=== PATIENT | female | born 1935 | race Caucasian/White ===

== ENCOUNTER 2018-05-07 21:21 | Emergency (ER) | payer MEDICARE, OTHER ==
[~2018-05-07] VITALS: Ht 157.5 cm; Wt 63.5 kg
--- NOTE | 2018-05-07 21:45 | ED Back Pain ---
General Chief Complaint: Back Problems Stated Complaint: BEATA OSWALD LT BACK PAIN History of Present Illness Date Seen by Provider: May 07, 2018 Time Seen by Provider: 21:28 Location: Other (left buttock) Timing/Duration: Other (present for at least months, worse over the last month) Severity: Moderate Radiation: Other (at times radiates into the leg but currently localized to the left low back/buttock) Method of Injury: Other (no recent injury) Modifying Factors: Improves With Movement, Improves With Other (has tried no medications) Associated Symptoms: No fever, No tingling in legs/feet, No sensory/motor loss , No loss of bladder control, No loss of bowel control Allergies and Home Medications Allergies Coded Allergies: No Known Drug Allergies (Unverified , 05/07/18) Home Medications Tramadol HCl 50 Mg Tablet, 50 MG PO Q6H PRN for PAIN Prescribed by: KANNAN BARBER on 05/07/18 3800 Patient Home Medication List Home Medication List Reviewed: Yes Review of Systems Constitutional: no symptoms reported EENTM: no symptoms reported Respiratory: no symptoms reported Cardiovascular: no symptoms reported Gastrointestinal: no symptoms reported Genitourinary: no symptoms reported Musculoskeletal: see HPI Psychiatric/Neurological: See HPI Past Azdiksl-Nwmlgk-Vnyyzw Hx Patient Social History Recent Foreign Travel: No Contact w/Someone Who Travel: No Physical Exam Vital Signs Vital Signs - First Documented 05/07/18 21:30 Temp 98.9 Pulse 89 Resp 18 B/P (MAP) 181/66 (104) Pulse Ox 98 O2 Delivery Room Air Capillary Refill : Height, Weight, BMI Height: '" Weight: lbs. oz. kg; BMI Method: General Appearance: Other (appears in discomfort with movement, comfortable at rest) HEENT: Normal ENT Inspection Neck: Supple Cardiovascular: Regular Rate, Rhythm, No Edema, Normal Peripheral Pulses Respiratory: Lungs Clear Gastrointestinal: No Pulsatile Mass, Non Tender, Soft Back: Normal Inspection, No Vertebral Tenderness, Other (there is tenderness in the left low back and buttock, no other palpatory abnormalities) Extremity: Other (normal range of motion in the ipsilateral hip) Neurologic/Psychiatric: Alert, No Motor/Sensory Deficits Skin: Warm/Dry Progress/Results/Core Measures Results/Orders My Orders Orders - KANNAN BARBER DO Tramadol Tablet (Ultram Tablet) (05/07/18 21:35) Lumbar Spine 2 Or 3 View (2/28/19 21:35) Pelvis (Ap) (05/07/18 21:35) Acetaminophen Tablet (Tylenol Tablet) (05/07/18 22:40) Vital Signs/I&O 05/07/18 21:30 Temp 98.9 Pulse 89 Resp 18 B/P (MAP) 181/66 (104) Pulse Ox 98 O2 Delivery Room Air Progress Progress Note #1: Progress Note Patient has chronic pain worse over the last month, worse with movement and not associated with any neurologic deficits. She has not tried any specific interventions for her pain. History is potentially suggestive of sciatica syndrome. She had fractured her hip 3 years ago but does not have tenderness in the legs and does have a normal range of motion. There is no abdominal pain, no pulse deficit, and does have reproducible pain in the musculature of the left low back and buttock as described above. For these reasons it seems unlikely that patient's pain is secondary to AAA or urinary tract infection or ureterolithiasis. We will obtain an x-ray of the low back and pelvis given age. 50 mg of tramadol may be a reasonable analgesic choice. We will give a dose in the emergency department and will reassess. Progress Note #2: Progress Note Patient and family instructed to follow up for formal radiology interpretations of x-rays. There were no gross acute abnormalities on my interpretation on imaging, patient feels better like to go home. Prescription for tramadol provided. [facility] website checked, no record was found. Risks, benefits, alternatives of opioid prescribing were reviewed with the patient. Diagnostic Imaging Diagonstic Imaging: Xray Comments EP interpretation L-spine x-ray: Vertebral body height appear to be grossly maintained, alignment is maintained, note made of vascular calcification EP interpretation a pelvic x-ray: Orthopedic hardware appears to be grossly aligned in the left femoral head and neck, Shenton's line appears to be normal and symmetrical, no obvious fractures Reviewed: Reviewed by Me Departure Impression Primary Impression: Back pain Disposition: 01 HOME, SELF-CARE Condition: Stable Departure-Patient Inst. Referrals: NO,LOCAL PHYSICIAN (PCP) Primary Care Physician Patient Instructions: Low Back Pain (DC) Scripts Tramadol HCl (Tramadol HCl) 50 Mg Tablet 50 MG PO Q6H PRN for PAIN, #20 TAB 0 Refills Prov: KANNAN BARBER DO 05/07/18 KANNAN BARBER DO May 07, 2018 21:45
[2018-05-07] MEDS ORDERED: TRAM50TA2 PO (22:31)
[2018-05-07] MEDS ORDERED: ACETAMINOPHEN 500 MG TAB (TYLENOL) PO STA (22:40)
[2018-05-07 22:54] VITALS: BP 155/66
--- NOTE | 2018-05-08 07:38 | Diagnostic Imaging Report ---
INDICATION: Back pain radiating into left leg. FINDINGS: 3 views. Lumbosacral spine shows good alignment. Body height is well maintained throughout without fractures. Disc spaces are well-preserved. Facets show good alignment without pars defect. There is moderate sclerosis at L4-L5 and L5-S1. The aorta is densely calcified without evidence of aneurysm. SI joints are symmetrical with minimal sclerosis. IMPRESSION: 1. No acute abnormalities. 2. Mild degenerative changes of the facets and the SI joints. 3. Dense calcification of the aorta without evidence of aneurysm. Dictated by: Dictated on workstation # [id number]
--- NOTE | 2018-05-08 07:42 | Diagnostic Imaging Report ---
INDICATION: Pelvic pain. Previous left hip surgery. FINDINGS: AP pelvis. SI joints are symmetrical. Pubic symphysis in good alignment. Femoral heads are in normal articulation bilaterally. There are no bony fractures. Gamma nail is present in the left hip in good position. IMPRESSION: No acute abnormalities noted in the pelvis. Dictated by: Dictated on workstation # [id number]
== END 2018-05-07 22:50 | disposition home or self-care (01) ==
LOC: ER FS 21:24
DX: M54.5 Low back pain (principal)
CPT/HCPCS: 72100; 72170

== ENCOUNTER → 2018-06-30 | Outpatient (CLI) | payer MEDICARE ==
[~2018-06-30] MED LIST: TRAM50TA2 PO
--- NOTE | 2018-06-30 12:35 | Diagnostic Imaging Report ---
INDICATION: Previous fracture and surgery 2016. No new discrete injury however a left hip pain. Postsurgical changes left hip are intact. No acute or unhealed fracture. Femoral head morphology and sphericity normal. Superior and inferior debbie and symphysis as well as left SI joint nonacute. IMPRESSION: Chronic postsurgical changes to left femur. No acute fracture or adverse change from priors. Dictated by: Dictated on workstation # [id number]
--- NOTE | 2018-06-30 12:36 | Diagnostic Imaging Report ---
INDICATION: Pain sometimes radiating down the left leg. No known injury. FINDINGS: Lumbar statures are normal. The alignment is anatomic. Disc spaces appeared well-maintained. Lower lumbar sclerotic facet arthrosis. There is aortoiliac atherosclerotic vascular calcifications without radiographically apparent aneurysm. IMPRESSION: Mid to lower lumbar facet arthrosis with no substantial spondylosis, fracture or malalignment. Dictated by: Dictated on workstation # [id number]
== END ==
LOC: RAD FS 11:59
PROVIDERS: ATTEND Family Medicine
DX: M47.26 Other spondylosis with radiculopathy, lumbar region (principal); M25.552 Pain in left hip; Z87.81 Personal history of (healed) traumatic fracture; Z98.890 Other specified postprocedural states
CPT/HCPCS: 72100; 73502

== ENCOUNTER → 2019-10-07 | Outpatient (CLI) | payer MEDICARE, MEDICAID ==
[~2019-10-07] MED LIST changes: -TRAM50TA2 PO; +TRM50T PO
== END ==
LOC: CARD 13:00
PROVIDERS: ATTEND Family Medicine
DX: R01.1 Cardiac murmur, unspecified (principal); I35.0 Nonrheumatic aortic (valve) stenosis
CPT/HCPCS: 93306

== ENCOUNTER → 2020-05-02 | Outpatient (CLI) | payer MEDICARE, MEDICAID ==
--- NOTE | 2020-05-02 15:42 | Diagnostic Imaging Report ---
EXAMINATION: Abdomen at 2:49 p.m. INDICATION: Lower abdominal pain. Two supine views were obtained. There are no prior studies available for comparison. There is gas in both the large and small bowel in a nonspecific fashion. There is no evidence for bowel obstruction. There is no mass or organomegaly appreciated. The osseous structures are intact. The postsurgical and post traumatic changes involving the left femur seen on the prior exam of 06/30/2018 are again evident and do not appear to have changed significantly. IMPRESSION: The bowel gas pattern is nonspecific. There is no acute abnormality identified. Dictated by: Dictated on workstation # [id number]
== END ==
LOC: RAD FS 14:46
PROVIDERS: ATTEND Family Medicine
DX: R11.0 Nausea (principal); R10.84 Generalized abdominal pain
CPT/HCPCS: 74018

== ENCOUNTER → 2020-05-15 | Outpatient (CLI) | payer MEDICARE, MEDICAID ==
[~2020-05-15] MED LIST changes: +CATHETER FLUSH 10 ML SYR IV PRN; +HOLD METFORMIN - RECEIVED CONTRAST 20 ML VIAL IV SCH; +IOHEXOL 350 MG/ML 100 ML (OMNIPAQUE 350) VIAL IV ONE; +NS 100 ML (IVPB) BAG IV ONE
[2020-05-15 13:05] LABS: POTASSIUM 4.2 MMOL/L (3.6-5.0)
[2020-05-15 13:06] LABS: ALBUMIN 4.2 GM/DL (3.2-4.5); BILIRUBIN,TOTAL 0.4 MG/DL (0.1-1.0); CALCIUM 9.5 MG/DL (8.5-10.1); CREATININE SERUM 1.28 MG/DL (0.60-1.30); TOTAL PROTEIN 7.3 GM/DL (6.4-8.2)
--- NOTE | 2020-05-15 14:40 | Diagnostic Imaging Report ---
PROCEDURE: CT abdomen and pelvis with contrast. TECHNIQUE: Multiple contiguous axial images were obtained through the abdomen and pelvis after administration of intravenous contrast. Auto Exposure Controls were utilized during the CT exam to meet ALARA standards for radiation dose reduction. All CT scans use one or more of the following dose optimizing techniques: automated exposure control, MA and/or KvP adjustment based on patient size and exam type or iterative reconstruction. INDICATION: Generalized abdominal pain with nausea and vomiting. No prior studies are available for comparison. Imaging through the lung bases demonstrates a 3 mm pulmonary micronodule in the right lower lobe. Otherwise lung bases are clear. The right lobe of the liver contains an 8 mm low density, too small to characterize though perhaps a small cyst. Otherwise unremarkable. There is no biliary duct dilatation. There is some generalized low density throughout the liver suggestive of hepatic steatosis. Pancreas and spleen are unremarkable. No adrenal mass is detected. Right kidney contains a 2.7 cm low-density lesion in the upper poles consistent with a cyst. Left kidney is unremarkable. There is no hydronephrosis. Aorta is heavily calcified but nonaneurysmal. The small and large bowel loops are normal caliber. There is no obstruction. There is diverticulosis of the sigmoid but no evidence of acute diverticulitis. Bladder is decompressed. Uterus appears to be surgically absent. There is a cyst in the right adnexa measuring 2.5 cm and consistent with an ovarian cyst. No free fluid or fluid collection is identified. Bony structures demonstrate postoperative changes to the left hip. IMPRESSION: 1. Hepatic steatosis. 2. Hepatic and renal cysts. 3. Right adnexal cyst, likely ovarian. 4. Uncomplicated diverticulosis. 5. No acute feature in the abdomen or pelvis is identified. Dictated by: Dictated on workstation # [id number]
== END ==
LOC: RAD FS 12:28
PROVIDERS: ATTEND Family Medicine
DX: K76.0 Fatty (change of) liver, not elsewhere classified (principal); N28.1 Cyst of kidney, acquired; N83.291 Other ovarian cyst, right side; K57.30 Diverticulosis of large intestine without perforation or abscess without bleeding; E11.69 Type 2 diabetes mellitus with other specified complication; I10 Essential (primary) hypertension; R93.89 Abnormal findings on diagnostic imaging of other specified body structures
CPT/HCPCS: 36415; 74177; 80053

== ENCOUNTER → 2020-06-23 | Outpatient (CLI) | payer MEDICARE, MEDICAID ==
[~2020-06-23] MED LIST changes: -HOLD METFORMIN - RECEIVED CONTRAST 20 ML VIAL IV SCH; -IOHEXOL 350 MG/ML 100 ML (OMNIPAQUE 350) VIAL IV ONE; -NS 100 ML (IVPB) BAG IV ONE
--- NOTE | 2020-06-23 12:18 | Diagnostic Imaging Report ---
INDICATION: Abdominal pain. Patient was administered 5.2 mCi technetium 99 MM Choletec intravenously and imaging over the abdomen was performed. After 60 minutes patient ingested one can of Ensure and a gallbladder ejection fraction was calculated. There is homogeneous uptake of activity by the liver with prompt excretion of activity into the gallbladder and common duct. There is normal passage of activity into the small bowel. There is a large amount of gastric uptake consistent with bile gastric reflux. Gallbladder ejection fraction is 89%. IMPRESSION: 1. Patent cystic duct and common bile duct. 2. Gastric bile reflux. 3. Gallbladder ejection fraction 89%. Dictated by: Dictated on workstation # [id number]
== END ==
LOC: CARD 09:39
PROVIDERS: ATTEND Internal Medicine Gastroenterology
DX: K21.9 Gastro-esophageal reflux disease without esophagitis (principal)
CPT/HCPCS: 78227; A9537

== ENCOUNTER 2021-02-08 13:06 | Inpatient (IN) | payer MEDICARE, MEDICAID ==
[~2021-02-08] VITALS: Ht 152.4 cm; Wt 55.2 kg
[~2021-02-08 13:06] MED LIST changes: -CATHETER FLUSH 10 ML SYR IV PRN
[2021-02-08] MEDS ORDERED: MECLIZINE 25 MG (ANTIVERT) TAB PO ONE (13:30)
[2021-02-08 13:36] VITALS: BP_SYST 139; BP_SYST 158; BP_SYST 176; BP_DIAS 50; BP_DIAS 58; BP_DIAS 63
--- NOTE | 2021-02-08 13:44 | ED General ---
General Chief Complaint: Cardiac/General Problems Stated Complaint: ABN EKG History of Present Illness Date Seen by Provider: Feb 08, 2021 Time Seen by Provider: 13:39 Initial Comments Patient presenting to the emergency department for evaluation of a vertigo sensation that she says started earlier this morning while she was laying flat she felt intense spinning sensation. She says that it feels better when she sits up and comes back when she lays flat. The symptoms have been intermittent and she says she is having no vertigo at this time despite laying flat in the bed. Patient went to go see her primary care doctor and they did an EKG that they said was concerning and sent her here for further evaluation. Patient denies chest pain shortness of breath diaphoresis nausea vomiting vision changes unilateral weakness numbness or tingling. She is in no acute distress with normal vital signs. Allergies and Home Medications Allergies Coded Allergies: No Known Drug Allergies (Unverified , 05/07/18) Patient Home Medication List Home Medication List Reviewed: Yes Tramadol HCl (Tramadol HCl) 50 Mg Tablet, 50 MG PO Q6H PRN for PAIN Prescribed by: KANNAN BARBER on 05/07/182230 Review of Systems Review of Systems Constitutional: dizziness EENTM: no symptoms reported Respiratory: no symptoms reported Cardiovascular: no symptoms reported Gastrointestinal: no symptoms reported Genitourinary: no symptoms reported Musculoskeletal: no symptoms reported Skin: no symptoms reported Psychiatric/Neurological: No Symptoms Reported All Other Systems Reviewed Negative Unless Noted: Yes Past Mqeurxw-Hbyewp-Loqucw Hx Immunizations Up To Date Tetanus Booster (TDap): Unknown Seasonal Allergies Seasonal Allergies: No Past Medical History Cardiac: Yes Hypertension Neurological: No Integumentary: No Physical Exam Vital Signs Vital Signs - First Documented 02/08/21 13:15 Temp 35.8 Pulse 63 Resp 16 B/P (MAP) 175/64 (101) Pulse Ox 97 O2 Delivery Room Air Capillary Refill : Height, Weight, BMI Height: 5'2.00" Weight: 140lbs. oz. 63.285729pn; BMI Method:Stated General Appearance: No Apparent Distress, WD/WN HEENT: PERRL/EOMI Neck: Supple Respiratory: Lungs Clear, No Respiratory Distress Cardiovascular: Regular Rate, Rhythm, Normal Peripheral Pulses Gastrointestinal: Non Tender, Soft Back: Normal Inspection Extremity: Normal Capillary Refill, No Pedal Edema Neurologic/Psychiatric: Alert, Oriented x3, No Motor/Sensory Deficits, Other (Normal dbwyve-sg-fkoj and gtqe-ot-jpfc) Skin: Warm/Dry Progress/Results/Core Measures Suspected Sepsis SIRS Temperature: Pulse: 72 Respiratory Rate: Laboratory Tests 02/08/21 13:31: White Blood Count 6.5 Blood Pressure 139 /50 Mean: 79 Laboratory Tests 02/08/21 13:31: Creatinine 1.48H, Platelet Count 175, Total Bilirubin 0.3 02/08/21 14:22: Results/Orders Lab Results Laboratory Tests Test 02/08/21 13:31 02/08/21 14:22 Range/Units White Blood Count 6.5 4.3-11.0 10^3/uL Red Blood Count 4.46 3.80-5.11 10^6/uL Hemoglobin 12.9 11.5-16.0 g/dL Hematocrit 40 35-52 % Mean Corpuscular Volume 90 80-99 fL Mean Corpuscular Hemoglobin 29 25-34 pg Mean Corpuscular Hemoglobin Concent 32 32-36 g/dL Red Cell Distribution Width 14.3 10.0-14.5 % Platelet Count 175 130-400 10^3/uL Mean Platelet Volume 10.7 9.0-12.2 fL Immature Granulocyte % (Auto) 0 % Neutrophils (%) (Auto) 51 42-75 % Lymphocytes (%) (Auto) 39 12-44 % Monocytes (%) (Auto) 7 0-12 % Eosinophils (%) (Auto) 3 0-10 % Basophils (%) (Auto) 1 0-10 % Neutrophils # (Auto) 3.4 1.8-7.8 X 10^3 Lymphocytes # (Auto) 2.5 1.0-4.0 X 10^3 Monocytes # (Auto) 0.4 0.0-1.0 X 10^3 Eosinophils # (Auto) 0.2 0.0-0.3 10^3/uL Basophils # (Auto) 0.0 0.0-0.1 10^3/uL Immature Granulocyte # (Auto) 0.0 0.0-0.1 10^3/uL Sodium Level 138 135-145 MMOL/L Potassium Level 4.4 3.6-5.0 MMOL/L Chloride Level 100 98-107 MMOL/L Carbon Dioxide Level 26 21-32 MMOL/L Anion Gap 12 5-14 MMOL/L Blood Urea Nitrogen 36 H 7-18 MG/DL Creatinine 1.48 H 0.60-1.30 MG/DL Estimat Glomerular Filtration Rate 34 BUN/Creatinine Ratio 24 Glucose Level 130 H 70-105 MG/DL Calcium Level 10.1 8.5-10.1 MG/DL Corrected Calcium 9.9 8.5-10.1 MG/DL Total Bilirubin 0.3 0.1-1.0 MG/DL Aspartate Amino Transf (AST/SGOT) 16 5-34 U/L Alanine Aminotransferase (ALT/SGPT) 14 0-55 U/L Alkaline Phosphatase 45 40-136 U/L Troponin I < 0.30 <0.30 NG/ML Pro-B-Type Natriuretic Peptide 163.2 H <75.0 PG/ML Total Protein 7.6 6.4-8.2 GM/DL Albumin 4.2 3.2-4.5 GM/DL My Orders Orders - SYD DAVIS DO Cbc With Automated Diff (02/08/21 13:22) Comprehensive Metabolic Panel (02/08/21 13:22) Probnp Fs (02/08/21 13:22) Troponin I Fs (02/08/21 13:22) Meclizine Tablet (Antivert Tablet) (02/08/21 13:30) Ct Head Wo (02/08/21 13:31) Partial Thromboplastin Time (02/08/21 14:09) Protime With Inr (02/08/21 14:09) Iv/Invasive Line Insertion .IV start (02/08/21 14:09) Aspirin Chewable Tablet (Baby Aspirin Ch (02/08/21 14:30) Ed Admission (Communication) (02/08/21 14:32) Medications Given in ED Current Medications Medications Dose Ordered Sig/Caren Route Start Time Stop Time Status Last Admin Dose Admin Meclizine HCl 12.5 mg ONCE ONCE PO 02/08/21 13:30 02/08/21 13:31 DC 02/08/21 13:44 12.5 MG Vital Signs/I&O 02/08/21 02/08/21 13:15 13:36 Temp 35.8 Pulse 63 63 63 72 Resp 16 B/P (MAP) 175/64 (101) 158/63 (94) 176/58 (97) 139/50 (79) Pulse Ox 97 O2 Delivery Room Air Capillary Refill : Blood Pressure Mean: 79 Progress Note : Progress Note I reviewed the EKGs from the primary care doctor's office as well as obtain a new EKG in the emergency department and it appears that she likely has a right bundle branch block. Unfortunately I do not see any old EKGs in the system just an echocardiogram from last year that appears to be normal except for grade 1 diastolic dysfunction. Patient has symptoms most consistent with a peripheral vertigo most likely unrelated to the EKG findings but we will check labs head CT and observe. Patient has findings of subacute versus acute CVA on her CT scan. Patient in itially said that she does not take any blood thinners however later on she told me she takes a baby aspirin but she missed all her medications this morning. Patient did have difficulty ambulating to the room and required assistance which she says is new for her but she however denied having any difficulty walking. Given her altered gait with CT findings of possible CVA I spoke to Dr. Sterling and she agreed to admit patient for further observation and treatment. Departure Impression Primary Impression: Vertigo Additional Impressions: Dizziness Altered gait CVA (cerebral vascular accident) Disposition: ADMITTED INPATIENT Condition: Stable Transfer Transfer Reason: Exceeds level of care Transfer Facility: [facility] Method of Transfer: EMS Departure-Patient Inst. Referrals: SELF,ROSA EISENBERG (PCP/Family) Primary Care Physician SYD DAVIS DO Feb 08, 2021 13:44
[2021-02-08 13:55] LABS: HEMOGLOBIN 12.9 g/dL (11.5-16.0); MEAN CORPUSCULAR HEMOGLOBIN 29 pg (25-34); WHITE BLOOD COUNT 6.5 10^3/uL (4.3-11.0)
[2021-02-08 13:56] LABS: BASOPHILS % (AUTO) 1 % (0-10); EOSINOPHILS % (AUTO) 3 % (0-10); HEMATOCRIT 40 % (35-52); LYMPHOCYTES # (AUTO) 2.5 X 10^3 (1.0-4.0); LYMPHOCYTES % (AUTO) 39 % (12-44); MEAN CORPUSCULAR HGB CONC 32 g/dL (32-36); MEAN CORPUSCULAR VOLUME 90 fL (80-99); MEAN PLATELET VOLUME 10.7 fL (9.0-12.2); MONOCYTES % (AUTO) 7 % (0-12); NEUTROPHILS # (AUTO) 3.4 X 10^3 (1.8-7.8); NEUTROPHILS % (AUTO) 51 % (42-75); PLATELET COUNT 175 10^3/uL (130-400)
[2021-02-08 13:57] LABS: EOSINOPHILS # (AUTO) 0.2 10^3/uL (0.0-0.3); MONOCYTES # (AUTO) 0.4 X 10^3 (0.0-1.0)
--- NOTE | 2021-02-08 14:10 | Diagnostic Imaging Report ---
EXAMINATION: CT head without contrast. TECHNIQUE: Multiple contiguous axial images were obtained through the brain without the use of intravenous contrast. All CT scans use one or more of the following dose optimizing techniques: Automated exposure control, MA and/or KvP adjustment based on patient size and exam type or iterative reconstruction. HISTORY: Dizziness. COMPARISON: None available. FINDINGS: The ventricles and sulci are normal. There is a focus of hypoattenuation within the right parietal lobe subcortical white matter. No acute intracranial hemorrhage or abnormal extra-axial fluid collections are present. Calcification of the intracranial ICAs. No hyperdense vessel. The calvarium is intact. The mastoid air cells are clear. The visualized paranasal sinuses are clear. The orbits are normal. IMPRESSION: 1. Focus of hypoattenuation within the right parietal lobe which could be seen with acute or subacute lacunar infarct in the appropriate clinical setting. Differential consideration could include asymmetric chronic microangiopathy. MRI would be more sensitive for evaluation of acute infarct. 2. No other acute intracranial abnormality. Findings communicated to Dr. Rodriguez by Dr. Jorge Luis Duffy at 2:05 p.m. on 02/08/2021. Dictated by: Dictated on workstation # [id number]
[2021-02-08] MEDS ORDERED: ASPIRIN 81 MG CHEW (CHILDREN'S ASA) PO ONE (14:30)
[2021-02-08 14:39] LABS: ALANINE AMINOTRANSFERASE 14 U/L (0-55); ALKALINE PHOSPHATASE 45 U/L (40-136); BILIRUBIN,TOTAL 0.3 MG/DL (0.1-1.0); BUN/CREATININE RATIO 24; CALCIUM 10.1 MG/DL (8.5-10.1); CARBON DIOXIDE 26 MMOL/L (21-32); CHLORIDE 100 MMOL/L (98-107); CREATININE SERUM 1.48 MG/DL (0.60-1.30); GFR ESTIMATED 34; GLUCOSE 130 MG/DL (70-105); POTASSIUM 4.4 MMOL/L (3.6-5.0); SODIUM 138 MMOL/L (135-145)
[2021-02-08 14:40] LABS: ALBUMIN 4.2 GM/DL (3.2-4.5); TOTAL PROTEIN 7.6 GM/DL (6.4-8.2)
[2021-02-08 14:49] LABS: INR 0.9 (0.8-1.4); PROTHROMBIN TIME PATIENT 12.5 SEC (12.2-14.7)
[2021-02-08 16:45] VITALS: BP 155/52
[2021-02-08] MEDS ORDERED: RT-ALBUTEROL SULF 2.5 MG/3 ML PRE-MIX VIAL INH PRN (17:00)
--- NOTE | 2021-02-08 18:36 | History & Physical-Hospitalist ---
History of Present Illness HPI/Chief Complaint Chief complaint: CVA History of present illness: This is an 85-year-old white female who presented to [facility] with severe vertigo and generalized weakness. She has had falls. Work-up revealed a subacute stroke on CT scan so she will be in need of stroke risk factor stratification with MRI and cardiology follow-up. Currently she is less dizzy than she was. Source: patient Exam Limitations: no limitations Date Seen 02/08/21 Time Seen by a Provider: 19:00 Attending Physician Sierra Sterling DO PCP Self,Praveen EISENBERG Referring Physician Date of Admission Feb 08, 2021 at 16:05 Home Medications & Allergies Home Medications Reviewed patient Home Medication Reconciliation performed by pharmacy medication reconciliations home appliance technician and/or nursing. Patients Allergies have been reviewed. Allergies Allergies Coded Allergies No Known Drug Allergies (Unverified05/07/18) Past Aevzanf-Hyjxpv-Zyprik Hx Patient Social History Marrital Status: single Employed/Student: retired Tobacco Use?: No Smoking Status: Former Smoker Smokeless Tobacco Frequency: Never a User Use of E-Cig and/or Vaping dev: No Substance use?: No Alcohol Use?: No Pt feels they are or have been: No Immunizations Up To Date First/Initial COVID19 Vaccinat: Not Currently Vaccinated Tetanus Booster (TDap): More Than 5 Years Hepatitis A: No Hepatitis B: No Seasonal Allergies Seasonal Allergies: No Current Status status: No Advance Directives: No Communicates: Verbally Primary Language: Andorran Preferred Spoken Language: Andorran Is interpretation needed?: No Sensory deficits: Vision impairment Implanted or Applied Medical D: Orthopedic hardware Past Medical History Hypertension Review of Systems Constitutional: see HPI, dizziness, malaise, weakness EENTM: no symptoms reported Respiratory: no symptoms reported Cardiovascular: no symptoms reported Gastrointestinal: no symptoms reported Musculoskeletal: no symptoms reported Psychiatric/Neurological: Weakness All Other Systems Reviewed Negative Unless Noted: Yes Physical Exam Physical Exam Vital Signs Vital Signs - First Documented 02/08/21 02/08/21 13:15 16:45 Temp 35.8 Pulse 63 Resp 16 B/P (MAP) 175/64 (101) Pulse Ox 97 O2 Delivery Room Air FiO2 21 Capillary Refill : Less Than 3 Seconds Height, Weight, BMI Height: 5'2.00" Weight: 140lbs. oz. 63.568683ji; 23.76 BMI Method:Stated General Appearance: No Apparent Distress, Chronically ill Eyes: Right Eye Normal Inspection, Right Eye PERRL HEENT: PERRL/EOMI, Normal ENT Inspection, Pharynx Normal, Moist Mucous Membranes Neck: Full Range of Motion, Normal Inspection, Non Tender Respiratory: Chest Non Tender, Lungs Clear, Normal Breath Sounds, No Accessory Muscle Use, No Respiratory Distress Cardiovascular: Regular Rate, Rhythm, No Edema, No Gallop, No JVD, No Murmur, Normal Peripheral Pulses Gastrointestinal: Normal Bowel Sounds, No Organomegaly, No Pulsatile Mass, Non Tender, Soft Back: Normal Inspection, No CVA Tenderness, No Vertebral Tenderness Extremity: Normal Capillary Refill, Normal Inspection, Normal Range of Motion, Non Tender, No Calf Tenderness, No Pedal Edema Neurologic/Psychiatric: Alert, Oriented x3, Normal Mood/Affect, Abnormal Gait, Motor Weakness (Generalized) Skin: Normal Color, Warm/Dry Lymphatic: No Adenopathy Results Results/Procedures Labs Laboratory Tests 02/08/21 13:31 Patient resulted labs reviewed. Assessment/Plan Admission Diagnosis Assessment: CVA Hypertension Vertigo Plan: Echo Cardiology consult Telemetry Carotid ultrasound MRI Admission Status: Inpatient Order (span 2 midnights) Reason for Inpatient Admission: CVA Diagnosis/Problems Diagnosis/Problems (1) CVA (cerebral vascular accident) (2) Vertigo Status: Acute (3) Dizziness Status: Acute (4) Altered gait Status: Acute SIERRA STERLING DO Feb 08, 2021 18:36
[2021-02-08] MEDS ORDERED: ALPRAZolam 0.25 MG (XANAX) TAB PO PRN (18:45)
[2021-02-08] MEDS ORDERED: DOCUSATE SODIUM 100 MG (COLACE) CAP PO PRN (18:45)
[2021-02-08] MEDS ORDERED: LOPERAMIDE 2 MG (IMODIUM) TABLET PO PRN (18:45)
[2021-02-08] MEDS ORDERED: ONDANSETRON 4 MG (ZOFRAN) ORAL DISSOLVE TAB PO PRN (18:45)
[2021-02-08] MEDS ORDERED: ONDANSETRON 4 MG/2 ML (SDV) Z0FRAN IVP PRN (18:45)
[2021-02-08] MEDS ORDERED: HYDROcodone/APAP 5 MG/325 MG (LORTAB) TAB PO PRN (18:45)
[2021-02-08] MEDS ORDERED: diphenhydrAMINE 25 MG TAB (BENADRYL) PO PRN (18:45)
[2021-02-08] MEDS ORDERED: ACETAMINOPHEN 325 MG TABLET PO PRN (18:45)
[2021-02-08] MEDS ORDERED: MELATONIN 3 MG TABLET PO PRN (18:45)
[2021-02-08] MEDS ORDERED: CALCIUM CARBONATE 500 MG (TUMS) TAB.CHEW PO PRN (18:45)
[2021-02-08 19:46] VITALS: BP 153/69
[2021-02-08] MEDS: SENNA W/DOCUSATE (SENOKOT S) TABLET PO SCH (20:43)
[2021-02-08] MEDS: polyethylene glycoL POWDER 17 GM (MIRALAX) PACK PO SCH (20:43)
[2021-02-08] MEDS: ENOXAPARIN 30 MG/0.3 ML (LOVENOX) SYR SC SCH (20:43)
[2021-02-09 00:30] VITALS: BP 102/60
[2021-02-09 04:00] VITALS: BP 108/56
[2021-02-09 06:23] LABS: BASOPHILS % (AUTO) 1 % (0-10); EOSINOPHILS # (AUTO) 0.2 10^3/uL (0.0-0.3); EOSINOPHILS % (AUTO) 3 % (0-10); HEMATOCRIT 38 % (35-52); HEMOGLOBIN 11.9 g/dL (11.5-16.0); LYMPHOCYTES # (AUTO) 2.8 10^3/uL (1.0-4.0); LYMPHOCYTES % (AUTO) 47 % (12-44); MEAN CORPUSCULAR HEMOGLOBIN 29 pg (25-34); MEAN CORPUSCULAR HGB CONC 32 g/dL (32-36); MEAN CORPUSCULAR VOLUME 92 fL (80-99); MEAN PLATELET VOLUME 10.8 fL (9.0-12.2); MONOCYTES # (AUTO) 0.5 10^3/uL (0.0-1.0); MONOCYTES % (AUTO) 8 % (0-12); NEUTROPHILS # (AUTO) 2.5 10^3/uL (1.8-7.8); NEUTROPHILS % (AUTO) 41 % (42-75); PLATELET COUNT 168 10^3/uL (130-400)
[2021-02-09 06:37] LABS: ALBUMIN 3.5 GM/DL (3.2-4.5)
[2021-02-09 06:38] LABS: CALCIUM 9.2 MG/DL (8.5-10.1)
[2021-02-09 06:40] LABS: TOTAL PROTEIN 6.3 GM/DL (6.4-8.2)
[2021-02-09 06:42] LABS: BILIRUBIN,TOTAL 0.2 MG/DL (0.1-1.0)
[2021-02-09 06:43] LABS: CREATININE SERUM 1.43 MG/DL (0.60-1.30)
[2021-02-09 08:00] VITALS: BP 110/58
[2021-02-09] MEDS: ASPIRIN E.C. 81 MG (ECOTRIN) TAB PO SCH (08:38)
[2021-02-09] MEDS: polyethylene glycoL POWDER 17 GM (MIRALAX) PACK PO SCH ×2 (08:38→20:09)
[2021-02-09] MEDS: SENNA W/DOCUSATE (SENOKOT S) TABLET PO SCH ×2 (08:38→20:09)
--- NOTE | 2021-02-09 08:43 | Diagnostic Imaging Report ---
PROCEDURE: MR imaging of the brain without contrast. TECHNIQUE: Multiplanar, multisequence MR imaging of the brain was performed without contrast. INDICATION: Dizziness. Concern for acute ischemia. COMPARISON: CT head on 02/08/2021. FINDINGS: No acute ischemia, mass, or hemorrhage. Chronic microvascular disease is seen in the periventricular and subcortical white matter. Old lacunar infarct is seen in the right centrum semiovale and central blanco. Old infarcts are also seen in the bilateral cerebellar hemispheres. The ventricles, cortical sulci, and basilar cisterns are symmetric and unremarkable. There is flattening of the pituitary. The major intracranial flow voids are intact. Small amount of retained secretions are seen in the right maxillary sinus. The mastoid air cells demonstrate normal signal characteristics. Bilateral lens implants are noted. The scalp and calvarium have a normal appearance. IMPRESSION: 1. No acute ischemia, mass, or hemorrhage. 2. 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 3. Chronic microvascular disease in the periventricular and subcortical white matter. Dictated by: Dictated on workstation # [id number]
[2021-02-09] MEDS ORDERED: ASPI-1238 PO (09:55)
[2021-02-09] MEDS ORDERED: ACET325T38 PO (09:55)
[2021-02-09] MEDS ORDERED: DAPA10TA PO (09:55)
[2021-02-09] MEDS ORDERED: LISI1TAB46 PO (09:55)
[2021-02-09] MEDS ORDERED: ACET-2267 PO (09:55)
[2021-02-09] MEDS ORDERED: ROSU20TA32 PO (09:55)
[2021-02-09] MEDS ORDERED: LEVO5TAB12 PO (09:55)
[2021-02-09] MEDS ORDERED: GLIM4TAB5 PO (09:55)
--- NOTE | 2021-02-09 10:28 | Physical Therapy Evaluation ---
PT Evaluation-General Medical Diagnosis Admission Date Feb 08, 2021 at 16:05 Medical Diagnosis: CVA Onset Date: Feb 08, 2021 Therapy Diagnosis Therapy Diagnosis: debility Height/Weight Height (Feet): 5 Height (Inches): 2.00 Weight (Pounds): 140 Precautions Precautions/Isolations: Standard Precautions Weight Bear Status Right Lower Extremity: Right Weight Bearing/Tolerated Left Lower Extremity: Left Weight Bearing/Tolerated Referral Physician: Hallie Reason for Referral: Evaluation/Treatment Medical History Pertinent Medical History: HTN Current History ER secondary to dizziness in supine Reviewed History: Yes Social History Home: Apartment Current Living Status: Alone Entry Into Home: Level Entry Prior Prior Level of Function SCALE: Activities may be completed with or without assistive devices. 4-Gkvsokpmqs-gavbpdv completes the activity by him/herself with no assistance from a helper. 5-Set-up or Clean-up Assistance-helper sets up or cleans up; patient completes activity. [place] assists only prior to or following the activity. 4-Supervision or Touching Assistance-helper provides verbal cues and/or touching/steadying and/or contact guard assistance as patient completes activity. Assistance may be provided throughout the activity or intermittently. 3-Partial/Moderate Assistance-helper does LESS THAN HALF the effort. [place] lifts, holds or supports trunk or limbs, but provides less than half the effort. 2-Substantial/Maximal Assistance-helper does MORE THAN HALF the effort. [place] lifts or holds trunk or limbs and provides more than half the effort. 6-Yogktoprh-vtqpym does ALL the effort. Patient does none of the effort to complete the activity. Or, the assistance of 2 or more helpers is required for the patient to complete the activity. If activity was not attempted, code reason: 7-Patient Refused. 9-Not Applicable-not attempted and the patient did not perform the activity before the current illness, exacerbation or injury. 10-Not Attempted due to Environmental Limitations-(lack of equipment, weather restraints, etc.). 88-Not Attempted due to Medical Conditions or Safety Concerns. Bed Mobility: 6 Transfers (B,C,W/C): 6 Gait: 6 Stairs: 6 Indoor Mobility (Ambulation): Independent Stairs: Independent Prior Devices Use: None PT Evaluation-Current Subjective Patient agrees to PT. Denies dizziness Objective Patient Orientation: Normal For Age ROM/Strength ROM Lower Extremities bilateral LE WFL Strength Lower Extremities 4/5 grossly bilateral LE Integumentary/Posture Bowel Incontinence: No Bladder Incontinence: No Posture WFL Neuromuscular (Tone, Coordination, Reflexes) grossly intact Sensory Vision: Functional Hearing: Functional Transfers Roll Left to Right (QC): 6 Sit to Lying (QC): 6 Lying to Sitting/Side of Bed(Q: 6 Sit to Stand (QC): 6 Gait Does the Patient Walk?: Yes Mode of Locomotion: Walk Anticipated Mode of Locomotion: Walk Walk 10 feet (QC): 6 Walk 50 ft with 2 Turns(QC): 6 Walk 150 ft (QC): 6 Walking 10ft/uneven surface-QC: 6 Distance: 650' Gait Assistive Device: None Comments/Gait Description safe and functional with no deviation Stairs #of Steps: 12 1 Step (curb) (QC): 6 4 Steps (QC): 6 12 Steps (QC): 6 Balance Sitting Static: Normal Sitting Dynamic: Normal Standing Static: Normal Standing Dynamic: Normal Picking up an Object (QC): 6 Assessment/Needs 85 y.o. female, is currently at [facility] with all gross motor skills safely and does not require skilled PT intervention. Rehab Potential: Fair PT Plan Treatment/Plan Treatment Plan: Discontinue PT, goals met Treatment Duration: Feb 09, 2021 Frequency: 1 time per week Estimated Hrs Per Day: .25 hour per day Patient and/or Family Agrees t: Yes Time/GCodes Time In: 922 Time Out: 932 Total Billed Treatment Time: 10 Total Billed Treatment 1 visit EVMod 10 min DORIS LAYTON PT Feb 09, 2021 10:28
[2021-02-09 11:55] VITALS: BP 178/62
--- NOTE | 2021-02-09 12:04 | Speech Therapy Progress Note ---
Therapy Progress Note 1139: Speech pathology received "Speech Therapy" consult orders and reviewed the patient's chart on this date. Per MRI (02/09/21): IMPRESSION: 1. No acute ischemia, mass, or hemorrhage. 2. 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 3. Chronic microvascular disease in the periventricular and subcortical white matter. Prior to contact with the patient, the clinician visited with the physical therapist regarding the patient's skills and abilities. Per PT, the patient participates in conversation appropriately and is able to follow directions and sequence accurately. The speech pathologist completed a conversation with the patient and her two daughters (following permission from the patient). The patient (and daughters) denied difficulty with speech, language, voice or cognition. The patient stated she does occasionally ("once in a while") feel a globus sensation with dry consistencies, specifically meat. The patient localized the globus sensation to the mid-esophageal region. The patient is able to clear the sensation with a subsequent thin liquid bolus. The patient denied s/s of suspected aspiration or difficulty consuming medication. The clinician provided swallowing strategies to aid in esophageal clearance including small bites and sips, alternating bites and sips on a 1:1 ratio, including additional sauces and gravies, and remaining upright following PO for approximately twenty minutes. The patient and present family members verbalized comprehension of the discussion and denied additional questions. If the globus sensation worsens or s/s of suspected aspiration are experienced, the patient was encouraged to contact her RN for a formal speech pathology bedside swallowing evaluation. At this time, the patient will be discharged from skilled speech pathology services. A formal speech pathology evaluation will not be completed. SANDHYA DE SANTIAGO Feb 09, 2021 12:04
--- NOTE | 2021-02-09 12:19 | Occupational Therapy Eval ---
OT Evaluation-General/PLF Medical Diagnosis Admission Date Feb 08, 2021 at 16:05 Medical Diagnosis: CVA Onset Date: Feb 08, 2021 Therapy Diagnosis Therapy Diagnosis: n/a Height/Weight Height (Feet): 5 Height (Inches): 2.00 Weight (Pounds): 140 Precautions Precautions/Isolations: Standard Precautions Referral Physician: Hallie Graves Reason: Evaluation/Treatment Medical History Pertinent Medical History: HTN Current History presents with severe vertigo and generalized weakness. Reports several falls. Brain MRI reveals No acute ischemia, mass, or hemorrhage. Pt lives alone in ground floor apartment. She reports indep with all adls and iadls except grocery shopping and driving secondary to macular degeneration. Daughter provides all transportation. No AD used OIL RIGGER. Social History Home: Apartment Current Living Status: Alone Entry Into Home: Level Entry ADL-Prior Level of Function SCALE: Activities may be completed with or without assistive devices. 5-Okxwfuzyja-snvmqre completes the activity by him/herself with no assistance from a helper. 5-Set-up or Clean-up Assistance-helper sets up or cleans up; patient completes activity. [place] assists only prior to or following the activity. 4-Supervision or Touching Assistance-helper provides verbal cues and/or touching/steadying and/or contact guard assistance as patient completes activity. Assistance may be provided throughout the activity or intermittently. 3-Partial/Moderate Assistance-helper does LESS THAN HALF the effort. [place] lifts, holds or supports trunk or limbs, but provides less than half the effort. 2-Substantial/Maximal Assistance-helper does MORE THAN HALF the effort. [place] lifts or holds trunk or limbs and provides more than half the effort. 2-Oiqksyfvi-ucxtvi does ALL the effort. Patient does none of the effort to complete the activity. Or, the assistance of 2 or more helpers is required for the patient to complete the activity. If activity was not attempted, code reason: 7-Patient Refused. 9-Not Applicable-not attempted and the patient did not perform the activity before the current illness, exacerbation or injury. 10-Not Attempted due to Environmental Limitations-(lack of equipment, weather restraints, etc.). 88-Not Attempted due to Medical Conditions or Safety Concerns. Self Care: Independent Functional Cognition: Independent DME/Equipment: Bath Chair, Grab Bars, Shower Drive Self: No OT Current Status Subjective Pt denies dizziness or pain. Agreeable to eval Appearance Returned to supine in bed, family present. Mental Status/Objective Patient Orientation: Person, Place, Situation Attachments: IV Current Glasses/Contacts: No Hearing Aids: No Dentures/Partials: No Hand Dominance: Right Upper Extremity ROM WNL Upper Extremity Strength 4/5 grossly ADL-Treatment Lower Body Dressing (QC): 6 On/Off Footwear (QC): 6 Toileting Hygiene (QC): 6 Pt supine at OT arrival. All functional transfers performed without assist. No safety concerns observed. Able to complete LB dressing without assist. Pt appears to be at PLOF regarding adls, No further OT services warranted at this time. Education OT Patient Education: Energy conservation, Purpose of tx/functional activities, Rehab process Teaching Recipient: Patient, Family Teaching Methods: Discussion Response to Teaching: Verbalize Understanding OT Special Collections Librarian Goals Residential Goals 1=Demonstrate adherence to instructed precautions during ADL tasks. 2=Patient will verbalize/demonstrate understanding of assistive devices/modifications for ADL. 3=Patient will improve strength/tolerance for activity to enable patient to perform ADL's. OT Education/Plan Problem List/Assessment Assessment: No Skilled OT Needs ID'd Discharge Recommendations Plan/Recommendations: Discontinue OT Therapy Discharge Recommendati: Home & Family Treatment Plan/Plan of Care Treatment,Training & Education: Yes Patient would benefit from OT for education, treatment and training to promote independence in ADL's, mobility, safety and/or upper extremity function for ADL's. Plan of Care: ADL Retraining Treatment Duration: Feb 09, 2021 Frequency: 1 time per week Estimated Hrs Per Day: .25 hour per day Agreement: Yes Time/GCodes Start Time: 11:46 Stop Time: 11:54 Total Time Billed (hr/min): 8 Billed Treatment Time 1 visit Trish Aquino OT Feb 09, 2021 12:19
--- NOTE | 2021-02-09 14:50 | Consultation-Cardiology ---
HPI-Cardiology Cardiology Consultation: Date of Consultation 02/09/21 Time Seen by a Provider: 10:00 Date of Admission Attending Physician Sierra Sterling DO Admitting Physician Praveen May MD Consulting Physician ABA MCKAY MD, MA, FACP, FACC, FSCAI, CCDS Physician requesting consult: Dr Sterling HPI: Chief Complaint: Dizziness and vertigo 85 yo woman who experienced marked dizziness and vertigo yesterday. Went to the ER and was admitted to Dr Sterling for eval for CVA. Denies cp or palp or syncope or shortness of breath. Does note chronic, intermittent dizziness and vertigo, albeit of much lower intensity than yesterday's events. No focal weakness. No dizziness at time of my exam. Denies leg swelling Review of Systems-Cardiology Review of Systems Constitutional: malaise; No weight loss, No weight gain Eyes: No vision change Ears/Nose/Throat: No ear discharge, No nasal drainage, No recent hearing loss Respiratory: As described under HPI Cardiovascular: As described under HPI Gastrointestinal: No diarrhea, No nausea, No vomiting Genitourinary: No dysuria, No hematuria, No urine frequency changes Musculoskeletal: back pain (chronic) Skin: No rash, No ulcerations Psychiatric/Neurological: As described under HPI; No focal weakness, No syncope Hematologic: No bleeding abnormalities All Other Systems Reviewed Negative Unless Noted: Yes XUG-[id number]-Avaczc Hx Patient Social History Marrital Status: single Employed/Student: retired Smoking Status: Former Smoker 2nd Hand Smoke Exposure: No Have you traveled recently?: No Alcohol Use?: No Pt feels they are or have been: No Immunizations Up To Date Tetanus Booster (TDap): Unknown Past Medical History PMH As described under Assessment. Family Medical History Family Medical History: She does not report fam h/o early CAD or SCD Allergies and Home Medications Allergies Coded Allergies: No Known Drug Allergies (Unverified , 05/07/18) Patient Home Medication List Home Medication List Reviewed: Yes Acetaminophen (Tylenol) 325 Mg Tablet, 325-650 MG PO Q8H PRN for PAIN-MILD (1- 4), (Reported) Entered as Reported by: TITO MOROCHO on 02/09/21 0955 Last Action: Reviewed Aspirin (Aspirin EC) 81 Mg Tablet., 81 MG PO DAILY, (Reported) Entered as Reported by: TITO MOROCHO on 02/09/21954 Last Action: Reviewed Dapagliflozin Propanediol (Farxiga) 10 Mg Tablet, 10 MG PO DAILY, (Reported) Entered as Reported by: TITO MOROCHO on 02/09/21954 Last Action: Reviewed Glimepiride (Glimepiride) 4 Mg Tablet, 4 MG PO DAILY, (Reported) Entered as Reported by: TITO MOROCHO on 02/09/21954 Last Action: Reviewed Levocetirizine Dihydrochloride (Levocetirizine Dihydrochloride) 5 Mg Tablet, 5 MG PO 1800, (Reported) Entered as Reported by: TITO MOROCHO on 02/09/21954 Last Action: Reviewed Lisinopril/Hydrochlorothiazide (Lisinopril-Hctz 20-12.5 mg Tab) 1 Each Tablet, 1 EA PO DAILY, (Reported) Entered as Reported by: TITO MOROCHO on 02/09/21954 Last Action: Reviewed Rosuvastatin Calcium (Rosuvastatin Calcium) 20 Mg Tablet, 20 MG PO HS, (Reported) Entered as Reported by: TITO MOROCHO on 02/09/21954 Last Action: Reviewed Discontinued Medications Acetaminophen (Tylenol Extra Strength) 500 Mg Tablet, MG PO, (Reported) Discontinued Reason: No Longer Taking Entered as Reported by: TITO MOROCHO on 02/09/21954 Last Action: Discontinued Tramadol HCl (Tramadol HCl) 50 Mg Tablet, 50 MG PO Q6H PRN for PAIN Discontinued Reason: No Longer Taking Prescribed by: KANNAN BARBER on 05/07/182230 Last Action: Discontinued Physical Exam-Cardiology Physical Exam Vital Signs/I&O 02/09/21 02/09/21 02/09/21 02/09/21 04:00 07:00 08:00 08:00 Temp 36.6 36.8 Pulse 66 64 68 Resp 14 16 B/P (MAP) 108/56 (73) 110/58 (75) Pulse Ox 93 96 O2 Delivery Room Air Room Air Room Air 02/09/21 02/09/21 11:55 13:00 Temp 36.8 Pulse 159 77 Resp 19 B/P (MAP) 178/62 (100) Pulse Ox 94 O2 Delivery Room Air 02/09/21 00:00 Intake Total 150 ml Balance 150 ml Capillary Refill : Less Than 3 Seconds Constitutional: AAO x 3, well-developed, well-nourished HEENT: EOMI, hearing is well preserved; No xanthelasmas are seen Neck: carotid pulses are 2 + bilaterally, with good upstrokes Respiratory: No accessory muscle use; other (good, bilat air entry) Cardiovascular: regular rate-rhythm, S1 and S2, systolic murmur (soft PARMJIT at card base) Gastrointestinal: No tender; soft; No guarding, No rebound; audible bowel sounds Extremities: No clubbing, No cyanosis, No significant edema Neurologic/Psychiatric: oriented x 3, other (moves all limbs equally) Skin: No rash on exposed areas, No ulcerations on exposed areas Data Review Labs Laboratory Tests 02/09/21 05:55: White Blood Count 6.0, Red Blood Count 4.09, Hemoglobin 11.9, Hematocrit 38, Mean Corpuscular Volume 92, Mean Corpuscular Hemoglobin 29, Mean Corpuscular Hemoglobin Concent 32, Red Cell Distribution Width 14.4, Platelet Count 168, Mean Platelet Volume 10.8, Immature Granulocyte % (Auto) 0, Neutrophils (%) (Auto) 41L, Lymphocytes (%) (Auto) 47H, Monocytes (%) (Auto) 8, Eosinophils (%) (Auto) 3, Basophils (%) (Auto) 1, Neutrophils # (Auto) 2.5, Lymphocytes # (Auto) 2.8, Monocytes # (Auto) 0.5, Eosinophils # (Auto) 0.2, Basophils # (Auto) 0.0, Immature Granulocyte # (Auto) 0.0, Sodium Level 141, Potassium Level 4.0, Chloride Level 107, Carbon Dioxide Level 24, Anion Gap 10, Blood Urea Nitrogen 32H, Creatinine 1.43H, Estimat Glomerular Filtration Rate 35, BUN/Creatinine Ratio 22, Glucose Level 85, Calcium Level 9.2, Corrected Calcium 9.6, Total Bilirubin 0.2, Aspartate Amino Transf (AST/SGOT) 16, Alanine Aminotransferase (ALT/SGPT) 13, Alkaline Phosphatase 33L, Total Protein 6.3L, Albumin 3.5, Triglycerides Level 429H, Cholesterol Level 218H, LDL Cholesterol Direct 131H, VLDL Cholesterol 86H, HDL Cholesterol 33L A/P-Cardiology Assessment/Admission Diagnosis Episode of vertigo on 02/26/21 w/o any distinct evidence of acute CVA Old CVA - MRI ON 02/09/21: No acute ischemia, mass, or hemorrhage. 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 Chronic microvascular disease in the periventricular and subcortical white matter. ? arrhythmia - her nurse reported a heart rate of 159 bpm at 11:55 am on 02/09/21, but no ECG was obtained Echo on 20/05/20: LVEF 55-60%, grade 1 diastolic dysfunction, mild LA enlargement, mild to mod MAC, mild MR, AoV sclerosis without significant stenosis, PASP 20-25 mmHg Discussion and Recomendations * ECG and tele have not shown any arrhythmia. We recommend continuation of tele because her nurse reported a heart rate of 159 bpm at 11:55 am on 02/09/21, but no ECG was obtained * We recommend carotid u/s * Management of CVA / vertigo is by Dr Sterling * Monitor labs ABA MCKAY MD [facility] CCDS Feb 09, 2021 14:50
[2021-02-09 15:26] VITALS: BP 138/65
--- NOTE | 2021-02-09 17:10 | Diagnostic Imaging Report ---
PROCEDURE: US carotid duplex, bilateral. TECHNIQUE: Multiple real-time grayscale images were obtained over the carotid arteries in various projections, bilaterally. Additional spectral analysis and color Doppler duplex images were also obtained. INDICATION: CVA COMPARISON: None FINDINGS: Right carotid: The carotid upstrokes are brisk. There is mild atherosclerosis in the common carotid artery and bulb. No significant stenosis is seen. The ICA and ECA are patent. The vertebral artery appears antegrade. Left carotid: Carotid upstrokes are brisk. There is mild atherosclerosis in the common carotid artery and bulb. The ECA and ICA are patent. The vertebral artery is antegrade. Parameters based on the consensus panel Martin-Scale and Doppler ultrasound criteria published January 2003, Radiology, Volume 229. DOPPLER (peak systolic velocity M/S Right Left CCA .73 .64 ICA Proximal .58 .65 ICA Mid .81 .81 ICA Distal .82 .79 RATIO 1.13 1.23 ECA .78 .65 VERT .50 .49 IMPRESSION: 1. Mild atherosclerosis in the bilateral carotid arteries without hemodynamically significant stenosis. Dictated by: Dictated on workstation # [id number]
[2021-02-09] MEDS: ENOXAPARIN 30 MG/0.3 ML (LOVENOX) SYR SC SCH (18:36)
[2021-02-09 19:20] VITALS: BP 116/61
[2021-02-10] VITALS: BP 119/66
[2021-02-10 04:00] VITALS: BP 107/65
[2021-02-10 06:34] LABS: BASOPHILS % (AUTO) 1 % (0-10); EOSINOPHILS # (AUTO) 0.3 10^3/uL (0.0-0.3); EOSINOPHILS % (AUTO) 4 % (0-10); HEMATOCRIT 36 % (35-52); HEMOGLOBIN 11.6 g/dL (11.5-16.0); LYMPHOCYTES # (AUTO) 3.3 10^3/uL (1.0-4.0); LYMPHOCYTES % (AUTO) 47 % (12-44); MEAN CORPUSCULAR HEMOGLOBIN 29 pg (25-34); MEAN CORPUSCULAR HGB CONC 32 g/dL (32-36); MEAN CORPUSCULAR VOLUME 92 fL (80-99); MEAN PLATELET VOLUME 11.4 fL (9.0-12.2); MONOCYTES # (AUTO) 0.6 10^3/uL (0.0-1.0); MONOCYTES % (AUTO) 9 % (0-12); NEUTROPHILS # (AUTO) 2.8 10^3/uL (1.8-7.8); NEUTROPHILS % (AUTO) 40 % (42-75); PLATELET COUNT 162 10^3/uL (130-400)
[2021-02-10 06:43] LABS: ALBUMIN 3.4 GM/DL (3.2-4.5)
[2021-02-10 06:44] LABS: POTASSIUM 4.3 MMOL/L (3.6-5.0)
[2021-02-10 06:45] LABS: CALCIUM 9.1 MG/DL (8.5-10.1)
[2021-02-10 06:46] LABS: TOTAL PROTEIN 6.1 GM/DL (6.4-8.2)
[2021-02-10 06:48] LABS: BILIRUBIN,TOTAL 0.3 MG/DL (0.1-1.0)
[2021-02-10 06:49] LABS: CREATININE SERUM 1.43 MG/DL (0.60-1.30)
[2021-02-10 07:52] VITALS: BP 114/69
[2021-02-10] MEDS: SENNA W/DOCUSATE (SENOKOT S) TABLET PO SCH (07:54)
[2021-02-10] MEDS: polyethylene glycoL POWDER 17 GM (MIRALAX) PACK PO SCH (07:54)
[2021-02-10] MEDS: ASPIRIN E.C. 81 MG (ECOTRIN) TAB PO SCH (07:54)
[2021-02-10 11:31] VITALS: BP 148/67
[2021-02-10] MEDS ORDERED: ATOR80TA76 PO (12:17)
--- NOTE | 2021-02-10 12:17 | Discharge Summary ---
Discharge Summary Hospital Course Was the Problem List Reviewed?: Yes Problems/Dx: (1) CVA (cerebral vascular accident) (2) Vertigo Status: Acute (3) Dizziness Status: Acute (4) Altered gait Status: Acute Hospital Course Date of Admission: Feb 08, 2021 at 16:05 Admission Diagnosis : Family Physician/Provider: Praveen May MD Date of Discharge: 02/10/21 Discharge Diagnosis: vertigo, old CVA, HLP Hospital Course: Hospital course: Patient had an uneventful hospital course she was admitted due to vertigo and suspicion for stroke given abnormality on CT scan that was confirmed on MRI that showed an old stroke. PT and OT and speech therapy were consulted. Patient was able to ambulate and vertigo resolved. Cardiology consulted. Carotid ultrasound showed mild disease. Echocardiogram obtained. Increase statin dose with Lipitor 80 mg indicated due to hyperlipidemia on lipid panel. Overall she felt good and was able to discharge in improved condition. Labs and Pending Lab Test: Laboratory Tests 02/10/21 05:41: White Blood Count 7.0, Red Blood Count 3.96, Hemoglobin 11.6, Hematocrit 36, Mean Corpuscular Volume 92, Mean Corpuscular Hemoglobin 29, Mean Corpuscular Hemoglobin Concent 32, Red Cell Distribution Width 14.3, Platelet Count 162, Mean Platelet Volume 11.4, Immature Granulocyte % (Auto) 0, Neutrophils (%) (Auto) 40L, Lymphocytes (%) (Auto) 47H, Monocytes (%) (Auto) 9, Eosinophils (%) (Auto) 4, Basophils (%) (Auto) 1, Neutrophils # (Auto) 2.8, Lymphocytes # (Auto) 3.3, Monocytes # (Auto) 0.6, Eosinophils # (Auto) 0.3, Basophils # (Auto) 0.0, Immature Granulocyte # (Auto) 0.0, Sodium Level 139, Potassium Level 4.3, Chloride Level 105, Carbon Dioxide Level 23, Anion Gap 11, Blood Urea Nitrogen 32H, Creatinine 1.43H, Estimat Glomerular Filtration Rate 35, BUN/Creatinine Ratio 22, Glucose Level 127H, Calcium Level 9.1, Corrected Calcium 9.6, Total Bilirubin 0.3, Aspartate Amino Transf (AST/SGOT) 17, Alanine Aminotransferase (ALT/SGPT) 13, Alkaline Phosphatase 33L, Total Protein 6.1L, Albumin 3.4 Home Meds Active Reported Tylenol (Acetaminophen) 325 Mg Tablet 325-650 Mg PO Q8H PRN Aspirin EC (Aspirin) 81 Mg Tablet.dr 81 Mg PO DAILY Rosuvastatin Calcium 20 Mg Tablet 20 Mg PO HS Levocetirizine Dihydrochloride 5 Mg Tablet 5 Mg PO 1800 Glimepiride 4 Mg Tablet 4 Mg PO DAILY Lisinopril-Hctz 20-12.5 mg Tab (Lisinopril/Hydrochlorothiazide) 1 Each Tablet 1 Ea PO DAILY Farxiga (Dapagliflozin Propanediol) 10 Mg Tablet 10 Mg PO DAILY Assessment/Pt Instructions PCP 1 week Discharge Planning: <30 minutes discharge planning Discharge Physical Examination Vital Signs Vital Signs Date Time Temp Pulse Resp B/P (MAP) Pulse Ox O2 Delivery O2 Flow Rate FiO2 02/10/21 11:31 35.8 73 18 148/67 (94) 95 Room Air 02/10/21 09:33 0.00 02/08/21 16:45 21 General Appearance: No Apparent Distress, WD/WN, Chronically ill Allergies: Coded Allergies: No Known Drug Allergies (Unverified , 05/07/18) Discharge Summary Date of Admission Feb 08, 2021 at 16:05 Date of Discharge Discharge Date: Feb 10, 2021 Admission Diagnosis Assessment: CVA Hypertension Vertigo Plan: Echo Cardiology consult Telemetry Carotid ultrasound MRI Discharge Diagnosis (1) CVA (cerebral vascular accident) (2) Vertigo Status: Acute (3) Dizziness Status: Acute (4) Altered gait Status: Acute BARB LARSON DO Feb 10, 2021 12:17
--- NOTE | 2021-02-10 14:00 | Progress Note - Cardiology ---
Cardiology SOAP Progress Note Subjective: No cp or palp or syncope or shortness of breath No focal weakness Chronic, intermittent dizziness, none currently No n/v/d Wishes to go home Objective: I&O/Vital Signs 02/10/21 02/10/21 02/10/21 02/10/21 04:00 07:00 07:52 08:00 Temp 36.7 35.6 Pulse 65 62 66 Resp 17 20 B/P (MAP) 107/65 (79) 114/69 (84) Pulse Ox 95 97 O2 Delivery Room Air Room Air Room Air 02/10/21 02/10/21 02/10/21 09:33 11:31 13:00 Temp 35.8 Pulse 73 72 Resp 18 B/P (MAP) 148/67 (94) Pulse Ox 95 O2 Delivery Room Air Room Air O2 Flow Rate 0.00 02/09/21 23:59 Intake Total 1080 ml Balance 1080 ml Weight (Pounds): 140 Weight (Calculated Kilograms): 63.496251 Constitutional: AAO x 3, well-developed, well-nourished Respiratory: No accessory muscle use; other (good, bilat air entry) Cardiovascular: regular rate-rhythm, S1 and S2, systolic murmur (soft PARMJIT at card base) Gastrointestional: No tender; soft; No guarding, No rebound; audible bowel sounds Extremities: No clubbing, No cyanosis, No significant edema Neurologic/Psychiatric: oriented x 3, other (moves all limbs equally) Skin: No rash on exposed areas, No ulcerations on exposed areas Results/Procedures: Labs Laboratory Tests 02/10/21 05:41: White Blood Count 7.0, Red Blood Count 3.96, Hemoglobin 11.6, Hematocrit 36, Mean Corpuscular Volume 92, Mean Corpuscular Hemoglobin 29, Mean Corpuscular Hemoglobin Concent 32, Red Cell Distribution Width 14.3, Platelet Count 162, Mean Platelet Volume 11.4, Immature Granulocyte % (Auto) 0, Neutrophils (%) (Auto) 40L, Lymphocytes (%) (Auto) 47H, Monocytes (%) (Auto) 9, Eosinophils (%) (Auto) 4, Basophils (%) (Auto) 1, Neutrophils # (Auto) 2.8, Lymphocytes # (Auto) 3.3, Monocytes # (Auto) 0.6, Eosinophils # (Auto) 0.3, Basophils # (Auto) 0.0, Immature Granulocyte # (Auto) 0.0, Sodium Level 139, Potassium Level 4.3, Chloride Level 105, Carbon Dioxide Level 23, Anion Gap 11, Blood Urea Nitrogen 32H, Creatinine 1.43H, Estimat Glomerular Filtration Rate 35, BUN/Creatinine Ratio 22, Glucose Level 127H, Calcium Level 9.1, Corrected Calcium 9.6, Total Bilirubin 0.3, Aspartate Amino Transf (AST/SGOT) 17, Alanine Aminotransferase (ALT/SGPT) 13, Alkaline Phosphatase 33L, Total Protein 6.1L, Albumin 3.4 Laboratory Tests 02/09/21 05:55 02/10/21 05:41 A/P: Assessment: Episode of vertigo on 02/26/21 w/o any distinct evidence of acute CVA Old CVA - MRI ON 02/09/21: No acute ischemia, mass, or hemorrhage. 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 Chronic microvascular disease in the periventricular and subcortical white matter - Carotid u/s on 02/09/21: mild carotid arterial diseasee ? arrhythmia - her nurse reported a heart rate of 159 bpm at 11:55 am on 02/09/21, but no ECG was obtained. Review of telemetry recordings of that day (and other days) does not show any arrhythmia. 159 heart rate appears to have been a typographical error Echo on 20/05/20: LVEF 55-60%, grade 1 diastolic dysfunction, mild LA enlargement, mild to mod MAC, mild MR, AoV sclerosis without significant stenosis, PASP 20-25 mmHg Plan: * Ok to d/c from cardiac standpoint * Outpt f/u advised ABA MCKAY MD [facility] CCDS Feb 10, 2021 14:00
[2021-02-10 15:08] VITALS: BP 148/67
== END 2021-02-10 15:11 | disposition home or self-care (01) | DRG 149 ==
LOC: EDUNIT# 13:06 → ER FS 13:08 → 4TH 16:05
PROVIDERS: ADMIT Internal Medicine; ATTEND Internal Medicine
DX: R42 Dizziness and giddiness (principal); R26.9 Unspecified abnormalities of gait and mobility; E78.5 Hyperlipidemia, unspecified; I10 Essential (primary) hypertension; I49.9 Cardiac arrhythmia, unspecified; Z86.73 Personal history of transient ischemic attack (TIA), and cerebral infarction without residual deficits; Z87.891 Personal history of nicotine dependence; Z79.899 Other long term (current) drug therapy; Z79.82 Long term (current) use of aspirin
CPT/HCPCS: 36415; 70450; 70551; 80053; 80061; 83880; 84484; 85025; 85610; 85730; 93005; 93306; 93880

== ENCOUNTER → 2021-12-20 | Outpatient (CLI) | payer MEDICARE, MEDICAID ==
[~2021-12-20] MED LIST changes: +ACET-2267 PO; +ACET325T38 PO; +ASPI-1238 PO; +ATOR80TA76 PO; +DAPA10TA PO; +GLIM4TAB5 PO; +LEVO5TAB12 PO; +LISI1TAB46 PO; +ROSU20TA32 PO
--- NOTE | 2021-12-20 18:50 | Diagnostic Imaging Report ---
INDICATION: Bloody nipple discharge and right breast nodules. EXAMINATION: Right breast ultrasound, limited. COMPARISON: Correlation is made with outside mammogram from 07/04/2021. In addition, comparison is made with outside ultrasound performed 09/22/2020. FINDINGS: There are two circumscribed solid appearing ovoid nodules in the right breast. A nodule at the 12:00 retroareolar region measures 1.2 x 0.7 x 2.1 cm. A nodule at the 9:00 retroareolar location measures 0.6 x 1.1 x 0.9 cm. These are fairly well-defined. There is no internal vascularity. No other abnormalities are identified. Both of these nodules are stable to perhaps slightly smaller when compared with outside exam. IMPRESSION: Circumscribed solid nodules in the 9:00 and 12:00 retroareolar right breast, likely corresponding to the circumscribed densities noted on the outside mammogram. These have fairly benign features and appear stable when compared with outside ultrasound from 09/22/2020. On the 2020 study, reportedly, these lesions were stable compared with prior exam from 2019. This would show two years of stability. No further follow-up is indicated. Patient can return to routine annual screening mammography. ACR BI-RADS Category 2: Benign findings. Result letter will be mailed to the patient. Note: At least 10% of breast cancer is not imaged by mammography. Dictated by: Dictated on workstation # [id number]
== END ==
LOC: RAD 10:08
PROVIDERS: ATTEND Surgery
DX: N63.0 Unspecified lump in unspecified breast (principal); N64.52 Nipple discharge

== ENCOUNTER 2022-03-02 18:11 | Emergency (ER) | payer MEDICARE, MEDICAID ==
[~2022-03-02] VITALS: Ht 160 cm; Wt 54.5 kg
[2022-03-02 19:02] LABS: BASOPHILS % (AUTO) 0 % (0-10); EOSINOPHILS % (AUTO) 0 % (0-10); HEMATOCRIT 38 % (35-52); HEMOGLOBIN 12.4 g/dL (11.5-16.0); LYMPHOCYTES # (AUTO) 0.5 10^3/uL (1.0-4.0); LYMPHOCYTES % (AUTO) 10 % (12-44); MEAN CORPUSCULAR HEMOGLOBIN 29 pg (25-34); MEAN CORPUSCULAR HGB CONC 32 g/dL (32-36); MEAN CORPUSCULAR VOLUME 90 fL (80-99); MONOCYTES # (AUTO) 0.6 10^3/uL (0.0-1.0); MONOCYTES % (AUTO) 13 % (0-12); NEUTROPHILS # (AUTO) 3.9 10^3/uL (1.8-7.8); NEUTROPHILS % (AUTO) 77 % (42-75); PLATELET COUNT 110 10^3/uL (130-400)
--- NOTE | 2022-03-02 19:15 | ED General ---
General Chief Complaint: Glucose Problems Stated Complaint: FALL, LOW BS Nursing Triage Note: Patient has been brought to ER with cc of low blood sugar. EMS reports blood sugar of 23 upon EMS arrival. Patient treated by EMS and family wanted patient brought to ER for evaluation. Patient denies complaint at this time. 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 Patient's blood sugar was 23 on EMS arrival. Patient was given 250 cc of D10 with improved blood sugar of 120s. Patient is compliant with medication and has not taken additional doses, but fr equently skips meals and has not ate since lunchtime. Additional history obtained from the patient's daughter. No recent change in medications or illnesses. No other symptoms or complaints. Timing/Duration: 1-3 Hours Severity: Moderate Modifying Factors: improves with Other Associated Systoms: Other Allergies and Home Medications Allergies Coded Allergies: No Known Drug Allergies (Unverified , 05/07/18) Patient Home Medication List Home Medication List Reviewed: Yes Acetaminophen (Tylenol) 325 Mg Tablet, 325-650 MG PO Q8H PRN for PAIN-MILD (1- 4), (Reported) Entered as Reported by: TITO MOROCHO on 02/09/21954 Aspirin (Aspirin EC) 81 Mg Tablet.dr, 81 MG PO DAILY, (Reported) Entered as Reported by: TITO MOROCHO on 02/09/21954 Atorvastatin Calcium (Atorvastatin Calcium) 80 Mg Tablet, 80 MG PO HS Prescribed by: BARB LARSON on 02/10/21 1217 Dapagliflozin Propanediol (Farxiga) 10 Mg Tablet, 10 MG PO DAILY, (Reported) Entered as Reported by: TITO MOROCHO on 02/09/21954 Glimepiride (Glimepiride) 4 Mg Tablet, 4 MG PO DAILY, (Reported) Entered as Reported by: TITO MOROCHO on 02/09/21954 Levocetirizine Dihydrochloride (Levocetirizine Dihydrochloride) 5 Mg Tablet, 5 MG PO 1800, (Reported) Entered as Reported by: TITO MOROCHO on 02/09/21954 Lisinopril/Hydrochlorothiazide (Lisinopril-Hctz 20-12.5 mg Tab) 1 Each Tablet, 1 EA PO DAILY, (Reported) Entered as Reported by: TITO MOROCHO on 02/09/21954 Review of Systems Review of Systems Constitutional: see HPI EENTM: see HPI Respiratory: see HPI Cardiovascular: see HPI Gastrointestinal: see HPI Genitourinary: see HPI Musculoskeletal: see HPI Skin: see HPI Psychiatric/Neurological: See HPI Hematologic/Lymphatic: See HPI Immunological/Allergic: see HPI All Other Systems Reviewed Negative Unless Noted: No Past Srszwpo-Hotooh-Khovut Hx Patient Social History Tobacco Use?: No Use of E-Cig and/or Vaping dev: No Substance use?: No Alcohol Use?: No Pt feels they are or have been: No Immunizations Up To Date Tetanus Booster (TDap): Unknown First/Initial COVID19 Vaccinat: Not Currently Vaccinated Second COVID19 Vaccination Arsenio: Not Currently Vaccinated Third COVID19 Vaccination Date: Not Currently Vaccinated Seasonal Allergies Seasonal Allergies: No Past Medical History Surgery/Hospitalization HX: LEFT HIP HYSTERECTOMY BLADDER SURGERY Cardiac: Yes Hypertension Neurological: No Integumentary: No Physical Exam Vital Signs Vital Signs - First Documented 03/02/22 18:20 Temp 36.4 Pulse 76 Resp 18 B/P (MAP) 153/47 (82) Pulse Ox 98 O2 Delivery Room Air Capillary Refill : Height, Weight, BMI Height: 5'2.00" Weight: 140lbs. oz. 63.210503pm; 21.00 BMI Method:Stated General Appearance: No Apparent Distress, WD/WN Eyes: Bilateral Eye Normal Inspection, Bilateral Eye PERRL, Bilateral Eye EOMI HEENT: PERRL/EOMI, Normal ENT Inspection, Pharynx Normal Neck: Full Range of Motion, Normal Inspection Respiratory: Lungs Clear Cardiovascular: Regular Rate, Rhythm Gastrointestinal: Non Tender, Soft Neurologic/Psychiatric: Alert, Oriented x3, No Motor/Sensory Deficits Focused Exam Sepsis Stage: Ruled Out Progress/Results/Core Measures Suspected Sepsis SIRS Temperature: Pulse: 76 Respiratory Rate: 18 Laboratory Tests 03/02/22 18:31: White Blood Count 5.0 Blood Pressure 153 /47 Mean: 82 Laboratory Tests 03/02/22 18:31: Creatinine 1.23, Platelet Count 110L, Total Bilirubin 0.3 Results/Orders Lab Results Laboratory Tests Test 03/02/22 18:17 03/02/22 18:31 Range/Units Glucometer 123 H 70-110 MG/DL White Blood Count 5.0 4.3-11.0 10^3/uL Red Blood Count 4.24 3.80-5.11 10^6/uL Hemoglobin 12.4 11.5-16.0 g/dL Hematocrit 38 35-52 % Mean Corpuscular Volume 90 80-99 fL Mean Corpuscular Hemoglobin 29 25-34 pg Mean Corpuscular Hemoglobin Concent 32 32-36 g/dL Red Cell Distribution Width 15.5 H 10.0-14.5 % Platelet Count 110 L 130-400 10^3/uL Mean Platelet Volume 10.0 9.0-12.2 fL Immature Granulocyte % (Auto) 0 % Neutrophils (%) (Auto) 77 H 42-75 % Lymphocytes (%) (Auto) 10 L 12-44 % Monocytes (%) (Auto) 13 H 0-12 % Eosinophils (%) (Auto) 0 0-10 % Basophils (%) (Auto) 0 0-10 % Neutrophils # (Auto) 3.9 1.8-7.8 10^3/uL Lymphocytes # (Auto) 0.5 L 1.0-4.0 10^3/uL Monocytes # (Auto) 0.6 0.0-1.0 10^3/uL Eosinophils # (Auto) 0.0 0.0-0.3 10^3/uL Basophils # (Auto) 0.0 0.0-0.1 10^3/uL Immature Granulocyte # (Auto) 0.0 0.0-0.1 10^3/uL Percent Immature Platelet Fraction 4.6 0.0-7.6 % Sodium Level 135 135-145 MMOL/L Potassium Level 4.3 3.6-5.0 MMOL/L Chloride Level 99 98-107 MMOL/L Carbon Dioxide Level 27 21-32 MMOL/L Anion Gap 9 5-14 MMOL/L Blood Urea Nitrogen 20 H 7-18 MG/DL Creatinine 1.23 0.60-1.30 MG/DL Estimat Glomerular Filtration Rate 43 BUN/Creatinine Ratio 16 Glucose Level 88 70-105 MG/DL Calcium Level 8.8 8.5-10.1 MG/DL Corrected Calcium 9.1 8.5-10.1 MG/DL Total Bilirubin 0.3 0.1-1.0 MG/DL Aspartate Amino Transf (AST/SGOT) 33 5-34 U/L Alanine Aminotransferase (ALT/SGPT) 24 0-55 U/L Alkaline Phosphatase 91 40-136 U/L Total Protein 7.0 6.4-8.2 GM/DL Albumin 3.6 3.2-4.5 GM/DL My Orders Orders - DEE DEE RAND DO Cbc With Automated Diff (03/02/22 18:27) Comprehensive Metabolic Panel (03/02/22 18:27) Vital Signs/I&O 03/02/22 18:20 Temp 36.4 Pulse 76 Resp 18 B/P (MAP) 153/47 (82) Pulse Ox 98 O2 Delivery Room Air Capillary Refill : Blood Pressure Mean: 82 Point of Care Testing Finger Stick Blood Glucose: 123 Blood Glucose Action Taken: NONE Departure Communication (Admissions) Patient observed in the ER with return to baseline mental status. Blood sugar remained stable. Basic labs obtained and reassuring. Patient ate prior to departure. Patient's daughter plans to stay with her throughout the evening with frequent Accu-Cheks/snacks as needed. Will hold hypoglycemics tomorrow and defer further management to the patient's PCP. Impression Primary Impression: Altered mental status Additional Impression: Hypoglycemia Disposition: 01 HOME, SELF-CARE Condition: Stable Departure-Patient Inst. Decision time for Depature: 19:31 Referrals: ROSA SAMPSON MD (PCP/Family) Primary Care Physician Patient Instructions: Low Blood Sugar, Adult ED Add. Discharge Instructions: You were evaluated in the emergency for confusion related to low blood sugar. Please hold your diabetic medications for the next 24 hours and eat regularly scheduled meals with frequent snacks. Check your blood sugar every 2 hours overnight and take additional carbs for blood sugar lower than 70. Follow-up with your PCP early next week for reevaluation and additional management. Return to the ED if new or concerning symptoms. All discharge instructions reviewed with patient and/or family. Voiced understanding. DEE DEE RAND DO Mar 02, 2022 19:15
[2022-03-02 19:22] LABS: ALBUMIN 3.6 GM/DL (3.2-4.5); BILIRUBIN,TOTAL 0.3 MG/DL (0.1-1.0); CALCIUM 8.8 MG/DL (8.5-10.1); CREATININE SERUM 1.23 MG/DL (0.60-1.30); POTASSIUM 4.3 MMOL/L (3.6-5.0)
[2022-03-02 19:51] VITALS: BP 134/48
== END 2022-03-02 20:04 | disposition home or self-care (01) ==
LOC: EDUNIT# 18:11 → ER FS 18:12
DX: E11.649 Type 2 diabetes mellitus with hypoglycemia without coma (principal); R41.82 Altered mental status, unspecified
CPT/HCPCS: 36415; 80053; 82947; 85025

== ENCOUNTER 2022-03-03 02:15 | Emergency (ER) | payer MEDICARE, MEDICAID ==
[2022-03-03] MEDS ORDERED: D5W 1000 ML IV SOLUTION 1,000 ML IV SCH (02:30)
--- NOTE | 2022-03-03 02:35 | ED General ---
General Chief Complaint: Glucose Problems Stated Complaint: LOW BLOOD SUGAR Source of Information: Patient, EMS, Family Exam Limitations: No Limitations History of Present Illness Date Seen by Provider: Mar 03, 2022 Time Seen by Provider: 02:22 Initial Comments Patient is an 86-year-old type II diabetic he was evaluated in this emergency department 2 hours ago for treatment of hypoglycemia presents with mental status with low blood sugar after discharge. Patient did not eat upon returning home as instructed. Patient's blood sugar on EMS arrival was in the 20s. D10 was given and the patient's blood sugar and mental status improved. Patient is back to baseline mental condition and denies symptoms at this time patient takes 4 mg of glimepiride and 10 mg of Farxiga daily and has not ate substantially since yesterday early afternoon. The patient was given noodle soup in the emergency department prior to being sent home and was instructed to the ED and check blood sugars routinely. Timing/Duration: 1/2 Hour Severity: Moderate Modifying Factors: improves with Other Associated Systoms: Other Allergies and Home Medications Allergies Coded Allergies: No Known Drug Allergies (Unverified , 05/07/18) Patient Home Medication List Home Medication List Reviewed: Yes Acetaminophen (Tylenol) 325 Mg Tablet, 325-650 MG PO Q8H PRN for PAIN-MILD (1- 4), (Reported) Entered as Reported by: TITO MOROCHO on 02/09/21954 Aspirin (Aspirin EC) 81 Mg Tablet.dr, 81 MG PO DAILY, (Reported) Entered as Reported by: TITO MOROCHO on 02/09/21954 Atorvastatin Calcium (Atorvastatin Calcium) 80 Mg Tablet, 80 MG PO HS Prescribed by: BARB LARSON on 02/10/21 1217 Dapagliflozin Propanediol (Farxiga) 10 Mg Tablet, 10 MG PO DAILY, (Reported) Entered as Reported by: TITO MOROCHO on 02/09/21954 Glimepiride (Glimepiride) 4 Mg Tablet, 4 MG PO DAILY, (Reported) Entered as Reported by: TITO MOROCHO on 02/09/21954 Levocetirizine Dihydrochloride (Levocetirizine Dihydrochloride) 5 Mg Tablet, 5 MG PO 1800, (Reported) Entered as Reported by: TITO MOROCHO on 02/09/21954 Lisinopril/Hydrochlorothiazide (Lisinopril-Hctz 20-12.5 mg Tab) 1 Each Tablet, 1 EA PO DAILY, (Reported) Entered as Reported by: TITO MOROCHO on 02/09/21 0955 Review of Systems Review of Systems Constitutional: see HPI EENTM: see HPI Respiratory: see HPI Cardiovascular: see HPI Gastrointestinal: see HPI Genitourinary: see HPI Musculoskeletal: see HPI Skin: see HPI Psychiatric/Neurological: See HPI Hematologic/Lymphatic: See HPI Immunological/Allergic: see HPI All Other Systems Reviewed Negative Unless Noted: No Past Zkwoosy-Gmdgfd-Yjdczg Hx Patient Social History Tobacco Use?: No Immunizations Up To Date Tetanus Booster (TDap): Unknown First/Initial COVID19 Vaccinat: Not Currently Vaccinated Second COVID19 Vaccination Arsenio: Not Currently Vaccinated Third COVID19 Vaccination Date: Not Currently Vaccinated Seasonal Allergies Seasonal Allergies: No Past Medical History Surgery/Hospitalization HX: LEFT HIP HYSTERECTOMY BLADDER SURGERY Cardiac: Yes Hypertension Neurological: No Integumentary: No Physical Exam Vital Signs Vital Signs - First Documented 03/03/22 02:19 Pulse 76 Resp 16 B/P (MAP) 154/50 (84) Pulse Ox 95 O2 Delivery Room Air Capillary Refill : Height, Weight, BMI Height: 5'2.00" Weight: 140lbs. oz. 63.542763or; 21.00 BMI Method:Stated General Appearance: WD/WN Eyes: Bilateral Eye Normal Inspection, Bilateral Eye PERRL, Bilateral Eye EOMI Neck: Non Tender, Supple Respiratory: Chest Non Tender, Lungs Clear Cardiovascular: Regular Rate, Rhythm, No Edema Gastrointestinal: Non Tender, Soft Neurologic/Psychiatric: Alert, Oriented x3, Normal Mood/Affect Focused Exam Sepsis Stage: Ruled Out Progress/Results/Core Measures Suspected Sepsis SIRS Temperature: Pulse: Respiratory Rate: Blood Pressure / Mean: Results/Orders Lab Results Laboratory Tests Test 03/03/22 02:21 Range/Units Glucometer 102 70-110 MG/DL My Orders Orders - DEE DEE RAND DO D5w 1000 Ml Iv Solution (Dextrose 5% Jenna (03/03/22 02:30) Accucheck Q1hr Q1HR (03/03/22 02:37) Vital Signs/I&O 03/03/22 02:19 Pulse 76 Resp 16 B/P (MAP) 154/50 (84) Pulse Ox 95 O2 Delivery Room Air Capillary Refill : Departure Communication (Admissions) Patient given D5 and fat in the emergency department with routine monitoring of blood sugar. We will maintain dextrose IV fluids and monitor blood sugar with anticipated discharge instructions of home glucose monitoring and holding all diabetic medications given the patient's lack of appetite. Impression Primary Impression: Altered mental status Additional Impression: Hypoglycemia Disposition: HOME, SELF-CARE Condition: Stable Departure-Patient Inst. Referrals: SELF,ROSA EISENBERG (PCP/Family) Primary Care Physician Patient Instructions: Low Blood Sugar, Adult ED Add. Discharge Instructions: Discontinue all diabetic medications until you follow-up with your primary care provider for further management. Eat regular meals with snacks in between. All discharge instructions reviewed with patient and/or family. Voiced understanding. DEE DEE RAND DO Mar 03, 2022 02:35
[2022-03-03 06:31] VITALS: BP 150/49
== END 2022-03-03 06:33 | disposition home or self-care (01) ==
LOC: EDUNIT# 02:15 → ER FS 02:17
DX: E11.649 Type 2 diabetes mellitus with hypoglycemia without coma (principal); Z28.310 Unvaccinated for COVID-19
CPT/HCPCS: 82947

== ENCOUNTER 2022-03-29 10:55 | Inpatient (IN) | payer MEDICARE, MEDICAID ==
[~2022-03-29] VITALS: Ht 157.5 cm; Wt 62.5 kg
[2022-03-29] MEDS ORDERED: fentaNYL INJ 100 MCG/2 ML AMP IVP PRN ×3 (11:00→13:15)
--- NOTE | 2022-03-29 11:09 | ED Hip Pain/Injury ---
General Chief Complaint: Hip/Pelvic Problems Stated Complaint: FALL | HIP PAIN Source: patient, EMS Exam Limitations: no limitations History of Present Illness Date Seen by Provider: Mar 29, 2022 Time Seen by Provider: 11:05 Initial Comments Pleasant 86-year-old female to ER by [facility] from her home with reports of right hip pain. She got up from the couch and became entangled in a blanket causing her to fall landing on the right hip. She did hit her head but denies any loss of consciousness headache or neck pain. She does have severe right hip pain. EMS noted the right leg to be shortened and externally rotated. Patient denies any other pain. She recalls all of the events and provides her own history. EMS provides additional history stating that they gave 2 doses of fentanyl 25 mcg in route. Patient's primary care provider is [facility], HTN, HLD, CVA. Timing/Duration: constant Severity: moderate Location: hip (R) Method of Injury: fell Modifying Factors: Worse With Movement Allergies and Home Medications Allergies Coded Allergies: No Known Drug Allergies (Unverified , 05/07/18) Patient Home Medication List Home Medication List Reviewed: Yes Acetaminophen (Tylenol) 325 Mg Tablet, 325-650 MG PO Q8H PRN for PAIN-MILD (1-4 ), (Reported) Entered as Reported by: TITO MOROCHO on 02/09/21954 Aspirin (Aspirin EC) 81 Mg Tablet.dr, 81 MG PO DAILY, (Reported) Entered as Reported by: TITO MOROCHO on 02/09/21954 Atorvastatin Calcium (Atorvastatin Calcium) 80 Mg Tablet, 80 MG PO HS Prescribed by: BARB LARSON on 02/10/21 121 Dapagliflozin Propanediol (Farxiga) 10 Mg Tablet, 10 MG PO DAILY, (Reported) Entered as Reported by: TITO MOROCHO on 02/09/21954 Glimepiride (Glimepiride) 4 Mg Tablet, 4 MG PO DAILY, (Reported) Entered as Reported by: TITO MOROCHO on 02/09/21954 Levocetirizine Dihydrochloride (Levocetirizine Dihydrochloride) 5 Mg Tablet, 5 MG PO 1800, (Reported) Entered as Reported by: TITO MOROCHO on 02/09/21954 Lisinopril/Hydrochlorothiazide (Lisinopril-Hctz 20-12.5 mg Tab) 1 Each Tablet, 1 EA PO DAILY, (Reported) Entered as Reported by: TITO MOROCHO on 02/09/21954 Review of Systems Constitutional: see HPI Past Sdlhdzm-Vxcbpi-Ltqapd Hx Immunizations Up To Date Tetanus Booster (TDap): Unknown First/Initial COVID19 Vaccinat: Not Currently Vaccinated Second COVID19 Vaccination Arsenio: Not Currently Vaccinated Third COVID19 Vaccination Date: Not Currently Vaccinated Seasonal Allergies Seasonal Allergies: No Past Medical History Surgery/Hospitalization HX: LEFT HIP HYSTERECTOMY BLADDER SURGERY Cardiac: Yes Hypertension Neurological: No Integumentary: No Physical Exam Vital Signs Vital Signs - First Documented 03/29/22 10:55 Temp 36.1 Pulse 72 Resp 16 B/P (MAP) 176/67 (103) O2 Delivery Room Air Capillary Refill : Height, Weight, BMI Height: 5'2.00" Weight: 140lbs. oz. 63.510765tp; 21.00 BMI Method:Stated General Appearance: No Apparent Distress, WD/WN HEENT: PERRL/EOMI, Normal ENT Inspection, Other (No scalp or facial ecchymosis abrasions or erythema or evidence of injury.) Neck: Full Range of Motion, Normal Inspection, Other (Full range of motion of neck without tenderness to palpation) Cardiovascular: Regular Rate, Rhythm, Normal Peripheral Pulses Respiratory: No Accessory Muscle Use, No Respiratory Distress Gastrointestinal: Normal Bowel Sounds, Non Tender, Soft Extremity: Normal Capillary Refill, Other (Right leg is in fact externally rotated and shortened. Palpable posterior tibial pulse remains. Tender to palpation over the anterolateral right hip.) Neurologic/Psychiatric: Alert, Oriented x3 Skin: Normal Color, Warm/Dry Progress/Results/Core Measures Results/Orders Lab Results Laboratory Tests Test 03/29/22 11:08 03/29/22 11:47 Range/Units White Blood Count 11.5 H 4.3-11.0 10^3/uL Red Blood Count 3.80 3.80-5.11 10^6/uL Hemoglobin 11.2 L 11.5-16.0 g/dL Hematocrit 35 35-52 % Mean Corpuscular Volume 91 80-99 fL Mean Corpuscular Hemoglobin 30 25-34 pg Mean Corpuscular Hemoglobin Concent 32 32-36 g/dL Red Cell Distribution Width 14.4 10.0-14.5 % Platelet Count 136 130-400 10^3/uL Mean Platelet Volume 11.3 9.0-12.2 fL Immature Granulocyte % (Auto) 0 % Neutrophils (%) (Auto) 80 H 42-75 % Lymphocytes (%) (Auto) 13 12-44 % Monocytes (%) (Auto) 6 0-12 % Eosinophils (%) (Auto) 0 0-10 % Basophils (%) (Auto) 0 0-10 % Neutrophils # (Auto) 9.2 H 1.8-7.8 10^3/uL Lymphocytes # (Auto) 1.4 1.0-4.0 10^3/uL Monocytes # (Auto) 0.7 0.0-1.0 10^3/uL Eosinophils # (Auto) 0.0 0.0-0.3 10^3/uL Basophils # (Auto) 0.0 0.0-0.1 10^3/uL Immature Granulocyte # (Auto) 0.1 0.0-0.1 10^3/uL Percent Immature Platelet Fraction 5.1 0.0-7.6 % Prothrombin Time 14.4 12.2-14.7 SEC INR Comment 1.1 0.8-1.4 Activated Partial Thromboplast Time 32 24-35 SEC Sodium Level 134 L 135-145 MMOL/L Potassium Level 4.0 3.6-5.0 MMOL/L Chloride Level 101 98-107 MMOL/L Carbon Dioxide Level 23 21-32 MMOL/L Anion Gap 10 5-14 MMOL/L Blood Urea Nitrogen 21 H 7-18 MG/DL Creatinine 0.99 0.60-1.30 MG/DL Estimat Glomerular Filtration Rate 56 BUN/Creatinine Ratio 21 Glucose Level 230 H 70-105 MG/DL Calcium Level 8.9 8.5-10.1 MG/DL Corrected Calcium 9.5 8.5-10.1 MG/DL Total Bilirubin 0.7 0.1-1.0 MG/DL Aspartate Amino Transf (AST/SGOT) 20 5-34 U/L Alanine Aminotransferase (ALT/SGPT) 21 0-55 U/L Alkaline Phosphatase 117 40-136 U/L Total Protein 6.5 6.4-8.2 GM/DL Albumin 3.3 3.2-4.5 GM/DL My Orders Orders - DINO ACEVEDO APRN Cbc With Automated Diff (03/29/22 10:59) Comprehensive Metabolic Panel (03/29/22 10:59) Ed Iv/Invasive Line Start (03/29/22 10:59) Ua Culture If Indicated (03/29/22 10:59) Navarro Cath (03/29/22 10:59) Protime With Inr (03/29/22 10:59) Partial Thromboplastin Time (03/29/22 10:59) Ekg Tracing (03/29/22 10:59) Chest 1 View, Ap/Pa Only (03/29/22 10:59) Pelvis With Right Hip 2-3views (03/29/22 10:59) Fentanyl Inj (Sublimaze Injection) (03/29/22 11:00) Ct Head/Cervical Spine Wo (03/29/22 11:04) Fentanyl Inj (Sublimaze Injection) (03/29/22 11:15) Echo W Doppler/Color Flow (03/29/22 12:08) Medications Given in ED Current Medications Medications Dose Ordered Sig/Caren Route Start Time Stop Time Status Last Admin Dose Admin Fentanyl Citrate 25 mcg ONCE PRN IVP 03/29/22 11:00 03/29/22 11:09 25 MCG Vital Signs/I&O 03/29/22 10:55 Temp 36.1 Pulse 72 Resp 16 B/P (MAP) 176/67 (103) O2 Delivery Room Air Departure Communication (Admissions) 1211-Discussed case with Dr. Larson who will admit and notified Dr. Lowe who will consult. We will keep her n.p.o. She has not had anything to eat since last night. History of hypertension and diabetes. We will get Dr. Strauss to evaluate from cardiology standpoint prior to surgery. Will admit to the medical floor. Echocardiogram requested by Dr. Strauss. Patient and family notified of diagnosis and plan. Impression Primary Impression: Closed right hip fracture Disposition: ADMITTED INPATIENT Condition: Stable Admissions Decision to Admit Reason: Admit from ER (Trauma) Departure-Patient Inst. Referrals: SELF,ROSA EISENBERG (PCP/Family) Primary Care Physician DINO ACEVEDO APRN Mar 29, 2022 11:09
[2022-03-29 11:24] LABS: EOSINOPHILS % (AUTO) 0 % (0-10); MEAN PLATELET VOLUME 11.3 fL (9.0-12.2); NEUTROPHILS % (AUTO) 80 % (42-75)
[2022-03-29 11:26] LABS: BASOPHILS % (AUTO) 0 % (0-10); HEMATOCRIT 35 % (35-52); HEMOGLOBIN 11.2 g/dL (11.5-16.0); LYMPHOCYTES # (AUTO) 1.4 10^3/uL (1.0-4.0); LYMPHOCYTES % (AUTO) 13 % (12-44); MEAN CORPUSCULAR HEMOGLOBIN 30 pg (25-34); MEAN CORPUSCULAR HGB CONC 32 g/dL (32-36); MEAN CORPUSCULAR VOLUME 91 fL (80-99); MONOCYTES # (AUTO) 0.7 10^3/uL (0.0-1.0); MONOCYTES % (AUTO) 6 % (0-12); NEUTROPHILS # (AUTO) 9.2 10^3/uL (1.8-7.8); PLATELET COUNT 136 10^3/uL (130-400); WHITE BLOOD COUNT 11.5 10^3/uL (4.3-11.0)
[2022-03-29 11:30] LABS: ALBUMIN 3.3 GM/DL (3.2-4.5)
[2022-03-29 11:31] LABS: CALCIUM 8.9 MG/DL (8.5-10.1)
[2022-03-29 11:33] LABS: TOTAL PROTEIN 6.5 GM/DL (6.4-8.2)
[2022-03-29 11:34] LABS: BILIRUBIN,TOTAL 0.7 MG/DL (0.1-1.0); INR 1.1 (0.8-1.4); PROTHROMBIN TIME PATIENT 14.4 SEC (12.2-14.7)
[2022-03-29 11:36] LABS: CREATININE SERUM 0.99 MG/DL (0.60-1.30)
[2022-03-29 11:53] LABS: BILIRUBIN,URINE NEGATIVE (NEGATIVE); CLARITY,URINE CLEAR; COLOR,URINE YELLOW; GLUCOSE, URINE (UA) NEGATIVE (NEGATIVE); KETONES,URINE NEGATIVE (NEGATIVE); LEUKOCYTE ESTERASE ,URINE NEGATIVE (NEGATIVE); NITRITE,URINE NEGATIVE (NEGATIVE); PROTEIN,URINE NEGATIVE (NEGATIVE)
--- NOTE | 2022-03-29 12:10 | History & Physical ---
History of Present Illness HPI/Chief Complaint Chief complaint: Right hip fracture HPI: This is an 86-year-old female who suffered a fall at home and was found to have a right intertrochanteric fracture of the femur. No other injuries present. Updated daughter and patient of upcoming repair by Dr. Lowe. I did review her home medication list. She had no evidence of any syncope. Echocardiogram ordered and Dr. Strauss is consulted. Source: patient, family, RN/MD Exam Limitations: no limitations Date Seen 03/29/22 Time Seen by a Provider: 12:00 Attending Physician Self,Praveen EISENBERG PCP Admitting Physician: Attending Physician: Referring Physician Date of Admission Home Medications & Allergies Home Medications Reviewed patient Home Medication Reconciliation performed by pharmacy medication reconciliations signal technician and/or nursing. Patients Allergies have been reviewed. Allergies Allergies Coded Allergies No Known Drug Allergies (Unverified05/07/18) Past Xwxlvcu-Jtrvhg-Czfdig Hx Past Med/Social Hx: Reviewed Nursing Past Med/Soc Hx, Reviewed and Corrections made Patient Social History Marrital Status: single Employed/Student: retired Alcohol Use: Denies Use Smoking Status: Never a Smoker 2nd Hand Smoke Exposure: No Recent Hopitalizations: No Recent Infectious Disease Expo: No Immunizations Up To Date Tetanus Booster (TDap): Unknown Seasonal Allergies Seasonal Allergies: No Past Medical History Surgeries: Orthopedic Cardiac: Hypertension Review of Systems Constitutional: see HPI Musculoskeletal: joint pain Physical Exam Physical Exam Vital Signs Vital Signs - First Documented 03/29/22 03/29/22 10:55 13:48 Temp 36.1 Pulse 72 Resp 16 B/P (MAP) 176/67 (103) Pulse Ox 93 O2 Delivery Room Air Capillary Refill : Less Than 3 Seconds Height, Weight, BMI Height: 5'2.00" Weight: 140lbs. oz. 63.191474rm; 21.00 BMI Method:Stated General Appearance: No Apparent Distress, WD/WN, Chronically ill, Thin, Other (Frail) HEENT: PERRL/EOMI, Normal ENT Inspection, Other (No scalp or facial ecchymosis abrasions or erythema or evidence of injury.) Neck: Full Range of Motion, Normal Inspection, Other (Full range of motion of neck without tenderness to palpation) Respiratory: Lungs Clear, Normal Breath Sounds, No Accessory Muscle Use, No Respiratory Distress Cardiovascular: Regular Rate, Rhythm, No Edema, Normal Peripheral Pulses Gastrointestinal: Normal Bowel Sounds, Non Tender, Soft Extremity: Normal Capillary Refill, Other (Right leg is in fact externally rotated and shortened. Palpable posterior tibial pulse remains. Tender to palpation over the anterolateral right hip.) Neurologic/Psychiatric: Alert, Oriented x3 Skin: Normal Color, Warm/Dry Results Results/Procedures Labs Laboratory Tests 03/29/22 11:08 Patient resulted labs reviewed. Assessment/Plan Admission Diagnosis Assessment: Right hip fracture Hypertension Advanced age Plan: Dr. Lowe consult Dr. Strauss consult Echo Pain control Admission Status: Inpatient Order (span 2 midnights) Reason for Inpatient Admission: hip fx Diagnosis/Problems Diagnosis/Problems (1) Closed right hip fracture Status: Acute BARB LARSON DO Mar 29, 2022 12:10
--- NOTE | 2022-03-29 12:11 | Consultation-Cardiology ---
HPI-Cardiology Cardiology Consultation: Date of Consultation 03/29/22 Time Seen by a Provider: 14:00 Date of Admission 03-29-22 Attending Physician Praveen May MD Admitting Physician Admitting Physician: Attending Physician: Consulting Physician HADLEY BE HPI: Chief Complaint: Cardiac eval prior to surgery Ms. Salgado is an 86 yr old female admitted to [facility] from the ED d/t a non-syncopal fall at home resulting in a right hip fracture. She states she got up from the couch and her feet got tangled in a blanket causing her to fall. She denies any c/o CP, SOB, palpitations, syncope, near syncope or LE swellng. She has multiple family at the bedside. Review of Systems-Cardiology Review of Systems Constitutional: No chills, No fever Eyes: No vision change Ears/Nose/Throat: No epistaxis, No recent hearing loss Respiratory: As described under HPI Cardiovascular: As described under HPI Gastrointestinal: No constipation, No diarrhea, No nausea, No vomiting Genitourinary: No dysuria Musculoskeletal: As describe under HPI Skin: No rash on exposed areas, No ulcerations on exposed areas Psychiatric/Neurological: No anxiety, No depression, No seizure, No focal weakness, No syncope Hematologic: No bleeding abnormalities GVY-Ntaatq-Ybjwsb Hx Patient Social History Smoking Status: Never a Smoker 2nd Hand Smoke Exposure: No Have you traveled recently?: No Alcohol Use?: No Pt feels they are or have been: No Immunizations Up To Date Tetanus Booster (TDap): Unknown Past Medical History PMH As described under Assessment. Family Medical History Family Medical History: She does not report fam h/o early CAD or SCD Allergies and Home Medications Allergies Coded Allergies: No Known Drug Allergies (Unverified , 05/07/18) Patient Home Medication List Aspirin (Aspirin EC) 81 Mg Tablet.dr, 81 MG PO DAILY, (Reported) Entered as Reported by: TITO MOROCHO on 02/09/21 0900 Last Action: Held Atorvastatin Calcium (Atorvastatin Calcium) 80 Mg Tablet, 80 MG PO HS, (Reported) Entered as Reported by: TITO MOROCHO on 03/29/221525 Last Action: Held Gabapentin (Gabapentin) 100 Mg Capsule, 100 MG PO BID PRN for PAIN-BREAKTHROUGH, (Reported) Entered as Reported by: TITO MOROCHO on 03/29/221525 Last Action: Held Lisinopril (Lisinopril) 20 Mg Tablet, 20 MG PO DAILY, (Reported) Entered as Reported by: TITO MOROCHO on 03/29/221525 Last Action: Held Tramadol HCl (Tramadol HCl) 50 Mg Tablet, 50 MG PO BID PRN for PAIN-MODERATE (5- 7), (Reported) Entered as Reported by: TITO MOROCHO on 03/29/221525 Last Action: Held Discontinued Medications Acetaminophen (Tylenol) 325 Mg Tablet, 325-650 MG PO Q8H PRN for PAIN-MILD (1- 4), (Reported) Discontinued Reason: No Longer Taking Entered as Reported by: TITO MOROCHO on 02/09/21954 Last Action: Discontinued Atorvastatin Calcium (Atorvastatin Calcium) 80 Mg Tablet, 80 MG PO HS Discontinued Reason: No Longer Taking Prescribed by: BARB LARSON on 02/10/21 121 Last Action: Discontinued Dapagliflozin Propanediol (Farxiga) 10 Mg Tablet, 10 MG PO DAILY, (Reported) Discontinued Reason: No Longer Taking Entered as Reported by: TITO MOROCHO on 02/09/21954 Last Action: Discontinued Glimepiride (Glimepiride) 4 Mg Tablet, 4 MG PO DAILY, (Reported) Discontinued Reason: No Longer Taking Entered as Reported by: TITO MOROCHO on 02/09/21954 Last Action: Discontinued Levocetirizine Dihydrochloride (Levocetirizine Dihydrochloride) 5 Mg Tablet, 5 MG PO 1800, (Reported) Discontinued Reason: No Longer Taking Entered as Reported by: TITO MOROCHO on 02/09/21954 Last Action: Discontinued Lisinopril/Hydrochlorothiazide (Lisinopril-Hctz 20-12.5 mg Tab) 1 Each Tablet, 1 EA PO DAILY, (Reported) Discontinued Reason: No Longer Taking Entered as Reported by: TITO MOROCHO on 02/09/21954 Last Action: Discontinued Physical Exam-Cardiology Physical Exam Vital Signs/I&O 03/31/22 04/01/22 04/01/22 04/01/22 23:46 01:00 04:16 06:51 Temp 37.4 37.1 Pulse 90 88 89 78 Resp 16 16 B/P (MAP) 127/54 (78) 115/52 (73) Pulse Ox 94 97 O2 Delivery Room Air Room Air 04/01/22 07:10 Temp 37.6 Pulse 85 Resp 17 B/P (MAP) 92/59 (70) Pulse Ox 9 O2 Delivery Room Air 04/01/22 00:00 Intake Total 1510 ml Output Total 600 ml Balance 910 ml Capillary Refill : Less Than 3 Seconds Constitutional: AAO x 3, well-developed, other (frail) HEENT: PERRL, hearing is well preserved Neck: No carotid bruit; carotid pulses are 2 + bilaterally Respiratory: No accessory muscle use, No respiratory distress; chest expansion is symmetric, chest is bilaterally symmetric, lungs clear to auscultation Cardiovascular: regular rate-rhythm, systolic murmur Gastrointestinal: No tender; soft, round, audible bowel sounds Extremities: no lower extremity edema bilateral Neurologic/Psychiatric: other (moves all extremities; right leg not manipulated d/t fracture) Skin: No rash on exposed areas, No ulcerations on exposed areas Data Review Labs Laboratory Tests 03/31/22 10:55: Glucometer 281H 03/31/22 15:58: Glucometer 247H 03/31/22 20:04: Glucometer 208H 04/01/22 05:27: Glucometer 155H 04/01/22 05:55: White Blood Count 9.8, Red Blood Count 2.60L, Hemoglobin 7.8L, Hematocrit 24L, Mean Corpuscular Volume 90, Mean Corpuscular Hemoglobin 30, Mean Corpuscular Hemoglobin Concent 33, Red Cell Distribution Width 14.5, Platelet Count 109L, Mean Platelet Volume 11.1, Immature Granulocyte % (Auto) 1, Neutrophils (%) (Auto) 67, Lymphocytes (%) (Auto) 19, Monocytes (%) (Auto) 13H, Eosinophils (%) (Auto) 0, Basophils (%) (Auto) 0, Neutrophils # (Auto) 6.6, Lymphocytes # (Auto) 1.9, Monocytes # (Auto) 1.2H, Eosinophils # (Auto) 0.0, Basophils # (Auto) 0.0, Immature Granulocyte # (Auto) 0.1, Percent Immature Platelet Fraction 4.1, Sodium Level 135, Potassium Level 4.0, Chloride Level 105, Carbon Dioxide Level 23, Anion Gap 7, Blood Urea Nitrogen 22H, Creatinine 0.83, Estimat Glomerular Filtration Rate 69, BUN/Creatinine Ratio 27, Glucose Level 158H, Calcium Level 8.2L, Corrected Calcium 9.5, Total Bilirubin 1.0, Aspartate Amino Transf (AST/SGOT) 18, Alanine Aminotransferase (ALT/SGPT) 17, Alkaline Phosphatase 72, Total Protein 5.2L, Albumin 2.4L Microbiology 03/29/22 MRSA Screen - Final, Complete MRSA not isolated Radiology NAME: WINSTON SALGADO MED REC#: [id number] PT STATUS: ADM IN : 1935 PHYSICIAN: DINO ACEVEDO APRN ADMIT DATE: 03/29/22/[facility] Signed Date of Exam:03/29/22 CHEST 1 VIEW, AP/PA ONLY CHEST 1 VIEW, AP/PA ONLY Indication: Preoperative clearance for right hip surgery Comparison: None available. Findings: No focal airspace disease in the visualized lungs. No pleural effusion or pneumothorax. Normal cardiomediastinal silhouette. Impression: 1. No acute cardiopulmonary process by portable radiography. Dictated by: Dictated on workstation # [id number] Dict: 03/29/22 1243 Trans: 03/29/22 1243 [facility] [id number] Interpreted by: SELENA RAMOS MD Electronically signed by: SELENA RAOMS MD 03/29/22 1243 NAME: WINSTON SALGADO MED REC#: [id number] PT STATUS: REG ER : 1935 PHYSICIAN: DINO ACEVEDO APRN ADMIT DATE: 03/29/22/ER Draft Date of Exam:03/29/22 PELVIS WITH RIGHT HIP 2-3VIEWS PELVIS WITH RIGHT HIP 2-3VIEWS INDICATION: Right hip pain. COMPARISON: None available. TECHNIQUE: AP pelvis with AP and lateral views of the hip. FINDINGS: Acute intertrochanteric fracture has a conventional oblique orientation from lateral to medial. There is proximal migration of the femoral shaft resulting in mild coxa vara alignment. No other acute fracture is seen within the pelvis. Proximal femoral nail with antirotation blade is utilized for fixation of old left intertrochanteric fracture that appears healed. IMPRESSION: Acute intertrochanteric fracture of the right proximal femur. Dictated on workstation # [id number] Dict: 03/29/22 1207 Trans: 03/29/22 1211 [id number] Interpreted by: SELENA RAMOS MD Electronically signed by: NAME: WINSTON SALGADO [facility] REC#: [id number] PT STATUS: ADM IN : 1935 PHYSICIAN: DINO ACEVEDO APRN ADMIT DATE: 03/29/22 Draft Date of Exam:03/29/22 CT HEAD/CERVICAL SPINE WO CLINICAL INDICATION: Patient status post fall. No pain complaints. EXAM: Head CT without IV contrast with sagittal and coronal reformations. Axial CT scan of the cervical spine with sagittal and coronal reformations. Auto Exposure Controls were utilized during the CT exam to meet ALARA standards for radiation dose reduction. COMPARISON: Head CT without contrast dated 02/08/2021. MRI of the brain performed without contrast dated 02/09/2021. FINDINGS: Head CT: There is no evidence of intracranial hemorrhage, brain herniation, or midline shift. Stable small areas of suspected chronic infarcts involving the right parietal lobe, left parietal lobe, and bilateral cerebellar hemispheres. 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 The brain parenchymal volume appears appropriate for patient's age. Basal cisterns are unremarkable. The extracranial soft tissues, skull, and orbits are unremarkable. There is no skull fracture. There is minimal mucosal thickening involving both maxillary sinuses, ethmoid sinus, and sphenoid sinus. Mastoid air cells are clear. Cervical spine: There is no acute cervical spine fracture or dislocation. There is straightening of the cervical spine posture. There are hypertrophic spurs involving the cervical spine and facet arthropathy. There is no significant bony central canal or neural foramen narrowing. There are calcifications involving the isthmus of the thyroid gland and right thyroid lobe region. There is a roughly 1.5 cm nodule involving the right thyroid lobe. The neck soft tissue structures show no other significant abnormality. IMPRESSION: 1: There is no evidence of acute intracranial process. There is no intracranial hemorrhage. There is no skull fracture. 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 Dictated on workstation # [id number] Dict: 03/29/22 1204 Trans: 03/29/22 1224 [id number] Interpreted by: MARCIO PAINTER MD Electronically signed by: ECG Impression ECG Initial ECG Rhythm: Normal Sinus A/P-Cardiology Assessment/Admission Diagnosis S/P non-syncopal fall resulting in right hip fracture Old CVA - MRI on 02/09/21: No acute ischemia, mass, or hemorrhage. 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 Chronic microvascular disease in the periventricular and subcortical white matter - Carotid u/s on 02/09/21: mild carotid arterial disease Echo on 02/09/21: LVEF 55-60%, grade 1 diastolic dysfunction, mild LA enlargement, mild to mod MAC, mild MR, AoV sclerosis without significant stenosis, PASP 20-25 mmHg Discussion and Recomendations S/P non-syncopal fall resulting in a right hip fracture Cardiac eval prior to right hip replacement Echocardiogram has been ordered Continue home medication regimen DVT prophylaxis Monitor lab Replace electrolytes as indicated Further recs will be based on her hospital course We would like to thank medical services for this consult HADLEY SORTO Mar 29, 2022 12:11
[2022-03-29 12:13] LABS: BACTERIA,URINE NEGATIVE /HPF
--- NOTE | 2022-03-29 12:25 | Diagnostic Imaging Report ---
CLINICAL INDICATION: Patient status post fall. No pain complaints. EXAM: Head CT without IV contrast with sagittal and coronal reformations. Axial CT scan of the cervical spine with sagittal and coronal reformations. Auto Exposure Controls were utilized during the CT exam to meet ALARA standards for radiation dose reduction. COMPARISON: Head CT without contrast dated 02/08/2021. MRI of the brain performed without contrast dated 02/09/2021. FINDINGS: Head CT: There is no evidence of intracranial hemorrhage, brain herniation, or midline shift. Stable small areas of suspected chronic infarcts involving the right parietal lobe, left parietal lobe, and bilateral cerebellar hemispheres. 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 The brain parenchymal volume appears appropriate for patient's age. Basal cisterns are unremarkable. The extracranial soft tissues, skull, and orbits are unremarkable. There is no skull fracture. There is minimal mucosal thickening involving both maxillary sinuses, ethmoid sinus, and sphenoid sinus. Mastoid air cells are clear. Cervical spine: There is no acute cervical spine fracture or dislocation. There is straightening of the cervical spine posture. There are hypertrophic spurs involving the cervical spine and facet arthropathy. There is no significant bony central canal or neural foramen narrowing. There are calcifications involving the isthmus of the thyroid gland and right thyroid lobe region. There is a roughly 1.5 cm nodule involving the right thyroid lobe. The neck soft tissue structures show no other significant abnormality. IMPRESSION: 1: There is no evidence of acute intracranial process. There is no intracranial hemorrhage. There is no skull fracture. 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 Dictated by: Dictated on workstation # [id number]
[2022-03-29] MEDS ORDERED: ceFAZolin INJECTION 1,000 MG VIAL IV NR (12:30)
--- NOTE | 2022-03-29 12:34 | Consultation - Ortho ---
Consult - Ortho Subjective Date of Exam 03/29/22 Chief Complaint Right Hip Injury HPI/Events since last exam fall from standing height at home, seen in ER and found to have right intertrochanteric femur fracture, I was asked to manage the fracture Medical, Surgical History see admit Social History see admit Family History see admit Review of Systems - Allergies: Coded Allergies: No Known Drug Allergies (Unverified , 05/07/18) Home Meds Reported Medications Tramadol HCl (Tramadol HCl) 50 Mg Tablet, 50 MG PO BID PRN for PAIN-MODERATE (5- 7), TAB 03/29/22 Lisinopril (Lisinopril) 20 Mg Tablet, 20 MG PO DAILY, TAB 03/29/22 Atorvastatin Calcium (Atorvastatin Calcium) 80 Mg Tablet, 80 MG PO HS, TAB 03/29/22 Gabapentin (Gabapentin) 100 Mg Capsule, 100 MG PO BID PRN for PAIN-BREAKTHROUGH, CAP 03/29/22 Aspirin (Aspirin EC) 81 Mg Tablet.dr, 81 MG PO DAILY, TAB 02/09/21 Discontinued Reported Medications Acetaminophen (Tylenol) 325 Mg Tablet, 325-650 MG PO Q8H PRN for PAIN-MILD (1- 4), TAB 02/09/21 Levocetirizine Dihydrochloride (Levocetirizine Dihydrochloride) 5 Mg Tablet, 5 MG PO 1800, TAB 02/09/21 Glimepiride (Glimepiride) 4 Mg Tablet, 4 MG PO DAILY, TAB 02/09/21 Lisinopril/Hydrochlorothiazide (Lisinopril-Hctz 20-12.5 mg Tab) 1 Each Tablet, 1 EA PO DAILY, TAB 02/09/21 Dapagliflozin Propanediol (Farxiga) 10 Mg Tablet, 10 MG PO DAILY, TAB 02/09/21 Discontinued Scripts Atorvastatin Calcium (Atorvastatin Calcium) 80 Mg Tablet, 80 MG PO HS, #90 TAB Prov:BARB LARSON DO 02/10/21 Objective Exam Right Leg: shortened, +DF of ankle, pulses palpable, sensation grossly intact to light touch Vital Signs Vital Signs Date Time Temp Pulse Resp B/P (MAP) Pulse Ox O2 Delivery O2 Flow Rate FiO2 03/30/22 08:06 37.0 92 18 154/70 (98) 94 Room Air 03/30/22 08:05 Room Air 03/30/22 07:00 94 03/30/22 04:23 36.8 83 16 131/68 (89) 94 Room Air 03/30/22 01:00 83 03/30/22 00:03 36.6 81 16 150/63 (92) 95 Room Air 03/29/22 23:00 93 Room Air 03/29/22 20:11 36.9 82 18 162/70 (100) 95 Room Air 03/29/22 20:00 Room Air 03/29/22 19:00 81 03/29/22 16:08 37.0 84 18 175/74 (107) 95 Room Air 03/29/22 15:34 93 Room Air 03/29/22 15:10 Room Air 03/29/22 14:12 36.4 70 93 03/29/22 13:48 36.4 70 18 179/72 (107) 93 Room Air 03/29/22 10:55 36.1 72 16 176/67 (103) Room Air I & O 03/30/22 07:00 Intake Total 1200 ml Output Total 550 ml Balance 650 ml Lab Results Laboratory Tests 03/29/22 11:08: White Blood Count 11.5H, Red Blood Count 3.80, Hemoglobin 11.2L, Hematocrit 35, Mean Corpuscular Volume 91, Mean Corpuscular Hemoglobin 30, Mean Corpuscular Hemoglobin Concent 32, Red Cell Distribution Width 14.4, Platelet Count 136, Mean Platelet Volume 11.3, Immature Granulocyte % (Auto) 0, Neutrophils (%) (Auto) 80H, Lymphocytes (%) (Auto) 13, Monocytes (%) (Auto) 6, Eosinophils (%) (Auto) 0, Basophils (%) (Auto) 0, Neutrophils # (Auto) 9.2H, Lymphocytes # (Auto) 1.4, Monocytes # (Auto) 0.7, Eosinophils # (Auto) 0.0, Basophils # (Auto) 0.0, Immature Granulocyte # (Auto) 0.1, Percent Immature Platelet Fraction 5.1, Prothrombin Time 14.4, INR Comment 1.1, Activated Partial Thromboplast Time 32, Sodium Level 134L, Potassium Level 4.0, Chloride Level 101, Carbon Dioxide Level 23, Anion Gap 10, Blood Urea Nitrogen 21H, Creatinine 0.99, Estimat Glomerular Filtration Rate 56, BUN/Creatinine Ratio 21, Glucose Level 230H, Calcium Level 8.9, Corrected Calcium 9.5, Total Bilirubin 0.7, Aspartate Amino Transf (AST/SGOT) 20, Alanine Aminotransferase (ALT/SGPT) 21, Alkaline Phosphatase 117, Total Protein 6.5, Albumin 3.3 03/29/22 11:47: Urine Color YELLOW, Urine Clarity CLEAR, Urine pH 7.0, Urine Specific [place] 1.020, Urine Protein NEGATIVE, Urine Glucose (UA) NEGATIVE, Urine Ketones NEGATIVE, Urine Nitrite NEGATIVE, Urine Bilirubin NEGATIVE, Urine Urobilinogen 1.0, Urine Leukocyte Esterase NEGATIVE, Urine RBC (Auto) NEGATIVE, Urine RBC NONE, Urine WBC NONE, Urine Squamous Epithelial Cells NONE, Urine Crystals NONE, Urine Bacteria NEGATIVE, Urine Casts NONE, Urine Mucus NEGATIVE, Urine Culture Indicated NO 03/29/22 16:14: Glucometer 208H 03/29/22 20:35: Glucometer 253H 03/30/22 05:12: Glucometer 243H 03/30/22 05:45: White Blood Count 8.9, Red Blood Count 3.60L, Hemoglobin 10.4L, Hematocrit 33L, Mean Corpuscular Volume 91, Mean Corpuscular Hemoglobin 29, Mean Corpuscular Hemoglobin Concent 32, Red Cell Distribution Width 14.8H, Platelet Count 126L, Mean Platelet Volume 11.8, Immature Granulocyte % (Auto) 0, Neutrophils (%) (Auto) 67, Lymphocytes (%) (Auto) 21, Monocytes (%) (Auto) 12, Eosinophils (%) (Auto) 1, Basophils (%) (Auto) 0, Neutrophils # (Auto) 5.9, Lymphocytes # (Auto) 1.8, Monocytes # (Auto) 1.0, Eosinophils # (Auto) 0.0, Basophils # (Auto) 0.0, Immature Granulocyte # (Auto) 0.0, Percent Immature Platelet Fraction 4.7, Sodium Level 134L, Potassium Level 4.5, Chloride Level 103, Carbon Dioxide Level 23, Anion Gap 8, Blood Urea Nitrogen 22H, Creatinine 0.95, Estimat Glomerular Filtration Rate 59, BUN/Creatinine Ratio 23, Glucose Level 263H, Calcium Level 8.3L, Corrected Calcium 9.1, Total Bilirubin 0.5, Aspartate Amino Transf (AST/SGOT) 18, Alanine Aminotransferase (ALT/SGPT) 19, Alkaline Phosphatase 104, Total Protein 6.1L, Albumin 3.0L Imaging 2 view of the right hip dated 03/29/22 were reviewed from PACS and demonstrated a displaced, comminuted intertrochanteric fracture of the right hip Assessment and Plan Assessment Comminuted, displaced right intertrochanteric femur fracture Problem List Comminuted, displaced right intertrochanteric femur fracture Plan I have recommend reduction and fixation of the right hip fracture. Nature of the procedure and the postoperative course were discussed. Risks and benefits were discussed. Will plan to proceed this PM or tomorrow AM if medical optimization is required. Consent to be obtained. Final Diagonsis Comminuted, displaced right intertrochanteric femur fracture Level of the visit: Level 3 (preop) JULIANNE CHANDLER MD Mar 29, 2022 12:34
[2022-03-29] MEDS ORDERED: ONDANSETRON 4 MG/2 ML (SDV) Z0FRAN ONE (12:40)
[2022-03-29] MEDS ORDERED: SEVOFLURANE (ULTANE) 15 ML INHAL SOLN ONE (12:40)
[2022-03-29] MEDS ORDERED: LIDOCAINE PF 2% 5 ML (XYLOCAINE) VIAL ONE (12:40)
[2022-03-29] MEDS ORDERED: proPOfol 200 MG/20 ML (DIPRIVAN) VIAL IV ONE (12:40)
[2022-03-29] MEDS ORDERED: fentaNYL INJ 100 MCG/2 ML AMP ONE (12:41)
[2022-03-29] MEDS ORDERED: MIDAZOLAM 2 MG/2 ML (VERSED) VIAL ONE (12:41)
--- NOTE | 2022-03-29 12:45 | Diagnostic Imaging Report ---
CHEST 1 VIEW, AP/PA ONLY Indication: Preoperative clearance for right hip surgery Comparison: None available. Findings: No focal airspace disease in the visualized lungs. No pleural effusion or pneumothorax. Normal cardiomediastinal silhouette. Impression: 1. No acute cardiopulmonary process by portable radiography. Dictated by: Dictated on workstation # [id number]
[2022-03-29] MEDS ORDERED: ROCURONIUM 50 MG/5 ML (ZEMURON) VIAL IV ONE (13:06)
[2022-03-29] MEDS ORDERED: polyethylene glycoL POWDER 17 GM (MIRALAX) PACK PO PRN (13:15)
[2022-03-29] MEDS ORDERED: LACTULOSE SYRUP 10GM/15ML (ENULOSE) 30ML UDC PO PRN (13:15)
[2022-03-29] MEDS ORDERED: cloNIDine 0.1 MG (CATAPRES) TAB PO PRN (13:15)
[2022-03-29] MEDS ORDERED: LIDOCAINE UROJET 2% GEL 10 ML PKG TOP ONE (13:15)
[2022-03-29] MEDS ORDERED: diphenhydrAMINE 50 MG/ML INJ (BENADRYL) IVP PRN (13:15)
[2022-03-29] MEDS ORDERED: ACETAMINOPHEN 325 MG TABLET PO PRN (13:15)
[2022-03-29] MEDS ORDERED: LORazepam INJ 2 MG/ML (ATIVAN) VIAL IVP PRN (13:15)
[2022-03-29] MEDS ORDERED: diphenhydrAMINE 25 MG TAB (BENADRYL) PO PRN (13:15)
[2022-03-29] MEDS ORDERED: ONDANSETRON 4 MG/2 ML (SDV) Z0FRAN IV PRN (13:15)
[2022-03-29] MEDS ORDERED: CALCIUM CARBONATE 500 MG (TUMS) TAB.CHEW PO PRN (13:15)
[2022-03-29] MEDS ORDERED: ANTACID SUSP 30 ML UDC (MYLANTA) PO PRN (13:15)
[2022-03-29] MEDS ORDERED: LORazepam 0.5 MG (ATIVAN) TABLET PO PRN (13:15)
[2022-03-29] MEDS ORDERED: MELATONIN 3 MG TABLET PO PRN (13:15)
[2022-03-29] MEDS ORDERED: ONDANSETRON 4 MG (ZOFRAN) ORAL DISSOLVE TAB PO PRN (13:15)
[2022-03-29] MEDS ORDERED: BISACODYL 10 MG SUPP (DULCOLAX) PR PRN (13:15)
[2022-03-29] MEDS ORDERED: MILK OF MAGNESIA 400 MG/5 ML 30 ML UDC PO PRN (13:15)
[2022-03-29] MEDS: inSUlin ASPART (NovoLOG) 1 UNIT/0.01 ML (CHARGE PER UNIT) SC SCH ×2 (13:44→20:57)
[2022-03-29 13:48] VITALS: BP 179/72
[2022-03-29] MEDS: NS IV 1000 ML 1,000 ML IV SCH (14:08)
[2022-03-29 14:12] VITALS: BP 179/72
[2022-03-29] MEDS: HYDROmorphone 2 MG/ML VIAL (DILAUDID) IV PRN ×2 (14:56→21:23)
[2022-03-29] MEDS ORDERED: ATOR80TA76 PO (15:26)
[2022-03-29] MEDS ORDERED: GABA-486 PO (15:26)
[2022-03-29] MEDS ORDERED: TRAM50TA3 PO (15:26)
[2022-03-29] MEDS ORDERED: LISI20TA26 PO (15:26)
[2022-03-29 16:08] VITALS: BP 175/74
--- NOTE | 2022-03-29 17:10 | Consultation-Cardiology ---
HPI-Cardiology Cardiology Consultation: Date of Consultation 03/29/22 Time Seen by a Provider: 16:15 Date of Admission Attending Physician Praveen May MD Admitting Physician Admitting Physician: Sierra Larson DO Attending Physician: Sierra Larson DO Consulting Physician ABA MCKAY MD, MA, FACP, FACC, FSCAI, CCDS Physician requesting consult: Dr Larson HPI: Chief Complaint: Reason for Card consult: Cardiac eval prior to surgery Ms. Salgado is an 86 yr old female admitted to [facility] from the ED d/t a non-syncopal fall at home resulting in a right hip fracture. She states she got up from the couch and her feet got tangled in a blanket causing her to fall. She denies any c/o CP, SOB, palpitations, syncope, near syncope or LE swellng. She has multiple family at the bedside. Review of Systems-Cardiology Review of Systems Constitutional: No chills, No fever Eyes: No vision change Ears/Nose/Throat: No epistaxis, No recent hearing loss Respiratory: As described under HPI Cardiovascular: As described under HPI Gastrointestinal: No constipation, No diarrhea, No nausea, No vomiting Genitourinary: No dysuria Musculoskeletal: As describe under HPI Skin: No rash on exposed areas, No ulcerations on exposed areas Psychiatric/Neurological: No anxiety, No depression, No seizure, No focal weakness, No syncope Hematologic: No bleeding abnormalities SHE-[id number]-Rgdynp Hx Patient Social History Smoking Status: Never a Smoker 2nd Hand Smoke Exposure: No Have you traveled recently?: No Alcohol Use?: No Pt feels they are or have been: No Immunizations Up To Date Tetanus Booster (TDap): Unknown Date of Influenza Vaccine: Dec 10, 2021 Past Medical History PMH As described under Assessment. Family Medical History Family Medical History: She does not report fam h/o early CAD or SCD Allergies and Home Medications Allergies Coded Allergies: No Known Drug Allergies (Unverified , 05/07/18) Patient Home Medication List Home Medication List Reviewed: Yes Aspirin (Aspirin EC) 81 Mg Tablet., 81 MG PO DAILY, (Reported) Entered as Reported by: TITO MOROCHO on 02/09/21 0955 Last Action: Reviewed Atorvastatin Calcium (Atorvastatin Calcium) 80 Mg Tablet, 80 MG PO HS, (Reported) Entered as Reported by: TITO MOROCHO on 03/29/221525 Last Action: Reviewed Gabapentin (Gabapentin) 100 Mg Capsule, 100 MG PO BID PRN for PAIN-BREAKTHROUGH, (Reported) Entered as Reported by: TITO MOROCHO on 03/29/221525 Last Action: Reviewed Lisinopril (Lisinopril) 20 Mg Tablet, 20 MG PO DAILY, (Reported) Entered as Reported by: TITO MOROCHO on 03/29/221525 Last Action: Reviewed Tramadol HCl (Tramadol HCl) 50 Mg Tablet, 50 MG PO BID PRN for PAIN-MODERATE (5- 7), (Reported) Entered as Reported by: TITO MOROCHO on 03/29/221525 Last Action: Reviewed Discontinued Medications Acetaminophen (Tylenol) 325 Mg Tablet, 325-650 MG PO Q8H PRN for PAIN-MILD (1- 4), (Reported) Discontinued Reason: No Longer Taking Entered as Reported by: TITO MROOCHO on 02/09/21954 Last Action: Discontinued Atorvastatin Calcium (Atorvastatin Calcium) 80 Mg Tablet, 80 MG PO HS Discontinued Reason: No Longer Taking Prescribed by: SIERRA LARSON on 02/10/21 1217 Last Action: Discontinued Dapagliflozin Propanediol (Farxiga) 10 Mg Tablet, 10 MG PO DAILY, (Reported) Discontinued Reason: No Longer Taking Entered as Reported by: TITO MOROCHO on 02/09/21954 Last Action: Discontinued Glimepiride (Glimepiride) 4 Mg Tablet, 4 MG PO DAILY, (Reported) Discontinued Reason: No Longer Taking Entered as Reported by: TITO MOROCHO on 02/09/21954 Last Action: Discontinued Levocetirizine Dihydrochloride (Levocetirizine Dihydrochloride) 5 Mg Tablet, 5 MG PO 1800, (Reported) Discontinued Reason: No Longer Taking Entered as Reported by: TITO MOROCHO on 02/09/21954 Last Action: Discontinued Lisinopril/Hydrochlorothiazide (Lisinopril-Hctz 20-12.5 mg Tab) 1 Each Tablet, 1 EA PO DAILY, (Reported) Discontinued Reason: No Longer Taking Entered as Reported by: TITO MOROCHO on 02/09/21954 Last Action: Discontinued Physical Exam-Cardiology Physical Exam Vital Signs/I&O 03/29/22 03/29/22 03/29/2220/23 10:55 13:48 14:12 15:10 Temp 36.1 36.4 36.4 Pulse 72 70 70 Resp 16 18 B/P (MAP) 176/67 (103) 179/72 (107) Pulse Ox 93 93 O2 Delivery Room Air Room Air Room Air 03/29/22 03/29/22 15:34 16:08 Temp 37.0 Pulse 84 Resp 18 B/P (MAP) 175/74 (107) Pulse Ox 93 95 O2 Delivery Room Air Room Air Capillary Refill : Less Than 3 Seconds Constitutional: AAO x 3, well-developed, other (frail) HEENT: PERRL, hearing is well preserved Neck: No carotid bruit; carotid pulses are 2 + bilaterally Respiratory: No accessory muscle use, No respiratory distress; chest expansion is symmetric, chest is bilaterally symmetric, lungs clear to auscultation Cardiovascular: regular rate-rhythm, systolic murmur Gastrointestinal: No tender; soft, round, audible bowel sounds Extremities: no lower extremity edema bilateral Neurologic/Psychiatric: other (moves all extremities; right leg not manipulated d/t fracture) Skin: No rash on exposed areas, No ulcerations on exposed areas Data Review Labs Laboratory Tests 03/29/22 11:08: White Blood Count 11.5H, Red Blood Count 3.80, Hemoglobin 11.2L, Hematocrit 35, Mean Corpuscular Volume 91, Mean Corpuscular Hemoglobin 30, Mean Corpuscular Hemoglobin Concent 32, Red Cell Distribution Width 14.4, Platelet Count 136, Mean Platelet Volume 11.3, Immature Granulocyte % (Auto) 0, Neutrophils (%) (Auto) 80H, Lymphocytes (%) (Auto) 13, Monocytes (%) (Auto) 6, Eosinophils (%) (Auto) 0, Basophils (%) (Auto) 0, Neutrophils # (Auto) 9.2H, Lymphocytes # (Auto) 1.4, Monocytes # (Auto) 0.7, Eosinophils # (Auto) 0.0, Basophils # (Auto) 0.0, Immature Granulocyte # (Auto) 0.1, Percent Immature Platelet Fraction 5.1, Prothrombin Time 14.4, INR Comment 1.1, Activated Partial Thromboplast Time 32, Sodium Level 134L, Potassium Level 4.0, Chloride Level 101, Carbon Dioxide Level 23, Anion Gap 10, Blood Urea Nitrogen 21H, Creatinine 0.99, Estimat Glomerular Filtration Rate 56, BUN/Creatinine Ratio 21, Glucose Level 230H, Calcium Level 8.9, Corrected Calcium 9.5, Total Bilirubin 0.7, Aspartate Amino Transf (AST/SGOT) 20, Alanine Aminotransferase (ALT/SGPT) 21, Alkaline Phosphatase 117, Total Protein 6.5, Albumin 3.3 03/29/22 11:47: Urine Color YELLOW, Urine Clarity CLEAR, Urine pH 7.0, Urine Specific [place] 1.020, Urine Protein NEGATIVE, Urine Glucose (UA) NEGATIVE, Urine Ketones NEGATIVE, Urine Nitrite NEGATIVE, Urine Bilirubin NEGATIVE, Urine Urobilinogen 1.0, Urine Leukocyte Esterase NEGATIVE, Urine RBC (Auto) NEGATIVE, Urine RBC NONE, Urine WBC NONE, Urine Squamous Epithelial Cells NONE, Urine Crystals NONE, Urine Bacteria NEGATIVE, Urine Casts NONE, Urine Mucus NEGATIVE, Urine Culture Indicated NO 03/29/22 16:14: Glucometer 208H A/P-Cardiology Assessment/Admission Diagnosis S/P non-syncopal fall resulting in right hip fracture Old CVA - MRI on 02/09/21: No acute ischemia, mass, or hemorrhage. 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 Chronic microvascular disease in the periventricular and subcortical white matter - Carotid u/s on 02/09/21: mild carotid arterial disease - Echo on 02/09/21: LVEF 55-60%, grade 1 diastolic dysfunction, mild LA enlargement, mild to mod MAC, mild MR, AoV sclerosis without significant stenosis, PASP 20-25 mmHg - Echo on 03/2022: LVEF 55-60%, grade 1 diastolic dysfunction, AoV sclerosis w/o stenosis, triv AI, mild MAC, mild MR, PASP 25-30 mmHg DM II Hyperlipidemia Hypertension Discussion and Recomendations * Cardiac risk for noncardiac surgery is estimated to be intermediate. I discussed this in detail with the patient and her family. They understand wish to proceed with surg * We recommend DVT prophylaxis * Monitor labs Clinical Quality Measures DVT/VTE Risk/Contraindication: Contraindications-Pharm: Other *list below* Other: surgery ABA MCKAY MD FACP [facility] Mar 29, 2022 17:10
[2022-03-29 20:11] VITALS: BP 162/70
[2022-03-29] MEDS: SENNOSIDES 8.6 MG (SENOKOT) TAB PO SCH (20:57)
[2022-03-29] MEDS: DOCUSATE SODIUM 100 MG (COLACE) CAP PO SCH (20:57)
[2022-03-30] VITALS (15 sets, daily range): BP systolic 131–196; BP diastolic 55–76
[2022-03-30] MEDS: NS IV 1000 ML 1,000 ML IV SCH ×2 (02:36→15:41)
[2022-03-30] MEDS: HYDROmorphone 2 MG/ML VIAL (DILAUDID) IV PRN ×8 (02:44→22:02)
[2022-03-30] MEDS: inSUlin ASPART (NovoLOG) 1 UNIT/0.01 ML (CHARGE PER UNIT) SC SCH ×4 (05:26→21:56)
[2022-03-30 06:27] LABS: BASOPHILS % (AUTO) 0 % (0-10); HEMOGLOBIN 10.4 g/dL (11.5-16.0); NEUTROPHILS % (AUTO) 67 % (42-75); PLATELET COUNT 126 10^3/uL (130-400)
[2022-03-30 06:29] LABS: EOSINOPHILS % (AUTO) 1 % (0-10); HEMATOCRIT 33 % (35-52); LYMPHOCYTES # (AUTO) 1.8 10^3/uL (1.0-4.0); LYMPHOCYTES % (AUTO) 21 % (12-44); MEAN CORPUSCULAR HEMOGLOBIN 29 pg (25-34); MEAN CORPUSCULAR HGB CONC 32 g/dL (32-36); MEAN CORPUSCULAR VOLUME 91 fL (80-99); MEAN PLATELET VOLUME 11.8 fL (9.0-12.2); MONOCYTES % (AUTO) 12 % (0-12); NEUTROPHILS # (AUTO) 5.9 10^3/uL (1.8-7.8); WHITE BLOOD COUNT 8.9 10^3/uL (4.3-11.0)
--- NOTE | 2022-03-30 06:50 | Progress Note ---
Subjective Date Seen by a Provider: Mar 30, 2022 Time Seen by a Provider: 11:00 Subjective/Events-last exam Undergoing uncomplicated hip fracture repair by Dr Lowe Labs remain stable Pain controlled Review of Systems General: Fatigue, Malaise Musculoskeletal: leg pain Objective Exam Last Set of Vital Signs Vital Signs Date Time Temp Pulse Resp B/P (MAP) Pulse Ox O2 Delivery O2 Flow Rate FiO2 03/30/22 04:23 36.8 83 16 131/68 (89) 94 Room Air Capillary Refill : Less Than 3 Seconds I&O Intake and Output 03/30/22 00:00 Intake Total 200 ml Output Total 300 ml Balance -100 ml Intake Oral 200 ml Output Urine Total 300 ml General: Alert, Oriented X3, Cooperative, No Acute Distress Lungs: Clear to Auscultation, Normal Air Movement Heart: Regular Rate, Normal S1, Normal S2, No Murmurs Psych/Mental Status: Mental Status NL, Mood NL Results Lab Laboratory Tests 03/29/22 11:08: White Blood Count 11.5H, Red Blood Count 3.80, Hemoglobin 11.2L, Hematocrit 35, Mean Corpuscular Volume 91, Mean Corpuscular Hemoglobin 30, Mean Corpuscular Hemoglobin Concent 32, Red Cell Distribution Width 14.4, Platelet Count 136, Mean Platelet Volume 11.3, Immature Granulocyte % (Auto) 0, Neutrophils (%) (Auto) 80H, Lymphocytes (%) (Auto) 13, Monocytes (%) (Auto) 6, Eosinophils (%) (Auto) 0, Basophils (%) (Auto) 0, Neutrophils # (Auto) 9.2H, Lymphocytes # (Auto) 1.4, Monocytes # (Auto) 0.7, Eosinophils # (Auto) 0.0, Basophils # (Auto) 0.0, Immature Granulocyte # (Auto) 0.1, Percent Immature Platelet Fraction 5.1, Prothrombin Time 14.4, INR Comment 1.1, Activated Partial Thromboplast Time 32, Sodium Level 134L, Potassium Level 4.0, Chloride Level 101, Carbon Dioxide Level 23, Anion Gap 10, Blood Urea Nitrogen 21H, Creatinine 0.99, Estimat Glomerular Filtration Rate 56, BUN/Creatinine Ratio 21, Glucose Level 230H, Calcium Level 8.9, Corrected Calcium 9.5, Total Bilirubin 0.7, Aspartate Amino Transf (AST/SGOT) 20, Alanine Aminotransferase (ALT/SGPT) 21, Alkaline Phosphatase 117, Total Protein 6.5, Albumin 3.3 03/29/22 11:47: Urine Color YELLOW, Urine Clarity CLEAR, Urine pH 7.0, Urine Specific [place] 1.020, Urine Protein NEGATIVE, Urine Glucose (UA) NEGATIVE, Urine Ketones NEGATIVE, Urine Nitrite NEGATIVE, Urine Bilirubin NEGATIVE, Urine Urobilinogen 1.0, Urine Leukocyte Esterase NEGATIVE, Urine RBC (Auto) NEGATIVE, Urine RBC NONE, Urine WBC NONE, Urine Squamous Epithelial Cells NONE, Urine Crystals NONE, Urine Bacteria NEGATIVE, Urine Casts NONE, Urine Mucus NEGATIVE, Urine Culture Indicated NO 03/29/22 16:14: Glucometer 208H 03/29/22 20:35: Glucometer 253H 03/30/22 05:12: Glucometer 243H 03/30/22 05:45: White Blood Count 8.9, Red Blood Count 3.60L, Hemoglobin 10.4L, Hematocrit 33L, Mean Corpuscular Volume 91, Mean Corpuscular Hemoglobin 29, Mean Corpuscular Hemoglobin Concent 32, Red Cell Distribution Width 14.8H, Platelet Count 126L, Mean Platelet Volume 11.8, Immature Granulocyte % (Auto) 0, Neutrophils (%) (Auto) 67, Lymphocytes (%) (Auto) 21, Monocytes (%) (Auto) 12, Eosinophils (%) (Auto) 1, Basophils (%) (Auto) 0, Neutrophils # (Auto) 5.9, Lymphocytes # (Auto) 1.8, Monocytes # (Auto) 1.0, Eosinophils # (Auto) 0.0, Basophils # (Auto) 0.0, Immature Granulocyte # (Auto) 0.0, Percent Immature Platelet Fraction 4.7 Assessment/Plan Assessment/Plan Assess & Plan/Chief Complaint Assessment: Right hip fracture Hypertension Advanced age Plan: Dr. Lowe consult Dr. Strauss consult Echo Pain control Diagnosis/Problems Diagnosis/Problems (1) Closed right hip fracture Status: Acute Clinical Quality Measures DVT/VTE Risk/Contraindication: Contraindications-Pharm: Other *list below* Other: surgery BARB LARSON DO Mar 30, 2022 06:50
[2022-03-30 07:50] LABS: POTASSIUM 4.5 MMOL/L (3.6-5.0)
[2022-03-30 07:51] LABS: CALCIUM 8.3 MG/DL (8.5-10.1)
[2022-03-30 07:52] LABS: TOTAL PROTEIN 6.1 GM/DL (6.4-8.2)
[2022-03-30 07:54] LABS: BILIRUBIN,TOTAL 0.5 MG/DL (0.1-1.0)
[2022-03-30 07:56] LABS: CREATININE SERUM 0.95 MG/DL (0.60-1.30)
[2022-03-30] MEDS: DOCUSATE SODIUM 100 MG (COLACE) CAP PO SCH ×2 (10:07→21:57)
[2022-03-30] MEDS: SENNOSIDES 8.6 MG (SENOKOT) TAB PO SCH ×2 (10:07→21:56)
[2022-03-30] MEDS ORDERED: proPOfol 200 MG/20 ML (DIPRIVAN) VIAL IV ONE (11:21)
[2022-03-30] MEDS ORDERED: fentaNYL INJ 100 MCG/2 ML AMP ONE (11:21)
[2022-03-30] MEDS ORDERED: LIDOCAINE PF 2% 5 ML (XYLOCAINE) VIAL ONE (11:21)
[2022-03-30] MEDS ORDERED: ceFAZolin INJECTION 1,000 MG ONE (11:46)
[2022-03-30] MEDS ORDERED: ceFAZolin INJECTION 1,000 MG VIAL IV ONE (12:15)
[2022-03-30] MEDS ORDERED: LACTATED RINGERS 1,000 ML IV PRN (12:15)
[2022-03-30] MEDS ORDERED: SUCCINYLCHOLINE INJ 20 MG/1 ML 10 ML VIAL ONE (12:24)
--- NOTE | 2022-03-30 12:26 | Operative Report - Ortho ---
Operative Report Surgeon (s)/Endocrinology Physician (s) Surgeon JULIANNE CHANDLER MD Endocrinology Physician n/a Pre-Operative Diagnosis Right Intertrochanteric Femur Fracture Post-Operative Diagnosis same Operative Report Date of Procedure: Mar 30, 2022 Name of Procedure Performed: Intramedullary Nailing of Right Intertrochanteric Femur Fracture Description & Findings After obtaining informed consent and marking the patient in the preoperative holding area, the patient was administered IV antibiotics and taken to the operating room. Anesthesia was induced. Patient was transferred to the fracture table. Surgical timeout was taken. The right lower extremity was placed in the traction spar and the left was placed in the well leg pascual. The right lower extremity was prepped and draped in the usual sterile fashion. Incision was made just proximal to the greater trochanter. Blunt dissection was performed down to the tip of the trochanter. A guide wire was placed through a trochanteric entry point. Position of the wire was confirmed using C-arm. An entry reamer was then placed over the guidewire and reamed to the level of the lesser trochanter. A trochanteric gamma nail with a 130 degree neck angle was selected and assembled on the back table. Nail was inserted through the trochanteric entry point and seated by hand. Position of the nail was confirmed using C-arm. A guide wire was placed for the cephalomedullary screw. Version of the wire was obtained on the lateral. Measurement was taken and the reamer was set to 95 mm. Reamer was used over the guidewire and then the cephalomedullary screw was placed. Position of the cephalomedullary screw was confirmed on C-arm. Set screw was then tightened onto the cephalomedullary screw and then backed off 1/4 turn. Attention was then turned to the distal screw and using the provided guides, a 32.5 mm screw was placed through the dynamic portion of the distal slot. Final C arm images were obtained, demonstrated appropriate placement of hardware with adequate reduction, and were transferred to PACS. Incision sites were irrigated with normal saline. Closed subcutaneously with 2- 0 vicryl and skin was closed with wen. Dressed with xeroform, 4x4s, ABD, and tape. Patient tolerated the procedure well and was stable to the recovery room. Anesthesia Type General Estimated Blood Loss 150 ml Specimen(s) collected/removed None JULIANNE CHANDLER MD Mar 30, 2022 12:26
[2022-03-30] MEDS ORDERED: SEVOFLURANE (ULTANE) 15 ML INHAL SOLN ONE (12:30)
[2022-03-30] MEDS ORDERED: ONDANSETRON 4 MG/2 ML (SDV) Z0FRAN ONE (12:30)
--- NOTE | 2022-03-30 12:37 | Anesthesia-General Post-Op ---
General Patient Condition Mental Status/LOC: Same as Preop Cardiovascular: Satisfactory Nausea/Vomiting: Absent Respiratory: Satisfactory Pain: Controlled Complications: Absent Post Op Complications Complications None Follow Up Care/Instructions Patient Instructions None needed. Anesthesia/Patient Condition Patient Condition Patient is doing well, no complaints, stable vital signs, no apparent adverse anesthesia problems. No complications reported per nursing. HERVE DHALIWAL CRNA Mar 30, 2022 12:37
[2022-03-30] MEDS ORDERED: morphine INJ 10 MG/ML 1ML (SYR OR VIAL) IVP ONE (12:45)
[2022-03-30] MEDS ORDERED: ONDANSETRON 4 MG/2 ML (SDV) Z0FRAN IVP PRN (12:45)
[2022-03-30] MEDS ORDERED: fentaNYL INJ 100 MCG/2 ML AMP IVP ONE (12:45)
[2022-03-31 04:00] VITALS: BP 155/68
[2022-03-31] MEDS: inSUlin ASPART (NovoLOG) 1 UNIT/0.01 ML (CHARGE PER UNIT) SC SCH ×4 (06:14→20:19)
[2022-03-31] MEDS: NS IV 1000 ML 1,000 ML IV SCH ×2 (06:15→07:01)
[2022-03-31 07:16] VITALS: BP 142/65
--- NOTE | 2022-03-31 07:58 | Progress Note ---
Subjective Date Seen by a Provider: Mar 31, 2022 Time Seen by a Provider: 11:00 Subjective/Events-last exam Patient doing really well 2 daughters are at the bedside 1 from [place] the other from [place] Patient up in a chair Participating in therapy really well Labs stable Laxatives given no BM yet Navarro catheter still in place Explained inpatient rehab Review of Systems General: Fatigue, Malaise Gastrointestinal: Constipation Musculoskeletal: leg pain Objective Exam Last Set of Vital Signs Vital Signs Date Time Temp Pulse Resp B/P (MAP) Pulse Ox O2 Delivery O2 Flow Rate FiO2 03/31/22 07:16 38.1 94 18 142/65 (90) 91 Room Air 03/30/22 13:10 2.00 Capillary Refill : Less Than 3 SecondsLess Than 3 Seconds I&O Intake and Output 03/31/22 00:00 Intake Total 1100 ml Output Total 650 ml Balance 450 ml Intake Oral 100 ml IV Total 1000 ml Output Urine Total 500 ml Estimated Blood Loss 150 ml Lungs: Clear to Auscultation, Normal Air Movement Heart: Regular Rate, Normal S1, Normal S2, No Murmurs Psych/Mental Status: Mental Status NL, Mood NL Results Lab Laboratory Tests 03/30/22 16:35: Glucometer 218H 03/30/22 20:41: Glucometer 197H 03/31/22 05:25: Glucometer 160H 03/31/22 07:53: Microbiology 03/29/22 MRSA Screen - Final, Complete MRSA not isolated Assessment/Plan Assessment/Plan Assess & Plan/Chief Complaint Assessment: Right hip fracture status post uncomplicated repair postop day #1 Hypertension Advanced age Diabetes Postop acute blood loss anemia Postop constipation Frail status Plan: Dr. Lwoe consult Dr. Strauss consult Echo Pain control Diagnosis/Problems Diagnosis/Problems (1) Closed right hip fracture Status: Acute Clinical Quality Measures DVT/VTE Risk/Contraindication: Contraindications-Pharm: Other *list below* Other: surgery BARB LARSON DO Mar 31, 2022 07:58
[2022-03-31 08:07] LABS: BASOPHILS % (AUTO) 0 % (0-10); HEMATOCRIT 27 % (35-52); HEMOGLOBIN 8.6 g/dL (11.5-16.0); MEAN CORPUSCULAR HGB CONC 33 g/dL (32-36); NEUTROPHILS # (AUTO) 6.6 10^3/uL (1.8-7.8); NEUTROPHILS % (AUTO) 71 % (42-75)
[2022-03-31 08:09] LABS: EOSINOPHILS % (AUTO) 0 % (0-10); LYMPHOCYTES # (AUTO) 1.3 10^3/uL (1.0-4.0); LYMPHOCYTES % (AUTO) 15 % (12-44); MEAN CORPUSCULAR HEMOGLOBIN 30 pg (25-34); MEAN CORPUSCULAR VOLUME 91 fL (80-99); MEAN PLATELET VOLUME 11.3 fL (9.0-12.2); MONOCYTES # (AUTO) 1.2 10^3/uL (0.0-1.0); MONOCYTES % (AUTO) 14 % (0-12); PLATELET COUNT 109 10^3/uL (130-400); WHITE BLOOD COUNT 9.2 10^3/uL (4.3-11.0)
[2022-03-31 08:10] LABS: ALBUMIN 2.5 GM/DL (3.2-4.5)
[2022-03-31 08:11] LABS: POTASSIUM 4.2 MMOL/L (3.6-5.0)
[2022-03-31 08:12] LABS: CALCIUM 7.8 MG/DL (8.5-10.1)
[2022-03-31 08:13] LABS: TOTAL PROTEIN 5.2 GM/DL (6.4-8.2)
[2022-03-31 08:15] LABS: BILIRUBIN,TOTAL 0.9 MG/DL (0.1-1.0)
[2022-03-31 08:16] LABS: CREATININE SERUM 0.9 MG/DL (0.60-1.30)
--- NOTE | 2022-03-31 09:28 | Physical Therapy Evaluation ---
PT Evaluation-General Medical Diagnosis Admission Date Mar 29, 2022 at 12:10 Medical Diagnosis: (R) femur fracture Onset Date: Mar 30, 2022 Therapy Diagnosis Therapy Diagnosis: difficulty with walking Height/Weight Height (Feet): 5 Height (Inches): 2.00 Weight (Pounds): 140 Precautions Precautions/Isolations: Standard Precautions Weight Bear Status Right Lower Extremity: Right Weight Bearing/Tolerated Left Lower Extremity: Left Full Weight Bearing Referral Physician: Mynor Reason for Referral: Evaluation/Treatment Medical History Pertinent Medical History: HTN Social History patient poor historian and difficult to get correct info Prior Prior Level of Function SCALE: Activities may be completed with or without assistive devices. 1-Cxryhywslr-igkyucn completes the activity by him/herself with no assistance from a helper. 5-Set-up or Clean-up Assistance-helper sets up or cleans up; patient completes activity. [place] assists only prior to or following the activity. 4-Supervision or Touching Assistance-helper provides verbal cues and/or touching/steadying and/or contact guard assistance as patient completes activity. Assistance may be provided throughout the activity or intermittently. 3-Partial/Moderate Assistance-helper does LESS THAN HALF the effort. [place] lifts, holds or supports trunk or limbs, but provides less than half the effort. 2-Substantial/Maximal Assistance-helper does MORE THAN HALF the effort. [place] lifts or holds trunk or limbs and provides more than half the effort. 1-Ytnummfjr-sddrlx does ALL the effort. Patient does none of the effort to compl ete the activity. Or, the assistance of 2 or more helpers is required for the patient to complete the activity. If activity was not attempted, code reason: 7-Patient Refused. 9-Not Applicable-not attempted and the patient did not perform the activity before the current illness, exacerbation or injury. 10-Not Attempted due to Environmental Limitations-(lack of equipment, weather restraints, etc.). 88-Not Attempted due to Medical Conditions or Safety Concerns. Bed Mobility: 6 Transfers (B,C,W/C): 6 Gait: 6 Stairs: 6 Indoor Mobility (Ambulation): Independent Stairs: Independent PT Evaluation-Current Subjective The patient states that she fell over a blanket at home and broke her leg. Pain Numeric Pain Scale: 0-No Pain ROM/Strength ROM Lower Extremities 15 degrees (R) hip flexion, 10 degrees (R) hip abduction Transfers Roll Left to Right (QC): 3 Lying to Sitting/Side of Bed(Q: 3 Sit to Stand (QC): 4 Chair/Buk-gp-Thvlq Xfer(QC): 3 Gait Does the Patient Walk?: Yes Anticipated Mode of Locomotion: Walk Walk 10 feet (QC): 88 Walk 50 ft with 2 Turns(QC): 88 Walk 150 ft (QC): 88 Walking 10ft/uneven surface-QC: 88 Distance: 1' Gait Assistive Device: Handheld Assist Comments/Gait Description Patient was only able to transfer to a chair with pivot transfer. Unable to take steps with a FWW. Balance Sitting Static: Good Sitting Dynamic: Fair Standing Static: Poor Standing Dynamic: Poor Assessment/Needs 86 y.o. female with a diagnosis of (R) femur fracture. She has some confusion which is complicating her rehab but she should be able to progress well. Rehab Potential: Good PT Short Term Goals Short Term Goals Time Frame: Apr 03, 2022 Roll Left & Right: 5 Sit to lyin Lying to sitting on side of be: 5 Sit to stand: 5 Chair/abi-pm-fxcve transfer: 5 Toilet transfer: 5 Car transfer: 5 Walk 10 feet: 5 Walk 50 feet with two turns: 5 Walk 150 feet: 5 PT Maintenance Foreman Goals Residential Goals PT Maintenance Foreman Goals Time Frame: Apr 07, 2022 Roll Left & Right (QC): 6 Sit to Lying (QC): 6 Lying-Sitting on Side/Bed(QC): 6 Sit to Stand (QC): 6 Chair/Nwu-mo-Fyute Xfer(QC): 6 Toilet Transfer (QC): 6 Car Transfer (QC): 6 Does the Patient Walk: Yes Walk 10 feet (QC): 6 Walk 50ft with 2 Turns (QC): 6 Walk 150 ft (QC): 6 1 Step (curb) (QC): 6 4 Steps (QC): 6 PT Plan Problem List Problem List: Activity Tolerance, Functional Strength, Safety, Balance, Gait, Transfer, Bed Mobility, ROM Treatment/Plan Treatment Plan: Continue Plan of Care Treatment Plan: Bed Mobility, Education, Functional Activity Norah, Functional Strength, Gait, Safety, Therapeutic Exercise, Transfers Treatment Duration: Apr 07, 2022 Frequency: 11 times per week Estimated Hrs Per Day: 1 hour per day Patient and/or Family Agrees t: Yes Time Time In: 0855 Time Out: 919 DATE: Mar 31, 2022 Total Billed Treatment Time: 25 Total Billed Treatment 1, EV low complexity x 15, FA x 10' DEE DEE GOMEZ PT Mar 31, 2022 09:28
[2022-03-31] MEDS: SENNOSIDES 8.6 MG (SENOKOT) TAB PO SCH ×2 (10:20→20:19)
[2022-03-31] MEDS: DOCUSATE SODIUM 100 MG (COLACE) CAP PO SCH ×2 (10:20→20:18)
[2022-03-31 11:15] VITALS: BP 127/61
[2022-03-31] MEDS ORDERED: ENOXAPARIN 40 MG/0.4 ML (LOVENOX) SYR SC SCH ×2 (13:00→15:00)
--- NOTE | 2022-03-31 14:17 | Progress Note - Cardiology ---
Cardiology SOAP Progress Note Subjective: Gen weakness and malaise No n/v/d No focal weakness No shortness of breath at rest No cp or palp or syncope Objective: I&O/Vital Signs 03/31/22 03/31/22 03/31/22 03/31/22 04:00 07:00 07:16 07:57 Temp 36.8 38.1 Pulse 98 94 94 Resp 16 18 B/P (MAP) 155/68 (97) 142/65 (90) Pulse Ox 90 91 O2 Delivery Room Air Room Air Room Air 03/31/22 03/31/22 11:15 13:00 Temp 37.6 Pulse 88 82 Resp 18 B/P (MAP) 127/61 (83) Pulse Ox 90 O2 Delivery Room Air 03/31/22 00:00 Intake Total 100 ml Output Total 400 ml Balance -300 ml Weight (Pounds): 140 Weight (Calculated Kilograms): 63.482709 Constitutional: AAO x 3, well-developed, other (frail) Respiratory: No accessory muscle use, No respiratory distress; chest expansion is symmetric, chest is bilaterally symmetric, lungs clear to auscultation Cardiovascular: regular rate-rhythm, systolic murmur Gastrointestional: No tender; soft, round, audible bowel sounds Extremities: no lower extremity edema bilateral Neurologic/Psychiatric: other (moves all extremities; right leg not manipulated d/t fracture) Skin: No rash on exposed areas, No ulcerations on exposed areas Results/Procedures: Labs Laboratory Tests 03/30/22 16:35: Glucometer 218H 03/30/22 20:41: Glucometer 197H 03/31/22 05:25: Glucometer 160H 03/31/22 07:53: White Blood Count 9.2, Red Blood Count 2.91L, Hemoglobin 8.6L, Hematocrit 27L, Mean Corpuscular Volume 91, Mean Corpuscular Hemoglobin 30, Mean Corpuscular Hemoglobin Concent 33, Red Cell Distribution Width 14.7H, Platelet Count 109L, Mean Platelet Volume 11.3, Immature Granulocyte % (Auto) 0, Neutrophils (%) (Auto) 71, Lymphocytes (%) (Auto) 15, Monocytes (%) (Auto) 14H, Eosinophils (%) (Auto) 0, Basophils (%) (Auto) 0, Neutrophils # (Auto) 6.6, Lymphocytes # (Auto) 1.3, Monocytes # (Auto) 1.2H, Eosinophils # (Auto) 0.0, Basophils # (Auto) 0.0, Immature Granulocyte # (Auto) 0.0, Percent Immature Platelet Fraction 3.2, Sodium Level 135, Potassium Level 4.2, Chloride Level 105, Carbon Dioxide Level 23, Anion Gap 7, Blood Urea Nitrogen 20H, Creatinine 0.90, Estimat Glomerular Filtration Rate 63, BUN/Creatinine Ratio 22, Glucose Level 172H, Calcium Level 7.8L, Corrected Calcium 9.0, Total Bilirubin 0.9, Aspartate Amino Transf (AST/SGOT) 16, Alanine Aminotransferase (ALT/SGPT) 16, Alkaline Phosphatase 78, Total Protein 5.2L, Albumin 2.5L 03/31/22 10:55: Glucometer 281H Microbiology 03/29/22 MRSA Screen - Final, Complete MRSA not isolated Laboratory Tests 03/30/22 05:45 03/31/22 07:53 A/P: Assessment: S/P non-syncopal fall resulting in right hip fracture - s/p gamma nail in R hip on 03/30/22 Old CVA - MRI on 02/09/21: No acute ischemia, mass, or hemorrhage. 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 Chronic microvascular disease in the periventricular and subcortical white matter - Carotid u/s on 02/09/21: mild carotid arterial disease - Echo on 02/09/21: LVEF 55-60%, grade 1 diastolic dysfunction, mild LA enlargement, mild to mod MAC, mild MR, AoV sclerosis without significant stenosis, PASP 20-25 mmHg - Echo on 03/2022: LVEF 55-60%, grade 1 diastolic dysfunction, AoV sclerosis w/o stenosis, triv AI, mild MAC, mild MR, PASP 25-30 mmHg DM II Hyperlipidemia Hypertension Plan: * We reviewed his hosp and surgical course * We recommend DVT prophylaxis (Surg and Med svces managing) * Monitor labs ABA MCKAY MD FACP [facility] Mar 31, 2022 14:17
[2022-03-31 15:53] VITALS: BP 148/55
[2022-03-31 19:46] VITALS: BP 130/53
[2022-03-31 23:46] VITALS: BP 127/54
[2022-04-01] VITALS (7 sets, daily range): BP systolic 92–155; BP diastolic 52–73
[2022-04-01] MEDS: inSUlin ASPART (NovoLOG) 1 UNIT/0.01 ML (CHARGE PER UNIT) SC SCH ×2 (05:33→11:51)
[2022-04-01 06:16] LABS: BASOPHILS % (AUTO) 0 % (0-10); MEAN PLATELET VOLUME 11.1 fL (9.0-12.2)
[2022-04-01 06:18] LABS: EOSINOPHILS % (AUTO) 0 % (0-10); HEMATOCRIT 24 % (35-52); HEMOGLOBIN 7.8 g/dL (11.5-16.0); LYMPHOCYTES # (AUTO) 1.9 10^3/uL (1.0-4.0); LYMPHOCYTES % (AUTO) 19 % (12-44); MEAN CORPUSCULAR HEMOGLOBIN 30 pg (25-34); MEAN CORPUSCULAR HGB CONC 33 g/dL (32-36); MEAN CORPUSCULAR VOLUME 90 fL (80-99); MONOCYTES # (AUTO) 1.2 10^3/uL (0.0-1.0); MONOCYTES % (AUTO) 13 % (0-12); NEUTROPHILS # (AUTO) 6.6 10^3/uL (1.8-7.8); NEUTROPHILS % (AUTO) 67 % (42-75); PLATELET COUNT 109 10^3/uL (130-400); WHITE BLOOD COUNT 9.8 10^3/uL (4.3-11.0)
[2022-04-01 06:29] LABS: ALBUMIN 2.4 GM/DL (3.2-4.5); CALCIUM 8.2 MG/DL (8.5-10.1); CREATININE SERUM 0.83 MG/DL (0.60-1.30); TOTAL PROTEIN 5.2 GM/DL (6.4-8.2)
[2022-04-01] MEDS ORDERED: NS IV 500 ML 500 ML IV SCH ×2 (07:15)
--- NOTE | 2022-04-01 09:10 | Progress Note - Cardiology ---
Cardiology SOAP Progress Note Subjective: Lying in bed, daughter at the bedside C/O fatigue No c/o CP or SOB or palpitations Objective: I&O/Vital Signs Weight (Pounds): 140 Weight (Calculated Kilograms): 63.525772 Constitutional: AAO x 3, well-developed, other (frail) Respiratory: No accessory muscle use, No respiratory distress; chest expansion is symmetric, chest is bilaterally symmetric, lungs clear to auscultation Cardiovascular: regular rate-rhythm, systolic murmur Gastrointestional: No tender; soft, round, audible bowel sounds Extremities: no lower extremity edema bilateral Neurologic/Psychiatric: other (moves all extremities; right leg not manipulated d/t fracture) Skin: No rash on exposed areas, No ulcerations on exposed areas Results/Procedures: Labs Microbiology 03/29/22 MRSA Screen - Final, Complete MRSA not isolated A/P: Assessment: S/P non-syncopal fall resulting in right hip fracture - s/p gamma nail in R hip on 03/30/22 Old CVA - MRI on 02/09/21: No acute ischemia, mass, or hemorrhage. 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 Chronic microvascular disease in the periventricular and subcortical white matter - Carotid u/s on 02/09/21: mild carotid arterial disease - Echo on 02/09/21: LVEF 55-60%, grade 1 diastolic dysfunction, mild LA enlargement, mild to mod MAC, mild MR, AoV sclerosis without significant stenosis, PASP 20-25 mmHg - Echo on 03/2022: LVEF 55-60%, grade 1 diastolic dysfunction, AoV sclerosis w/o stenosis, triv AI, mild MAC, mild MR, PASP 25-30 mmHg DM II Hyperlipidemia Hypertension - currently somewhat low BP this morning - 1 unit PRBC transfusion planned for today Anemia - post surgical - managed by medical/surgical services Plan: * We recommend DVT prophylaxis (Surg and Med svces managing) * Monitor labs * Post op anemia - receiving 1 unit PRBC today - management per medical services * Somewhat low BP this moring HADLEY SORTO Apr 01, 2022 09:10
--- NOTE | 2022-04-01 09:39 | Discharge Summary ---
Diagnosis/Chief Complaint Date of Admission Mar 29, 2022 at 12:10 Date of Discharge Discharge Date: Apr 01, 2022 Discharge Diagnosis Assessment: Right hip fracture status post uncomplicated repair postop day #3 Hypertension Advanced age Diabetes Postop acute blood loss anemia s/p 1 unit of blood Postop constipation Frail status Post op hallucinations per daughter Discharge Summary Discharge Physical Examination Allergies: Coded Allergies: No Known Drug Allergies (Unverified , 05/07/18) Vitals & I&Os Vital Signs Date Time Temp Pulse Resp B/P (MAP) Pulse Ox O2 Delivery O2 Flow Rate FiO2 04/01/22 13:34 37.5 87 24 155/73 97 Room Air 2.00 General Appearance: Alert, Oriented X3, Cooperative Respiratory: Clear to Auscultation Cardiovascular: Regular Rate Psych/Mental Status: Mental Status NL Hospital Course Was the Problem List Reviewed?: Yes Uncomplicated med surg course after undergoing hip fracture repair in an uncomplicated manner by Dr Lowe. Overall she did well but did require 1 unit of blood transfusion. Hallucinations were reported by daughter and she was reassured and will be monitored closely in IRU. Labs (last 24 hrs) Laboratory Tests 03/29/22 11:08: White Blood Count 11.5H, Red Blood Count 3.80, Hemoglobin 11.2L, Hematocrit 35, Mean Corpuscular Volume 91, Mean Corpuscular Hemoglobin 30, Mean Corpuscular Hemoglobin Concent 32, Red Cell Distribution Width 14.4, Platelet Count 136, Mean Platelet Volume 11.3, Immature Granulocyte % (Auto) 0, Neutrophils (%) (Auto) 80H, Lymphocytes (%) (Auto) 13, Monocytes (%) (Auto) 6, Eosinophils (%) (Auto) 0, Basophils (%) (Auto) 0, Neutrophils # (Auto) 9.2H, Lymphocytes # (Auto) 1.4, Monocytes # (Auto) 0.7, Eosinophils # (Auto) 0.0, Basophils # (Auto) 0.0, Immature Granulocyte # (Auto) 0.1, Percent Immature Platelet Fraction 5.1, Prothrombin Time 14.4, INR Comment 1.1, Activated Partial Thromboplast Time 32, Sodium Level 134L, Potassium Level 4.0, Chloride Level 101, Carbon Dioxide Level 23, Anion Gap 10, Blood Urea Nitrogen 21H, Creatinine 0.99, Estimat Glomerular Filtration Rate 56, BUN/Creatinine Ratio 21, Glucose Level 230H, Calcium Level 8.9, Corrected Calcium 9.5, Total Bilirubin 0.7, Aspartate Amino Transf (AST/SGOT) 20, Alanine Aminotransferase (ALT/SGPT) 21, Alkaline Phosphatase 117, Total Protein 6.5, Albumin 3.3 03/29/22 11:47: Urine Color YELLOW, Urine Clarity CLEAR, Urine pH 7.0, Urine Specific [place] 1.020, Urine Protein NEGATIVE, Urine Glucose (UA) NEGATIVE, Urine Ketones NEGATIVE, Urine Nitrite NEGATIVE, Urine Bilirubin NEGATIVE, Urine Urobilinogen 1.0, Urine Leukocyte Esterase NEGATIVE, Urine RBC (Auto) NEGATIVE, Urine RBC NONE, Urine WBC NONE, Urine Squamous Epithelial Cells NONE, Urine Crystals NONE, Urine Bacteria NEGATIVE, Urine Casts NONE, Urine Mucus NEGATIVE, Urine Culture Indicated NO 03/29/22 16:14: Glucometer 208H 03/29/22 20:35: Glucometer 253H 03/30/22 05:12: Glucometer 243H 03/30/22 05:45: White Blood Count 8.9, Red Blood Count 3.60L, Hemoglobin 10.4L, Hematocrit 33L, Mean Corpuscular Volume 91, Mean Corpuscular Hemoglobin 29, Mean Corpuscular Hemoglobin Concent 32, Red Cell Distribution Width 14.8H, Platelet Count 126L, Mean Platelet Volume 11.8, Immature Granulocyte % (Auto) 0, Neutrophils (%) (Auto) 67, Lymphocytes (%) (Auto) 21, Monocytes (%) (Auto) 12, Eosinophils (%) (Auto) 1, Basophils (%) (Auto) 0, Neutrophils # (Auto) 5.9, Lymphocytes # (Auto) 1.8, Monocytes # (Auto) 1.0, Eosinophils # (Auto) 0.0, Basophils # (Auto) 0.0, Immature Granulocyte # (Auto) 0.0, Percent Immature Platelet Fraction 4.7, Sodium Level 134L, Potassium Level 4.5, Chloride Level 103, Carbon Dioxide Level 23, Anion Gap 8, Blood Urea Nitrogen 22H, Creatinine 0.95, Estimat Glomerular Filtration Rate 59, BUN/Creatinine Ratio 23, Glucose Level 263H, Calcium Level 8.3L, Corrected Calcium 9.1, Total Bilirubin 0.5, Aspartate Amino Transf (AST/SGOT) 18, Alanine Aminotransferase (ALT/SGPT) 19, Alkaline Phosphatase 104, Total Protein 6.1L, Albumin 3.0L 03/30/22 16:35: Glucometer 218H 03/30/22 20:41: Glucometer 197H 03/31/22 05:25: Glucometer 160H 03/31/22 07:53: White Blood Count 9.2, Red Blood Count 2.91L, Hemoglobin 8.6L, Hematocrit 27L, Mean Corpuscular Volume 91, Mean Corpuscular Hemoglobin 30, Mean Corpuscular Hemoglobin Concent 33, Red Cell Distribution Width 14.7H, Platelet Count 109L, Mean Platelet Volume 11.3, Immature Granulocyte % (Auto) 0, Neutrophils (%) (Auto) 71, Lymphocytes (%) (Auto) 15, Monocytes (%) (Auto) 14H, Eosinophils (%) (Auto) 0, Basophils (%) (Auto) 0, Neutrophils # (Auto) 6.6, Lymphocytes # (Auto) 1.3, Monocytes # (Auto) 1.2H, Eosinophils # (Auto) 0.0, Basophils # (Auto) 0.0, Immature Granulocyte # (Auto) 0.0, Percent Immature Platelet Fraction 3.2, Sodium Level 135, Potassium Level 4.2, Chloride Level 105, Carbon Dioxide Level 23, Anion Gap 7, Blood Urea Nitrogen 20H, Creatinine 0.90, Estimat Glomerular Filtration Rate 63, BUN/Creatinine Ratio 22, Glucose Level 172H, Mean Blood Glucose 180H, Hemoglobin A1c 7.9H, Calcium Level 7.8L, Corrected Calcium 9.0, Iron Level 17L, Total Bilirubin 0.9, Aspartate Amino Transf (AST/SGOT) 16, Alanine Aminotransferase (ALT/SGPT) 16, Alkaline Phosphatase 78, Total Protein 5.2L, Albumin 2.5L, Vitamin B12 Level 319 03/31/22 10:55: Glucometer 281H 03/31/22 15:58: Glucometer 247H 03/31/22 20:04: Glucometer 208H 04/01/22 05:27: Glucometer 155H 04/01/22 05:55: White Blood Count 9.8, Red Blood Count 2.60L, Hemoglobin 7.8L, Hematocrit 24L, Mean Corpuscular Volume 90, Mean Corpuscular Hemoglobin 30, Mean Corpuscular Hemoglobin Concent 33, Red Cell Distribution Width 14.5, Platelet Count 109L, Mean Platelet Volume 11.1, Immature Granulocyte % (Auto) 1, Neutrophils (%) (Auto) 67, Lymphocytes (%) (Auto) 19, Monocytes (%) (Auto) 13H, Eosinophils (%) (Auto) 0, Basophils (%) (Auto) 0, Neutrophils # (Auto) 6.6, Lymphocytes # (Auto) 1.9, Monocytes # (Auto) 1.2H, Eosinophils # (Auto) 0.0, Basophils # (Auto) 0.0, Immature Granulocyte # (Auto) 0.1, Percent Immature Platelet Fraction 4.1, Sod ium Level 135, Potassium Level 4.0, Chloride Level 105, Carbon Dioxide Level 23, Anion Gap 7, Blood Urea Nitrogen 22H, Creatinine 0.83, Estimat Glomerular Filtration Rate 69, BUN/Creatinine Ratio 27, Glucose Level 158H, Calcium Level 8.2L, Corrected Calcium 9.5, Total Bilirubin 1.0, Aspartate Amino Transf (AST/SGOT) 18, Alanine Aminotransferase (ALT/SGPT) 17, Alkaline Phosphatase 72, Total Protein 5.2L, Albumin 2.4L 04/01/22 10:58: Glucometer 261H Microbiology 03/29/22 MRSA Screen - Final, Complete MRSA not isolated Pending Labs Microbiology Date/Time Source Procedure Growth Status 03/29/22 14:00 Nasal MRSA Screen - Final MRSA not isolated Complete Laboratory Tests 03/29/22 11:08: White Blood Count 11.5, Red Blood Count 3.80, Hemoglobin 11.2, Hematocrit 35, Mean Corpuscular Volume 91, Mean Corpuscular Hemoglobin 30, Mean Corpuscular Hemoglobin Concent 32, Red Cell Distribution Width 14.4, Platelet Count 136, Mean Platelet Volume 11.3, Immature Granulocyte % (Auto) 0, Neutrophils (%) (Auto) 80, Lymphocytes (%) (Auto) 13, Monocytes (%) (Auto) 6, Eosinophils (%) (Auto) 0, Basophils (%) (Auto) 0, Neutrophils # (Auto) 9.2, Lymphocytes # (Auto) 1.4, Monocytes # (Auto) 0.7, Eosinophils # (Auto) 0.0, Basophils # (Auto) 0.0, Immature Granulocyte # (Auto) 0.1, Percent Immature Platelet Fraction 5.1, Prothrombin Time 14.4, INR Comment 1.1, Activated Partial Thromboplast Time 32, Sodium Level 134, Potassium Level 4.0, Chloride Level 101, Carbon Dioxide Level 23, Anion Gap 10, Blood Urea Nitrogen 21, Creatinine 0.99, Estimat Glomerular Filtration Rate 56, BUN/Creatinine Ratio 21, Glucose Level 230, Calcium Level 8.9, Corrected Calcium 9.5, Total Bilirubin 0.7, Aspartate Amino Transf (AST/SGOT) 20, Alanine Aminotransferase (ALT/SGPT) 21, Alkaline Phosphatase 117, Total Protein 6.5, Albumin 3.3 03/29/22 11:47: Urine Color YELLOW, Urine Clarity CLEAR, Urine pH 7.0, Urine Specific [place] 1.020, Urine Protein NEGATIVE, Urine Glucose (UA) NEGATIVE, Urine Ketones NEGATIVE, Urine Nitrite NEGATIVE, Urine Bilirubin NEGATIVE, Urine Urobilinogen 1.0, Urine Leukocyte Esterase NEGATIVE, Urine RBC (Auto) NEGATIVE, Urine RBC NONE, Urine WBC NONE, Urine Squamous Epithelial Cells NONE, Urine Crystals NONE, Urine Bacteria NEGATIVE, Urine Casts NONE, Urine Mucus NEGATIVE, Urine Culture Indicated NO 03/29/22 16:14: Glucometer 208 03/29/22 20:35: Glucometer 253 03/30/22 05:12: Glucometer 243 03/30/22 05:45: White Blood Count 8.9, Red Blood Count 3.60, Hemoglobin 10.4, Hematocrit 33, Mean Corpuscular Volume 91, Mean Corpuscular Hemoglobin 29, Mean Corpuscular Hemoglobin Concent 32, Red Cell Distribution Width 14.8, Platelet Count 126, Mean Platelet Volume 11.8, Immature Granulocyte % (Auto) 0, Neutrophils (%) (Auto) 67, Lymphocytes (%) (Auto) 21, Monocytes (%) (Auto) 12, Eosinophils (%) (Auto) 1, Basophils (%) (Auto) 0, Neutrophils # (Auto) 5.9, Lymphocytes # (Auto) 1.8, Monocytes # (Auto) 1.0, Eosinophils # (Auto) 0.0, Basophils # (Auto) 0.0, Immature Granulocyte # (Auto) 0.0, Percent Immature Platelet Fraction 4.7, Sodium Level 134, Potassium Level 4.5, Chloride Level 103, Carbon Dioxide Level 23, Anion Gap 8, Blood Urea Nitrogen 22, Creatinine 0.95, Estimat Glomerular Filtration Rate 59, BUN/Creatinine Ratio 23, Glucose Level 263, Calcium Level 8. 3, Corrected Calcium 9.1, Total Bilirubin 0.5, Aspartate Amino Transf (AST/SGOT) 18, Alanine Aminotransferase (ALT/SGPT) 19, Alkaline Phosphatase 104, Total Protein 6.1, Albumin 3.0 03/30/22 16:35: Glucometer 218 03/30/22 20:41: Glucometer 197 03/31/22 05:25: Glucometer 160 03/31/22 07:53: White Blood Count 9.2, Red Blood Count 2.91, Hemoglobin 8.6, Hematocrit 27, Mean Corpuscular Volume 91, Mean Corpuscular Hemoglobin 30, Mean Corpuscular Hemoglobin Concent 33, Red Cell Distribution Width 14.7, Platelet Count 109, Mean Platelet Volume 11.3, Immature Granulocyte % (Auto) 0, Neutrophils (%) (Auto) 71, Lymphocytes (%) (Auto) 15, Monocytes (%) (Auto) 14, Eosinophils (%) (Auto) 0, Basophils (%) (Auto) 0, Neutrophils # (Auto) 6.6, Lymphocytes # (Auto) 1.3, Monocytes # (Auto) 1.2, Eosinophils # (Auto) 0.0, Basophils # (Auto) 0.0, Immature Granulocyte # (Auto) 0.0, Percent Immature Platelet Fraction 3.2, Sodium Level 135, Potassium Level 4.2, Chloride Level 105, Carbon Dioxide Level 23, Anion Gap 7, Blood Urea Nitrogen 20, Creatinine 0.90, Estimat Glomerular [place] tration Rate 63, BUN/Creatinine Ratio 22, Glucose Level 172, Mean Blood Glucose 180, Hemoglobin A1c 7.9, Calcium Level 7.8, Corrected Calcium 9.0, Iron Level 17, Total Bilirubin 0.9, Aspartate Amino Transf (AST/SGOT) 16, Alanine Aminotransferase (ALT/SGPT) 16, Alkaline Phosphatase 78, Total Protein 5.2, Albumin 2.5, Vitamin B12 Level 319 03/31/22 10:55: Glucometer 281 03/31/22 15:58: Glucometer 247 03/31/22 20:04: Glucometer 208 04/01/22 05:27: Glucometer 155 04/01/22 05:55: White Blood Count 9.8, Red Blood Count 2.60, Hemoglobin 7.8, Hematocrit 24, Mean Corpuscular Volume 90, Mean Corpuscular Hemoglobin 30, Mean Corpuscular Hemoglobin Concent 33, Red Cell Distribution Width 14.5, Platelet Count 109, Mean Platelet Volume 11.1, Immature Granulocyte % (Auto) 1, Neutrophils (%) (Auto) 67, Lymphocytes (%) (Auto) 19, Monocytes (%) (Auto) 13, Eosinophils (%) (Auto) 0, Basophils (%) (Auto) 0, Neutrophils # (Auto) 6.6, Lymphocytes # (Auto) 1.9, Monocytes # (Auto) 1.2, Eosinophils # (Auto) 0.0, Basophils # (Auto) 0.0, Immature Granulocyte # (Auto) 0.1, Percent Immature Platelet Fraction 4.1, Sodium Level 135, Potassium Level 4.0, Chloride Level 105, Carbon Dioxide Level 23, Anion Gap 7, Blood Urea Nitrogen 22, Creatinine 0.83, Estimat Glomerular Filtration Rate 69, BUN/Creatinine Ratio 27, Glucose Level 158, Calcium Level 8.2, Corrected Calcium 9.5, Total Bilirubin 1.0, Aspartate Amino Transf (AST/SGOT) 18, Alanine Aminotransferase (ALT/SGPT) 17, Alkaline Phosphatase 72, Total Protein 5.2, Albumin 2.4 04/01/22 10:58: Glucometer 261 Discharge Home Medications: Active Scripts Active Reported Tramadol HCl 50 Mg Tablet 50 Mg PO BID PRN Lisinopril 20 Mg Tablet 20 Mg PO DAILY Atorvastatin Calcium 80 Mg Tablet 80 Mg PO HS Gabapentin 100 Mg Capsule 100 Mg PO BID PRN Aspirin EC (Aspirin) 81 Mg Tablet.dr 81 Mg PO DAILY Instructions to patient/family Please see electronic discharge instructions given to patient. Diagnosis/Problems Diagnosis/Problems (1) Closed right hip fracture Status: Acute Clinical Quality Measures DVT/VTE Risk/Contraindication: Contraindications-Pharm: Other *list below* Other: surgery BARB LARSON DO Apr 01, 2022 09:39
--- NOTE | 2022-04-01 10:02 | Physical Therapy Daily Note ---
PT Daily Note-Current Subjective Patient is in bed with family feeding her breakfast. Agrees to PT. Pain Section J - Health Conditions 1. Rarely or not at all 2. Occasionally 3. Frequently 4. Almost constantly 8. Unable to answer Pain Effect on Sleep: 8 Pain Interference with Therapy: 8 Pain Interference w/Day-to-Day: 8 Mental Status Patient Orientation: Person, Time, Situation Transfers SCALE: Activities may be completed with or without assistive devices. 6-Exkmifzevd-rzcxrld completes the activity by him/herself with no assistance from a helper. 5-Set-up or Clean-up Assistance-helper sets up or cleans up; patient completes activity. [place] assists only prior to or following the activity. 4-Supervision or Touching Assistance-helper provides verbal cues and/or touching/steadying and/or contact guard assistance as patient completes activity. Assistance may be provided throughout the activity or intermittently. 3-Partial/Moderate Assistance-helper does LESS THAN HALF the effort. [place] lifts, holds or supports trunk or limbs, but provides less than half the effort. 2-Substantial/Maximal Assistance-helper does MORE THAN HALF the effort. [place] lifts or holds trunk or limbs and provides more than half the effort. 2-Gnqkbkllf-fzgobe does ALL the effort. Patient does none of the effort to complete the activity. Or, the assistance of 2 or more helpers is required for the patient to complete the activity. If activity was not attempted, code reason: 7-Patient Refused. 9-Not Applicable-not attempted and the patient did not perform the activity before the current illness, exacerbation or injury. 10-Not Attempted due to Environmental Limitations-(lack of equipment, weather restraints, etc.). 88-Not Attempted due to Medical Conditions or Safety Concerns. Lying to Sitting/Side of Bed(Q: 2 Sit to Stand (QC): 2 Chair/Nnf-jc-Gveaz Xfer(QC): 2 difficulty with weight bearing right LE due to pain Weight Bearing Right Lower Extremity: Right Weight Bearing/Tolerated Left Lower Extremity: Left Full Weight Bearing Gait Training Distance: 5 steps Gait Assistive Device: FWW max assist with all mobility due to difficulty with weight bearing right LE. Exercises Seated Therapy Exercises: Ankle pumps, Long arc quads Seated Reps: 12 Assessment Education with patient on importance of weight bearing right LE to assist with all mobility. Patient voices understanding. PT Short Term Goals Short Term Goals Time Frame: Apr 03, 2022 Roll Left & Right: 5 Sit to lyin Lying to sitting on side of be: 5 Sit to stand: 5 Chair/oaj-oo-cvxvy transfer: 5 Toilet transfer: 5 Car transfer: 5 Walk 10 feet: 5 Walk 50 feet with two turns: 5 Walk 150 feet: 5 PT Martial Arts Instructor Goals Shelter Goals PT Martial Arts Instructor Goals Time Frame: Apr 07, 2022 Roll Left & Right (QC): 6 Sit to Lying (QC): 6 Lying-Sitting on Side/Bed(QC): 6 Sit to Stand (QC): 6 Chair/Lfl-rc-Doanj Xfer(QC): 6 Toilet Transfer (QC): 6 Car Transfer (QC): 6 Does the Patient Walk: Yes Walk 10 feet (QC): 6 Walk 50ft with 2 Turns (QC): 6 Walk 150 ft (QC): 6 1 Step (curb) (QC): 6 4 Steps (QC): 6 PT Plan Treatment/Plan Treatment Plan: Continue Plan of Care Treatment Plan: Bed Mobility, Education, Functional Activity Norah, Functional Strength, Gait, Safety, Therapeutic Exercise, Transfers Treatment Duration: Apr 07, 2022 Frequency: 11 times per week Estimated Hrs Per Day: 1 hour per day Patient and/or Family Agrees t: Yes Time Time In: 916 Time Out: 927 DATE: Apr 01, 2022 Total Billed Treatment Time: 11 Total Billed Treatment 1 visit FA 11 min DORIS LAYTON PT Apr 01, 2022 10:02
--- NOTE | 2022-04-01 11:06 | Progress Note - Ortho ---
Progress Note Subjective Date of Exam 04/01/22 Chief Complaint POD #2 IM nailing of R IT Femur Fx HPI/Events since last exam having some trouble with pain, worried about therapy, family member reports she has been up and out of bed Review of Systems - Allergies: Coded Allergies: No Known Drug Allergies (Unverified , 05/07/18) Home Meds Reported Medications Tramadol HCl (Tramadol HCl) 50 Mg Tablet, 50 MG PO BID PRN for PAIN-MODERATE (5- 7), TAB 03/29/22 Lisinopril (Lisinopril) 20 Mg Tablet, 20 MG PO DAILY, TAB 03/29/22 Atorvastatin Calcium (Atorvastatin Calcium) 80 Mg Tablet, 80 MG PO HS, TAB 03/29/22 Gabapentin (Gabapentin) 100 Mg Capsule, 100 MG PO BID PRN for PAIN-BREAKTHROUGH, CAP 03/29/22 Aspirin (Aspirin EC) 81 Mg Tablet.dr, 81 MG PO DAILY, TAB 02/09/21 Discontinued Reported Medications Acetaminophen (Tylenol) 325 Mg Tablet, 325-650 MG PO Q8H PRN for PAIN-MILD (1- 4), TAB 02/09/21 Levocetirizine Dihydrochloride (Levocetirizine Dihydrochloride) 5 Mg Tablet, 5 MG PO 1800, TAB 02/09/21 Glimepiride (Glimepiride) 4 Mg Tablet, 4 MG PO DAILY, TAB 02/09/21 Lisinopril/Hydrochlorothiazide (Lisinopril-Hctz 20-12.5 mg Tab) 1 Each Tablet, 1 EA PO DAILY, TAB 02/09/21 Dapagliflozin Propanediol (Farxiga) 10 Mg Tablet, 10 MG PO DAILY, TAB 02/09/21 Discontinued Scripts Atorvastatin Calcium (Atorvastatin Calcium) 80 Mg Tablet, 80 MG PO HS, #90 TAB Prov:BARB LARSON DO 02/10/21 Objective Exam R Hip: Dressing C/D/I, +DF of ankle, no s/s of DVT Vital Signs Vital Signs Date Time Temp Pulse Resp B/P (MAP) Pulse Ox O2 Delivery O2 Flow Rate FiO2 04/01/22 10:11 37.6 88 22 119/58 93 Room Air 04/01/22 09:55 37.8 93 24 121/65 93 Room Air 04/01/22 07:10 37.6 85 17 92/59 (70) 9 Room Air 04/01/22 06:51 78 04/01/22 04:16 37.1 89 16 115/52 (73) 97 Room Air 04/01/22 01:00 88 03/31/22 23:46 37.4 90 16 127/54 (78) 94 Room Air 03/31/22 20:00 Room Air 03/31/22 19:46 37.0 95 18 130/53 (78) 88 Room Air 03/31/22 19:00 82 03/31/22 18:55 96 Room Air 03/31/22 15:53 36.8 84 20 148/55 (86) 96 Room Air 03/31/22 13:00 82 03/31/22 11:15 37.6 88 18 127/61 (83) 90 Room Air I & O 04/01/22 07:00 Intake Total 1710 ml Output Total 900 ml Balance 810 ml Lab Results Laboratory Tests 03/31/22 15:58: Glucometer 247H 03/31/22 20:04: Glucometer 208H 04/01/22 05:27: Glucometer 155H 04/01/22 05:55: White Blood Count 9.8, Red Blood Count 2.60L, Hemoglobin 7.8L, Hematocrit 24L, Mean Corpuscular Volume 90, Mean Corpuscular Hemoglobin 30, Mean Corpuscular Hemoglobin Concent 33, Red Cell Distribution Width 14.5, Platelet Count 109L, Mean Platelet Volume 11.1, Immature Granulocyte % (Auto) 1, Neutrophils (%) (Auto) 67, Lymphocytes (%) (Auto) 19, Monocytes (%) (Auto) 13H, Eosinophils (%) (Auto) 0, Basophils (%) (Auto) 0, Neutrophils # (Auto) 6.6, Lymphocytes # (Auto) 1.9, Monocytes # (Auto) 1.2H, Eosinophils # (Auto) 0.0, Basophils # (Auto) 0.0, Immature Granulocyte # (Auto) 0.1, Percent Immature Platelet Fraction 4.1, Sodium Level 135, Potassium Level 4.0, Chloride Level 105, Carbon Dioxide Level 23, Anion Gap 7, Blood Urea Nitrogen 22H, Creatinine 0.83, Estimat Glomerular Filtration Rate 69, BUN/Creatinine Ratio 27, Glucose Level 158H, Calcium Level 8.2L, Corrected Calcium 9.5, Total Bilirubin 1.0, Aspartate Amino Transf (AST/SGOT) 18, Alanine Aminotransferase (ALT/SGPT) 17, Alkaline Phosphatase 72, Total Protein 5.2L, Albumin 2.4L 04/01/22 10:58: Glucometer 261H Microbiology 03/29/22 MRSA Screen - Final, Complete MRSA not isolated Assessment and Plan Assessment Right Intertrochanteric Femur Fracture s/p Intramedullary Nailing Problem List Right Intertrochanteric Femur Fracture s/p Intramedullary Nailing Plan PT DVT Prophylaxis Discussed that I am out the remainder of this week and will be available by call or text for any questions. Final Diagonsis Right Intertrochanteric Femur Fracture s/p Intramedullary Nailing Level of the visit: Level 3 (global) Clinical Quality Measures DVT/VTE Risk/Contraindication: Contraindications-Pharm: Other *list below* Other: surgery JULIANNE CHANDLER MD Apr 01, 2022 11:06
[2022-04-01] MEDS: DOCUSATE SODIUM 100 MG (COLACE) CAP PO SCH (11:51)
[2022-04-01] MEDS: SENNOSIDES 8.6 MG (SENOKOT) TAB PO SCH (11:51)
== END 2022-04-01 13:37 | DRG 481 ==
LOC: EDUNIT# 10:55 → ER 10:57 → 4TH 12:10
PROVIDERS: ADMIT Internal Medicine; ATTEND Internal Medicine
PROC: 0QH636Z Insertion of Intramedullary Internal Fixation Device into Right Upper Femur, Percutaneous Approach (ICD-10-PCS; principal; 2022-03-30 11:23)
DX: S72.141A Displaced intertrochanteric fracture of right femur, initial encounter for closed fracture (principal); D62 Acute posthemorrhagic anemia; R44.2 Other hallucinations; E11.9 Type 2 diabetes mellitus without complications; I10 Essential (primary) hypertension; E78.5 Hyperlipidemia, unspecified; R53.83 Other fatigue; R53.81 Other malaise; K59.00 Constipation, unspecified; Z79.84 Long term (current) use of oral hypoglycemic drugs; Z86.73 Personal history of transient ischemic attack (TIA), and cerebral infarction without residual deficits; Z79.82 Long term (current) use of aspirin; W01.0XXA Fall on same level from slipping, tripping and stumbling without subsequent striking against object, initial encounter; Y92.009 Unspecified place in unspecified non-institutional (private) residence as the place of occurrence of the external cause
CPT/HCPCS: 36415; 51702; 70450; 71045; 72125; 76000; 80053; 81000; 82607; 82947; 83036; 83540; 85025; 85610; 85730; 86850; 86900; 86901; 86920; 87081; 93005; 93306; 94664; 94760

== ENCOUNTER 2022-04-01 09:50 | Inpatient (IN) | payer MEDICARE, MEDICAID ==
[~2022-04-01] VITALS: Ht 157 cm; Wt 52.8 kg
[~2022-04-01 09:50] MED LIST changes: +GABA-486 PO; +LISI20TA26 PO; +TRAM50TA3 PO
[2022-04-01] MEDS ORDERED: ALPRAZolam 0.25 MG (XANAX) TAB PO PRN (11:00)
[2022-04-01] MEDS ORDERED: diphenhydrAMINE 25 MG TAB (BENADRYL) PO PRN ×2 (11:00→18:00)
[2022-04-01] MEDS ORDERED: MELATONIN 3 MG TABLET PO PRN ×2 (11:00→18:00)
[2022-04-01] MEDS ORDERED: HALOPERIDOL 5 MG/ML (HALDOL) VIAL IM PRN (11:00)
[2022-04-01] MEDS ORDERED: LORazepam 0.5 MG (ATIVAN) TABLET PO PRN ×2 (11:00→18:00)
[2022-04-01] MEDS ORDERED: CALCIUM CARBONATE 500 MG (TUMS) TAB.CHEW PO PRN ×2 (11:00→18:00)
[2022-04-01] MEDS ORDERED: LOPERAMIDE 2 MG (IMODIUM) TABLET PO PRN (11:00)
[2022-04-01] MEDS ORDERED: guaiFENesin/CODEINE (ROBITUSSIN AC) 10ML UDC PO PRN (11:00)
[2022-04-01] MEDS ORDERED: BISACODYL 10 MG SUPP (DULCOLAX) PR PRN ×2 (11:00→18:00)
[2022-04-01] MEDS ORDERED: FLEET ENEMA ADULT 1 EA BTL PR PRN (11:00)
[2022-04-01] MEDS ORDERED: LACTULOSE SYRUP 10GM/15ML (ENULOSE) 30ML UDC PO PRN ×2 (11:00→18:00)
[2022-04-01] MEDS ORDERED: ONDANSETRON 4 MG (ZOFRAN) ORAL DISSOLVE TAB PO PRN ×2 (11:00→18:00)
[2022-04-01] MEDS ORDERED: LORazepam INJ 2 MG/ML (ATIVAN) VIAL IVP PRN ×2 (11:00→18:00)
[2022-04-01] MEDS ORDERED: HALOPERIDOL 0.5 MG (HALDOL) TAB PO PRN (11:00)
[2022-04-01 13:50] VITALS: BP 153/70
--- OUTSIDE RECORDS SUMMARY | 2022-04-01 13:52 | XMS REPORT ---
Author Author [facility] Address Unknown Phone Unavailable Care Team Providers Care Print Line Feeder Name Role Phone ROSA SAMPSON Unavailable PROBLEMS Type Condition ICD9-CM Code [id number] Code Onset Dates Condition S tatus W/U Status Risk SNOMED Code Notes Problem Peripheral neuropathy G62.9 confirmed 096954699 Problem Edema of both lower extremities R60.0 confi rmed 361316685 Problem Hypertension I10 confirmed 1872043 3 Problem Hyperlipidemia E78.5 confirmed 10297 004 Problem Aortic valve stenosis, etiology of cardiac valve disease unspecified I35.0 confirmed 00084289 Problem Vitamin D deficiency E55.9 confirmed 34523842 Problem Stage 3b chronic kidney disease N18.32 confi rmed 527233065 Problem Systolic murmur of aorta I35.8 confirmed 203346226 Problem 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 482948405 Problem Postherpetic neuralgia B02.29 confirmed 5016471 Problem Type 2 diabetes mellitus wit h other specified complication, without long-term current use of insulin E11.69 confirmed 22187798 Problem Seasonal allergic rhinitis, unspecified trigger J30.2 confirmed 691765721 Problem Fibrocystic breast changes, unspecified laterality N60.19 confirmed 54105319 Problem Osteoporosis M81.0 confirmed 4316125 6 Problem Arthritis of hand, 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 Code:[address]-61) rash, chil ls, diarrhea,nausea Drug Allergy Active ENCOUNTERS from 1935 to 2022-04-01 Encounter Location Date Provider [facility] [address] [address] [id number] [place] [id number] Apr, ROSA SELF Nausea without vomit ing R11.0 IMMUNIZATIONS Vaccine Route Administration Date Status 1st Dose HRSA MODERNA, COVID-19, 0.5mL Unknown July 18 Refused PRIVATE FLULAVAL QUAD 0.5ML (6 MO AND UP) [address] Refused PRIVATE FLULAVAL QUAD 0.5ML (6 MO AND UP) 2018 Unknown D ec 2018 Refused PRIVATE SHINGRIX (HERPES ZOSTER-2 DOSE) Unknown July 18, 2020 Refused PRIVATE TDAP (BOOSTRIX) Unknown July 18, 2020 Refused PRIVATE PCV 13 (PREVNAR) Unknown Feb 16, 2019 Refused PRIVATE PPSV23 (PNEUMOVAX) Unknown July 18, 2020 Refus ed SOCIAL HISTORY Sex Assigned At : Social History Observation Description Sex Assigned At Unknown PHQ2 Question Answer Notes In the last 2 weeks, how often have you had little interest or pleasure in doing things? Nearly every day In the last 2 weeks, how often have you been feeling down, depressed, or hopeless? Not at all Total PHQ2 Score 3 REASON FOR REFERRAL No Information VITAL SIGNS No information MEDICATIONS Medication SIG (Take, Route, Frequency, Duration) Notes Start Da te End Date Status Fiber 625 MG 2 tablets Orally 2 times a day for 30 days prn Nov, Active Atorvastatin Calcium 80 MG 1 tablet Orally Once a day for 90 days started by [facility] 02/10/2021 Feb, Active traMADol HCl 50 MG 1 tablet as needed Orally twice a day for 5 d ays Mar, Active Lisinopril 20 mg 1 tablet Orally Once a day for 90 days July, Active Levocetirizine Dihydrochloride 5 MG 1 tablet in the ev ening Orally Once a day for 30 days Jan, Active Gabapentin 100 MG 1 capsule Orally as directed for 30 days 1 capsule at HS x3 days, then BID Mar, Active Aspirin 81 MG 1 tablet Orally Once a day for 30 day(s) Active PROCEDURES No Information RESULTS No Results REASON FOR VISIT ULTRASOUND ABD, DAVID MAY, RDMS, RVT MEDICAL (GENERAL) HISTORY Type Description Date Medical History Hyperlipidemia Medical History Peripheral neuropathy Medical History Type 2 diabetes mellitus Medical History Hypertension Medical History Edema of both lower extremities Surgical History hysterectomy Surgical History bladder surgery Surgical History Colonoscopy 10/19/20 Hospitalization History hysterectomy Hospitalization History Bladder surgery Hospitalization History [facility], vertigo, and altered gait 1 04/11-02/10/2021 Goals Section No Information Health Concerns No Information MEDICAL EQUIPMENT No Information MENTAL STATUS No Information FUNCTIONAL STATUS No Information ASSESSMENTS Encounter Date Diagnosis Assessment Notes Treatment Notes Treatm ent Clinical Notes Apr, Nausea without vomiting (ICD-10 - R11.0) PLAN OF TREATMENT Medication Medication Name Sig Start Date Stop Date traMADol HCl 50 MG 1 tablet as needed Orally twice a day fo r 5 days Mar, Gabapentin 100 MG 1 capsule Orally as directed for 30 days 2022 Next Appt Details Provider Name:ROSA SAMPSON, 2022-04-29 02:00:00 PM, [address] [place] [address], [id number], [place], [address], Insurance Providers Payer Name Payer Address Payer Phone Insured Name Patient Relati onship to Insured Coverage Start Date Coverage End Date Subscriber Number Group Nu mber MEDICAID OF [place] [address] [facility] [id number] Cora Salgado Self - patient is the insured [id number] [facility] PART A [address] [facility] [address] Olivia Salgado Self - patient is the insured 2000 [id number]
--- OUTSIDE RECORDS SUMMARY | 2022-04-01 13:52 | XMS REPORT ---
Author Author [facility] Address Unknown Phone Unavailable Care Team Providers Care Regional Sales Coordinator Name Role Phone ROSA SAMPSON Unavailable PROBLEMS Type Condition ICD9-CM Code RZA60-AP Code Onset Dates Condition S tatus W/U Status Risk SNOMED Code Notes Problem Peripheral neuropathy G62.9 confirmed 685836445 Problem Edema of both lower extremities R60.0 confi rmed 756663839 Problem Hypertension I10 confirmed 8011717 3 Problem Hyperlipidemia E78.5 confirmed 13041 004 Problem Aortic valve stenosis, etiology of cardiac valve disease unspecified I35.0 confirmed 92823647 Problem Vitamin D deficiency E55.9 confirmed 90681550 Problem Stage 3b chronic kidney disease N18.32 confi rmed 726917003 Problem Systolic murmur of aorta I35.8 confirmed 680143696 Problem 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 185147623 Problem Postherpetic neuralgia B02.29 confirmed 6794255 Problem Type 2 diabetes mellitus wit h other specified complication, without long-term current use of insulin E11.69 confirmed 69638348 Problem Seasonal allergic rhinitis, unspecified trigger J30.2 confirmed 461091061 Problem Fibrocystic breast changes, unspecified laterality N60.19 confirmed 94318995 Problem Osteoporosis M81.0 confirmed 9810265 6 Problem Arthritis of hand, 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 confirmed 408953160 ALLERGIES Allergen (clinical drug ingredient) Drug/Non Drug Allergy do cumented on EMR Reaction Allergy Type Onset Date Status Metformin HCl([facility] Code:[address]-67) rash, chil ls, diarrhea,nausea Drug Allergy Active ENCOUNTERS from 1935 to 2022-03-29 Encounter Location Date Provider [facility] ESC[facility] [address] [id number] Y[place] WH[place] [phone] Apr, ROSA SELF Nausea without vomit ing [...] a day for 90 days started by [facility] 02/10/2021 Feb, Active traMADol HCl 50 MG [...] Information RESULTS No Results REASON FOR VISIT Stomach issue* MEDICAL (GENERAL) HISTORY Type Description Date Medical [...] Details Provider Name:ROSA SAMPSON, 2022-04-29 02:00:00 PM, [address] [place] [address], [id number], [place], [address], Insurance Providers Payer Name Payer Address Payer Phone Insured Name Patient Relati onship to Insured Coverage Start Date Coverage End Date Subscriber Number Group Nu mber [employer] [facility] PART A [address] [facility] [address] Olivia Salgado Self - patient is the insured 2002 [id number] MEDICAID OF [place] [address] [facility] [id number] Cora Salgado Self - patient is the insured [id number]
--- OUTSIDE RECORDS SUMMARY | 2022-04-01 13:53 | XMS REPORT ---
Author Author [facility] Address Unknown Phone Unavailable Care Team Providers Care Academic Department Chair Name Role Phone ROSA SAMPSON Unavailable PROBLEMS Type Condition ICD9-CM Code CUW97-TQ Code Onset Dates Condition S tatus W/U Status Risk SNOMED Code Notes Problem Peripheral neuropathy G62.9 confirmed 513994461 Problem Hypertension I10 confirmed 8429315 3 Problem Hyperlipidemia E78.5 confirmed 52018 004 Problem Type 2 diabetes mellitus wit h other specified complication, without long-term current use of insulin E11.69 confirmed 94874717 Problem Aortic valve stenosis, etiology of cardiac valve disease unspecified I35.0 confirmed 99769140 Problem Vitamin D deficiency E55.9 confirmed 08535417 Problem Arthritis of hand, 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 confirmed 941794372 Problem 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 301182940 Problem Systolic murmur of aorta I35.8 confirmed 133786243 Problem Edema of both lower extremities R60.0 confi rmed 473053242 Problem Stage 3b chronic kidney disease N18.32 confi rmed 256230931 Problem Seasonal allergic rhinitis, unspecified trigger J30.2 confirmed 168055395 Problem Fibrocystic breast changes, unspecified laterality N60.19 confirmed 37054429 Problem Osteoporosis M81.0 confirmed 7306278 6 ALLERGIES Allergen (clinical drug ingredient) Drug/Non Drug Allergy do cumented on EMR Reaction Allergy Type Onset Date Status metformin Metformin HCl([facility] Code:[address]-77) rash, chil ls, diarrhea,nausea Drug Allergy Active ENCOUNTERS from 1935 to 2022-03-05 Encounter Location Date [facility] [address] [address] [id number] [place] WH[place] [phone] Mar, ROSA SELF IMMUNIZATIONS Vaccine Route Administration Date Status PRIVATE FLULAVAL QUAD 0.5ML (6 MO AND UP) [address] Refused PRIVATE PPSV23 (PNEUMOVAX) Unknown July 18, 2020 Refus ed PRIVATE PCV 13 (PREVNAR) Unknown Feb 16, 2019 Refused 1st Dose HRSA MODERNA, COVID-19, 0.5mL Unknown July 18 Refused PRIVATE FLULAVAL QUAD 0.5ML (6 MO AND UP) 2018 Unknown D ec 2018 Refused PRIVATE SHINGRIX (HERPES ZOSTER-2 DOSE) Unknown July 18, 2020 Refused PRIVATE TDAP (BOOSTRIX) Unknown July 18, 2020 Refused SOCIAL HISTORY Sex Assigned At : Social History Observation Description Sex Assigned At Unknown PHQ2 Question Answer Notes In the last 2 weeks, how often have you had little interest or pleasure in doing things? Not at all In the last 2 weeks, how often have you been feeling down, depressed, or hopeless? Not at all Total PHQ2 Score 0 REASON FOR REFERRAL No Information VITAL SIGNS No information MEDICATIONS Medication SIG (Take, Route, Frequency, Duration) Notes Start Da te End Date Status Aspirin 81 MG 1 tablet Orally Once a day for 30 day(s) Active Acyclovir 800 MG 1 tablet Orally Five times a day for 7 days Feb, Active Atorvastatin Calcium 80 MG 1 tablet Orally Once a day for 90 days [address] [facility] 02/10/2021 Feb, Active traMADol HCl 50 MG 1 tablet as needed Orally every 8 hours for 1 0 days Feb, Active Glimepiride 4 MG TAKE ONE (1) TABLET BY MOUTH ONCE DAILY WITH BREAKFAST OR FIRST MAIN MEAL OF THE DAY for 30 Acti ve Levocetirizine Dihydrochloride 5 MG 1 tablet in the ev ening Orally Once a day for 30 days Jan, Active Farxiga 10 MG 1 tablet Orally Once a day for 90 days Active Diclofenac Sodium 1 % as directed Externally bid prn for 7 days Oct, Not-Taking Mupirocin 2 % 1 application to affected ar ea Externally 2 times a day for 14 days Nov, Not-Taking Lisinopril 20 mg 1 tablet Orally Once a day for 90 days July, Active Fiber 625 MG 2 tablets Orally 2 times a day for 30 days prn Nov, Active PROCEDURES No Information RESULTS No Results REASON FOR VISIT return call MEDICAL (GENERAL) HISTORY Type Description Date Medical [...] No Information FUNCTIONAL STATUS No Information ASSESSMENTS No Information PLAN OF TREATMENT Medication Medication Name Sig Start Date Stop Date traMADol HCl 50 MG 1 tablet as needed Orally every 8 hours for 10 days Feb, Acyclovir 800 MG 1 tablet Orally Five times a day for 7 days Feb, Next Appt Details Provider Name:ROSA SAMPSON, 2022-03-07 10:30:00 AM, [address] [place] [address], [id number], [place], [address], Provider Name:ROSA SAMPSON, 2022-04-29 02:00:00 PM, [address] [place] [address], [id number], [place], [address], Insurance Providers Payer Name Payer Address Payer Phone Insured Name Patient Relati onship to Insured Coverage Start Date Coverage End Date Subscriber Number Group Nu mber [facility] PART A [address] [facility] [address] Olivia Salgado Self - patient is the insured 2002 [id number] MEDICAID OF [place] [address] [facility] [address] Cora Salgado Self - patient is the insured [id number]
--- OUTSIDE RECORDS SUMMARY | 2022-04-01 13:53 | XMS REPORT ---
Author Author [facility] Address Unknown Phone Unavailable Care Team Providers Care Lockstitch Binder Name Role Phone PRAVEEN MAY Unavailable PROBLEMS Type Condition ICD9-CM Code [id number] Code Onset Dates Condition S tatus W/U Status Risk SNOMED Code Notes Problem Peripheral neuropathy G62.9 confirmed 107949488 Problem Hypertension I10 confirmed [id number] 3 Problem Hyperlipidemia E78.5 confirmed [id number] [id number] Problem Type 2 diabetes mellitus wit h other specified complication, without long-term current use of insulin E11.69 confirmed [id number] Problem Aortic valve stenosis, etiology of cardiac valve disease unspecified I35.0 confirmed 67071654 Problem Vitamin D deficiency E55.9 confirmed 80674755 Problem Arthritis of hand, 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 confirmed 428608361 Problem 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 385837504 Problem Systolic murmur of aorta I35.8 confirmed [id number] Problem Edema of both lower extremities R60.0 confi rmed [id number] Problem Stage 3b chronic kidney disease N18.32 confi rmed 921003650 Problem Seasonal allergic rhinitis, unspecified trigger J30.2 confirmed 416596225 Problem Fibrocystic breast changes, unspecified laterality N60.19 confirmed 96767196 Problem Osteoporosis M81.0 confirmed 5791076 6 ALLERGIES Allergen (clinical drug ingredient) Drug/Non Drug Allergy do cumented on EMR Reaction Allergy Type Onset Date Status metformin Metformin HCl([facility] Code:[address]-45) rash, chil ls, diarrhea,nausea Drug Allergy Active ENCOUNTERS from 1935 to 2022-03-08 Encounter Location Date Provider Diagnosis [facility] RONALDO ESCAMILLA [id number] [address] Mar, PRAVEEN MAY Type 2 diabetes josiah itus with other specified complication, without long-term current use of insulin E11.69 ; Hypertension I10 ; Hyperlipidemia E78.5 ; Adult BMI 25.0-25.9 kg/sq m Z68.25 ; Stage 3b chronic kidney disease N18.32 and Major depressive disorder, recurrent, mild F33.0 IMMUNIZATIONS Vaccine Route Administration Date Status PRIVATE PPSV23 (PNEUMOVAX) Unknown July 18, 2020 [...] REASON FOR REFERRAL No Information VITAL SIGNS Height 5'0" in Mar, Height-cm 152.4 cm Mar, Weight 128 lbs Mar, Weight-kg 58.06 kg Mar, Heart Rate 76 bpm Mar, Respiratory Rate 20 bpm Mar, Oximetry 96 % Mar, BMI 25 kg/m2 Mar, Blood pressure systolic 138 mmHg Mar, Blood pressure diastolic 52 mmHg Mar, MEDICATIONS Medication SIG (Take, Route, Frequency, Duration) Notes Start Da te End Date Status Farxiga 10 MG 1 tablet Orally Once a day for 90 days Not-Taking Atorvastatin Calcium 80 MG 1 tablet Orally Once a day for 90 days started by [facility] 02/10/2021 Feb, Active Lisinopril 20 mg 1 tablet Orally Once a day for 90 days July, Active Levocetirizine Dihydrochloride 5 MG 1 tablet in the ev ening Orally Once a day for 30 days Jan, Active Aspirin 81 MG 1 tablet Orally Once a day for 30 day(s) Active Glimepiride 4 MG TAKE ONE (1) TABLET BY MOUTH ONCE DAILY WITH BREAKFAST OR FIRST MAIN MEAL OF THE DAY for 30 Not- Taking traMADol HCl 50 MG 1 tablet as needed Orally every 8 hours for 1 0 days Feb, Active Fiber 625 MG 2 tablets Orally 2 times a day for 30 days prn Nov, Active Acyclovir 800 MG 1 tablet Orally Five times a day for 7 days Feb, Active PROCEDURES No Information RESULTS No Results REASON FOR VISIT 3 mo f/u c labs r/s from 03/30 (Noel Nash MA), due for MAWV after 06/08/2020-esha eWaver MEDICAL (GENERAL) HISTORY Type Description Date Medical History Hyperlipidemia Medical History Peripheral neuropathy Medical History Type 2 diabetes mellitus Medical History Hypertension Medical History Edema of both lower extremities Surgical History hysterectomy Surgical History bladder surgery Surgical History Colonoscopy 10/19/20 Hospitalization History hysterectomy Hospitalization History Bladder surgery Hospitalization History [facility], vertigo, and altered gait 1 04/11-02/10/2021 Goals Section No Information Health Concerns No Information MEDICAL EQUIPMENT No Information MENTAL STATUS No Information FUNCTIONAL STATUS No Information ASSESSMENTS Encounter Date Diagnosis Assessment Notes Treatment Notes Treatm ent Clinical Notes Mar, Type 2 diabetes mellitus wit h other specified complication, without long-term current use of insulin (ICD-10 - E11.69) lab s reviewed improved no changes continue same medications Mar, Hypertension (ICD-10 - I10) labs reviewed stable no changes will call with results/rec Mar, Hyperlipidemia (ICD-10 - E78.5) labs reviewed no changes continue same medications Mar, Adult BMI 25.0-25.9 kg/sq m (ICD-10 - Z68.25) discussed diet, weight loss, exercise Mar, Stage 3b chronic kidney disease (ICD-10 - N18.32 ) labs reviewed stable no changes continue same medications Mar, Major depressive disorder, recurrent, mild (ICD- 10 - F33.0) phq score 9 discussed with patient no changes will continue to monitor Mar, Other This progress n ote was scribed by Cristal Wallace MA under the direct supervision of Dr Praveen May who directed the entire visit and performed the physical exam. PLAN OF TREATMENT Treatment Notes Assessment Notes Clinical Notes Type 2 diabetes mellitus with other spec ified complication, without long-term current use of insulin labs reviewed improved no changes continue same medications Hypertension labs reviewed stable no changes will call with results/rec Hyperlipidemia labs reviewed no changes continue same medications Adult BMI 25.0-25.9 kg/sq m discussed diet, weight los s, exercise Stage 3b chronic kidney disease labs reviewed stable no changes continue same medications Major depressive disorder, recurrent, mild phq score 9 discussed with patient no changes will continue to monitor Next Appt Details 3 Months Reason:labs prior Provider Name:PRAVEEN MAY, 2022-04-29 02:00:00 PM, [address] [place] [address], [id number], [place], [phone], Follow Up:3 Monthslabs prior Insurance Providers Payer Name Payer Address Payer Phone Insured Name Patient Relati onship to Insured Coverage Start Date Coverage End Date Subscriber Number Group Nu er MED[place]ID OF [place] [address] [facility] [id number] Cora Salgado Self - patient is the insured [id number] [facility] PART A [address] [facility] [id number] Olivia Salgado Self - patient is the insured 2000 [id number]
--- NOTE | 2022-04-01 13:54 | Physical Therapy Evaluation ---
PT Evaluation-General Medical Diagnosis Admission Date 04/01/2022 Medical Diagnosis: Right femur fracture Onset Date: Mar 29, 2022 Therapy Diagnosis Therapy Diagnosis: Gait deficit, strength deficit Height/Weight Height (Feet): 5 Height (Inches): 2.00 Weight (Pounds): 140 Precautions Precautions/Isolations: Fall Prevention, Standard Precautions Right posterior hip precautions Weight Bear Status Right Lower Extremity: Right Weight Bearing/Tolerated Left Lower Extremity: Left Full Weight Bearing Referral Physician: Dr. Sterling Reason for Referral: Evaluation/Treatment Medical History Pertinent Medical History: HTN Reviewed History: Yes Social History Home: Apartment Current Living Status: Alone Entry Into Home: Level Entry Prior Prior Level of Function SCALE: Activities may be completed with or without assistive devices. 4-Byaydvpbyd-zvslnap completes the activity by him/herself with no assistance from a helper. 5-Set-up or Clean-up Assistance-helper sets up or cleans up; patient completes activity. [place] assists only prior to or following the activity. 4-Supervision or Touching Assistance-helper provides verbal cues and/or touching/steadying and/or contact guard assistance as patient completes activity. Assistance may be provided throughout the activity or intermittently. 3-Partial/Moderate Assistance-helper does LESS THAN HALF the effort. [place] lifts, holds or supports trunk or limbs, but provides less than half the effort. 2-Substantial/Maximal Assistance-helper does MORE THAN HALF the effort. [place] lifts or holds trunk or limbs and provides more than half the effort. 2-Zqawnmxfl-dacuso does ALL the effort. Patient does none of the effort to complete the activity. Or, the assistance of 2 or more helpers is required for the patient to complete the activity. If activity was not attempted, code reason: 7-Patient Refused. 9-Not Applicable-not attempted and the patient did not perform the activity before the current illness, exacerbation or injury. 10-Not Attempted due to Environmental Limitations-(lack of equipment, weather restraints, etc.). 88-Not Attempted due to Medical Conditions or Safety Concerns. Bed Mobility: 6 Transfers (B,C,W/C): 6 Gait: 6 Stairs: 6 Indoor Mobility (Ambulation): Independent Stairs: Independent Prior Devices Use: Walker Has FWW at home but doesn't use much PT Evaluation-Current Subjective Patient sitting in bed with HOB fully elevated finishing lunch, agreeable to treatment. Patient rates pain at 0/10 currently. Pain Section J - Health Conditions 1. Rarely or not at all 2. Occasionally 3. Frequently 4. Almost constantly 8. Unable to answer Pain Effect on Sleep: 1 Pain Interference with Therapy: 2 Pain Interference w/Day-to-Day: 2 Objective Patient Orientation: Person, Place, Time, Situation Attachments: IV ROM/Strength ROM Lower Extremities Right LE limited all planes due to injury and surgery; Left LE guarded against AROM, but WFLs all planes with PROM Strength Lower Extremities Right hip 2+/5 all planes via visual observation, all other right LE planes 3/5; Left LE 3+/5 all planes Sensory Vision: Left blind Hearing: Functional Sensation Right Lower Extremit: Intact Sensation Left Lower Extremity: Intact Transfers Roll Left & Right (QC): 2 Sit to Lying (QC): 2 Lying to Sitting/Side of Bed(Q: 2 Sit to Stand (QC): 2 Chair/Khe-no-Wonsb Xfer(QC): 2 Toilet Transfer (QC): 2 Car Transfer (QC): 2 Gait Does the Patient Walk?: Yes Mode of Locomotion: Both Anticipated Mode of Locomotion: Both Walk 10 feet (QC): 88 Walk 50 ft with 2 Turns(QC): 88 Walk 150 ft (QC): 88 Walking 10ft/uneven surface-QC: 8 Distance: 5 feet Gait Assistive Device: FWW Wheelchair Training Does the Pt Use a Wheelchair?: Yes Distance: 150 feet Wheel 50 ft with 2 turns (QC): 3 Wheel 150 ft (QC): 3 Type of Wheelchair: Manual Stairs #of Steps: 0 1 Step (curb) (QC): 9 4 Steps (QC): 9 12 Steps (QC): 9 Balance Sitting Static: Fair Sitting Dynamic: Poor Standing Static: Poor Standing Dynamic: Poor Picking up an Object (QC): 88 Assessment/Needs Patient tolerated treatment fair. Patient performs all bed mobility and transfers with max A. Patient ambulates 5 feet with FWW, with max A and frequent verbal cues. Patient propels the w/c 150 feet with min a and verbal cues. 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 Patient in w/c post PT evaluation with OT in the room. Rehab Potential: Fair Equipment Needs Unsure at this time but will most likely benefit from a w/c at home. PT Short Term Goals Short Term Goals Time Frame: Apr 13, 2022 Roll Left & Right: 3 Sit to lyin Lying to sitting on side of be: 3 Sit to stand: 3 Chair/vmu-bz-lipjn transfer: 3 Toilet transfer: 3 Walk 10 feet: 3 PT Engineering Group Leader Goals Skilled Nursing Goals PT Engineering Group Leader Goals Time Frame: May 04, 2022 Roll Left to Right (QC): 5 Sit to Lying (QC): 5 Lying-Sitting on Side/Bed(QC): 5 Sit to Stand (QC): 5 Chair/Fxx-el-Oljvn Xfer(QC): 5 Toilet/Commode Transfer (QC): 5 Car Transfer (QC): 5 Does the Patient Walk: Yes Walk 10 feet (QC): 4 Walk 10ft-Uneven Surface(QC): 4 Walk 50ft with 2 Turns (QC): 4 Walk 150 ft (QC): 4 Does the Pt use WC or Scooter?: Yes Wheel 50 feet with 2 turns (QC: 6 Type: Manual Wheel 150 feet: 6 Type: Manual 1 Step (curb) (QC): 3 4 Steps (QC): 9 12 Steps (QC): 9 Picking up an Object (QC): 4 PT Plan Problem List Problem List: Activity Tolerance, Functional Strength, Safety, Balance, Gait, Transfer, Bed Mobility, ROM Treatment/Plan Treatment Plan: Continue Plan of Care Treatment Plan: Bed Mobility, Education, Functional Activity Norah, Functional Strength, Group Therapy, Gait, Safety, Therapeutic Exercise, Transfers Treatment Duration: May 07, 2022 Frequency: At least 5 of 7 days/Wk (IRF) Estimated Hrs Per Day: 1.5 hours per day Patient and/or Family Agrees t: Yes Safety Risks/Education Patient Education: Gait Training, Transfer Techniques, Reviewed Precautions, W/C Management Teaching Recipient: Patient, Family Teaching Methods: Demonstration, Discussion Response to Teaching: Reinforcement Needed Time Time In: 1310 Time Out: 1340 DATE: Apr 01, 2022 Total Billed Treatment Time: 15 Total Billed Treatment Visit, EVM (15 minutes) OT Eval [id number] PT Eval [id number] DAYDAY DICK PT Apr 01, 2022 13:54
--- NOTE | 2022-04-01 14:01 | Occupational Therapy Eval ---
OT Evaluation-General/PLF Medical Diagnosis Admission Date Apr 01, 2022 at 13:10 Medical Diagnosis: right femur FX Onset Date: Mar 29, 2022 Therapy Diagnosis Therapy Diagnosis: Weakness, dibility, need for assistance with personal care Height/Weight Height (Feet): 5 Height (Inches): 2.00 Weight (Pounds): 140 Precautions Precautions/Isolations: Fall Prevention (Posterior hip precautions), Standard Precautions Weight Bear Status Weight Bearing Restriction: Weight Bearing/Tolerated Referral Referral Reason: Activity Tolerance, Self Care, Evaluation/Treatment Medical History Pertinent Medical History: HTN, Macular Degenertion Additional Medical History Reviewed History: Yes Social History Home: Apartment Current Living Status: Alone (family calls several times throughout day and checks in on patient) Entry Into Home: Ramp ADL-Prior Level of Function SCALE: Activities may be completed with or without assistive devices. 9-Coaivkrdwv-gisxiot completes the activity by him/herself with no assistance from a helper. 5-Set-up or Clean-up Assistance-helper sets up or cleans up; patient completes activity. [place] assists only prior to or following the activity. 4-Supervision or Touching Assistance-helper provides verbal cues and/or touching/steadying and/or contact guard assistance as patient completes activity. Assistance may be provided throughout the activity or intermittently. 3-Partial/Moderate Assistance-helper does LESS THAN HALF the effort. [place] lifts, holds or supports trunk or limbs, but provides less than half the effort. 2-Substantial/Maximal Assistance-helper does MORE THAN HALF the effort. [place] lifts or holds trunk or limbs and provides more than half the effort. 3-Hgvelyzrl-vkjxtt does ALL the effort. Patient does none of the effort to complete the activity. Or, the assistance of 2 or more helpers is required for the patient to complete the activity. If activity was not attempted, code reason: 7-Patient Refused. 9-Not Applicable-not attempted and the patient did not perform the activity before the current illness, exacerbation or injury. 10-Not Attempted due to Environmental Limitations-(lack of equipment, weather restraints, etc.). 88-Not Attempted due to Medical Conditions or Safety Concerns. Self Care: Independent Functional Cognition: Needed Some Help Drive Self: No OT Current Status Subjective Reclined in bed encouraged by family to feed self. Mental Status/Objective Patient Orientation: Person, Place, Time, Situation Patient was at home and transferred out of chair, legs wrapped in blanket causing fall to floor. Has life alert but was not in reach, family had called and patient did not answer phone. Family arrived and found patient on floor. Current Glasses/Contacts: Yes Upper Extremity ROM BUE ROM WFLS Upper Extremity Coordination BUE GMC/FMC WFLS Upper Extremity Sensation Mild sensation deficits as unaware of pudding and food on hands/fingers. Upper Extremity Strength +3/5 BUE grossly ADL-Treatment Eating (QC): 5 (required assistance to open packets and cut food, Verbal cues for food location using around clock method) Oral Hygiene (QC): 5 Shower/Bathe Self (QC): 2 (Elevated shower seat) Upper Body Dressing (QC): 3 Lower Body Dressing (QC): 2 On/Off Footwear (QC): 1 Toileting Hygiene (QC): 2 Education OT Patient Education: Correct positioning, Energy conservation, Exercise program, Modified ADL techniques, Progress toward Goal/Update tx plan, Purpose of tx/functional activities, Reviewed precautions, Rehab process, Safety issues, Transfer techniques, Use of adapted equipment, W/C management Teaching Recipient: Patient Teaching Methods: Demonstration, Discussion Response to Teaching: Verbalize Understanding, Return Demonstration, Reinforcement Needed BIMS CAM BIMS Expression of Ideas and Wants: Frequently Understanding Verbal Content: Usually Understands Brief Interview/Mental Status: Yes IRF ANTHONY BIMS: IRF ANTHONY BIMS Response (Comments) Value Repitition of Three Words Three 3 Recalls Socks Yes, After Cueing (Wear) 1 Recalls Blue Yes, After Cueing (Color) 1 Recalls Bed Yes, After Cueing 1 Year Correct 3 Month Accurate Within 5 Days 2 Day Correct 1 Total 12 Patient Normally Able to Recal: Current Session Memory/Recall Ability: Current Season, That He/She in Hospitall OT Short Term Goals Short Term Goals Eatin Oral hygiene: 4 Toileting hygiene: 4 Shower/bathe self: 4 Upper body dressin Lower body dressin Putting on/taking off footwear: 5 OT Marketing Sales Representative Goals Marketing Sales Representative Goals Eating (QC): 6 Oral Hygiene (QC): 6 Toileting Hygiene (QC): 6 Shower/Bathe Self (QC): 6 Upper Body Dressing (QC): 6 Lower Body Dressing (QC): 6 On/Off Footwear (QC): 6 1=Demonstrate adherence to instructed precautions during ADL tasks. 2=Patient will verbalize/demonstrate understanding of assistive devices/modifications for ADL. 3=Patient will improve strength/tolerance for activity to enable patient to perform ADL's. OT Education/Plan Problem List/Assessment Assessment: Decreased Activ Tolerance, Decreased UE Strength, Impaired Bed Mobility, Impaired Coordination, Impaired Funct Balance, Impaired I ADL's, Impaired Self-Care Skills, Visual-Perceptual Deficit Discharge Recommendations Plan/Recommendations: Continue POC Therapy Discharge Recommendati: Post Acute OT Treatment Plan/Plan of Care Treatment,Training & Education: Yes Patient would benefit from OT for education, treatment and training to promote independence in ADL's, mobility, safety and/or upper extremity function for ADL's. Plan of Care: ADL Retraining, Functional Mobility, Group Exercise/Act as Ind, Orthotic Fitting/Training, UE Funct Exercise/Act Treatment Duration: Apr 13, 2022 Frequency: 5 times per week Estimated Hrs Per Day: 1.5 hours per day Agreement: Yes Rehab Potential: Good Time Start Time: 13:10 Stop Time: 13:25 DATE: Apr 01, 2022 Total Time Billed (hr/min): 15 Billed Treatment Time 1 EVM 15min VELIA POWERS OT Apr 01, 2022 14:01
--- NOTE | 2022-04-01 14:21 | Physical Therapy Daily Note ---
PT Daily Note-Current Subjective Pt sitting in [facility] upon arrival. Pt agrees to PARTS FINISHER/CAMPOS co-treat. Pain Numeric Pain Scale: 6 Location: Right Location Body Site: Hip Section J - Health Conditions 1. Rarely or not at all 2. Occasionally 3. Frequently 4. Almost constantly 8. Unable to answer Pain Effect on Sleep: 1 Pain Interference with Therapy: 2 Pain Interference w/Day-to-Day: 2 Mental Status Patient Orientation: Person, Place, Time, Situation Attachments: IV Transfers SCALE: Activities may be completed with or without assistive devices. 9-Mzrzouhziz-pmcyvnd completes the activity by him/herself with no assistance from a helper. 5-Set-up or Clean-up Assistance-helper sets up or cleans up; patient completes activity. [place] assists only prior to or following the activity. 4-Supervision or Touching Assistance-helper provides verbal cues and/or touch ing/steadying and/or contact guard assistance as patient completes activity. Assistance may be provided throughout the activity or intermittently. 3-Partial/Moderate Assistance-helper does LESS THAN HALF the effort. [place] lifts, holds or supports trunk or limbs, but provides less than half the effort. 2-Substantial/Maximal Assistance-helper does MORE THAN HALF the effort. [place] lifts or holds trunk or limbs and provides more than half the effort. 7-Ehjumeooj-xmkfgy does ALL the effort. Patient does none of the effort to complete the activity. Or, the assistance of 2 or more helpers is required for the patient to complete the activity. If activity was not attempted, code reason: 7-Patient Refused. 9-Not Applicable-not attempted and the patient did not perform the activity before the current illness, exacerbation or injury. 10-Not Attempted due to Environmental Limitations-(lack of equipment, weather restraints, etc.). 88-Not Attempted due to Medical Conditions or Safety Concerns. Roll Left & Right (QC): 2 Sit to Lying (QC): 1 Lying to Sitting/Side of Bed(Q: 1 Sit to Stand (QC): 1 Weight Bearing Right Lower Extremity: Right Weight Bearing/Tolerated Left Lower Extremity: Left Full Weight Bearing Treatments OT/PT co-treat due to skill of 2 clinicians required which a occupational rehabilitation aide could not perform in order to coordinate UE/LES omar. during TF, decrease fall risk, and due to pt's limitations in strength, activity tolerance, fatigue with minimal activity, and mobility/transfers due to fx. PT focused on transfers, LE coordination during TF and bed mobility while OT focused on ADLs and UE coord ination during TF. Pt completes multiple Sit to Stand TF as well Sit to Supine & vice versa. Pt completes ADLs including bathing, oral care & dressing before TF back to bed for Nurse to check sacrum for pressure sores and apply dressing. Pt resting at end of tx w/all needs met, call light in hand. Assessment Current Status: Fair Progress Pt is fearfully during TF to start tx but improves as tx progresses. Pt still requires Max A for TF as pt demonstrates lack of strength at this time. PT Short Term Goals Short Term Goals Time Frame: Apr 13, 2022 Roll Left & Right: 3 Sit to lyin Lying to sitting on side of be: 3 Sit to stand: 3 Chair/tpv-it-rbdmy transfer: 3 Toilet transfer: 3 Walk 10 feet: 3 PT Environmental Intern Goals Senior Care Goals PT Environmental Intern Goals Time Frame: May 04, 2022 Roll Left & Right (QC): 5 Sit to Lying (QC): 5 Lying-Sitting on Side/Bed(QC): 5 Sit to Stand (QC): 5 Chair/Uoy-ee-Wwdac Xfer(QC): 5 Toilet Transfer (QC): 5 Car Transfer (QC): 5 Does the Patient Walk: Yes Walk 10 feet (QC): 4 Walk 50ft with 2 Turns (QC): 4 Walk 150 ft (QC): 4 Walking 10ft on Uneven Surface: 4 1 Step (curb) (QC): 3 4 Steps (QC): 9 12 Steps (QC): 9 Picking up an Object (QC): 4 Does the Pt use WC or Scooter?: Yes Wheel 50 feet with 2 turns (QC: 6 Type: Manual Wheel 150 feet: 6 Type: Manual PT Plan Problem List Problem List: Activity Tolerance, Functional Strength, Safety, Gait, Transfer, Bed Mobility Treatment/Plan Treatment Plan: Continue Plan of Care Treatment Plan: Bed Mobility, Education, Functional Activity Norah, Functional Strength, Group Therapy, Gait, Safety, Therapeutic Exercise, Transfers Treatment Duration: May 07, 2022 Frequency: At least 5 of 7 days/Wk (IRF) Estimated Hrs Per Day: 1.5 hours per day Patient and/or Family Agrees t: Yes Safety Risks/Education Patient Education: Transfer Techniques, Correct Positioning, Safety Issues Teaching Recipient: Patient Teaching Methods: Discussion Response to Teaching: Verbalize Understanding Time Time In: 1340 Time Out: 1500 DATE: Apr 01, 2022 Total Billed Treatment Time: 80 Total Billed Treatment 1, FA x5 (80m) Co-treat for 80m SOULEYMANESWATI SEGOVIA PARTS FINISHER Apr 01, 2022 14:20
--- NOTE | 2022-04-01 15:17 | Occupational Ther Daily Note ---
OT Current Status-Daily Note Subjective Pt alert, sitting in w/c. Took over care from OTR/L. Pt agrees to therapy. OT/PT co-treat([id number]), skills of 2 clinicians required to decrease fall risk, increase mobility, decrease pain, increase awareness of environment and situations. PT focusing on transfers and mobility while OT focusing on ADLs and functional mobility. Mental Status/Objective Patient Orientation: Person, Place, Time, Situation Attachments: IV (2) ADL-Treatment Pt agrees to shower. Max A x1 with SPT and assist of 2nd person for safety. 2 person assist to use FWW to SPT from EOB to w/c. 2 person assist to hike clothing over hips then max A to thread over feet. Sitting on shower bench for 95% of the shower then max A to stand and mod A to stand while pt cleanses beryl area and buttocks. Pt's legs began to shake and CAMPOS directed pt to sit on shower bench. Assist to cleanse lower legs and feet. Pt will need AE for lower body bathing and dressing. Dependent for footwear and lower body dressing. Min A for oral care due to decrease fine motor sensation and visual deficits, will need contrasting layout to work towards independence. Dependent for sit <-->supine. Min A x2 for rolling side to side. After session, pt lying in bed with call light/phone in reach. Nrsg in room. Bed alarm activated. All needs met. Therapy Code Descriptions/Definitions Functional [place] Measure: 0=Not Assessed/NA 4=Minimal Assistance 1=Total Assistance 5=Supervision or Setup 2=Maximal Assistance 6=Modified [place] 3=Moderate Assistance 7=Complete IndependenceSCALE: Activities may be completed with or without assistive devices. 1-Dbieryksnt-hcoocpf completes the activity by him/herself with no assistance from a helper. 5-Set-up or Clean-up Assistance-helper sets up or cleans up; patient completes activity. [place] assists only prior to or following the activity. 4-Supervision or Touching Assistance-helper provides verbal cues and/or touching/steadying and/or contact guard assistance as patient completes activity. Assistance may be provided throughout the activity or intermittently. 3-Partial/Moderate Assistance-helper does LESS THAN HALF the effort. [place] lifts, holds or supports trunk or limbs, but provides less than half the effort. 2-Substantial/Maximal Assistance-helper does MORE THAN HALF the effort. [place] lifts or holds trunk or limbs and provides more than half the effort. 8-Pldfxdcqe-zwvqff does ALL the effort. Patient does none of the effort to complete the activity. Or, the assistance of 2 or more helpers is required for the patient to complete the activity. If activity was not attempted, code reason: 7-Patient Refused. 9-Not Applicable-not attempted and the patient did not perform the activity before the current illness, exacerbation or injury. 10-Not Attempted due to Environmental Limitations-(lack of equipment, weather restraints, etc.). 88-Not Attempted due to Medical Conditions or Safety Concerns. OT Short Term Goals Short Term Goals Eatin Oral hygiene: 4 Toileting hygiene: 4 Shower/bathe self: 4 Upper body dressin Lower body dressin Putting on/taking off footwear: 5 OT Act Tutor Goals Act Tutor Goals Eating (QC): 6 Oral Hygiene (QC): 6 Toileting Hygiene (QC): 6 Shower/Bathe Self (QC): 6 Upper Body Dressing (QC): 6 Lower Body Dressing (QC): 6 On/Off Footwear (QC): 6 1=Demonstrate adherence to instructed precautions during ADL tasks. 2=Patient will verbalize/demonstrate understanding of assistive devices/modifi cations for ADL. 3=Patient will improve strength/tolerance for activity to enable patient to perform ADL's. OT Education/Plan Problem List/Assessment Assessment: Decreased Activ Tolerance, Decreased Safety Aware, Decreased UE Strength, Dependent Transfers, Impaired Bed Mobility, Impaired Coordination, Impaired Funct Balance, Impaired I ADL's, Impaired Self-Care Skills, Visual- Perceptual Deficit Discharge Recommendations Plan/Recommendations: Continue POC Treatment Plan/Plan of Care Patient would benefit from OT for education, treatment and training to promote independence in ADL's, mobility, safety and/or upper extremity function for ADL's. Plan of Care: ADL Retraining, Functional Mobility, Group Exercise/Act as Ind, Orthotic Fitting/Training, UE Funct Exercise/Act Treatment Duration: Apr 13, 2022 Frequency: 5 times per week Estimated Hrs Per Day: 1.5 hours per day Agreement: Yes Rehab Potential: Good Time Start Time: 13:40 Stop Time: 15:00 DATE: Apr 01, 2022 Total Time Billed (hr/min): 80 Billed Treatment Time 1 visit-ADL 5 (80 min TOMEKA ENGLISH Apr 01, 2022 15:17
[2022-04-01] MEDS ORDERED: polyethylene glycoL POWDER 17 GM (MIRALAX) PACK PO PRN (18:00)
[2022-04-01] MEDS ORDERED: HYDROmorphone 2 MG/ML VIAL (DILAUDID) IV PRN (18:00)
[2022-04-01] MEDS ORDERED: ONDANSETRON 4 MG/2 ML (SDV) Z0FRAN IV PRN (18:00)
[2022-04-01] MEDS ORDERED: diphenhydrAMINE 50 MG/ML INJ (BENADRYL) IVP PRN (18:00)
[2022-04-01] MEDS ORDERED: ANTACID SUSP 30 ML UDC (MYLANTA) PO PRN (18:00)
[2022-04-01] MEDS ORDERED: cloNIDine 0.1 MG (CATAPRES) TAB PO PRN (18:00)
[2022-04-01] MEDS ORDERED: MILK OF MAGNESIA 400 MG/5 ML 30 ML UDC PO PRN (18:00)
[2022-04-01] MEDS ORDERED: ENOXAPARIN 40 MG/0.4 ML (LOVENOX) SYR SC SCH (18:00)
[2022-04-01] MEDS ORDERED: NS IV 500 ML 500 ML IV SCH (18:00)
[2022-04-01 19:21] VITALS: BP 146/69
--- NOTE | 2022-04-01 20:23 | PM&R Post Admission Assessment ---
PM&R HP Date of Visit: Apr 01, 2022 Time of Visit: 14:00 History of Present Illness CC: Right proximal femur fracture in need of aggressive therapy HPI This is an 86yoWF who presents to the ARU in need of aggressive therapy following an uncomplicated med-surg course following right femur fracture repair uncomplicated by Dr Lowe. Patient is frail and weak and did require 1 unit of blood due to hgb below 8.0. She was experiencing post op hallucinations which was concerning for her daughter but I reassured her with the common occurrence of this condition post operatively. Navarro cath was replaced later in the day due to urinary retention. Post op constipation will be addressed with laxatives. PLOF was without the use of AD and independent and living alone. Past Pxcexrj-Dmenja-Lkwoic Hx Past Med/Social Hx: Reviewed Nursing Past Med/Soc Hx, Reviewed and Corrections made Patient Social History Marrital Status: single Employed/Student: retired Alcohol Use: Denies Use Smoking Status: Former Smoker 2nd Hand Smoke Exposure: No Recent Hopitalizations: No Immunizations Up To Date Tetanus Booster (TDap): Unknown Date of Influenza Vaccine: Dec 10, 2021 Seasonal Allergies Seasonal Allergies: No Past Medical History Surgeries: Orthopedic Currently Using CPAP: No Currently Using BIPAP: No Cardiac: Hypertension Neurological: Neuropathy Endocrine: Diabetes, Non-Insulin dep Prior Level of Function Bed Mobility: 6 Transfers: 6 Gait: 6 Stairs: 6 Indoor Mobility (Ambulation): Independent Stairs: Independent Prior Devices Use: Walker Self Care: Independent Functional Cognition: Needed Some Help Drive Self: No Current Level of Fuctioning Roll Left to Right: 2 Sit to Lyin Lying to Sitting/Side of Bed: 1 Sit to Stand: 1 Chair/Msd-qu-Deikd Xfer: 2 Car Transfer: 2 Does the Patient Walk: Yes Mode of Locomotion: Both Anticipated Mode of Locomotion: Both Walk 10 feet: 88 Walk 50 ft with 2 Turns: 88 Walk 150 ft: 88 Walking 10ft on uneven surface: 8 Gait Assistive Device: FWW Does the Pt Use a Wheelchair: Yes Wheelchair Distance: 150 feet Wheel 50 ft with 2 turns: 3 Wheel 150 ft: 3 Type of Wheelchair: Manual #of Steps: 0 1 Step (curb): 9 4 Steps: 9 12 Steps: 9 Picking up an Object: 88 Eatin (required assistance to open packets and cut food, Verbal cues for food location using around clock method) Oral Hygiene: 5 Shower/Bathe Self: 2 (Elevated shower seat) Upper Body Dressin Lower Body Dressin On/Off Footwear: 1 Toileting Hygiene: 2 PM&R Allergy/Meds/Data Review Allergies Coded Allergies: No Known Drug Allergies (Unverified , 05/07/18) Home Medications Scheduled Aspirin (Aspirin EC), 81 MG PO DAILY, (Reported) Atorvastatin Calcium (Atorvastatin Calcium), 80 MG PO HS, (Reported) Lisinopril (Lisinopril), 20 MG PO DAILY, (Reported) Scheduled PRN Gabapentin (Gabapentin), 100 MG PO BID PRN for PAIN-BREAKTHROUGH, (Reported) Tramadol HCl (Tramadol HCl), 50 MG PO BID PRN for PAIN-MODERATE (5-7), (Reported) Discontinued Medications Acetaminophen (Tylenol), 325-650 MG PO Q8H PRN for PAIN-MILD (1-4), (Reported) Discontinued Reason: No Longer Taking Atorvastatin Calcium (Atorvastatin Calcium), 80 MG PO HS Discontinued Reason: No Longer Taking Dapagliflozin Propanediol (Farxiga), 10 MG PO DAILY, (Reported) Discontinued Reason: No Longer Taking Glimepiride (Glimepiride), 4 MG PO DAILY, (Reported) Discontinued Reason: No Longer Taking Levocetirizine Dihydrochloride (Levocetirizine Dihydrochloride), 5 MG PO 1800, (Reported) Discontinued Reason: No Longer Taking Lisinopril/Hydrochlorothiazide (Lisinopril-Hctz 20-12.5 mg Tab), 1 EA PO DAILY, (Reported) Discontinued Reason: No Longer Taking Current Medications Current Medications Reviewed Laboratory Data Laboratory Tests 04/01/22 16:00: Glucometer 184H 04/01/22 20:09: Glucometer 247H Review of Systems Constitutional: see HPI, malaise, weakness EENTM: no symptoms reported Respiratory: no symptoms reported Cardiovascular: no symptoms reported Gastrointestinal: constipation Genitourinary: other (retention) Musculoskeletal: back pain, joint pain Skin: no symptoms reported Psychiatric/Neurological: Anxiety, Other (hallucinations) All Other Systems Reviewed Negative Unless Noted: Yes Physical Exam Physical Exam Vital Signs Vital Signs - First Documented 04/01/22 13:50 Temp 37.1 Pulse 88 Resp 18 B/P (MAP) 153/70 (97) Pulse Ox 97 O2 Delivery Room Air Capillary Refill : Height, Weight, BMI Height: 5'2.00" Weight: 140lbs. oz. 63.469420kk; 23.28 BMI Method:Stated General Appearance: No Apparent Distress, WD/WN, Chronically ill Eyes: Bilateral Eye Normal Inspection, Bilateral Eye PERRL HEENT: PERRL/EOMI, Normal ENT Inspection, Pharynx Normal Neck: Full Range of Motion, Normal Inspection, Non Tender, Supple, Carotid Bruit Respiratory: Chest Non Tender, Lungs Clear, Normal Breath Sounds, No Accessory Muscle Use, No Respiratory Distress Cardiovascular: Regular Rate, Rhythm, No Edema, No Gallop, No JVD, No Murmur, Normal Peripheral Pulses Gastrointestinal: Normal Bowel Sounds, No Organomegaly, No Pulsatile Mass, Non Tender, Soft Back: Normal Inspection, No CVA Tenderness, No Vertebral Tenderness Extremity: Normal Capillary Refill, Normal Inspection, Normal Range of Motion, Non Tender, No Calf Tenderness, No Pedal Edema Neurologic/Psychiatric: Alert, Oriented x3, Normal Mood/Affect, 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 tutor 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 Norm as Tested, Abnormal Gait, Depressed Affect, Motor Weakness (right leg weakness) Skin: Normal Color, Warm/Dry Lymphatic: No Adenopathy PM&R Medical Assessment & Plan REHAB/MEDICAL ASSESSMENT AND PLAN: REHAB IMPAIRMENT GROUP: Right hip fracture ETIOLOGIC DIAGNOSIS: Right hip fracture The comorbidities that impact the patients function and/or functional outcome by: advanced age, post op anemia, post op hallucinations, frail status REHAB PLAN: The patient is being admitted to our comprehensive inpatient rehabilitation facility and can tolerate the intensity of service consisting of at least: 180 minutes of therapy a day, 5 out of 7 days a week Rehab treatment will consist of: PT OT will focus on regaining function with use of AD in order to improve strength and rising above pain and building stamina in order to regain function in order to return home The patient/family has a good understanding of our discharge process and will benefit from an interdisciplinary inpatient rehabilitation program. The patient has potential to make improvement and is in need of at least two of the following multidisciplinary therapies including but not limited to physical, occupational, speech, and prosthetics and orthotics. Additionally the patient will need services from respiratory, nutritional services, wound care, psychology, etc. (Customize this to each patient). Given the patients complex condition and risk of further medical complications, rehabilitation services cannot be safely or effectively provided at a lower level of care such as a retirement facility. BARRIERS TO DISCHARGE: Advanced age ESTIMATED LOS: 10 days DISPOSITION: Home RELEVANT CHANGES SINCE PREADMISSION SCREENING: I have compared the patients medical and functional status at the time of the preadmission screening and there are: no changes PROGNOSIS: Fair REHABILITATION GOALS: 1. PT OT will focus on regaining function with use of AD in order to improve strength and rising above pain and building stamina in order to regain function in order to return home All the above goals were reviewed with the patient and he/she is in agreement. By signing this document, I acknowledge that I have personally performed a full physical examination on this patient within 24 hours of admission to this inpatient rehabilitation facility and have determined the patient to be able to tolerate the above course of treatment at an intensive level for a reasonable period of time. I will be completing a detailed individualized Plan of Care for this patient by day #4 of the patients stay based upon the Preadmission Screen, the Post-Admission Evaluation, and the therapy evaluations. Admission Dx/Comorbidities: (1) Closed right hip fracture Status: Acute ICD Codes: S72.001A - Fracture of unspecified part of neck of right femur, initial encounter for closed fracture Assessment/Plan Assessment and Plan Assess & Plan/Chief Complaint Assessment: Right hip fracture status post uncomplicated repair 03/30/22 Hypertension Advanced age Diabetes Postop acute blood loss anemia requiring 1 unit of blood on 04/01/22 Postop constipation Frail status Navarro cath replaced due to urinary retention Post op hallucinations Plan: ARU Pain control Monitor hgb DC Ffoley when able Aggressive PT OT BARB LARSON DO Apr 01, 2022 20:23
[2022-04-01] MEDS ORDERED: GABAPENTIN 100 MG (NEURONTIN) CAP PO PRN (20:30)
[2022-04-01] MEDS ORDERED: SENNA W/DOCUSATE (SENOKOT S) TABLET PO SCH (21:00)
[2022-04-01] MEDS: SENNOSIDES 8.6 MG (SENOKOT) TAB PO SCH (21:13)
[2022-04-01] MEDS: polyethylene glycoL POWDER 17 GM (MIRALAX) PACK PO SCH (21:13)
[2022-04-01] MEDS: DOCUSATE SODIUM 100 MG (COLACE) CAP PO SCH ×2 (21:13→21:14)
[2022-04-01] MEDS: ACETAMINOPHEN 325 MG TABLET PO PRN (21:13)
[2022-04-01] MEDS: inSUlin ASPART (NovoLOG) 1 UNIT/0.01 ML (CHARGE PER UNIT) SC SCH (21:14)
[2022-04-01] MEDS ORDERED: RT-ALBUTEROL SULF 2.5 MG/3 ML PRE-MIX VIAL INH PRN (22:15)
[2022-04-02 05:35] LABS: BASOPHILS % (AUTO) 0 % (0-10); MEAN CORPUSCULAR VOLUME 89 fL (80-99)
[2022-04-02 05:37] LABS: EOSINOPHILS # (AUTO) 0.2 10^3/uL (0.0-0.3); EOSINOPHILS % (AUTO) 2 % (0-10); HEMATOCRIT 29 % (35-52); HEMOGLOBIN 9.7 g/dL (11.5-16.0); LYMPHOCYTES # (AUTO) 2.3 10^3/uL (1.0-4.0); LYMPHOCYTES % (AUTO) 25 % (12-44); MEAN CORPUSCULAR HEMOGLOBIN 30 pg (25-34); MEAN CORPUSCULAR HGB CONC 34 g/dL (32-36); MEAN PLATELET VOLUME 10.7 fL (9.0-12.2); MONOCYTES # (AUTO) 1.2 10^3/uL (0.0-1.0); MONOCYTES % (AUTO) 13 % (0-12); NEUTROPHILS # (AUTO) 5.3 10^3/uL (1.8-7.8); NEUTROPHILS % (AUTO) 59 % (42-75); PLATELET COUNT 124 10^3/uL (130-400); WHITE BLOOD COUNT 9.1 10^3/uL (4.3-11.0)
[2022-04-02 06:00] LABS: ALBUMIN 2.3 GM/DL (3.2-4.5); BILIRUBIN,TOTAL 1.6 MG/DL (0.1-1.0); CALCIUM 8.5 MG/DL (8.5-10.1); CREATININE SERUM 0.81 MG/DL (0.60-1.30); TOTAL PROTEIN 5.2 GM/DL (6.4-8.2)
[2022-04-02] MEDS: inSUlin ASPART (NovoLOG) 1 UNIT/0.01 ML (CHARGE PER UNIT) SC SCH ×4 (06:04→20:46)
[2022-04-02] MEDS: BETHANECHOL 25 MG (URECHOLINE) TAB PO SCH ×4 (06:25→20:46)
--- NOTE | 2022-04-02 07:01 | PM&R Progress Note ---
Subjective HPI/CC On Admission Date Seen by Provider: Apr 02, 2022 Time Seen by Provider: 08:30 Subjective/Events-last exam 04/02/2022: Doing well No pain except hip Rested well last night Labs reviewed No other issues No BM yet so aggressive laxatives ordered Review of Systems General: Fatigue, Malaise Objective Exam Vital Signs Vital Signs Date Time Temp Pulse Resp B/P (MAP) Pulse Ox O2 Delivery O2 Flow Rate FiO2 04/02/22 21:00 Room Air 04/02/22 19:48 78 18 147/64 (91) 97 04/02/22 07:56 36.8 Capillary Refill : General Appearance: No Apparent Distress, WD/WN, Chronically ill HEENT: PERRL/EOMI, Normal ENT Inspection, Pharynx Normal Neck: Full Range of Motion, Normal Inspection, Non Tender, Supple, Carotid Bruit Respiratory: Chest Non Tender, Lungs Clear, Normal Breath Sounds, No Accessory Muscle Use, No Respiratory Distress Cardiovascular: Regular Rate, Rhythm, No Edema, No Gallop, No JVD, No Murmur, Normal Peripheral Pulses Gastrointestinal: Normal Bowel Sounds, No Organomegaly, No Pulsatile Mass, Non Tender, Soft Back: Normal Inspection, No CVA Tenderness, No Vertebral Tenderness Extremity: Normal Capillary Refill, Normal Inspection, Normal Range of Motion, Non Tender, No Calf Tenderness, No Pedal Edema Neurologic/Psychiatric: Alert, Oriented x3, Normal Mood/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 FIM Transfers Therapy Code Descriptions/Definitions Functional [place] Measure: 0=Not Assessed/NA 4=Minimal Assistance 1=Total Assistance 5=Supervision or Setup 2=Maximal Assistance 6=Modified [place] 3=Moderate Assistance 7=Complete IndependenceSCALE: Activities may be completed with or without assistive devices. 0-Wiwuindase-potbeji completes the activity by him/herself with no assistance from a helper. 5-Set-up or Clean-up Assistance-helper sets up or cleans up; patient completes activity. [place] assists only prior to or following the activity. 4-Supervision or Touching Assistance-helper provides verbal cues and/or touching/steadying and/or contact guard assistance as patient completes activity. Assistance may be provided throughout the activity or intermittently. 3-Partial/Moderate Assistance-helper does LESS THAN HALF the effort. [place] lifts, holds or supports trunk or limbs, but provides less than half the effort. 2-Substantial/Maximal Assistance-helper does MORE THAN HALF the effort. [place] lifts or holds trunk or limbs and provides more than half the effort. 9-Rncwtxsrt-kjxlos does ALL the effort. Patient does none of the effort to complete the activity. Or, the assistance of 2 or more helpers is required for the patient to complete the activity. If activity was not attempted, code reason: 7-Patient Refused. 9-Not Applicable-not attempted and the patient did not perform the activity before the current illness, exacerbation or injury. 10-Not Attempted due to Environmental Limitations-(lack of equipment, weather restraints, etc.). 88-Not Attempted due to Medical Conditions or Safety Concerns. Roll Left to Right (QC): 2 Sit to Lying (QC): 1 Sit to Stand (QC): 1 Chair/Zau-yd-Umbdh Xfer(QC): 2 Car Transfer (QC): 2 Gait Training Does the Patient Walk?: Yes Walk 10 feet (QC): 88 Walk 50 ft with 2 Turns(QC): 88 Walk 150 ft (QC): 88 Walking 10ft/uneven surface-QC: 8 Gait Assistive Device: FWW Wheelchair Training Does the Pt Use a Wheelchair?: Yes Distance: 150 feet Wheel 50 ft with 2 turns (QC): 3 Wheel 150 ft (QC): 3 Type of Wheelchair: Manual Stair Training #of Steps: 0 1 Step (curb) (QC): 9 4 Steps (QC): 9 12 Steps (QC): 9 Balance Picking up an Object (QC): 88 ADL-Treatment Eating (QC): 5 (required assistance to open packets and cut food, Verbal cues for food location using around clock method) Oral Hygiene (QC): 5 Shower/Bathe Self (QC): 2 (Elevated shower seat) Upper Body Dressing (QC): 3 Lower Body Dressing (QC): 2 On/Off Footwear (QC): 1 Toileting Hygiene (QC): 2 Assessment/Plan Assessment and Plan Assess & Plan/Chief Complaint Assessment: Right hip fracture status post uncomplicated repair 1/21/23 Hypertension Advanced age Diabetes Postop acute blood loss anemia requiring 1 unit of blood on 04/01/22 Postop constipation Frail status Navarro cath replaced due to urinary retention Post op hallucinations Plan: ARU Pain control Monitor hgb DC Ffoley when able Aggressive PT OT 04/02/2022: Laxatives Monitor closely (1) Closed right hip fracture Status: Acute BARB LARSON DO Apr 02, 2022 07:01
--- NOTE | 2022-04-02 07:02 | Individualized Plan of Care ---
Individualized Plan of Care Rehab Nursing IPOC Order Admission Date Apr 01, 2022 at 13:10 Current Orders Orders Admission Order(Inpt,Obs,Sdc) (04/01/22 10:56) Vital Signs: Per Unit Policy ( 08,16,00 (04/01/22 10:56) Wilfrido Andrea 09,21 (04/01/22 10:56) Sequential Compression Device (04/01/22 10:56) Shirrer-Inpt Rehab Con (04/01/22 10:56) Rehab Nursing Orders-Ipoc (04/01/22 10:56) Physical Therapy Rehab Orders (04/01/22 10:56) Occupational Therapy Rehab Ord (04/01/22 10:56) Speech Therapy Rehab Orders (04/01/22 10:56) Cbc With Automated Diff (04/02/22 06:00) Comprehensive Metabolic Panel (04/02/22 06:00) Precautions (Aru) (04/01/22 10:56) Weekly Weight WEEK (04/01/22 10:56) Rehab-Intensity Of Therapy (04/01/22 10:56) Initiate Admission Nursing Pro .admission (04/01/22 10:56) Alprazolam Tablet (Xanax Tablet) (04/01/22 11:00) Calcium Carbonate Chew Tablet (Antacid C (04/01/22 11:00) Diphenhydramine Tablet (Benadryl Tablet) (04/01/22 11:00) Docusate Sodium Capsule (Colace Capsule) (04/01/22 21:00) Bisacodyl Suppository (Dulcolax Supposit (04/01/22 11:00) Lactulose Oral Solution (Enulose Oral So (04/01/22 11:00) Na Phos/Na Biphos Enema (Fleet Enema Frederick (04/01/22 11:00) Guaifenesin/Codeine Syrup (Robitussin Ac (04/01/22 11:00) Loperamide Tablet (Imodium Tablet) (04/01/22 11:00) Melatonin Tablet (Melatonin Tablet) (04/01/22 11:00) Polyethylene Glycol Powder Pkt (Miralax (04/01/22 21:00) Ondansetron Oral Dissolve Tab (Zofran (04/01/22 11:00) Senna S Tablet (Senokot S Tablet) (04/01/22 21:00) Acetaminophen Tablet/Caplet (Tylenol T (04/01/22 11:00) Initiate Admission Nursing Pro .admission (04/01/22 10:56) Haloperidol Injection (Haldol Injectio (04/01/22 11:00) Haloperidol Tablet (Haldol Tablet) (04/01/22 11:00) Lorazepam Injection (Ativan Injection) (04/01/22 11:00) Lorazepam Tablet (Ativan Tablet) (04/01/22 11:00) Admission Arrival Bed Request (04/01/22 13:42) Patient Visit (04/01/22 ) Pt Eval Moderate Complexity (04/01/22 ) Cho 60g/M 1snack (16-2000 Russ) (04/01/22 Dinner) Code/Resuscitation (04/01/22 17:55) Accucheck Achs ACHS (04/01/22 17:55) Dressing Order (Intervention) DAILY (04/01/22 17:55) Follow-Up Appointment (04/01/22 17:55) Ice: Apply To Affected Area (04/01/22 17:55) Sequential Compression Device (04/01/22 17:55) Wilfrido Andrea (04/01/22 17:55) Diphenhydramine Injection (Benadryl Inje (04/01/22 18:00) Diphenhydramine Tablet (Benadryl Tablet) (04/01/22 18:00) Docusate Sodium Capsule (Colace Capsule) (04/01/22 21:00) Bisacodyl Suppository (Dulcolax Supposit (04/01/22 18:00) Enoxaparin Injection (Lovenox Injection) (04/01/22 18:00) Lactulose Oral Solution (Enulose Oral So (04/01/22 18:00) Hydromorphone Injection (Dilaudid Inject (04/01/22 18:00) Lorazepam Injection (Ativan Injection) (04/01/22 18:00) Lorazepam Tablet (Ativan Tablet) (04/01/22 18:00) Melatonin Tablet (Melatonin Tablet) (04/01/22 18:00) Magnesium Hydroxide Oral Susp (Mom Oral (04/01/22 18:00) Polyethylene Glycol Powder Pkt (Miralax (04/01/22 18:00) Antacid Suspension (Mylanta Suspension (04/01/22 18:00) Insulin Aspart (Novolog) (Novolog (Charg (04/01/22 21:00) Ns Iv 500 Ml (Sodium Chloride 0.9%) (04/01/22 18:00) Sennosides Tablet (Senokot Tablet) (04/01/22 21:00) Calcium Carbonate Chew Tablet (Antacid C (04/01/22 18:00) Acetaminophen Tablet/Caplet (Tylenol T (04/01/22 18:00) Ondansetron Injection (Zofran Injectio (04/01/22 18:00) Ondansetron Oral Dissolve Tab (Zofran (04/01/22 18:00) Clonidine Tablet (Catapres Tablet) (04/01/22 18:00) Oxycodone Immediate Rel Tablet (Oxyir Ta (04/01/22 18:00) Consult Orthopedic Surgery (04/01/22 17:55) Mat Initiate Protocol (04/01/22 17:55) Intake & Output 06,14,22 (04/01/22 17:55) Vte Contraindication (04/01/22 17:55) Atorvastatin Tablet (Lipitor Tablet) (04/01/22 21:00) Gabapentin Capsule/Tablet (Neurontin Cap (04/01/22 20:30) Lisinopril Tablet (Zestril Tablet) (04/02/22 09:00) Atorvastatin Tablet (Lipitor Tablet) (04/01/22 21:09) Tramadol Tablet (Ultram Tablet) (04/01/22 21:30) Catheter(Urinary) Insert & Ass 03,15 (04/01/22 19:30) Albuterol Pre-Mix Nebs (Rt) (Proventil (04/01/22 22:15) Svn Small Volume Nebulizer (04/01/22 22:11) Bethanechol Tablet (Urecholine Tablet) (04/02/22 06:00) Patient Visit (04/02/22 ) Speech Sound Lang Comp (04/02/22 ) Treat. Speech/Lang/Voice (04/02/22 ) Patient Visit (04/02/22 ) Functional Activities, Ea 15 (04/02/22 ) Exercise Therap, Ea 15 Min (04/02/22 ) Gait Training, Ea 15 Min (04/02/22 ) Rehab Nursing Orders: Ongoing Assess. of Cognitive Status, Ongoing Assess. of Function Status, Bladder Management, Bladder Scan, Bladder Training, Bowel Management, Bowel Training, Disease Management & Educaiton, DVT Prophylaxis, Fall Prevention, Fluid/Electrolyte/Nutrition Mgmt, Infection Prevention, Medication Management & Education, Management of Risks & Complications, Management of Skin Intergrity, Nutrition Management, Pain Management, Patient/Family Support, Safety Management Intensity of Therapy to be met Patient to be seen: Min.3h per day/5 of 7d PT IPOC Problem List: Activity Tolerance, Functional Strength, Safety, Gait, Transfer, Bed Mobility Treatment Plan: Continue Plan of Care Bed Mobility, Education, Functional Activity Norah, Functional Strength, Group Therapy, Gait, Safety, Therapeutic Exercise, Transfers Treatment Duration: May 07, 2022 Frequency: At least 5 of 7 days/Wk (IRF) Estimated Hrs Per Day: 1.5 hours per day OT IPOC Problems: Decreased Activ Tolerance, Decreased Safety Aware, Decreased UE Strength, Dependent Transfers, Impaired Bed Mobility, Impaired Coordination, Impaired Funct Balance, Impaired I ADL's, Impaired Self-Care Skills, Visual- Perceptual Deficit OT Treatment, Training and Edu: Yes Plan of Care: ADL Retraining, Functional Mobility, Group Exercise/Act as Ind, Orthotic Fitting/Training, UE Funct Exercise/Act Treatment Duration: Apr 13, 2022 Frequency: 5 times per week Estimated Hrs Per Day: 1.[address] IPOC Speech Therapy Treatment Plan: Continue Plan of Care Treatment Duration: Apr 02, 2022 Frequency: Modified Program (IRF) Estimated Hrs Per Day: Other Shirrer/Case Mgmt Shirrer/Case Managemen: Discharge Planning Dietitian/Pony Rougher Dietitian/Pony Rougher to monitor nutritional status and make changes and/or recommendations as needed and work with speech pathology on dietary upgrades as the occur. Physician IPOC Medical Issues being managed closely and that require the 24 hour availability of a physician: Recent hip fracture with residual acute blood loss anemia requiring blood transfusion and post op hallucinations will require close monitoring for decompensation Medical Issues: Bowel/Bladder Function, DVT Prophylaxis, Falls Precautions, Fl uid/Electrolyte/Nutrition Balance, Infection Protection, Pain Management, Weight Bearing Precautions, Wound Care Brief Synthesis of Preadmission Screen, Post-Admission Evaluation, and Therapy Evaluations: PT OT will focus on regaining function with use of AD in order to regain independence in ADL's and build stamina in order to increase chances of returning home Medical Prognosis: Good Anticipated Length of Stay: BARB Mccain DO Apr 02, 2022 07:02
--- NOTE | 2022-04-02 07:34 | Occupational Ther Daily Note ---
OT Current Status-Daily Note Subjective Pt alert, lying in bed. Pt agrees to therapy. No c/o pain at this time. Mental Status/Objective Patient Orientation: Person, Place Attachments: IV (2) ADL-Treatment Set up for eating due to vision difficulty. Min to mod A for supine to EOB. Mod A for SPT using FWW from EOB to w/c. Min A from w/c to recliner using FWW. Set up and physical cues to manipulate clothing into correct position then pt completed donning by self. Max A to don pants, assist to thread B LE's and min A to stabilize while pt hiked pants over hips. Dependent with footwear. Sitting at sink, pt able to complete oral care by self. After session, pt sitting in recliner with call light/phone in reach. All needs met in room. Therapy Code Descriptions/Definitions Functional [place] Measure: 0=Not Assessed/NA 4=Minimal Assistance 1=Total Assistance 5=Supervision or Setup 2=Maximal Assistance 6=Modified [place] 3=Moderate Assistance 7=Complete IndependenceSCALE: Activities may be completed with or without assistive devices. 0-Eqczajqowi-zoaeick completes the activity by him/herself with no assistance from a helper. 5-Set-up or Clean-up Assistance-helper sets up or cleans up; patient completes activity. [place] assists only prior to or following the activity. 4-Supervision or Touching Assistance-helper provides verbal cues and/or touching/steadying and/or contact guard assistance as patient completes activi ty. Assistance may be provided throughout the activity or intermittently. 3-Partial/Moderate Assistance-helper does LESS THAN HALF the effort. [place] lifts, holds or supports trunk or limbs, but provides less than half the effort. 2-Substantial/Maximal Assistance-helper does MORE THAN HALF the effort. [place] lifts or holds trunk or limbs and provides more than half the effort. 2-Jsoxdtggj-svbwgi does ALL the effort. Patient does none of the effort to complete the activity. Or, the assistance of 2 or more helpers is required for the patient to complete the activity. If activity was not attempted, code reason: 7-Patient Refused. 9-Not Applicable-not attempted and the patient did not perform the activity before the current illness, exacerbation or injury. 10-Not Attempted due to Environmental Limitations-(lack of equipment, weather restraints, etc.). 88-Not Attempted due to Medical Conditions or Safety Concerns. Eating (QC): 4 Oral Hygiene (QC): 5 Upper Body Dressing (QC): 4 Lower Body Dressing (QC): 2 On/Off Footwear: 1 OT Short Term Goals Short Term Goals Eatin Oral hygiene: 4 Toileting hygiene: 4 Shower/bathe self: 4 Upper body dressin Lower body dressin Putting on/taking off footwear: 5 OT Correction Goals Correction Goals Eating (QC): 6 Oral Hygiene (QC): 6 Toileting Hygiene (QC): 6 Shower/Bathe Self (QC): 6 Upper Body Dressing (QC): 6 Lower Body Dressing (QC): 6 On/Off Footwear (QC): 6 1=Demonstrate adherence to instructed precautions during ADL tasks. 2=Patient will verbalize/demonstrate understanding of assistive devices/modific ations for ADL. 3=Patient will improve strength/tolerance for activity to enable patient to perform ADL's. OT Education/Plan Problem List/Assessment Assessment: Decreased Activ Tolerance, Decreased Safety Aware, Impaired Funct Balance, Impaired Self-Care Skills Discharge Recommendations Plan/Recommendations: Continue POC Treatment Plan/Plan of Care Patient would benefit from OT for education, treatment and training to promote independence in ADL's, mobility, safety and/or upper extremity function for ADL's. Plan of Care: ADL Retraining, Functional Mobility, Group Exercise/Act as Ind, Orthotic Fitting/Training, UE Funct Exercise/Act Treatment Duration: Apr 13, 2022 Frequency: 5 times per week Estimated Hrs Per Day: 1.5 hours per day Agreement: Yes Rehab Potential: Good Time Start Time: 07:00 Stop Time: 08:15 DATE: Apr 02, 2022 Total Time Billed (hr/min): 75 Billed Treatment Time 1 visit-ADL 5 (75 min) TOMEKA ENGLISH Apr 02, 2022 07:34
[2022-04-02 07:56] VITALS: BP 154/68
[2022-04-02] MEDS: polyethylene glycoL POWDER 17 GM (MIRALAX) PACK PO SCH ×2 (08:21→20:46)
[2022-04-02] MEDS: SENNOSIDES 8.6 MG (SENOKOT) TAB PO SCH ×2 (08:22→20:46)
[2022-04-02] MEDS: DOCUSATE SODIUM 100 MG (COLACE) CAP PO SCH ×4 (08:22→20:46)
[2022-04-02] MEDS: lisINopril 20 MG (PRINIVIL) TABLET PO SCH (08:22)
--- NOTE | 2022-04-02 10:59 | Occupational Ther Daily Note ---
OT Current Status-Daily Note Subjective Pt alert, sitting in recliner. Pt agrees to therapy. No c/o pain. Mental Status/Objective Patient Orientation: Person, Place, Time, Situation Attachments: IV (2) ADL-Treatment Therapy Code Descriptions/Definitions Functional [place] Measure: 0=Not Assessed/NA 4=Minimal Assistance 1=Total Assistance 5=Supervision or Setup 2=Maximal Assistance 6=Modified [place] 3=Moderate Assistance 7=Complete IndependenceSCALE: Activities may be completed with or without assistive devices. 8-Aquuaxvkmg-cmvjtbu completes the activity by him/herself with no assistance from a helper. 5-Set-up or Clean-up Assistance-helper sets up or cleans up; patient completes activity. [place] assists only prior to or following the activity. 4-Supervision or Touching Assistance-helper provides verbal cues and/or touching/steadying and/or contact guard assistance as patient completes activity. Assistance may be provided throughout the activity or intermittently. 3-Partial/Moderate Assistance-helper does LESS THAN HALF the effort. [place] lifts, holds or supports trunk or limbs, but provides less than half the effort. 2-Substantial/Maximal Assistance-helper does MORE THAN HALF the effort. [place] lifts or holds trunk or limbs and provides more than half the effort. 5-Prehgpxur-zvuanb does ALL the effort. Patient does none of the effort to complete the activity. Or, the assistance of 2 or more helpers is required for the patient to complete the activity. If activity was not attempted, code reason: 7-Patient Refused. 9-Not Applicable-not attempted and the patient did not perform the activity before the current illness, exacerbation or injury. 10-Not Attempted due to Environmental Limitations-(lack of equipment, weather restraints, etc.). 88-Not Attempted due to Medical Conditions or Safety Concerns. Other Treatment Discussed pt's vision and if there is any modifications needed. Pt states that she has been able to see items better today and is more capable of completing daily tasks easier because of this. Discussed tub transfer bench for home use due to pt only having tub seat in tub shower. Pt is open to idea and is willing to work on this later this week. Pt given medium resistance therapy foam to increase pinch/numerical control machine operator strength for daily functional tasks. Pt demonstrated understanding of use, instructed to use it throughout the day. After session, pt sitting in recliner with call light/phone in reach. All needs met in room. OT Short Term Goals Short Term Goals Eatin Oral hygiene: 4 Toileting hygiene: 4 Shower/bathe self: 4 Upper body dressin Lower body dressin Putting on/taking off footwear: 5 OT Federal Aid Coordinator Goals Federal Aid Coordinator Goals Eating (QC): 6 Oral Hygiene (QC): 6 Toileting Hygiene (QC): 6 Shower/Bathe Self (QC): 6 Upper Body Dressing (QC): 6 Lower Body Dressing (QC): 6 On/Off Footwear (QC): 6 1=Demonstrate adherence to instructed precautions during ADL tasks. 2=Patient will verbalize/demonstrate understanding of assistive devices/modifications for ADL. 3=Patient will improve strength/tolerance for activity to enable patient to per form ADL's. OT Education/Plan Problem List/Assessment Assessment: Decreased Activ Tolerance, Decreased UE Strength Discharge Recommendations Plan/Recommendations: Continue POC Treatment Plan/Plan of Care Patient would benefit from OT for education, treatment and training to promote independence in ADL's, mobility, safety and/or upper extremity function for ADL's. Plan of Care: ADL Retraining, Functional Mobility, Group Exercise/Act as Ind, Orthotic Fitting/Training, UE Funct Exercise/Act Treatment Duration: Apr 13, 2022 Frequency: 5 times per week Estimated Hrs Per Day: 1.5 hours per day Agreement: Yes Rehab Potential: Good Time Start Time: 10:30 Stop Time: 10:45 DATE: Apr 02, 2022 Total Time Billed (hr/min): 15 Billed Treatment Time 1 visit-FA 1 (15 min) TOMEKA ENGLISH Apr 02, 2022 10:59
--- NOTE | 2022-04-02 11:30 | ST Cognitive Linguistic Eval ---
Speech Evaluation-General Medical Diagnosis Right Femur Fx Onset Date: Mar 29, 2022 Therapy Diagnosis Therapy Diagnosis: Intact (Baseline) Cognition Precautions Precautions: Fall Precautions/Isolations: Fall Prevention, Standard Precautions Referral Referring Physician: Dr. Sterling Reason for Referral: Evaluation/Treatment Medical History Pertinent Medical History: HTN, Macular Degenertion Reviewed History: Yes Social History Current Living Status: Alone (family calls several times throughout day and checks in on patient) Speech PLF-Current Status Prior Level of Function The patient denied challenges, changes or concerns to her speech, language, or cognition. Subjective The patient was seated upright in her recliner, awake and alert, upon entrance to her room by the clinician. The patient greeted the clinician appropriately and was agreeable to participation in the cognitive linguistic assessment. Language Eval: Auditory Comprehends Simple Yes/No Ques: Functional Indent/Objects Multiple [place]ribe: Functional Follows 1-Step Commands: Functional Follows General Conversations: Functional Language Eval: Verbal Language Completes Spontaneous Greeting: Functional Produces Auto, Serial Info: Functional Imitates Simple Words/Phrases: Functional Word Finding: Mild Requests Basic Needs: Functional States Basic Personal Info: Functional Cognitive Patient Orientation The patient was independently oriented to self, location, month, day of the week, and year. Objective Cognitive Domain Attention: WNL Memory: WNL (Minimal (Baseline)) Problem Solving: Functional Composite Severity Rating: WNL (Baseline ) Objective Formal/Standardized Tests [facility] Mental Status Exam (UMS) Results The patient experiences macular degeneration and her vision is greatly impaired. Due to this, vision tasks were not attempted throughout the evaluation and removed from the SLUMS scores. The patient displayed a result of +22/26 on the SLUMS correlating to cognitive results within normal limits. Oral Motor/Speech Production The patient does not display dysarthria or apraxia of speech. The patient is 100% intelligible in known and unknown contexts. Impression The patient demonstrated cognitive linguistic scores grossly within normal limits and at self-reported baseline. Due to the patient's vision impairment, presenting instructions verbally and with repetition will be advantageous for the patient. Speech-Plan Treatment Plan Speech Therapy Treatment Plan: Discontinue ST Treatment Duration: Apr 02, 2022 Frequency: 1 time per week Estimated Hrs Per Day: .5 hour per day Rehab Potential: Good Safety Risks/Education Teaching Recipient: Patient Teaching Methods: Discussion Response to Teaching: Verbalize Understanding Education Topics Provided: Results, Recommendations, Plan of Care Time Speech Therapy Time In: 09:30 Speech Therapy Time Out: 09:50 DATE: Apr 02, 2022 Total Billed Time: 20 Billed Treatment Time 1, MALACHI VERGARA [facility]IZ[facility] ST Apr 02, 2022 11:30
--- NOTE | 2022-04-02 12:23 | Physical Therapy Daily Note ---
PT Daily Note-Current Subjective Pt sitting in recliner upon arrival. Pt agrees to PT. Pain Section J - Health Conditions 1. Rarely or not at all 2. Occasionally 3. Frequently 4. Almost constantly 8. Unable to answer Pain Effect on Sleep: 1 Pain Interference with Therapy: 2 Pain Interference w/Day-to-Day: 2 Mental Status Patient Orientation: Person, Place, Situation Attachments: [place] Catheter, IV Transfers SCALE: Activities may be completed with or without assistive devices. 9-Kdfmzunnjg-jpazhbu completes the activity by him/herself with no assistance from a helper. 5-Set-up or Clean-up Assistance-helper sets up or cleans up; patient completes activity. [place] assists only prior to or following the activity. 4-Supervision or Touching Assistance-helper provides verbal cues and/or touching/steadying and/or contact guard assistance as patient completes activity. Assistance may be provided throughout the activity or intermittently. 3-Partial/Moderate Assistance-helper does LESS THAN HALF the effort. [place] lifts, holds or supports trunk or limbs, but provides less than half the effort. 2-Substantial/Maximal Assistance-helper does MORE THAN HALF the effort. [place] lifts or holds trunk or limbs and provides more than half the effort. 8-Ujbsmhyuz-hprizu does ALL the effort. Patient does none of the effort to complete the activity. Or, the assistance of 2 or more helpers is required for the patient to complete the activity. If activity was not attempted, code reason: 7-Patient Refused. 9-Not Applicable-not attempted and the patient did not perform the activity before the current illness, exacerbation or injury. 10-Not Attempted due to Environmental Limitations-(lack of equipment, weather restraints, etc.). 88-Not Attempted due to Medical Conditions or Safety Concerns. Weight Bearing Right Lower Extremity: Right Weight Bearing/Tolerated Left Lower Extremity: Left Full Weight Bearing Exercises Supine Ex: Ankle pumps, Quad Set, Glut sets, Heel Slides, Short Arc Quads, Scooting, Hip abd/add Supine Reps: 15 Seated Therapy Exercises: Ankle pumps, Long arc quads, Hip flexion, Hip abd/add Seated Reps: 15 Treatments Pt is moving w/increased cognition but continues to demonstrates diminished vision making it difficult to order meals. BIOSOLIDS MANAGEMENT TECHNICIAN assists pt w/ordering lunch to begin tx. Pt the completes Seated and Supine EX w/VC from BIOSOLIDS MANAGEMENT TECHNICIAN. TC are sometimes needed if pt demonstrates confusion w/instruction. Pt takes multiple RB as needed. Pt is repositioned to comfort for taking med from Nurse and lunch arriving soon. All needs met, call light in hand. Assessment Current Status: Good Progress Pt fatigues easily and needs frequent RB. Pt also moves w/slow maverick. PT Short Term Goals Short Term Goals Time Frame: Apr 13, 2022 Roll Left & Right: 3 Sit to lyin Lying to sitting on side of be: 3 Sit to stand: 3 Chair/hdl-yl-qeouk transfer: 3 Toilet transfer: 3 Walk 10 feet: 3 PT Waiter/Waitress Third Class Goals Waiter/Waitress Third Class Goals PT Mcc Goals Time Frame: May 04, 2022 Roll Left & Right (QC): 5 Sit to Lying (QC): 5 Lying-Sitting on Side/Bed(QC): 5 Sit to Stand (QC): 5 Chair/Mrp-xd-Znfcm Xfer(QC): 5 Toilet Transfer (QC): 5 Car Transfer (QC): 5 Does the Patient Walk: Yes Walk 10 feet (QC): 4 Walk 50ft with 2 Turns (QC): 4 Walk 150 ft (QC): 4 Walking 10ft on Uneven Surface: 4 1 Step (curb) (QC): 3 4 Steps (QC): 9 12 Steps (QC): 9 Picking up an Object (QC): 4 Does the Pt use WC or Scooter?: Yes Wheel 50 feet with 2 turns (QC: 6 Type: Manual Wheel 150 feet: 6 Type: Manual PT Plan Problem List Problem List: Activity Tolerance Treatment/Plan Treatment Plan: Continue Plan of Care Treatment Plan: Bed Mobility, Education, Functional Activity Norah, Functional Strength, Group Therapy, Gait, Safety, Therapeutic Exercise, Transfers Treatment Duration: May 07, 2022 Frequency: At least 5 of 7 days/Wk (IRF) Estimated Hrs Per Day: 1.5 hours per day Patient and/or Family Agrees t: Yes Safety Risks/Education Patient Education: Correct Positioning Time Time In: 1100 Time Out: 1200 DATE: Apr 02, 2022 Total Billed Treatment Time: 60 Total Billed Treatment 1,FA (15m) & EX x3 (45m) SOULEYMANESWATI SEGOVIA BIOSOLIDS MANAGEMENT TECHNICIAN Apr 02, 2022 12:23
--- NOTE | 2022-04-02 16:01 | Physical Therapy Daily Note ---
PT Daily Note-Current Subjective Pt sitting in recliner upon arrival. Pt agrees to PT. Pain Location: No Pain Reported Section J - Health Conditions 1. Rarely or not at all 2. Occasionally 3. Frequently 4. Almost constantly 8. Unable to answer Pain Effect on Sleep: 1 Pain Interference with Therapy: 2 Pain Interference w/Day-to-Day: 2 Mental Status Patient Orientation: Person, Place, Situation Transfers SCALE: Activities may be completed with or without assistive devices. 5-Dwtsrzlyhl-ojowknr completes the activity by him/herself with no assistance from a helper. 5-Set-up or Clean-up Assistance-helper sets up or cleans up; patient completes activity. [place] assists only prior to or following the activity. 4-Supervision or Touching Assistance-helper provides verbal cues and/or touching/steadying and/or contact guard assistance as patient completes activity. Assistance may be provided throughout the activity or intermittently. 3-Partial/Moderate Assistance-helper does LESS THAN HALF the effort. [place] lifts, holds or supports trunk or limbs, but provides less than half the effort. 2-Substantial/Maximal Assistance-helper does MORE THAN HALF the effort. [place] lifts or holds trunk or limbs and provides more than half the effort. 4-Njdnauewp-qewdgk does ALL the effort. Patient does none of the effort to complete the activity. Or, the assistance of 2 or more helpers is required for the patient to complete the activity. If activity was not attempted, code reason: 7-Patient Refused. 9-Not Applicable-not attempted and the patient did not perform the activity before the current illness, exacerbation or injury. 10-Not Attempted due to Environmental Limitations-(lack of equipment, weather restraints, etc.). 88-Not Attempted due to Medical Conditions or Safety Concerns. Sit to Stand (QC): 3 Weight Bearing Right Lower Extremity: Right Weight Bearing/Tolerated Left Lower Extremity: Left Full Weight Bearing Gait Training Does the Patient Walk?: Yes Distance: 15' Walk 10 feet (QC): 4 Gait Assistive Device: FWW Pt walks w/antalgic gait pattern, R knee flexed. Pt has a very slow maverick. Treatments COURT ORDERLY gives VC & TC for TF and amb., starting w/just standing then stepping in place and finally walking. Pt returns to recliner at end of walk to rest. All needs met, call light in hand. Assessment Current Status: Good Progress Pt is moving better today then when this COURT ORDERLY worked w/pt yesterday for tx. PT Short Term Goals Short Term Goals Time Frame: Apr 13, 2022 Roll Left & Right: 3 Sit to lyin Lying to sitting on side of be: 3 Sit to stand: 3 Chair/snw-qa-vnpdg transfer: 3 Toilet transfer: 3 Walk 10 feet: 3 PT Senior Care Goals Mechanical Research Engineer Goals PT Mechanical Research Engineer Goals Time Frame: May 04, 2022 Roll Left & Right (QC): 5 Sit to Lying (QC): 5 Lying-Sitting on Side/Bed(QC): 5 Sit to Stand (QC): 5 Chair/Ozo-cc-Sjnxw Xfer(QC): 5 Toilet Transfer (QC): 5 Car Transfer (QC): 5 Does the Patient Walk: Yes Walk 10 feet (QC): 4 Walk 50ft with 2 Turns (QC): 4 Walk 150 ft (QC): 4 Walking 10ft on Uneven Surface: 4 1 Step (curb) (QC): 3 4 Steps (QC): 9 12 Steps (QC): 9 Picking up an Object (QC): 4 Does the Pt use WC or Scooter?: Yes Wheel 50 feet with 2 turns (QC: 6 Type: Manual Wheel 150 feet: 6 Type: Manual PT Plan Problem List Problem List: Activity Tolerance, Functional Strength, Gait Treatment/Plan Treatment Plan: Continue Plan of Care Treatment Plan: Bed Mobility, Education, Functional Activity Norah, Functional Strength, Group Therapy, Gait, Safety, Therapeutic Exercise, Transfers Treatment Duration: May 07, 2022 Frequency: At least 5 of 7 days/Wk (IRF) Estimated Hrs Per Day: 1.5 hours per day Patient and/or Family Agrees t: Yes Safety Risks/Education Patient Education: Gait Training, Transfer Techniques, Correct Positioning Teaching Recipient: Patient Teaching Methods: Discussion Response to Teaching: Verbalize Understanding Time Time In: 1300 Time Out: 1330 DATE: Apr 02, 2022 Total Billed Treatment Time: 30 Total Billed Treatment 1, FA (15m) & GT (15m) MENASWATI COURT ORDERLY Apr 02, 2022 16:01
[2022-04-02 19:48] VITALS: BP 147/64
[2022-04-03] MEDS: BETHANECHOL 25 MG (URECHOLINE) TAB PO SCH ×4 (06:02→21:25)
[2022-04-03] MEDS: inSUlin ASPART (NovoLOG) 1 UNIT/0.01 ML (CHARGE PER UNIT) SC SCH ×4 (06:19→21:27)
--- NOTE | 2022-04-03 06:29 | PM&R Progress Note ---
Subjective HPI/CC On Admission Date Seen by Provider: Apr 03, 2022 Time Seen by Provider: 08:30 Subjective/Events-last exam 04/03/2022: No major issues reported Less confusion Memory is poor overall Pain controlled No BM yet so ordered supp and SSE 04/02/2022: Doing well No pain except hip Rested well last night Labs reviewed No other issues No BM yet so aggressive laxatives ordered Review of Systems General: Fatigue, Malaise Musculoskeletal: leg pain Objective Exam Vital Signs Vital Signs Date Time Temp Pulse Resp B/P (MAP) Pulse Ox O2 Delivery O2 Flow Rate FiO2 04/03/22 09:16 Room Air 04/03/22 07:40 36.4 84 18 138/76 (96) 94 Capillary Refill : General Appearance: No Apparent Distress, WD/WN, Chronically ill HEENT: PERRL/EOMI, Normal ENT Inspection, Pharynx Normal Neck: Full Range of Motion, Normal Inspection, Non Tender, Supple, Carotid Bruit Respiratory: Chest Non Tender, Lungs Clear, Normal Breath Sounds, No Accessory Muscle Use, No Respiratory Distress Cardiovascular: Regular Rate, Rhythm, No Edema, No Gallop, No JVD, No Murmur, Normal Peripheral Pulses Gastrointestinal: Normal Bowel Sounds, No Organomegaly, No Pulsatile Mass, Non Tender, Soft Back: Normal Inspection, No CVA Tenderness, No Vertebral Tenderness Extremity: Normal Capillary Refill, Normal Inspection, Normal Range of Motion, Non Tender, No Calf Tenderness, No Pedal Edema Neurologic/Psychiatric: Alert, Oriented x3, Normal Mood/Affect, academic records specialist II-XII Norm as Tested, Abnormal Gait, Depressed Affect, Motor Weakness (right leg weakness) Skin: Normal Color, Warm/Dry Lymphatic: No Adenopathy Results/Procedures Lab Patient resulted labs reviewed. FIM Transfers Therapy Code Descriptions/Definitions Functional [place] Measure: 0=Not Assessed/NA 4=Minimal Assistance 1=Total Assistance 5=Supervision or Setup 2=Maximal Assistance 6=Modified [place] 3=Moderate Assistance 7=Complete IndependenceSCALE: Activities may be completed with or without assistive devices. 1-Plizdwtaao-cwffxro completes the activity by him/herself with no assistance from a helper. 5-Set-up or Clean-up Assistance-helper sets up or cleans up; patient completes activity. [place] assists only prior to or following the activity. 4-Supervision or Touching Assistance-helper provides verbal cues and/or touching/steadying and/or contact guard assistance as patient completes activity. Assistance may be provided throughout the activity or intermittently. 3-Partial/Moderate Assistance-helper does LESS THAN HALF the effort. [place] lifts, holds or supports trunk or limbs, but provides less than half the effort. 2-Substantial/Maximal Assistance-helper does MORE THAN HALF the effort. [place] lifts or holds trunk or limbs and provides more than half the effort. 5-Rujhddanp-eaokoc does ALL the effort. Patient does none of the effort to complete the activity. Or, the assistance of 2 or more helpers is required for the patient to complete the activity. If activity was not attempted, code reason: 7-Patient Refused. 9-Not Applicable-not attempted and the patient did not perform the activity before the current illness, exacerbation or injury. 10-Not Attempted due to Environmental Limitations-(lack of equipment, weather restraints, etc.). 88-Not Attempted due to Medical Conditions or Safety Concerns. Roll Left to Right (QC): 2 Sit to Lying (QC): 1 Sit to Stand (QC): 3 Chair/Dxb-ed-Rmttc Xfer(QC): 2 Car Transfer (QC): 2 Gait Training Does the Patient Walk?: Yes Distance: 15' Walk 10 feet (QC): 4 Walk 50 ft with 2 Turns(QC): 88 Walk 150 ft (QC): 88 Walking 10ft/uneven surface-QC: 8 Gait Assistive Device: FWW Wheelchair Training Does the Pt Use a Wheelchair?: Yes Distance: 150 feet Wheel 50 ft with 2 turns (QC): 3 Wheel 150 ft (QC): 3 Type of Wheelchair: Manual Stair Training #of Steps: 0 1 Step (curb) (QC): 9 4 Steps (QC): 9 12 Steps (QC): 9 Balance Picking up an Object (QC): 88 ADL-Treatment Eating (QC): 4 Oral Hygiene (QC): 5 Shower/Bathe Self (QC): 2 (Elevated shower seat) Upper Body Dressing (QC): 4 Lower Body Dressing (QC): 2 On/Off Footwear (QC): 1 Toileting Hygiene (QC): 2 Assessment/Plan Assessment and Plan Assess & Plan/Chief Complaint Assessment: Right hip fracture status post uncomplicated repair 03/30/22 Hypertension Advanced age Diabetes Postop acute blood loss anemia requiring 1 unit of blood on 04/01/22 Postop constipation Frail status Navarro cath replaced due to urinary retention Post op hallucinations Plan: ARU Pain control Monitor hgb DC Ffoley when able Aggressive PT OT 04/02/2022: Laxatives Monitor closely 04/03/2022: Laxatives and supp and SSE (1) Closed right hip fracture Status: Acute BARB LARSON DO Apr 03, 2022 06:29
[2022-04-03] MEDS ORDERED: CYANOCOBALAMIN INJ 1000 MCG/ML IM ONE (06:30)
--- NOTE | 2022-04-03 07:29 | Occupational Ther Daily Note ---
OT Current Status-Daily Note Subjective Pt alert, lying in bed. Pt stated that she was not very hungry, CAMPOS encouraged pt to eat some of breakfast. Pt agrees to therapy. Mental Status/Objective Patient Orientation: Person, Place, Time, Situation ADL-Treatment Due to vision, pt requires assistance to direct where small packages, utensils are. Pt able to complete eating by self after verbal direction of items on tray. Pt completed scooting up in bed with verbal/physical cues to use bed rails. Assist with R LE to have pt scoot leg over toward L side of bed to position self. After therapy, pt sitting up in bed with call light/phone in reach. All needs met in room. Therapy Code Descriptions/Definitions Functional [place] Measure: 0=Not Assessed/NA 4=Minimal Assistance 1=Total Assistance 5=Supervision or Setup 2=Maximal Assistance 6=Modified [place] 3=Moderate Assistance 7=Complete IndependenceSCALE: Activities may be completed with or without assistive devices. 3-Yeutibjami-tjrhfze completes the activity by him/herself with no assistance from a helper. 5-Set-up or Clean-up Assistance-helper sets up or cleans up; patient completes activity. [place] assists only prior to or following the activity. 4-Supervision or Touching Assistance-helper provides verbal cues and/or touching/steadying and/or contact guard assistance as patient completes activity. Assistance may be provided throughout the activity or intermittently. 3-Partial/Moderate Assistance-helper does LESS THAN HALF the effort. [place] lifts, holds or supports trunk or limbs, but provides less than half the effort. 2-Substantial/Maximal Assistance-helper does MORE THAN HALF the effort. [place] lifts or holds trunk or limbs and provides more than half the effort. 8-Jlavluzit-dtllgi does ALL the effort. Patient does none of the effort to complete the activity. Or, the assistance of 2 or more helpers is required for the patient to complete the activity. If activity was not attempted, code reason: 7-Patient Refused. 9-Not Applicable-not attempted and the patient did not perform the activity before the current illness, exacerbation or injury. 10-Not Attempted due to Environmental Limitations-(lack of equipment, weather restraints, etc.). 88-Not Attempted due to Medical Conditions or Safety Concerns. Eating (QC): 5 OT Short Term Goals Short Term Goals Eatin Oral hygiene: 4 Toileting hygiene: 4 Shower/bathe self: 4 Upper body dressin Lower body dressin Putting on/taking off footwear: 5 OT Inspector Material Disposition Goals Alf Goals Eating (QC): 6 Oral Hygiene (QC): 6 Toileting Hygiene (QC): 6 Shower/Bathe Self (QC): 6 Upper Body Dressing (QC): 6 Lower Body Dressing (QC): 6 On/Off Footwear (QC): 6 1=Demonstrate adherence to instructed precautions during ADL tasks. 2=Patient will verbalize/demonstrate understanding of assistive devices/modifications for ADL. 3=Patient will improve strength/tolerance for activity to enable patient to perform ADL's. OT Education/Plan Problem List/Assessment Assessment: Decreased Activ Tolerance, Visual-Perceptual Deficit Discharge Recommendations Plan/Recommendations: Continue POC Treatment Plan/Plan of Care Patient would benefit from OT for education, treatment and training to promote independence in ADL's, mobility, safety and/or upper extremity function for ADL's. Plan of Care: ADL Retraining, Functional Mobility, Group Exercise/Act as Ind, Orthotic Fitting/Training, UE Funct Exercise/Act Treatment Duration: Apr 13, 2022 Frequency: 5 times per week Estimated Hrs Per Day: 1.5 hours per day Agreement: Yes Rehab Potential: Good Time Start Time: 07:00 Stop Time: 07:30 DATE: Apr 03, 2022 Total Time Billed (hr/min): 30 Billed Treatment Time 1 visit-ADL 1 (20 min) FA 1 (10 min) TOMEKA ENGLISH Apr 03, 2022 07:29
[2022-04-03 07:40] VITALS: BP 138/76
[2022-04-03] MEDS: polyethylene glycoL POWDER 17 GM (MIRALAX) PACK PO SCH ×2 (08:32→21:25)
[2022-04-03] MEDS: DOCUSATE SODIUM 100 MG (COLACE) CAP PO SCH ×4 (08:33→21:26)
[2022-04-03] MEDS: IRON SUCROSE 200 MG/10 ML (VENOFER) VIAL IV SCH (08:33)
[2022-04-03] MEDS: SENNOSIDES 8.6 MG (SENOKOT) TAB PO SCH ×2 (08:33→21:26)
[2022-04-03] MEDS: lisINopril 20 MG (PRINIVIL) TABLET PO SCH (08:41)
[2022-04-03] MEDS: ACETAMINOPHEN 325 MG TABLET PO PRN (08:55)
[2022-04-03] MEDS ORDERED: BISACODYL 10 MG SUPP (DULCOLAX) PR NR (09:00)
--- NOTE | 2022-04-03 12:52 | Occupational Ther Daily Note ---
OT Current Status-Daily Note Subjective Pt alert, lying in bed. Pt agrees to therapy. Pt appears slightly confused though with questioning is oriented x3 No c/o pain at this time. Mental Status/Objective Patient Orientation: Person, Place, Time, Situation Attachments: IV ADL-Treatment Pt agrees to shower. Mod A for sit <--> stand. Pt ambulates ~10' using FWW and shuffling gait. Mod A for shower transfer. Pt completed shower sitting on shower bench 85% of the time. Pt requires assistance to stand and stabilize while pt cleanses beryl area, assistance to rinse. Pt able to cleanse rest of body sitting on shower bench. Set up for upper body dressing. Max A for lower body dressing and footwear. Independent with oral care sitting at sink. After therapy, pt sitting in w/c with call light/phone in reach. All needs met in room. Therapy Code Descriptions/Definitions Functional [place] Measure: 0=Not Assessed/NA 4=Minimal Assistance 1=Total Assistance 5=Supervision or Setup 2=Maximal Assistance 6=Modified [place] 3=Moderate Assistance 7=Complete IndependenceSCALE: Activities may be completed with or without assistive devices. 0-Tgdhpufbsv-ukzchof completes the activity by him/herself with no assistance from a helper. 5-Set-up or Clean-up Assistance-helper sets up or cleans up; patient completes activity. [place] assists only prior to or following the activity. 4-Supervision or Touching Assistance-helper provides verbal cues and/or touching/steadying and/or contact guard assistance as patient completes activity. Assistance may be provided throughout the activity or intermittently. 3-Partial/Moderate Assistance-helper does LESS THAN HALF the effort. [place] li fts, holds or supports trunk or limbs, but provides less than half the effort. 2-Substantial/Maximal Assistance-helper does MORE THAN HALF the effort. [place] lifts or holds trunk or limbs and provides more than half the effort. 3-Cavhbsgql-qctyup does ALL the effort. Patient does none of the effort to complete the activity. Or, the assistance of 2 or more helpers is required for the patient to complete the activity. If activity was not attempted, code reason: 7-Patient Refused. 9-Not Applicable-not attempted and the patient did not perform the activity before the current illness, exacerbation or injury. 10-Not Attempted due to Environmental Limitations-(lack of equipment, weather restraints, etc.). 88-Not Attempted due to Medical Conditions or Safety Concerns. Oral Hygiene (QC): 6 Bathing Location: L Arm, R Arm, L Upper Leg, R Upper Leg, L Lower Leg (including foot), R Lower Leg (including foot), Chest, Abdomen, Perineal Area Shower/Bathe Self (QC): 3 Upper Body Dressing (QC): 5 Lower Body Dressing (QC): 2 On/Off Footwear: 2 OT Short Term Goals Short Term Goals Eatin Oral hygiene: 4 Toileting hygiene: 4 Shower/bathe self: 4 Upper body dressin Lower body dressin Putting on/taking off footwear: 5 OT Auto Washer Goals Auto Washer Goals Eating (QC): 6 Oral Hygiene (QC): 6 Toileting Hygiene (QC): 6 Shower/Bathe Self (QC): 6 Upper Body Dressing (QC): 6 Lower Body Dressing (QC): 6 On/Off Footwear (QC): 6 1=Demonstrate adherence to instructed precautions during ADL tasks. 2=Patient will verbalize/demonstrate understanding of assistive devices/modifications for ADL. 3=Patient will improve strength/tolerance for activity to enable patient to perform ADL's. OT Education/Plan Problem List/Assessment Assessment: Decreased Activ Tolerance, Impaired Funct Balance, Impaired Self- Care Skills Discharge Recommendations Plan/Recommendations: Continue POC Treatment Plan/Plan of Care Patient would benefit from OT for education, treatment and training to promote independence in ADL's, mobility, safety and/or upper extremity function for ADL's. Plan of Care: ADL Retraining, Functional Mobility, Group Exercise/Act as Ind, Orthotic Fitting/Training, UE Funct Exercise/Act Treatment Duration: Apr 13, 2022 Frequency: 5 times per week Estimated Hrs Per Day: 1.5 hours per day Agreement: Yes Rehab Potential: Good Time Start Time: 10:00 Stop Time: 11:00 DATE: Apr 03, 2022 Total Time Billed (hr/min): 60 Billed Treatment Time 1 visit-ADL 4 (60 min) TOMEKA ENGLISH Apr 03, 2022 12:52
--- NOTE | 2022-04-03 13:03 | Physical Therapy Daily Note ---
PT Daily Note-Current Subjective Pt sitting in [facility] in room upon arrival. Pt agrees to PT. Pain Numeric Pain Scale: 7 Location: Right Location Body Site: Hip Pain Description: Pressure, Tightness Section J - Health Conditions 1. Rarely or not at all 2. Occasionally 3. Frequently 4. Almost constantly 8. Unable to answer Pain Effect on Sleep: 1 Pain Interference with Therapy: 2 Pain Interference w/Day-to-Day: 2 Mental Status Patient Orientation: Person, Place, Situation Attachments: Navarro Catheter Transfers SCALE: Activities may be completed with or without assistive devices. 0-Kegreqrhwf-damagmb completes the activity by him/herself with no assistance from a helper. 5-Set-up or Clean-up Assistance-helper sets up or cleans up; patient completes activity. [place] assists only prior to or following the activity. 4-Supervision or Touching Assistance-helper provides verbal cues and/or touching/steadying and/or contact guard assistance as patient completes activity. Assistance may be provided throughout the activity or intermittently. 3-Partial/Moderate Assistance-helper does LESS THAN HALF the effort. [place] lifts, holds or supports trunk or limbs, but provides less than half the effort. 2-Substantial/Maximal Assistance-helper does MORE THAN HALF the effort. [place] lifts or holds trunk or limbs and provides more than half the effort. 2-Nmcdkntek-snymov does ALL the effort. Patient does none of the effort to complete the activity. Or, the assistance of 2 or more helpers is required for the patient to complete the activity. If activity was not attempted, code reason: 7-Patient Refused. 9-Not Applicable-not attempted and the patient did not perform the activity before the current illness, exacerbation or injury. 10-Not Attempted due to Environmental Limitations-(lack of equipment, weather restraints, etc.). 88-Not Attempted due to Medical Conditions or Safety Concerns. Sit to Stand (QC): 4 Weight Bearing Right Lower Extremity: Right Weight Bearing/Tolerated Left Lower Extremity: Left Full Weight Bearing Gait Training Does the Patient Walk?: Yes Distance: 10' Walk 10 feet (QC): 4 Gait Persons Needed: 1 Gait Assistive Device: FWW Pt walks w/antalgic gait pattern w/R knee flexed even after VC given to correct. LAMINATION MACHINE OPERATOR encourages WBAT on R side as pt favors it not wanting to put much weight on R side. Wheelchair Training Does the Pt Use a Wheelchair?: Yes Type of Wheelchair: Manual Exercises Seated Therapy Exercises: Ankle pumps, Long arc quads, Hip flexion, Hip abd/add, Glut set Seated Reps: 15 Treatments Nurse checks Blood Sugar levels during tx. Pt completes Seated EX w/instruction from LAMINATION MACHINE OPERATOR. Pt completes Sit to Stand TF which are requiring less assistance. Pt attempts amb. (see Gait section). Pt returns to [facility] due to fatigue and pain. Pt is repositioned to comfort for lunch. [facility] mobility completed. All needs met, call light in hand. Assessment Current Status: Fair Progress Pt is limited by pain and fatigue. Pt moves very slowly & tenderly. PT Short Term Goals Short Term Goals Time Frame: Apr 13, 2022 Roll Left & Right: 3 Sit to lyin Lying to sitting on side of be: 3 Sit to stand: 3 Chair/xey-ak-jqwji transfer: 3 Toilet transfer: 3 Walk 10 feet: 3 PT Half-Way Goals Group Director Experience Goals PT Group Director Experience Goals Time Frame: May 04, 2022 Roll Left & Right (QC): 5 Sit to Lying (QC): 5 Lying-Sitting on Side/Bed(QC): 5 Sit to Stand (QC): 5 Chair/Aqk-bu-Yhnxt Xfer(QC): 5 Toilet Transfer (QC): 5 Car Transfer (QC): 5 Does the Patient Walk: Yes Walk 10 feet (QC): 4 Walk 50ft with 2 Turns (QC): 4 Walk 150 ft (QC): 4 Walking 10ft on Uneven Surface: 4 1 Step (curb) (QC): 3 4 Steps (QC): 9 12 Steps (QC): 9 Picking up an Object (QC): 4 Does the Pt use WC or Scooter?: Yes Wheel 50 feet with 2 turns (QC: 6 Type: Manual Wheel 150 feet: 6 Type: Manual PT Plan Problem List Problem List: Activity Tolerance, Functional Strength, Gait Treatment/Plan Treatment Plan: Continue Plan of Care Treatment Plan: Bed Mobility, Education, Functional Activity Norah, Functional Strength, Group Therapy, Gait, Safety, Therapeutic Exercise, Transfers Treatment Duration: May 07, 2022 Frequency: At least 5 of 7 days/Wk (IRF) Estimated Hrs Per Day: 1.5 hours per day Patient and/or Family Agrees t: Yes Safety Risks/Education Patient Education: Gait Training, Correct Positioning, Safety Issues Teaching Recipient: Patient Teaching Methods: Discussion Response to Teaching: Verbalize Understanding Time Time In: 1100 Time Out: 1200 DATE: Apr 03, 2022 Total Billed Treatment Time: 60 Total Billed Treatment 1, EX x2 (30m), GT (20m) & WCH (10m) SWATI [place] LAMINATION MACHINE OPERATOR Apr 03, 2022 13:03
--- NOTE | 2022-04-03 13:56 | Physical Therapy Daily Note ---
PT Daily Note-Current Subjective Pt sitting in [facility] upon arrival. Pt had just finished lunch. Pt reports pain felt a little more controlled but didn't rate. Pain Location: Right Location Body Site: Hip Pain Description: Pressure, Tightness Comment: Reports but doesn't rate Section J - Health Conditions 1. Rarely or not at all 2. Occasionally 3. Frequently 4. Almost constantly 8. Unable to answer Pain Effect on Sleep: 1 Pain Interference with Therapy: 2 Pain Interference w/Day-to-Day: 2 Mental Status Patient Orientation: Person, Place, Situation Attachments: Navarro Catheter Transfers SCALE: Activities may be completed with or without assistive devices. 3-Rcqsckphzl-imvrdby completes the activity by him/herself with no assistance from a helper. 5-Set-up or Clean-up Assistance-helper sets up or cleans up; patient completes activity. [place] assists only prior to or following the activity. 4-Supervision or Touching Assistance-helper provides verbal cues and/or touching/steadying and/or contact guard assistance as patient completes activity. Assistance may be provided throughout the activity or intermittently. 3-Partial/Moderate Assistance-helper does LESS THAN HALF the effort. [place] lifts, holds or supports trunk or limbs, but provides less than half the effort. 2-Substantial/Maximal Assistance-helper does MORE THAN HALF the effort. [place] lifts or holds trunk or limbs and provides more than half the effort. 3-Taasfoykk-ntgzfa does ALL the effort. Patient does none of the effort to complete the activity. Or, the assistance of 2 or more helpers is required for the patient to complete the activity. If activity was not attempted, code reason: 7-Patient Refused. 9-Not Applicable-not attempted and the patient did not perform the activity before the current illness, exacerbation or injury. 10-Not Attempted due to Environmental Limitations-(lack of equipment, weather restraints, etc.). 88-Not Attempted due to Medical Conditions or Safety Concerns. Sit to Stand (QC): 4 Toilet Transfer (QC): 3 Weight Bearing Right Lower Extremity: Right Weight Bearing/Tolerated Left Lower Extremity: Left Full Weight Bearing Treatments CAREER PLACEMENT SERVICES COUNSELOR assists pt w/toileting per pt request. Pt uses grab bars in SPT from [facility] to toilet. After pt finished w/BM, CAREER PLACEMENT SERVICES COUNSELOR assists w/pericare. Pt SPT back to [facility] to wash hands at end of tx. Pt is repositioned to comfort as pt wants to stay in [facility] for now. All needs met, call light in hand. Assessment Current Status: Fair Progress Pt is limited by fatigue, pain & nervousness w/TF. PT Short Term Goals Short Term Goals Time Frame: Apr 13, 2022 Roll Left & Right: 3 Sit to lyin Lying to sitting on side of be: 3 Sit to stand: 3 Chair/bes-cq-otyas transfer: 3 Toilet transfer: 3 Walk 10 feet: 3 PT Intermediate Goals Electric Lineman Goals PT Intermediate Goals Time Frame: May 04, 2022 Roll Left & Right (QC): 5 Sit to Lying (QC): 5 Lying-Sitting on Side/Bed(QC): 5 Sit to Stand (QC): 5 Chair/Cpx-tj-Bldqu Xfer(QC): 5 Toilet Transfer (QC): 5 Car Transfer (QC): 5 Does the Patient Walk: Yes Walk 10 feet (QC): 4 Walk 50ft with 2 Turns (QC): 4 Walk 150 ft (QC): 4 Walking 10ft on Uneven Surface: 4 1 Step (curb) (QC): 3 4 Steps (QC): 9 12 Steps (QC): 9 Picking up an Object (QC): 4 Does the Pt use WC or Scooter?: Yes Wheel 50 feet with 2 turns (QC: 6 Type: Manual Wheel 150 feet: 6 Type: Manual PT Plan Problem List Problem List: Activity Tolerance, Functional Strength Treatment/Plan Treatment Plan: Continue Plan of Care Treatment Plan: Bed Mobility, Education, Functional Activity Norah, Functional Strength, Group Therapy, Gait, Safety, Therapeutic Exercise, Transfers Treatment Duration: May 07, 2022 Frequency: At least 5 of 7 days/Wk (IRF) Estimated Hrs Per Day: 1.5 hours per day Patient and/or Family Agrees t: Yes Safety Risks/Education Patient Education: Transfer Techniques, Correct Positioning, Safety Issues Teaching Recipient: Patient Teaching Methods: Discussion Response to Teaching: Verbalize Understanding Time Time In: 1300 Time Out: 1330 DATE: Apr 03, 2022 Total Billed Treatment Time: 30 Total Billed Treatment 1, FA x2 (30m) SWATI SAN CAREER PLACEMENT SERVICES COUNSELOR Apr 03, 2022 13:56
[2022-04-03 20:05] VITALS: BP 152/64
[2022-04-04] MEDS: BETHANECHOL 25 MG (URECHOLINE) TAB PO SCH ×4 (05:58→20:11)
[2022-04-04] MEDS: inSUlin ASPART (NovoLOG) 1 UNIT/0.01 ML (CHARGE PER UNIT) SC SCH ×4 (05:58→20:14)
--- NOTE | 2022-04-04 06:15 | PM&R Progress Note ---
Subjective HPI/CC On Admission Date Seen by Provider: Apr 04, 2022 Time Seen by Provider: 12:00 04/04/2022: Doing well Lethargic from Ativan Pain controlled Voiding well now on Urecholine 04/03/2022: No major issues reported Less confusion Memory is poor overall Pain controlled No BM yet so ordered supp and SSE 04/02/2022: Doing well No pain except hip Rested well last night Labs reviewed No other issues No BM yet so aggressive laxatives ordered Subjective/Events-last exam 04/04/2022: 04/03/2022: No major issues reported Less confusion Memory is poor overall Pain controlled No BM yet so ordered supp and SSE 04/02/2022: Doing well No pain except hip Rested well last night Labs reviewed No other issues No BM yet so aggressive laxatives ordered Review of Systems General: Fatigue, Malaise Musculoskeletal: leg pain Objective Exam Vital Signs Vital Signs Date Time Temp Pulse Resp B/P (MAP) Pulse Ox O2 Delivery O2 Flow Rate FiO2 04/05/22 00:48 79 97 21 04/04/22 20:00 Room Air 04/04/22 19:45 36.7 18 151/67 (95) Capillary Refill : General Appearance: No Apparent Distress, WD/WN, Chronically ill HEENT: PERRL/EOMI, Normal ENT Inspection, Pharynx Normal Neck: Full Range of Motion, Normal Inspection, Non Tender, Supple, Carotid Bruit Respiratory: Chest Non Tender, Lungs Clear, Normal Breath Sounds, No Accessory Muscle Use, No Respiratory Distress Cardiovascular: Regular Rate, Rhythm, No Edema, No Gallop, No JVD, No Murmur, Normal Peripheral Pulses Gastrointestinal: Normal Bowel Sounds, No Organomegaly, No Pulsatile Mass, Non Tender, Soft Back: Normal Inspection, No CVA Tenderness, No Vertebral Tenderness Extremity: Normal Capillary Refill, Normal Inspection, Normal Range of Motion, Non Tender, No Calf Tenderness, No Pedal Edema Neurologic/Psychiatric: Alert, Oriented x3, Normal Mood/Affect, stemming machine operator II-XII Norm as Tested, Abnormal Gait, Depressed Affect, Motor Weakness (right leg weakness) Skin: Normal Color, Warm/Dry Lymphatic: No Adenopathy Results/Procedures Lab Patient resulted labs reviewed. FIM Transfers Therapy Code Descriptions/Definitions Functional [place] Measure: 0=Not Assessed/NA 4=Minimal Assistance 1=Total Assistance 5=Supervision or Setup 2=Maximal Assistance 6=Modified [place] 3=Moderate Assistance 7=Complete IndependenceSCALE: Activities may be completed with or without assistive devices. 5-Eqeegtcady-vcottuu completes the activity by him/herself with no assistance from a helper. 5-Set-up or Clean-up Assistance-helper sets up or cleans up; patient completes activity. [place] assists only prior to or following the activity. 4-Supervision or Touching Assistance-helper provides verbal cues and/or touching/steadying and/or contact guard assistance as patient completes activity. Assistance may be provided throughout the activity or intermittently. 3-Partial/Moderate Assistance-helper does LESS THAN HALF the effort. [place] lifts, holds or supports trunk or limbs, but provides less than half the effort. 2-Substantial/Maximal Assistance-helper does MORE THAN HALF the effort. [place] lifts or holds trunk or limbs and provides more than half the effort. 3-Myiejrnqm-lwmkql does ALL the effort. Patient does none of the effort to com plete the activity. Or, the assistance of 2 or more helpers is required for the patient to complete the activity. If activity was not attempted, code reason: 7-Patient Refused. 9-Not Applicable-not attempted and the patient did not perform the activity before the current illness, exacerbation or injury. 10-Not Attempted due to Environmental Limitations-(lack of equipment, weather restraints, etc.). 88-Not Attempted due to Medical Conditions or Safety Concerns. Roll Left to Right (QC): 2 Sit to Lying (QC): 1 Sit to Stand (QC): 4 Chair/Enh-kd-Ezwdk Xfer(QC): 2 Car Transfer (QC): 2 Gait Training Does the Patient Walk?: Yes Distance: 10' Walk 10 feet (QC): 4 Walk 50 ft with 2 Turns(QC): 88 Walk 150 ft (QC): 88 Walking 10ft/uneven surface-QC: 8 Gait Persons Needed: 1 Gait Assistive Device: FWW Wheelchair Training Does the Pt Use a Wheelchair?: Yes Distance: 150 feet Wheel 50 ft with 2 turns (QC): 3 Wheel 150 ft (QC): 3 Type of Wheelchair: Manual Stair Training #of Steps: 0 1 Step (curb) (QC): 9 4 Steps (QC): 9 12 Steps (QC): 9 Balance Picking up an Object (QC): 88 ADL-Treatment Eating (QC): 5 Oral Hygiene (QC): 6 Bathing Location: L Arm, R Arm, L Upper Leg, R Upper Leg, L Lower Leg (including foot), R Lower Leg (including foot), Chest, Abdomen, Perineal Area Shower/Bathe Self (QC): 3 Upper Body Dressing (QC): 5 Lower Body Dressing (QC): 2 On/Off Footwear (QC): 2 Toileting Hygiene (QC): 2 Assessment/Plan Assessment and Plan Assess & Plan/Chief Complaint Assessment: Right hip fracture status post uncomplicated repair 03/30/22 Hypertension Advanced age Diabetes Postop acute blood loss anemia requiring 1 unit of blood on 04/01/22 Postop constipation Frail status Navarro cath replaced due to urinary retention now DC and voiding well on Urecholine Post op hallucinations Plan: ARU Pain control Monitor hgb DC Ffoley when able Aggressive PT OT 04/02/2022: Laxatives Monitor closely 04/03/2022: Laxatives and supp and SSE 04/04/2022: Voiding well Monitor constipation (1) Closed right hip fracture Status: Acute BARB LARSON DO Apr 04, 2022 06:15
[2022-04-04 07:56] VITALS: BP 130/68
[2022-04-04] MEDS: DOCUSATE SODIUM 100 MG (COLACE) CAP PO SCH ×3 (08:45→20:14)
[2022-04-04] MEDS: TAMSULOSIN 0.4 MG (FLOMAX) CAP PO SCH ×2 (08:46→20:11)
[2022-04-04] MEDS: SENNOSIDES 8.6 MG (SENOKOT) TAB PO SCH ×2 (08:46→20:14)
[2022-04-04] MEDS: polyethylene glycoL POWDER 17 GM (MIRALAX) PACK PO SCH ×2 (08:47→20:14)
[2022-04-04] MEDS: ENOXAPARIN 40 MG/0.4 ML (LOVENOX) SYR SC SCH (08:47)
[2022-04-04] MEDS: lisINopril 20 MG (PRINIVIL) TABLET PO SCH (08:47)
[2022-04-04 09:37] VITALS: BP 104/65
--- NOTE | 2022-04-04 09:58 | Physical Therapy Daily Note ---
PT Daily Note-Current Subjective Patient in bed pre tx, agrees to PT, has unrated pain in right hip, needs to use the commode. Pain Section J - Health Conditions 1. Rarely or not at all 2. Occasionally 3. Frequently 4. Almost constantly 8. Unable to answer Pain Effect on Sleep: 1 Pain Interference with Therapy: 2 Pain Interference w/Day-to-Day: 2 Appearance Patient in WC at bedside with nurse call, phone, tray, chair alarm on. Mental Status Patient Orientation: Person, Confused Transfers SCALE: Activities may be completed with or without assistive devices. 2-Ddjihnrpqv-uteqnxu completes the activity by him/herself with no assistance from a helper. 5-Set-up or Clean-up Assistance-helper sets up or cleans up; patient completes activity. [place] assists only prior to or following the activity. 4-Supervision or Touching Assistance-helper provides verbal cues and/or touching/steadying and/or contact guard assistance as patient completes activity. Assistance may be provided throughout the activity or intermittently. 3-Partial/Moderate Assistance-helper does LESS THAN HALF the effort. [place] lifts, holds or supports trunk or limbs, but provides less than half the effort. 2-Substantial/Maximal Assistance-helper does MORE THAN HALF the effort. [place] lifts or holds trunk or limbs and provides more than half the effort. 9-Xkogpveam-dedtal does ALL the effort. Patient does none of the effort to complete the activity. Or, the assistance of 2 or more helpers is required for the patient to complete the activity. If activity was not attempted, code reason: 7-Patient Refused. 9-Not Applicable-not attempted and the patient did not perform the activity before the current illness, exacerbation or injury. 10-Not Attempted due to Environmental Limitations-(lack of equipment, weather restraints, etc.). 88-Not Attempted due to Medical Conditions or Safety Concerns. Roll Left & Right (QC): 2 Lying to Sitting/Side of Bed(Q: 2 Sit to Stand (QC): 3 Chair/Eik-vj-Sspno Xfer(QC): 3 max assist for supine to sit, mod assist for sit to stand and transfers. Patient was transferred to [facility], nurse assisted with wiping and brief change. When done, patient transferred to . Weight Bearing Right Lower Extremity: Right Weight Bearing/Tolerated Left Lower Extremity: Left Full Weight Bearing Gait Training Distance: 3'x3 Gait Persons Needed: 1 Gait Assistive Device: FWW WC follow, patient cannot bear much weight on her right leg, steps have no foot clearance and are only about 1 inch long Exercises Seated Therapy Exercises: Ankle pumps, Long arc quads, Hip flexion, Hip abd/add Seated Reps: 20 Treatments toileting, bed mobility and transfers, ambulation, LE ROM Assessment Current Status: Poor Progress patient is very confused, talks about people in the room who are not there PT Short Term Goals Short Term Goals Time Frame: Apr 13, 2022 Roll Left & Right: 3 Sit to lyin Lying to sitting on side of be: 3 Sit to stand: 3 Chair/dcx-fe-amigz transfer: 3 Toilet transfer: 3 Walk 10 feet: 3 PT Penitentiary Goals Lumber Trimmer Goals PT Lumber Trimmer Goals Time Frame: May 04, 2022 Roll Left & Right (QC): 5 Sit to Lying (QC): 5 Lying-Sitting on Side/Bed(QC): 5 Sit to Stand (QC): 5 Chair/Xct-cu-Cobtw Xfer(QC): 5 Toilet Transfer (QC): 5 Car Transfer (QC): 5 Does the Patient Walk: Yes Walk 10 feet (QC): 4 Walk 50ft with 2 Turns (QC): 4 Walk 150 ft (QC): 4 Walking 10ft on Uneven Surface: 4 1 Step (curb) (QC): 3 4 Steps (QC): 9 12 Steps (QC): 9 Picking up an Object (QC): 4 Does the Pt use WC or Scooter?: Yes Wheel 50 feet with 2 turns (QC: 6 Type: Manual Wheel 150 feet: 6 Type: Manual PT Plan Problem List Problem List: Activity Tolerance, Functional Strength, Safety, Balance, Gait, Transfer, Bed Mobility, ROM Treatment/Plan Treatment Plan: Continue Plan of Care Treatment Plan: Bed Mobility, Education, Functional Activity Norah, Functional Strength, Group Therapy, Gait, Safety, Therapeutic Exercise, Transfers Treatment Duration: May 07, 2022 Frequency: At least 5 of 7 days/Wk (IRF) Estimated Hrs Per Day: 1.5 hours per day Patient and/or Family Agrees t: Yes Safety Risks/Education Patient Education: Gait Training, Transfer Techniques, Correct Positioning, W/C Management, Safety Issues Teaching Recipient: Patient Teaching Methods: Demonstration, Discussion Response to Teaching: Reinforcement Needed Time Time In: 0900 Time Out: 1000 DATE: Apr 04, 2022 Total Billed Treatment Time: 60 Total Billed Treatment 1 visit EX 10' FA 50' TINO STAUFFER PT Apr 04, 2022 09:58
--- NOTE | 2022-04-04 10:24 | Occupational Ther Daily Note ---
OT Current Status-Daily Note Subjective Pt confused and groggy, sitting in w/c with alarm for safety. Pt asking about her mother and stating that she didn't take any meds because she didn't know what was in them. Mental Status/Objective Patient Orientation: Person, Confused ADL-Treatment Pt required directions, set up and quiet verbal communication. Set up for upper body sponge bath. Supervision for oral care due to confusion. Min A for upper body dressing. Mod A for toilet transfer. Min A to stabilize while pt stood to complete clothing manipulation and toilet hygiene. Assist to thread feet into lower body clothing and min A to stabilize while pt hiked pants over hips. Dependent with footwear. Pt continues to be very fatigued and takes increased time to sequence through tasks. After session, pt sitting in recliner with call light/phone in reach. All needs met in room. Therapy Code Descriptions/Definitions Functional [place] Measure: 0=Not Assessed/NA 4=Minimal Assistance 1=Total Assistance 5=Supervision or Setup 2=Maximal Assistance 6=Modified [place] 3=Moderate Assistance 7=Complete IndependenceSCALE: Activities may be completed with or without assistive devices. 5-Jwnxdykdhs-qqwknxh completes the activity by him/herself with no assistance from a helper. 5-Set-up or Clean-up Assistance-helper sets up or cleans up; patient completes activity. [place] assists only prior to or following the activity. 4-Supervision or Touching Assistance-helper provides verbal cues and/or touching/steadying and/or contact guard assistance as patient completes activity. Assistance may be provided throughout the activity or intermittently. 3-Partial/Moderate Assistance-helper does LESS THAN HALF the effort. [place] lifts, holds or supports trunk or limbs, but provides less than half the effort. 2-Substantial/Maximal Assistance-helper does MORE THAN HALF the effort. [place] lifts or holds trunk or limbs and provides more than half the effort. 6-Fhufvgmha-hxnhgz does ALL the effort. Patient does none of the effort to complete the activity. Or, the assistance of 2 or more helpers is required for the patient to complete the activity. If activity was not attempted, code reason: 7-Patient Refused. 9-Not Applicable-not attempted and the patient did not perform the activity before the current illness, exacerbation or injury. 10-Not Attempted due to Environmental Limitations-(lack of equipment, weather restraints, etc.). 88-Not Attempted due to Medical Conditions or Safety Concerns. Oral Hygiene (QC): 4 Upper Body Dressing (QC): 3 Lower Body Dressing (QC): 2 (Mod A) On/Off Footwear: 1 Toileting Hygiene (QC): 3 Toilet Transfer (QC): 2 OT Short Term Goals Short Term Goals Eatin Oral hygiene: 4 Toileting hygiene: 4 Shower/bathe self: 4 Upper body dressin Lower body dressin Putting on/taking off footwear: 5 OT Fci Goals Fci Goals Eating (QC): 6 Oral Hygiene (QC): 6 Toileting Hygiene (QC): 6 Shower/Bathe Self (QC): 6 Upper Body Dressing (QC): 6 Lower Body Dressing (QC): 6 On/Off Footwear (QC): 6 1=Demonstrate adherence to instructed precautions during ADL tasks. 2=Patient will verbalize/demonstrate understanding of assistive devices/modifications for ADL. 3=Patient will improve strength/tolerance for activity to enable patient to perform ADL's. OT Education/Plan Problem List/Assessment Assessment: Decreased Activ Tolerance, Decreased Safety Aware, Impaired Cognition, Impaired Coordination, Impaired Self-Care Skills Discharge Recommendations Plan/Recommendations: Continue POC Treatment Plan/Plan of Care Patient would benefit from OT for education, treatment and training to promote independence in ADL's, mobility, safety and/or upper extremity function for ADL's. Plan of Care: ADL Retraining, Functional Mobility, Group Exercise/Act as Ind, Orthotic Fitting/Training, UE Funct Exercise/Act Treatment Duration: Apr 13, 2022 Frequency: 5 times per week Estimated Hrs Per Day: 1.5 hours per day Agreement: Yes Rehab Potential: Good Time Start Time: 10:00 Stop Time: 11:30 DATE: Apr 04, 2022 Total Time Billed (hr/min): 90 Billed Treatment Time 1 visit-ADL 5 (70 min) FA 1 (20 min) TOMEKA ENGLISH Apr 04, 2022 10:24
[2022-04-04] MEDS ORDERED: HALOPERIDOL 0.5 MG (HALDOL) TAB PO PRN (11:00)
[2022-04-04] MEDS ORDERED: HALOPERIDOL 5 MG/ML (HALDOL) VIAL IM PRN (11:00)
[2022-04-04] MEDS ORDERED: LORazepam 0.5 MG (ATIVAN) TABLET PO PRN ×2 (11:00)
[2022-04-04] MEDS ORDERED: LORazepam INJ 2 MG/ML (ATIVAN) VIAL IVP PRN ×2 (11:00)
--- NOTE | 2022-04-04 11:52 | Physical Therapy Daily Note ---
PT Daily Note-Current Subjective Patient in recliner pre tx, agrees to PT, has no complaints of pain at rest. Pain Section J - Health Conditions 1. Rarely or not at all 2. Occasionally 3. Frequently 4. Almost constantly 8. Unable to answer Pain Effect on Sleep: 1 Pain Interference with Therapy: 2 Pain Interference w/Day-to-Day: 2 Appearance Patient in recliner post tx with nurse call, phone, tray, all needs met, chair alarm on. Mental Status Patient Orientation: Person, Place, Situation Transfers SCALE: Activities may be completed with or without assistive devices. 0-Xrdnvkdoel-hsvqusb completes the activity by him/herself with no assistance from a helper. 5-Set-up or Clean-up Assistance-helper sets up or cleans up; patient completes activity. [place] assists only prior to or following the activity. 4-Supervision or Touching Assistance-helper provides verbal cues and/or touching/steadying and/or contact guard assistance as patient completes activity. Assistance may be provided throughout the activity or intermittently. 3-Partial/Moderate Assistance-helper does LESS THAN HALF the effort. [place] lifts, holds or supports trunk or limbs, but provides less than half the effort. 2-Substantial/Maximal Assistance-helper does MORE THAN HALF the effort. [place] lifts or holds trunk or limbs and provides more than half the effort. 5-Ivovpalov-xulkik does ALL the effort. Patient does none of the effort to complete the activity. Or, the assistance of 2 or more helpers is required for the patient to complete the activity. If activity was not attempted, code reason: 7-Patient Refused. 9-Not Applicable-not attempted and the patient did not perform the activity before the current illness, exacerbation or injury. 10-Not Attempted due to Environmental Limitations-(lack of equipment, weather restraints, etc.). 88-Not Attempted due to Medical Conditions or Safety Concerns. Weight Bearing Right Lower Extremity: Right Weight Bearing/Tolerated Left Lower Extremity: Left Full Weight Bearing Exercises Supine Ex: Ankle pumps, Quad Set, Glut sets, Heel Slides, Short Arc Quads, Straight leg raise, Hip abd/add Supine Reps: 20 (AAROM on the right side except for quad sets and glute sets.) Treatments LE ROM Assessment Patient needs frequent reorientation and cues to stay on task due to confusion PT Short Term Goals Short Term Goals Time Frame: Apr 13, 2022 Roll Left & Right: 3 Sit to lyin Lying to sitting on side of be: 3 Sit to stand: 3 Chair/iha-rt-kxdxo transfer: 3 Toilet transfer: 3 Walk 10 feet: 3 PT Fpc Goals Fpc Goals PT Cleaning Matron Goals Time Frame: May 04, 2022 Roll Left & Right (QC): 5 Sit to Lying (QC): 5 Lying-Sitting on Side/Bed(QC): 5 Sit to Stand (QC): 5 Chair/Gap-gi-Rsfjq Xfer(QC): 5 Toilet Transfer (QC): 5 Car Transfer (QC): 5 Does the Patient Walk: Yes Walk 10 feet (QC): 4 Walk 50ft with 2 Turns (QC): 4 Walk 150 ft (QC): 4 Walking 10ft on Uneven Surface: 4 1 Step (curb) (QC): 3 4 Steps (QC): 9 12 Steps (QC): 9 Picking up an Object (QC): 4 Does the Pt use WC or Scooter?: Yes Wheel 50 feet with 2 turns (QC: 6 Type: Manual Wheel 150 feet: 6 Type: Manual PT Plan Problem List Problem List: Activity Tolerance, Functional Strength, Safety, Balance, Gait, Transfer, Bed Mobility, ROM Treatment/Plan Treatment Plan: Continue Plan of Care Treatment Plan: Bed Mobility, Education, Functional Activity Norah, Functional Strength, Group Therapy, Gait, Safety, Therapeutic Exercise, Transfers Treatment Duration: May 07, 2022 Frequency: At least 5 of 7 days/Wk (IRF) Estimated Hrs Per Day: 1.5 hours per day Patient and/or Family Agrees t: Yes Safety Risks/Education Patient Education: Correct Positioning, Safety Issues Teaching Recipient: Patient Teaching Methods: Demonstration, Discussion Response to Teaching: Reinforcement Needed Time Time In: 1130 Time Out: 1200 DATE: Apr 04, 2022 Total Billed Treatment Time: 30 Total Billed Treatment 1 visit EX 30' TINO STAUFFER PT Apr 04, 2022 11:52
[2022-04-04 19:45] VITALS: BP 151/67
[2022-04-05] MEDS: inSUlin ASPART (NovoLOG) 1 UNIT/0.01 ML (CHARGE PER UNIT) SC SCH ×4 (06:05→21:13)
--- NOTE | 2022-04-05 06:25 | PM&R Progress Note ---
Subjective HPI/CC On Admission Date Seen by Provider: Apr 05, 2022 Time Seen by Provider: 12:00 04/04/2022: Doing well Lethargic from Ativan Pain controlled Voiding well now on Urecholine 04/03/2022: No major issues reported Less confusion Memory is poor overall Pain controlled No BM yet so ordered supp and SSE 04/02/2022: Doing well No pain except hip Rested well last night Labs reviewed No other issues No BM yet so aggressive laxatives ordered Subjective/Events-last exam 04/05/2022: Doing well Improved status Pain controlled UTI treatment will be initiated 04/04/2022: No major issues Lethargy improved No pain reported 04/03/2022: No major issues reported Less confusion Memory is poor overall Pain controlled No BM yet so ordered supp and SSE 04/02/2022: Doing well No pain except hip Rested well last night Labs reviewed No other issues No BM yet so aggressive laxatives ordered Review of Systems General: Fatigue, Malaise Musculoskeletal: leg pain Objective Exam Vital Signs Vital Signs Date Time Temp Pulse Resp B/P (MAP) Pulse Ox O2 Delivery O2 Flow Rate FiO2 04/05/22 20:11 37.0 83 16 126/63 (84) 95 Room Air 04/05/22 00:48 21 Capillary Refill : General Appearance: No Apparent Distress, WD/WN, Chronically ill HEENT: PERRL/EOMI, Normal ENT Inspection, Pharynx Normal Neck: Full Range of Motion, Normal Inspection, Non Tender, Supple, Carotid Bruit Respiratory: Chest Non Tender, Lungs Clear, Normal Breath Sounds, No Accessory Muscle Use, No Respiratory Distress Cardiovascular: Regular Rate, Rhythm, No Edema, No Gallop, No JVD, No Murmur, Normal Peripheral Pulses Gastrointestinal: Normal Bowel Sounds, No Organomegaly, No Pulsatile Mass, Non Tender, Soft Back: Normal Inspection, No CVA Tenderness, No Vertebral Tenderness Extremity: Normal Capillary Refill, Normal Inspection, Normal Range of Motion, Non Tender, No Calf Tenderness, No Pedal Edema Neurologic/Psychiatric: Alert, Oriented x3, Normal 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 FIM Transfers Therapy Code Descriptions/Definitions Functional [place] Measure: 0=Not Assessed/NA 4=Minimal Assistance 1=Total Assistance 5=Supervision or Setup 2=Maximal Assistance 6=Modified [place] 3=Moderate Assistance 7=Complete IndependenceSCALE: Activities may be completed with or without assistive devices. 6-Kdxzzyagmi-qhgvvuk completes the activity by him/herself with no assistance from a helper. 5-Set-up or Clean-up Assistance-helper sets up or cleans up; patient completes activity. [place] assists only prior to or following the activity. 4-Supervision or Touching Assistance-helper provides verbal cues and/or touching/steadying and/or contact guard assistance as patient completes activity. Assistance may be provided throughout the activity or intermittently. 3-Partial/Moderate Assistance-helper does LESS THAN HALF the effort. [place] lifts, holds or supports trunk or limbs, but provides less than half the effort. 2-Substantial/Maximal Assistance-helper does MORE THAN HALF the effort. [place] lifts or holds trunk or limbs and provides more than half the effort. 1-Vypobmatb-qsuxzp does ALL the effort. Patient does none of the effort to complete the activity. Or, the assistance of 2 or more helpers is required for the patient to complete the activity. If activity was not attempted, code reason: 7-Patient Refused. 9-Not Applicable-not attempted and the patient did not perform the activity before the current illness, exacerbation or injury. 10-Not Attempted due to Environmental Limitations-(lack of equipment, weather restraints, etc.). 88-Not Attempted due to Medical Conditions or Safety Concerns. Roll Left to Right (QC): 2 Sit to Lying (QC): 1 Sit to Stand (QC): 3 Chair/Wqt-tq-Qilvq Xfer(QC): 3 Car Transfer (QC): 2 Gait Training Does the Patient Walk?: Yes Distance: 3'x3 Walk 10 feet (QC): 4 Walk 50 ft with 2 Turns(QC): 88 Walk 150 ft (QC): 88 Walking 10ft/uneven surface-QC: 8 Gait Persons Needed: 1 Gait Assistive Device: FWW Wheelchair Training Does the Pt Use a Wheelchair?: Yes Distance: 150 feet Wheel 50 ft with 2 turns (QC): 3 Wheel 150 ft (QC): 3 Type of Wheelchair: Manual Stair Training #of Steps: 0 1 Step (curb) (QC): 9 4 Steps (QC): 9 12 Steps (QC): 9 Balance Picking up an Object (QC): 88 ADL-Treatment Eating (QC): 5 Oral Hygiene (QC): 4 Bathing Location: L Arm, R Arm, L Upper Leg, R Upper Leg, L Lower Leg (including foot), R Lower Leg (including foot), Chest, Abdomen, Perineal Area Shower/Bathe Self (QC): 3 Upper Body Dressing (QC): 3 Lower Body Dressing (QC): 2 (Mod A) On/Off Footwear (QC): 1 Toileting Hygiene (QC): 3 Toilet Transfer (QC): 2 Assessment/Plan Assessment and Plan Assess & Plan/Chief Complaint Assessment: Right hip fracture status post uncomplicated repair 03/30/22 Hypertension Advanced age Diabetes Postop acute blood loss anemia requiring 1 unit of blood on 04/01/22 Postop constipation Frail status Navarro cath replaced due to urinary retention now DC and voiding well on Urecholine Post op hallucinations Acute UTI Plan: ARU Pain control Monitor hgb DC Ffoley when able Aggressive PT OT 04/02/2022: Laxatives Monitor closely 04/03/2022: Laxatives and supp and SSE 04/04/2022: Voiding well Monitor constipation 04/05/2022: UTI treatment (1) Closed right hip fracture Status: Acute BARB LARSON DO Apr 05, 2022 06:25
[2022-04-05] MEDS: BETHANECHOL 25 MG (URECHOLINE) TAB PO SCH ×4 (06:36→21:12)
[2022-04-05 07:12] LABS: CLARITY,URINE CLOUDY; COLOR,URINE RED; GLUCOSE, URINE (UA) NEGATIVE (NEGATIVE); KETONES,URINE 1+ (NEGATIVE); LEUKOCYTE ESTERASE ,URINE 2+ (NEGATIVE); NITRITE,URINE POSITIVE (NEGATIVE); PROTEIN,URINE 3+ (NEGATIVE)
[2022-04-05 07:33] VITALS: BP 135/62
[2022-04-05 07:33] LABS: BACTERIA,URINE FEW /HPF; BILIRUBIN,URINE 2+ (NEGATIVE); RBC,URINE TNTC /HPF; WBC,URINE 50-100 /HPF
[2022-04-05] MEDS: polyethylene glycoL POWDER 17 GM (MIRALAX) PACK PO SCH ×2 (08:14→21:15)
[2022-04-05] MEDS: TAMSULOSIN 0.4 MG (FLOMAX) CAP PO SCH ×2 (08:14→21:12)
[2022-04-05] MEDS: lisINopril 20 MG (PRINIVIL) TABLET PO SCH (08:14)
[2022-04-05] MEDS: IRON SUCROSE 200 MG/10 ML (VENOFER) VIAL IV SCH (08:14)
[2022-04-05] MEDS: DOCUSATE SODIUM 100 MG (COLACE) CAP PO SCH ×2 (08:14→21:15)
[2022-04-05] MEDS: SENNOSIDES 8.6 MG (SENOKOT) TAB PO SCH ×2 (08:15→21:15)
--- NOTE | 2022-04-05 09:28 | Physical Therapy Daily Note ---
PT Daily Note-Current Subjective Pt. in bed, daughter present. Dtr shares pts PLOF . 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 Pt. states she had a blanket around her while she was sitting in her chair, got up, forgot it was there, it fell to the floor and she tripped over it, fracturing her right hip. Pt. is very motivated and wants to be indep and get home SAL Pain Location: No Pain Reported Section J - Health Conditions 1. Rarely or not at all 2. Occasionally 3. Frequently 4. Almost constantly 8. Unable to answer Pain Effect on Sleep: 1 Pain Interference with Therapy: 2 Pain Interference w/Day-to-Day: 2 Mental Status Patient Orientation: Normal For Age Transfers SCALE: Activities may be completed with or without assistive devices. 6-Hcemkkmlql-djzsnmq completes the activity by him/herself with no assistance from a helper. 5-Set-up or Clean-up Assistance-helper sets up or cleans up; patient completes activity. [place] assists only prior to or following the activity. 4-Supervision or Touching Assistance-helper provides verbal cues and/or touching/steadying and/or contact guard assistance as patient completes activity. Assistance may be provided throughout the activity or intermittently. 3-Partial/Moderate Assistance-helper does LESS THAN HALF the effort. [place] lifts, holds or supports trunk or limbs, but provides less than half the effort. 2-Substantial/Maximal Assistance-helper does MORE THAN HALF the effort. [place] lifts or holds trunk or limbs and provides more than half the effort. 8-Iecmgqqcf-cjfdln does ALL the effort. Patient does none of the effort to complete the activity. Or, the assistance of 2 or more helpers is required for the patient to complete the activity. If activity was not attempted, code reason: 7-Patient Refused. 9-Not Applicable-not attempted and the patient did not perform the activity before the current illness, exacerbation or injury. 10-Not Attempted due to Environmental Limitations-(lack of equipment, weather restraints, etc.). 88-Not Attempted due to Medical Conditions or Safety Concerns. Roll Left & Right (QC): 4 Lying to Sitting/Side of Bed(Q: 3 Sit to Stand (QC): 4 Chair/Ufx-yj-Aiunu Xfer(QC): 4 Toilet Transfer (QC): 3 pt. needed hands guided to the bed rails, then instruction for trunk movement. After up at EOB, pt. had good balance, Pt. TRFd SPT to w/c mod to min asst of 1. sit to stand, min to CGA, toilet TRF with rails min to mod Weight Bearing Right Lower Extremity: Right Weight Bearing/Tolerated Left Lower Extremity: Left Full Weight Bearing Gait Training Does the Patient Walk?: Yes Walk 10 feet (QC): 3 Gait Persons Needed: 1 Gait Assistive Device: FWW 15ftx1, 10ftx1,5ftx1 FWW needing max assist to advance FWW and explain to pt. wt bearing on FWW and sequence , pt. needs extra assurance as she has significant vision issues Exercises Supine Ex: Ankle pumps, Quad Set, Glut sets, Heel Slides, Short Arc Quads, Hip abd/add Supine Reps: 15 (assisted right) Seated Therapy Exercises: Sit to stand, Long arc quads Seated Reps: 10 Treatments supine right hip /LE ex, bed mob, TRFs, gait, toileting, pt. with large bout of diarrhea during Rx requiring gait to be halted and major clean up and change in bthrm etc. Assessment Current Status: Good Progress gives full effort, low vision greatly impedes pts confidence to advance and move freely PT Short Term Goals Short Term Goals Time Frame: Apr 13, 2022 Roll Left & Right: 3 Sit to lyin Lying to sitting on side of be: 3 Sit to stand: 3 Chair/cdu-tk-xehto transfer: 3 Toilet transfer: 3 Walk 10 feet: 3 PT Nursery Hand Goals Alf Goals PT Alf Goals Time Frame: May 04, 2022 Roll Left & Right (QC): 5 Sit to Lying (QC): 5 Lying-Sitting on Side/Bed(QC): 5 Sit to Stand (QC): 5 Chair/Gpg-yp-Kufld Xfer(QC): 5 Toilet Transfer (QC): 5 Car Transfer (QC): 5 Does the Patient Walk: Yes Walk 10 feet (QC): 4 Walk 50ft with 2 Turns (QC): 4 Walk 150 ft (QC): 4 Walking 10ft on Uneven Surface: 4 1 Step (curb) (QC): 3 4 Steps (QC): 9 12 Steps (QC): 9 Picking up an Object (QC): 4 Does the Pt use WC or Scooter?: Yes Wheel 50 feet with 2 turns (QC: 6 Type: Manual Wheel 150 feet: 6 Type: Manual PT Plan Treatment/Plan Treatment Plan: Continue Plan of Care Treatment Plan: Bed Mobility, Education, Functional Activity [place], Functional Strength, Group Therapy, Gait, Safety, Therapeutic Exercise, Transfers Treatment Duration: May 07, 2022 Frequency: At least 5 of 7 days/Wk (IRF) Estimated Hrs Per Day: 1.5 hours per day Patient and/or Family Agrees t: Yes Safety Risks/Education Patient Education: Gait Training, Transfer Techniques, Reviewed Precautions, Correct Positioning, Disease Process, Safety Issues Teaching Recipient: Patient Teaching Methods: Demonstration, Discussion Response to Teaching: Verbalize Understanding, Return Demonstration, Reinforcement Needed Time Time In: 800 Time Out: 930 DATE: Apr 05, 2022 Total Billed Treatment Time: 90 Total Billed Treatment 1,EX35m,GT15m,FA40m THAI TREJO BUTTER PRINTER Apr 05, 2022 09:28
[2022-04-05] MEDS: CIPROFLOXACIN 500 MG (CIPRO) TABLET PO SCH ×2 (10:57→21:12)
--- NOTE | 2022-04-05 11:39 | Occupational Ther Daily Note ---
OT Current Status-Daily Note Subjective Pt sleeping in recliner, woke to name. Pt is oriented x4 though continues to demonstrate confusion throughout session and requires direction to initiate tasks. No c/o pain at this time. Mental Status/Objective Patient Orientation: Person, Confused, Place, Time, Situation Attachments: IV ADL-Treatment Pt agrees to shower. Pt ambulates slowly using FWW with min A to bathroom. Mod A for toilet transfer. Min A for toileting, hygiene sitting on toilet and assist to manipulate clothing. Pt completes shower sitting on shower bench 90% of the time then standing to cleanse buttocks/beryl area with min A for stability while standing. Toileting 2x's during session. Set up and increased time to don/doff upper body clothing. Max A for lower body clothing and footwear. Independent for oral care sitting at sink. Pt takes increased time to complete all tasks due to anxiety and slow movements during tasks. After session, pt sitting in recliner with call light/phone in reach. All needs met in room. Safety measures in place. Therapy Code Descriptions/Definitions Functional [place] Measure: 0=Not Assessed/NA 4=Minimal Assistance 1=Total Assistance 5=Supervision or Setup 2=Maximal Assistance 6=Modified [place] 3=Moderate Assistance 7=Complete IndependenceSCALE: Activities may be completed with or without assistive devices. 7-Xsbvnstywa-shepymn completes the activity by him/herself with no assistance from a helper. 5-Set-up or Clean-up Assistance-helper sets up or cleans up; patient completes activity. [place] assists only prior to or following the activity. 4-Supervision or Touching Assistance-helper provides verbal cues and/or touchi ng/steadying and/or contact guard assistance as patient completes activity. Assistance may be provided throughout the activity or intermittently. 3-Partial/Moderate Assistance-helper does LESS THAN HALF the effort. [place] lifts, holds or supports trunk or limbs, but provides less than half the effort. 2-Substantial/Maximal Assistance-helper does MORE THAN HALF the effort. [place] lifts or holds trunk or limbs and provides more than half the effort. 7-Rojrmbryz-cgssyb does ALL the effort. Patient does none of the effort to complete the activity. Or, the assistance of 2 or more helpers is required for the patient to complete the activity. If activity was not attempted, code reason: 7-Patient Refused. 9-Not Applicable-not attempted and the patient did not perform the activity before the current illness, exacerbation or injury. 10-Not Attempted due to Environmental Limitations-(lack of equipment, weather restraints, etc.). 88-Not Attempted due to Medical Conditions or Safety Concerns. 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 2=Patient will verbalize/demonstrate understanding of assistive devices/modifications for ADL. 3=Patient will improve strength/tolerance for activity to enable patient to perform ADL's. OT Education/Plan Problem List/Assessment Assessment: Decreased Activ Tolerance Discharge Recommendations Plan/Recommendations: Continue POC Treatment Plan/Plan of Care Patient would benefit from OT for education, treatment and training to promote independence in ADL's, mobility, safety and/or upper extremity function for ADL's. Plan of Care: ADL Retraining, Functional Mobility, Group Exercise/Act as Ind, Orthotic Fitting/Training, UE Funct Exercise/Act Treatment Duration: Apr 13, 2022 Frequency: 5 times per week Estimated Hrs Per Day: 1.5 hours per day Agreement: Yes Rehab Potential: Good Time Start Time: 10:30 Stop Time: 12:00 DATE: Apr 05, 2022 Total Time Billed (hr/min): 90 Billed Treatment Time 1 visit-ADL 6 (90 min) TOMEKA ENGLISH Apr 05, 2022 11:39
[2022-04-05 20:11] VITALS: BP 126/63
[2022-04-05] MEDS: ACETAMINOPHEN 325 MG TABLET PO PRN (21:12)
[2022-04-06] MEDS: inSUlin ASPART (NovoLOG) 1 UNIT/0.01 ML (CHARGE PER UNIT) SC SCH ×4 (06:39→20:27)
[2022-04-06] MEDS: BETHANECHOL 25 MG (URECHOLINE) TAB PO SCH ×4 (06:39→20:26)
--- NOTE | 2022-04-06 06:48 | PM&R Progress Note ---
Subjective HPI/CC On Admission Date Seen by Provider: Apr 06, 2022 Time Seen by Provider: 12:00 04/04/2022: Doing well Lethargic from Ativan Pain controlled Voiding well now on Urecholine 04/03/2022: No major issues reported Less confusion Memory is poor overall Pain controlled No BM yet so ordered supp and SSE 04/02/2022: Doing well No pain except hip Rested well last night Labs reviewed No other issues No BM yet so aggressive laxatives ordered Subjective/Events-last exam 04/06/2022: No major issues Confusion at night Likely baseline dementia then acute issue brought to surface 04/05/2022: Doing well Improved status Pain controlled UTI treatment will be initiated 04/04/2022: No major issues Lethargy improved No pain reported 04/03/2022: No major issues reported Less confusion Memory is poor overall Pain controlled No BM yet so ordered supp and SSE 04/02/2022: Doing well No pain except hip Rested well last night Labs reviewed No other issues No BM yet so aggressive laxatives ordered Review of Systems General: Fatigue, Malaise Musculoskeletal: leg pain Objective Exam Vital Signs Vital Signs Date Time Temp Pulse Resp B/P (MAP) Pulse Ox O2 Delivery O2 Flow Rate FiO2 04/06/22 10:24 Room Air 04/06/22 07:52 36.5 68 16 123/54 (77) 96 04/05/22 21:28 0.00 04/05/22 00:48 21 Capillary Refill : General Appearance: No Apparent Distress, WD/WN, Chronically ill HEENT: PERRL/EOMI, Normal ENT Inspection, Pharynx Normal Neck: Full Range of Motion, Normal Inspection, Non Tender, Supple, Carotid Bruit Respiratory: Chest Non Tender, Lungs Clear, Normal Breath Sounds, No Accessory Muscle Use, No Respiratory Distress Cardiovascular: Regular Rate, Rhythm, No Edema, No Gallop, No JVD, No Murmur, Normal Peripheral Pulses Gastrointestinal: Normal Bowel Sounds, No Organomegaly, No Pulsatile Mass, Non Tender, Soft Back: Normal Inspection, No CVA Tenderness, No Vertebral Tenderness Extremity: Normal Capillary Refill, Normal Inspection, Normal Range of Motion, Non Tender, No Calf Tenderness, No Pedal Edema Neurologic/Psychiatric: Alert, Oriented x3, Normal 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 FIM Transfers Therapy Code Descriptions/Definitions Functional [place] Measure: 0=Not Assessed/NA 4=Minimal Assistance 1=Total Assistance 5=Supervision or Setup 2=Maximal Assistance 6=Modified [place] 3=Moderate Assistance 7=Complete IndependenceSCALE: Activities may be completed with or without assistive devices. 6-Mrlwxwjftf-lamovxy completes the activity by him/herself with no assistance from a helper. 5-Set-up or Clean-up Assistance-helper sets up or cleans up; patient completes activity. [place] assists only prior to or following the activity. 4-Supervision or Touching Assistance-helper provides verbal cues and/or touching/steadying and/or contact guard assistance as patient completes activity. Assistance may be provided throughout the activity or intermittently. 3-Partial/Moderate Assistance-helper does LESS THAN HALF the effort. [place] lifts, holds or supports trunk or limbs, but provides less than half the effort. 2-Substantial/Maximal Assistance-helper does MORE THAN HALF the effort. [place] lifts or holds trunk or limbs and provides more than half the effort. 0-Uhiukjogb-usmngy does ALL the effort. Patient does none of the effort to complete the activity. Or, the assistance of 2 or more helpers is required for the patient to complete the activity. If activity was not attempted, code reason: 7-Patient Refused. 9-Not Applicable-not attempted and the patient did not perform the activity before the current illness, exacerbation or injury. 10-Not Attempted due to Environmental Limitations-(lack of equipment, weather restraints, etc.). 88-Not Attempted due to Medical Conditions or Safety Concerns. Roll Left to Right (QC): 4 Sit to Lying (QC): 1 Sit to Stand (QC): 4 Chair/Vjy-me-Ksdpk Xfer(QC): 4 Car Transfer (QC): 2 Gait Training Does the Patient Walk?: Yes Distance: 3'x3 Walk 10 feet (QC): 3 Walk 50 ft with 2 Turns(QC): 88 Walk 150 ft (QC): 88 Walking 10ft/uneven surface-QC: 8 Gait Persons Needed: 1 Gait Assistive Device: FWW Wheelchair Training Does the Pt Use a Wheelchair?: Yes Distance: 150 feet Wheel 50 ft with 2 turns (QC): 3 Wheel 150 ft (QC): 3 Type of Wheelchair: Manual Stair Training #of Steps: 0 1 Step (curb) (QC): 9 4 Steps (QC): 9 12 Steps (QC): 9 Balance Picking up an Object (QC): 88 ADL-Treatment Eating (QC): 5 Oral Hygiene (QC): 6 Bathing Location: L Arm, R Arm, L Upper Leg, R Upper Leg, L Lower Leg (including foot), R Lower Leg (including foot), Chest, Abdomen, Perineal Area Shower/Bathe Self (QC): 3 Upper Body Dressing (QC): 5 Lower Body Dressing (QC): 2 On/Off Footwear (QC): 2 Toileting Hygiene (QC): 4 Toilet Transfer (QC): 4 Assessment/Plan Assessment and Plan Assess & Plan/Chief Complaint Assessment: Right hip fracture status post uncomplicated repair 03/30/22 Hypertension Advanced age Diabetes Postop acute blood loss anemia requiring 1 unit of blood on 04/01/22 Postop constipation Frail status Navarro cath replaced due to urinary retention now DC and voiding well on Urecholine Post op hallucinations Acute UTI Plan: ARU Pain control Monitor hgb DC Ffoley when able Aggressive PT OT 04/02/2022: Laxatives Monitor closely 04/03/2022: Laxatives and supp and SSE 04/04/2022: Voiding well Monitor constipation 04/05/2022: UTI treatment 04/06/2022: Ucx pending (1) Closed right hip fracture Status: Acute BARB LARSON DO Apr 06, 2022 06:48
[2022-04-06 07:52] VITALS: BP 123/54
[2022-04-06] MEDS: TAMSULOSIN 0.4 MG (FLOMAX) CAP PO SCH ×2 (08:58→20:26)
[2022-04-06] MEDS: CIPROFLOXACIN 500 MG (CIPRO) TABLET PO SCH ×2 (08:58→20:26)
[2022-04-06] MEDS: lisINopril 20 MG (PRINIVIL) TABLET PO SCH (08:58)
[2022-04-06] MEDS: SENNOSIDES 8.6 MG (SENOKOT) TAB PO SCH ×2 (08:59→19:20)
[2022-04-06] MEDS: DOCUSATE SODIUM 100 MG (COLACE) CAP PO SCH ×2 (08:59→19:20)
[2022-04-06] MEDS: polyethylene glycoL POWDER 17 GM (MIRALAX) PACK PO SCH ×2 (08:59→19:20)
--- NOTE | 2022-04-06 11:39 | Physical Therapy Daily Note ---
PT Daily Note-Current Subjective Pt sitting at EOB upon arrival. Pt agrees to PT. Pain Location: Right Location Body Site: Hip Comment: Visual seen during amb. but not rated Section J - Health Conditions 1. Rarely or not at all 2. Occasionally 3. Frequently 4. Almost constantly 8. Unable to answer Pain Effect on Sleep: 1 Pain Interference with Therapy: 2 Pain Interference w/Day-to-Day: 2 Mental Status Patient Orientation: Person, Place, Situation Transfers SCALE: Activities may be completed with or without assistive devices. 4-Dzrorfbliy-lzveeaj completes the activity by him/herself with no assistance from a helper. 5-Set-up or Clean-up Assistance-helper sets up or cleans up; patient completes activity. [place] assists only prior to or following the activity. 4-Supervision or Touching Assistance-helper provides verbal cues and/or touching/steadying and/or contact guard assistance as patient completes activity. Assistance may be provided throughout the activity or intermittently. 3-Partial/Moderate Assistance-helper does LESS THAN HALF the effort. [place] lifts, holds or supports trunk or limbs, but provides less than half the effort. 2-Substantial/Maximal Assistance-helper does MORE THAN HALF the effort. [place] lifts or holds trunk or limbs and provides more than half the effort. 5-Ezbmrnwxo-pbkvpe does ALL the effort. Patient does none of the effort to complete the activity. Or, the assistance of 2 or more helpers is required for the patient to complete the activity. If activity was not attempted, code reason: 7-Patient Refused. 9-Not Applicable-not attempted and the patient did not perform the activity before the current illness, exacerbation or injury. 10-Not Attempted due to Environmental Limitations-(lack of equipment, weather restraints, etc.). 88-Not Attempted due to Medical Conditions or Safety Concerns. Sit to Stand (QC): 4 Weight Bearing Right Lower Extremity: Right Weight Bearing/Tolerated Left Lower Extremity: Left Full Weight Bearing Gait Training Does the Patient Walk?: Yes Distance: 15' Walk 10 feet (QC): 4 Gait Persons Needed: 1 Gait Assistive Device: FWW Antalgic gait, hops when TF weight from L to R side. VC to stand up taller to take pressure of UE and advance FWW more to allow for bigger steps Wheelchair Training Does the Pt Use a Wheelchair?: Yes Type of Wheelchair: Manual Treatments TF to standing and amb. in pt's room. Pt is fatigued and hurting so sits after amb. in H. Pt is repositioned to comfort. All needs met, call light in hand. Assessment Current Status: Fair Progress Pain limits amb. PT Short Term Goals Short Term Goals Time Frame: Apr 13, 2022 Roll Left & Right: 3 Sit to lyin Lying to sitting on side of be: 3 Sit to stand: 3 Chair/hla-ux-xvzod transfer: 3 Toilet transfer: 3 Walk 10 feet: 3 PT Safety Council Director Goals Fpc Goals PT Fpc Goals Time Frame: May 04, 2022 Roll Left & Right (QC): 5 Sit to Lying (QC): 5 Lying-Sitting on Side/Bed(QC): 5 Sit to Stand (QC): 5 Chair/Dts-mt-[place] Xfer(QC): 5 Toilet Transfer (QC): 5 Car Transfer (QC): 5 Does the Patient Walk: Yes Walk 10 feet (QC): 4 Walk 50ft with 2 Turns (QC): 4 Walk 150 ft (QC): 4 Walking 10ft on Uneven Surface: 4 1 Step (curb) (QC): 3 4 Steps (QC): 9 12 Steps (QC): 9 Picking up an Object (QC): 4 Does the Pt use WC or Scooter?: Yes Wheel 50 feet with 2 turns (QC: 6 Type: Manual Wheel 150 feet: 6 Type: Manual PT Plan Problem List Problem List: Activity Tolerance, Functional Strength Treatment/Plan Treatment Plan: Continue Plan of Care Treatment Plan: Bed Mobility, Education, Functional Activity Norah, Functional Strength, Group Therapy, Gait, Safety, Therapeutic Exercise, Transfers Treatment Duration: May 07, 2022 Frequency: At least 5 of 7 days/Wk (IRF) Estimated Hrs Per Day: 1.5 hours per day Patient and/or Family Agrees t: Yes Safety Risks/Education Patient Education: Gait Training, Correct Positioning Teaching Recipient: Patient Teaching Methods: Discussion Response to Teaching: Verbalize Understanding Time Time In: 820 Time Out: 850 DATE: Apr 06, 2022 Total Billed Treatment Time: 30 Total Billed Treatment 1, FA (15m) & GT (15m) SWATI [employer] INSPECTOR Apr 06, 2022 11:39
[2022-04-06] MEDS: ACETAMINOPHEN 325 MG TABLET PO PRN (17:53)
[2022-04-06 20:02] VITALS: BP 172/69
[2022-04-06 20:27] VITALS: BP 151/67
[2022-04-07] MEDS: BETHANECHOL 25 MG (URECHOLINE) TAB PO SCH ×4 (05:38→20:54)
[2022-04-07] MEDS: inSUlin ASPART (NovoLOG) 1 UNIT/0.01 ML (CHARGE PER UNIT) SC SCH ×4 (05:38→20:07)
[2022-04-07 07:30] VITALS: BP 121/55
[2022-04-07] MEDS: CIPROFLOXACIN 500 MG (CIPRO) TABLET PO SCH (08:01)
[2022-04-07] MEDS: ACETAMINOPHEN 325 MG TABLET PO PRN ×2 (08:01→22:06)
[2022-04-07] MEDS: TAMSULOSIN 0.4 MG (FLOMAX) CAP PO SCH ×2 (08:01→20:54)
[2022-04-07] MEDS: lisINopril 20 MG (PRINIVIL) TABLET PO SCH (08:01)
--- NOTE | 2022-04-07 08:11 | PM&R Progress Note ---
Subjective HPI/CC On Admission Date Seen by Provider: Apr 07, 2022 Time Seen by Provider: 12:00 04/04/2022: Doing well Lethargic from Ativan Pain controlled Voiding well now on Urecholine 04/03/2022: No major issues reported Less confusion Memory is poor overall Pain controlled No BM yet so ordered supp and SSE 04/02/2022: Doing well No pain except hip Rested well last night Labs reviewed No other issues No BM yet so aggressive laxatives ordered Subjective/Events-last exam 04/07/2022: Patient doing well improved lucidity Supportive care will continue Monitoring closely 04/06/2022: No major issues Confusion at night Likely baseline dementia then acute issue brought to surface 04/05/2022: Doing well Improved status Pain controlled UTI treatment will be initiated 04/04/2022: No major issues Lethargy improved No pain reported 04/03/2022: No major issues reported Less confusion Memory is poor overall Pain controlled No BM yet so ordered supp and SSE 04/02/2022: Doing well No pain except hip Rested well last night Labs reviewed No other issues No BM yet so aggressive laxatives ordered Review of Systems General: Fatigue, Malaise Objective Exam Vital Signs Vital Signs Date Time Temp Pulse Resp B/P (MAP) Pulse Ox O2 Delivery O2 Flow Rate FiO2 04/07/22 09:14 Room Air 04/07/22 07:30 36.6 76 16 121/55 (77) 93 04/05/22 21:28 0.00 04/05/22 00:48 21 Capillary Refill : General Appearance: No Apparent Distress, WD/WN, Chronically ill HEENT: PERRL/EOMI, Normal ENT Inspection, Pharynx Normal Neck: Full Range of Motion, Normal Inspection, Non Tender, Supple, Carotid Bruit Respiratory: Chest Non Tender, Lungs Clear, Normal Breath Sounds, No Accessory Muscle Use, No Respiratory Distress Cardiovascular: Regular Rate, Rhythm, No Edema, No Gallop, No JVD, No Murmur, Normal Peripheral Pulses Gastrointestinal: Normal Bowel Sounds, No Organomegaly, No Pulsatile Mass, Non Tender, Soft Back: Normal Inspection, No CVA Tenderness, No Vertebral Tenderness Extremity: Normal Capillary Refill, Normal Inspection, Normal Range of Motion, Non Tender, No Calf Tenderness, No Pedal Edema Neurologic/Psychiatric: Alert, Oriented x3, Normal Mood/Affect, legal researcher II-XII Norm as Tested, Abnormal Gait, Depressed Affect, Motor Weakness (right leg weakness) Skin: Normal Color, Warm/Dry Lymphatic: No Adenopathy Results/Procedures Lab Patient resulted labs reviewed. FIM Transfers Therapy Code Descriptions/Definitions Functional [place] Measure: 0=Not Assessed/NA 4=Minimal Assistance 1=Total Assistance 5=Supervision or Setup 2=Maximal Assistance 6=Modified [place] 3=Moderate Assistance 7=Complete IndependenceSCALE: Activities may be completed with or without assistive devices. 5-Gesxkairzd-sgytegb completes the activity by him/herself with no assistance from a helper. 5-Set-up or Clean-up Assistance-helper sets up or cleans up; patient completes activity. [place] assists only prior to or following the activity. 4-Supervision or Touching Assistance-helper provides verbal cues and/or touching/steadying and/or contact guard assistance as patient completes activity. Assistance may be provided throughout the activity or intermittently. 3-Partial/Moderate Assistance-helper does LESS THAN HALF the effort. [place] lifts, holds or supports trunk or limbs, but provides less than half the effort. 2-Substantial/Maximal Assistance-helper does MORE THAN HALF the effort. [place] lifts or holds trunk or limbs and provides more than half the effort. 3-Kqgwvohtk-odsenk does ALL the effort. Patient does none of the effort to complete the activity. Or, the assistance of 2 or more helpers is required for the patient to complete the activity. If activity was not attempted, code reason: 7-Patient Refused. 9-Not Applicable-not attempted and the patient did not perform the activity before the current illness, exacerbation or injury. 10-Not Attempted due to Environmental Limitations-(lack of equipment, weather restraints, etc.). 88-Not Attempted due to Medical Conditions or Safety Concerns. Roll Left to Right (QC): 4 Sit to Lying (QC): 1 Sit to Stand (QC): 4 Chair/Pwn-yv-Dcsfs Xfer(QC): 4 Car Transfer (QC): 2 Gait Training Does the Patient Walk?: Yes Distance: 15' Walk 10 feet (QC): 4 Walk 50 ft with 2 Turns(QC): 88 Walk 150 ft (QC): 88 Walking 10ft/uneven surface-QC: 8 Gait Persons Needed: 1 Gait Assistive Device: FWW Wheelchair Training Does the Pt Use a Wheelchair?: Yes Distance: 150 feet Wheel 50 ft with 2 turns (QC): 3 Wheel 150 ft (QC): 3 Type of Wheelchair: Manual Stair Training #of Steps: 0 1 Step (curb) (QC): 9 4 Steps (QC): 9 12 Steps (QC): 9 Balance Picking up an Object (QC): 88 ADL-Treatment Eating (QC): 5 Oral Hygiene (QC): 6 Bathing Location: L Arm, R Arm, L Upper Leg, R Upper Leg, L Lower Leg (including foot), R Lower Leg (including foot), Chest, Abdomen, Perineal Area Shower/Bathe Self (QC): 3 Upper Body Dressing (QC): 5 Lower Body Dressing (QC): 2 On/Off Footwear (QC): 2 Toileting Hygiene (QC): 4 Toilet Transfer (QC): 4 Assessment/Plan Assessment and Plan Assess & Plan/Chief Complaint Assessment: Right hip fracture status post uncomplicated repair 03/30/22 Hypertension Advanced age Diabetes Postop acute blood loss anemia requiring 1 unit of blood on 04/01/22 Postop constipation Frail status Navarro cath replaced due to urinary retention now DC and voiding well on Urecholine Post op hallucinations Abnormal UA s/p Cipro until UCx revealed normal bridget Plan: ARU Pain control Monitor hgb DC Ffoley when able Aggressive PT OT 04/02/2022: Laxatives Monitor closely 04/03/2022: Laxatives and supp and SSE 04/04/2022: Voiding well Monitor constipation 04/05/2022: UTI treatment 04/06/2022: Ucx pending 04/07/2022: Supportive care DC antibiotics (1) Closed right hip fracture Status: Acute BARB LARSON DO Apr 07, 2022 08:11
[2022-04-07] MEDS: DOCUSATE SODIUM 100 MG (COLACE) CAP PO SCH ×2 (08:15→19:42)
[2022-04-07] MEDS: SENNOSIDES 8.6 MG (SENOKOT) TAB PO SCH ×2 (08:15→19:43)
[2022-04-07] MEDS: polyethylene glycoL POWDER 17 GM (MIRALAX) PACK PO SCH ×2 (08:15→19:43)
[2022-04-07] MEDS: IRON SUCROSE 200 MG/10 ML (VENOFER) VIAL IV SCH (08:39)
[2022-04-07 19:56] VITALS: BP 133/60
--- NOTE | 2022-04-08 05:22 | PM&R Progress Note ---
Subjective HPI/CC On Admission Date Seen by Provider: Apr 08, 2022 Time Seen by Provider: 08:30 04/04/2022: Doing well Lethargic from Ativan Pain controlled Voiding well now on Urecholine 04/03/2022: No major issues reported Less confusion Memory is poor overall Pain controlled No BM yet so ordered supp and SSE 04/02/2022: Doing well No pain except hip Rested well last night Labs reviewed No other issues No BM yet so aggressive laxatives ordered Subjective/Events-last exam 04/08/2022: Much improved status Moving around pretty well No pain reported when she is sitting 04/07/2022: Patient doing well improved lucidity Supportive care will continue Monitoring closely 04/06/2022: No major issues Confusion at night Likely baseline dementia then acute issue brought to surface 04/05/2022: Doing well Improved status Pain controlled UTI treatment will be initiated 04/04/2022: No major issues Lethargy improved No pain reported 04/03/2022: No major issues reported Less confusion Memory is poor overall Pain controlled No BM yet so ordered supp and SSE 04/02/2022: Doing well No pain except hip Rested well last night Labs reviewed No other issues No BM yet so aggressive laxatives ordered Review of Systems General: Fatigue, Malaise Musculoskeletal: leg pain Objective Exam Vital Signs Vital Signs Date Time Temp Pulse Resp B/P (MAP) Pulse Ox O2 Delivery O2 Flow Rate FiO2 04/08/22 21:30 Room Air 04/08/22 20:07 37.0 79 20 145/54 (84) 100 04/05/22 21:28 0.00 04/05/22 00:48 21 Capillary Refill : General Appearance: No Apparent Distress, WD/WN, Chronically ill HEENT: PERRL/EOMI, Normal ENT Inspection, Pharynx Normal Neck: Full Range of Motion, Normal Inspection, Non Tender, Supple, Carotid Bruit Respiratory: Chest Non Tender, Lungs Clear, Normal Breath Sounds, No Accessory Muscle Use, No Respiratory Distress Cardiovascular: Regular Rate, Rhythm, No Edema, No Gallop, No JVD, No Murmur, Normal Peripheral Pulses Gastrointestinal: Normal Bowel Sounds, No Organomegaly, No Pulsatile Mass, Non Tender, Soft Back: Normal Inspection, No CVA Tenderness, No Vertebral Tenderness Extremity: Normal Capillary Refill, Normal Inspection, Normal Range of Motion, Non Tender, No Calf Tenderness, No Pedal Edema Neurologic/Psychiatric: Alert, Oriented x3, Normal Mood/Affect, it application architect II-XII Norm as Tested, Abnormal Gait, Depressed Affect, Motor Weakness (right leg weakness) Skin: Normal Color, Warm/Dry Lymphatic: No Adenopathy Results/Procedures Lab Laboratory Tests 04/08/22 05:15 Patient resulted labs reviewed. FIM Transfers Therapy Code Descriptions/Definitions Functional [place] Measure: 0=Not Assessed/NA 4=Minimal Assistance 1=Total Assistance 5=Supervision or Setup 2=Maximal Assistance 6=Modified [place] 3=Moderate Assistance 7=Complete IndependenceSCALE: Activities may be completed with or without assistive devices. 5-Cifubzphnk-mpmhklp completes the activity by him/herself with no assistance from a helper. 5-Set-up or Clean-up Assistance-helper sets up or cleans up; patient completes activity. [place] assists only prior to or following the activity. 4-Supervision or Touching Assistance-helper provides verbal cues and/or touching/steadying and/or contact guard assistance as patient completes activity. Assistance may be provided throughout the activity or intermittently. 3-Partial/Moderate Assistance-helper does LESS THAN HALF the effort. [place] lifts, holds or supports trunk or limbs, but provides less than half the effort. 2-Substantial/Maximal Assistance-helper does MORE THAN HALF the effort. [place] lifts or holds trunk or limbs and provides more than half the effort. 0-Kmsrnytft-wflrnl does ALL the effort. Patient does none of the effort to complete the activity. Or, the assistance of 2 or more helpers is required for the patient to complete the activity. If activity was not attempted, code reason: 7-Patient Refused. 9-Not Applicable-not attempted and the patient did not perform the activity before the current illness, exacerbation or injury. 10-Not Attempted due to Environmental Limitations-(lack of equipment, weather restraints, etc.). 88-Not Attempted due to Medical Conditions or Safety Concerns. Roll Left to Right (QC): 4 Sit to Lying (QC): 1 Sit to Stand (QC): 4 Chair/Bvm-hr-Jeqzu Xfer(QC): 4 Car Transfer (QC): 2 Gait Training Does the Patient Walk?: Yes Distance: 15' Walk 10 feet (QC): 4 Walk 50 ft with 2 Turns(QC): 88 Walk 150 ft (QC): 88 Walking 10ft/uneven surface-QC: 8 Gait Persons Needed: 1 Gait Assistive Device: FWW Wheelchair Training Does the Pt Use a Wheelchair?: Yes Distance: 150 feet Wheel 50 ft with 2 turns (QC): 3 Wheel 150 ft (QC): 3 Type of Wheelchair: Manual Stair Training #of Steps: 0 1 Step (curb) (QC): 9 4 Steps (QC): 9 12 Steps (QC): 9 Balance Picking up an Object (QC): 88 ADL-Treatment Eating (QC): 5 Oral Hygiene (QC): 6 Bathing Location: L Arm, R Arm, L Upper Leg, R Upper Leg, L Lower Leg (includ ing foot), R Lower Leg (including foot), Chest, Abdomen, Perineal Area Shower/Bathe Self (QC): 3 Upper Body Dressing (QC): 5 Lower Body Dressing (QC): 2 On/Off Footwear (QC): 2 Toileting Hygiene (QC): 4 Toilet Transfer (QC): 4 Assessment/Plan Assessment and Plan Assess & Plan/Chief Complaint Assessment: Right hip fracture status post uncomplicated repair 03/30/22 Hypertension Advanced age Diabetes Postop acute blood loss anemia requiring 1 unit of blood on 04/01/22 Postop constipation Frail status Navarro cath replaced due to urinary retention now DC and voiding well on Urecholine Post op hallucinations Abnormal UA s/p Cipro until UCx revealed normal bridget Plan: ARU Pain control Monitor hgb DC Ffoley when able Aggressive PT OT 04/02/2022: Laxatives Monitor closely 04/03/2022: Laxatives and supp and SSE 04/04/2022: Voiding well Monitor constipation 04/05/2022: UTI treatment 04/06/2022: Ucx pending 04/07/2022: Supportive care DC antibiotics 04/08/2022: Monitor closely (1) Closed right hip fracture Status: Acute BARB LARSON DO Apr 08, 2022 05:22
[2022-04-08 05:49] LABS: BASOPHILS % (AUTO) 0 % (0-10); EOSINOPHILS # (AUTO) 0.3 10^3/uL (0.0-0.3); EOSINOPHILS % (AUTO) 3 % (0-10); HEMATOCRIT 28 % (35-52); HEMOGLOBIN 8.8 g/dL (11.5-16.0); LYMPHOCYTES # (AUTO) 2.5 10^3/uL (1.0-4.0); LYMPHOCYTES % (AUTO) 27 % (12-44); MEAN CORPUSCULAR HEMOGLOBIN 29 pg (25-34); MEAN CORPUSCULAR HGB CONC 32 g/dL (32-36); MEAN CORPUSCULAR VOLUME 93 fL (80-99); MEAN PLATELET VOLUME 10.2 fL (9.0-12.2); MONOCYTES # (AUTO) 0.7 10^3/uL (0.0-1.0); MONOCYTES % (AUTO) 8 % (0-12); NEUTROPHILS # (AUTO) 5.6 10^3/uL (1.8-7.8); NEUTROPHILS % (AUTO) 61 % (42-75); PLATELET COUNT 199 10^3/uL (130-400); WHITE BLOOD COUNT 9.2 10^3/uL (4.3-11.0)
[2022-04-08] MEDS: BETHANECHOL 25 MG (URECHOLINE) TAB PO SCH ×4 (05:57→21:42)
[2022-04-08 06:00] LABS: ALBUMIN 2.4 GM/DL (3.2-4.5)
[2022-04-08 06:01] LABS: POTASSIUM 4.1 MMOL/L (3.6-5.0)
[2022-04-08 06:02] LABS: CALCIUM 8.2 MG/DL (8.5-10.1)
[2022-04-08 06:03] LABS: TOTAL PROTEIN 5.3 GM/DL (6.4-8.2)
[2022-04-08 06:05] LABS: BILIRUBIN,TOTAL 0.7 MG/DL (0.1-1.0)
[2022-04-08] MEDS: inSUlin ASPART (NovoLOG) 1 UNIT/0.01 ML (CHARGE PER UNIT) SC SCH ×4 (06:05→21:49)
[2022-04-08 06:07] LABS: CREATININE SERUM 0.86 MG/DL (0.60-1.30)
[2022-04-08 07:19] VITALS: BP 169/96
[2022-04-08 07:22] VITALS: BP 154/73
[2022-04-08] MEDS: lisINopril 20 MG (PRINIVIL) TABLET PO SCH (07:53)
[2022-04-08] MEDS: TAMSULOSIN 0.4 MG (FLOMAX) CAP PO SCH ×2 (07:53→21:42)
[2022-04-08] MEDS: DOCUSATE SODIUM 100 MG (COLACE) CAP PO SCH ×2 (08:04→21:50)
[2022-04-08] MEDS: polyethylene glycoL POWDER 17 GM (MIRALAX) PACK PO SCH ×2 (08:28→21:50)
[2022-04-08] MEDS: SENNOSIDES 8.6 MG (SENOKOT) TAB PO SCH ×2 (08:29→21:50)
[2022-04-08] MEDS: ACETAMINOPHEN 325 MG TABLET PO PRN ×2 (08:38→21:41)
--- NOTE | 2022-04-08 08:45 | Occupational Ther Daily Note ---
OT Current Status-Daily Note Subjective Pt alert, sitting in recliner. Pt is oriented x4 though continues to have difficulty with initiation of tasks and problem solving through tasks. Pt agrees to therapy. C/o pain at end of session after CAMPOS asks what pain level pt is in, 07/17. Mental Status/Objective Patient Orientation: Person, Place, Time, Situation Attachments: IV ADL-Treatment Pt agrees to shower. Pt ambulated to bathroom using FWW with CGA and shuffling gait. CGA for toilet transfers using grabbars and FWW. CGA for clothing manipulation and hygiene in standing. Verbal cues to thread feet through pants to doff. Sitting on shower bench 90% of the time to take shower then min A for sit <-> standing, CGA to stand while pt cleanses buttocks/beryl area. Pt asking throughout shower if she should wash a part of the body before she started washing. Set up for upper body dressing. Min A for lower body dressing, assist only with threading feet. Mod A for footwear. Pt standing at sink to complete oral care, supervision for safety and w/c behind pt if needed. Independent with eating. After session, pt sitting in recliner with call light/phone in reach. All needs met in room. Therapy Code Descriptions/Definitions Functional [place] Measure: 0=Not Assessed/NA 4=Minimal Assistance 1=Total Assistance 5=Supervision or Setup 2=Maximal Assistance 6=Modified [place] 3=Moderate Assistance 7=Complete IndependenceSCALE: Activities may be completed with or without assistive devices. 1-Kqjtvcsxuj-ojfukev completes the activity by him/herself with no assistance from a helper. 5-Set-up or Clean-up Assistance-helper sets up or cleans up; patient completes activity. [place] assists only prior to or following the activity. 4-Supervision or Touching Assistance-helper provides verbal cues and/or touc [place]/steadying and/or contact guard assistance as patient completes activity. Assistance may be provided throughout the activity or intermittently. 3-Partial/Moderate Assistance-helper does LESS THAN HALF the effort. [place] lifts, holds or supports trunk or limbs, but provides less than half the effort. 2-Substantial/Maximal Assistance-helper does MORE THAN HALF the effort. [place] lifts or holds trunk or limbs and provides more than half the effort. 7-Yigcwggsf-fdsgdw does ALL the effort. Patient does none of the effort to complete the activity. Or, the assistance of 2 or more helpers is required for the patient to complete the activity. If activity was not attempted, code reason: 7-Patient Refused. 9-Not Applicable-not attempted and the patient did not perform the activity before the current illness, exacerbation or injury. 10-Not Attempted due to Environmental Limitations-(lack of equipment, weather restraints, etc.). 88-Not Attempted due to Medical Conditions or Safety Concerns. Eating (QC): 6 Oral Hygiene (QC): 4 Shower/Bathe Self (QC): 4 Upper Body Dressing (QC): 5 Lower Body Dressing (QC): 3 On/Off Footwear: 2 Toileting Hygiene (QC): 4 Toilet Transfer (QC): 3 OT Short Term Goals Short Term Goals Eatin Oral hygiene: 4 Toileting hygiene: 4 Shower/bathe self: 4 Upper body dressin Lower body dressin Putting on/taking off footwear: 5 OT Church History Professor Goals Church History Professor Goals Eating (QC): 6 Oral Hygiene (QC): 6 Toileting Hygiene (QC): 6 Shower/Bathe Self (QC): 6 Upper Body Dressing (QC): 6 Lower Body Dressing (QC): 6 On/Off Footwear (QC): 6 1=Demonstrate adherence to instructed precautions during ADL tasks. 2=Patient will verbalize/demonstrate understanding of assistive devices/modifications for ADL. 3=Patient will improve strength/tolerance for activity to enable patient to perform ADL's. OT Education/Plan Problem List/Assessment Assessment: Decreased Activ Tolerance, Decreased Safety Aware, Impaired Cognition, Impaired Self-Care Skills Discharge Recommendations Plan/Recommendations: Continue POC Treatment Plan/Plan of Care Patient would benefit from OT for education, treatment and training to promote independence in ADL's, mobility, safety and/or upper extremity function for ADL's. Plan of Care: ADL Retraining, Functional Mobility, Group Exercise/Act as Ind, Orthotic Fitting/Training, UE Funct Exercise/Act Treatment Duration: Apr 13, 2022 Frequency: 5 times per week Estimated Hrs Per Day: 1.5 hours per day Agreement: Yes Rehab Potential: Good Time Start Time: 07:15 Stop Time: 08:45 DATE: Apr 08, 2022 Total Time Billed (hr/min): 90 Billed Treatment Time 1 visit-ADL 6 (90 min) TOMEKA ENGLISH Apr 08, 2022 08:45
--- NOTE | 2022-04-08 11:50 | Progress Note ---
DIANDRA ESTRADA 04/08/22 1150: Progress Note Patient doing well and in good spirits Showered this morning Pain in right hip is 5/10 Last bowel movement yesterday Independent with eating SIERRA LARSON DO 04/09/22 0519: Supervisory-Addendum Brief Verification & Attestation Participated in pt care: history, MDM, physical Personally performed: exam, history, MDM, supervision of care Care discussed with: Medical Student Procedures: n/a Results interpretation: Verified all documentation Verification and Attestation of Medical Student E/M Service A medical student performed and documented this service in my presence. I reviewed and verified all information documented by the medical student and made modifications to such information, when appropriate. I personally performed the physical exam and medical decision making. Sierra Larson, Apr 09, 2022,05:19 DIANDRA ESTRADA Apr 08, 2022 11:50 SIERRA LARSON DO Apr 09, 2022 05:19
--- NOTE | 2022-04-08 12:13 | Physical Therapy Daily Note ---
PT Daily Note-Current Subjective Pt sitting in recliner upon arrival. Pt agrees to PT. Pain Numeric Pain Scale: 3 Location: Right Location Body Site: Hip Pain Description: Ache Section J - Health Conditions 1. Rarely or not at all 2. Occasionally 3. Frequently 4. Almost constantly 8. Unable to answer Pain Effect on Sleep: 1 Pain Interference with Therapy: 2 Pain Interference w/Day-to-Day: 2 Mental Status Patient Orientation: Person, Place, Situation Transfers SCALE: Activities may be completed with or without assistive devices. 3-Dlkngmbkrj-fzasqfk completes the activity by him/herself with no assistance from a helper. 5-Set-up or Clean-up Assistance-helper sets up or cleans up; patient completes activity. [place] assists only prior to or following the activity. 4-Supervision or Touching Assistance-helper provides verbal cues and/or touching/steadying and/or contact guard assistance as patient completes activity. Assistance may be provided throughout the activity or intermittently. 3-Partial/Moderate Assistance-helper does LESS THAN HALF the effort. [place] lifts, holds or supports trunk or limbs, but provides less than half the effort. 2-Substantial/Maximal Assistance-helper does MORE THAN HALF the effort. [place] lifts or holds trunk or limbs and provides more than half the effort. 1-Jomwjbfwd-stbgyv does ALL the effort. Patient does none of the effort to complete the activity. Or, the assistance of 2 or more helpers is required for the patient to complete the activity. If activity was not attempted, code reason: 7-Patient Refused. 9-Not Applicable-not attempted and the patient did not perform the activity before the current illness, exacerbation or injury. 10-Not Attempted due to Environmental Limitations-(lack of equipment, weather restraints, etc.). 88-Not Attempted due to Medical Conditions or Safety Concerns. Sit to Stand (QC): 5 Weight Bearing Right Lower Extremity: Right Weight Bearing/Tolerated Left Lower Extremity: Left Full Weight Bearing Gait Training Does the Patient Walk?: Yes Distance: 40', 50', 35' Walk 10 feet (QC): 4 Walk 50 ft with 2 Turns(QC): 4 Gait Persons Needed: 1 Gait Assistive Device: FWW Antalgic gait pattern that is more apparent as pt fatigues Wheelchair Training Does the Pt Use a Wheelchair?: Yes Type of Wheelchair: Manual Exercises Seated Therapy Exercises: Ankle pumps, Long arc quads, Hip flexion, Hip abd/add, Glut set Seated Reps: 15 Treatments Pt completes Seated EX before TF to standing. Pt amb. in hallway w/several RB as needed for fatigue and discomfort. Pt rests in H after fatigue from walking. Pt practices [facility] mobility w/focus on turns and activity tolerance. Pt returns to room to rest in recliner at end of tx. All needs met, call light in hand. Assessment Current Status: Good Progress Pt improving w/distance amb. Pt still needs VC for sequencing and proper posture. PT Short Term Goals Short Term Goals Time Frame: Apr 13, 2022 Roll Left & Right: 3 Sit to lyin Lying to sitting on side of be: 3 Sit to stand: 3 Chair/fdz-vy-bskaw transfer: 3 Toilet transfer: 3 Walk 10 feet: 3 PT Car Retarder Operator Goals Car Retarder Operator Goals PT Assisted Goals Time Frame: May 04, 2022 Roll Left & Right (QC): 5 Sit to Lying (QC): 5 Lying-Sitting on Side/Bed(QC): 5 Sit to Stand (QC): 5 Chair/Vue-sr-Unguw Xfer(QC): 5 Toilet Transfer (QC): 5 Car Transfer (QC): 5 Does the Patient Walk: Yes Walk 10 feet (QC): 4 Walk 50ft with 2 Turns (QC): 4 Walk 150 ft (QC): 4 Walking 10ft on Uneven Surface: 4 1 Step (curb) (QC): 3 4 Steps (QC): 9 12 Steps (QC): 9 Picking up an Object (QC): 4 Does the Pt use WC or Scooter?: Yes Wheel 50 feet with 2 turns (QC: 6 Type: Manual Wheel 150 feet: 6 Type: Manual PT Plan Problem List Problem List: Activity Tolerance, Gait Treatment/Plan Treatment Plan: Continue Plan of Care Treatment Plan: Bed Mobility, Education, Functional Activity Norah, Functional Strength, Group Therapy, Gait, Safety, Therapeutic Exercise, Transfers Treatment Duration: May 07, 2022 Frequency: At least 5 of 7 days/Wk (IRF) Estimated Hrs Per Day: 1.5 hours per day Patient and/or Family Agrees t: Yes Safety Risks/Education Patient Education: Gait Training, Correct Positioning, W/C Management, Safety Issues Teaching Recipient: Patient Teaching Methods: Discussion Response to Teaching: Verbalize Understanding Time Time In: 900 Time Out: 1000 DATE: Apr 08, 2022 Total Billed Treatment Time: 60 Total Billed Treatment 1, GT x2 (30m), [facility] (15m) & FA (15m) SWATI [place] SE[place]AL CLERK Apr 08, 2022 12:13
--- NOTE | 2022-04-08 13:57 | Physical Therapy Daily Note ---
PT Daily Note-Current Subjective Patient in recliner pre tx, agrees to PT, has 6/10 pain in right hip. Pain Section J - Health Conditions 1. Rarely or not at all 2. Occasionally 3. Frequently 4. Almost constantly 8. Unable to answer Pain Effect on Sleep: 1 Pain Interference with Therapy: 2 Pain Interference w/Day-to-Day: 2 Appearance Patient in bed post tx with nurse call, phone, tray, all needs met, bed alarm on. Mental Status Patient Orientation: Person, Confused, Place, Situation Transfers SCALE: Activities may be completed with or without assistive devices. 6-Ddwtnhihhj-mprwvap completes the activity by him/herself with no assistance from a helper. 5-Set-up or Clean-up Assistance-helper sets up or cleans up; patient completes activity. [place] assists only prior to or following the activity. 4-Supervision or Touching Assistance-helper provides verbal cues and/or touching/steadying and/or contact guard assistance as patient completes activity. Assistance may be provided throughout the activity or intermittently. 3-Partial/Moderate Assistance-helper does LESS THAN HALF the effort. [place] lifts, holds or supports trunk or limbs, but provides less than half the effort. 2-Substantial/Maximal Assistance-helper does MORE THAN HALF the effort. [place] lifts or holds trunk or limbs and provides more than half the effort. 4-Sbvtssrwa-xissda does ALL the effort. Patient does none of the effort to complete the activity. Or, the assistance of 2 or more helpers is required for the patient to complete the activity. If activity was not attempted, code reason: 7-Patient Refused. 9-Not Applicable-not attempted and the patient did not perform the activity before the current illness, exacerbation or injury. 10-Not Attempted due to Environmental Limitations-(lack of equipment, weather restraints, etc.). 88-Not Attempted due to Medical Conditions or Safety Concerns. Roll Left & Right (QC): 3 Sit to Lying (QC): 3 Sit to Stand (QC): 4 Chair/Fyv-hu-Geiif Xfer(QC): 4 Weight Bearing Right Lower Extremity: Right Weight Bearing/Tolerated Left Lower Extremity: Left Full Weight Bearing Gait Training Distance: 50'x4 Walk 10 feet (QC): 4 Walk 50 ft with 2 Turns(QC): 4 Gait Persons Needed: 1 Gait Assistive Device: FWW very slow ambulation, antalgic, has a significant limp, poor step through Treatments bed mobility and transfers, ambulation Assessment Current Status: Fair Progress slowly improving general mobility PT Short Term Goals Short Term Goals Time Frame: Apr 13, 2022 Roll Left & Right: 3 Sit to lyin Lying to sitting on side of be: 3 Sit to stand: 3 Chair/khi-wn-kbrwg transfer: 3 Toilet transfer: 3 Walk 10 feet: 3 PT Halfway Goals Clerical Administrator Goals PT Halfway Goals Time Frame: May 04, 2022 Roll Left & Right (QC): 5 Sit to Lying (QC): 5 Lying-Sitting on Side/Bed(QC): 5 Sit to Stand (QC): 5 Chair/Fbk-mt-Yuglr Xfer(QC): 5 Toilet Transfer (QC): 5 Car Transfer (QC): 5 Does the Patient Walk: Yes Walk 10 feet (QC): 4 Walk 50ft with 2 Turns (QC): 4 Walk 150 ft (QC): 4 Walking 10ft on Uneven Surface: 4 1 Step (curb) (QC): 3 4 Steps (QC): 9 12 Steps (QC): 9 Picking up an Object (QC): 4 Does the Pt use WC or Scooter?: Yes Wheel 50 feet with 2 turns (QC: 6 Type: Manual Wheel 150 feet: 6 Type: Manual PT Plan Problem List Problem List: Activity Tolerance, Functional Strength, Safety, Balance, Gait, Transfer, Bed Mobility, ROM Treatment/Plan Treatment Plan: Continue Plan of Care Treatment Plan: Bed Mobility, Education, Functional Activity Norah, Functional Strength, Group Therapy, Gait, Safety, Therapeutic Exercise, Transfers Treatment Duration: May 07, 2022 Frequency: At least 5 of 7 days/Wk (IRF) Estimated Hrs Per Day: 1.5 hours per day Patient and/or Family Agrees t: Yes Safety Risks/Education Patient Education: Gait Training, Transfer Techniques, Correct Positioning, Safety Issues Teaching Recipient: Patient Teaching Methods: Demonstration, Discussion Response to Teaching: Reinforcement Needed Time Time In: 1330 Time Out: 1400 DATE: Apr 08, 2022 Total Billed Treatment Time: 30 Total Billed Treatment 1 visit GT 30' TINO STAUFFER PT Apr 08, 2022 13:57
[2022-04-08 20:07] VITALS: BP 145/54
[2022-04-09] MEDS: inSUlin ASPART (NovoLOG) 1 UNIT/0.01 ML (CHARGE PER UNIT) SC SCH ×4 (06:09→20:45)
--- NOTE | 2022-04-09 06:30 | PM&R Progress Note ---
Subjective HPI/CC On Admission Date Seen by Provider: Apr 09, 2022 Time Seen by Provider: 08:30 04/04/2022: Doing well Lethargic from Ativan Pain controlled Voiding well now on Urecholine 04/03/2022: No major issues reported Less confusion Memory is poor overall Pain controlled No BM yet so ordered supp and SSE 04/02/2022: Doing well No pain except hip Rested well last night Labs reviewed No other issues No BM yet so aggressive laxatives ordered Subjective/Events-last exam 04/09/2022: Doing well Pain improved No falls Working with PT 04/08/2022: Much improved status Moving around pretty well No pain reported when she is sitting 04/07/2022: Patient doing well improved lucidity Supportive care will continue Monitoring closely 04/06/2022: No major issues Confusion at night Likely baseline dementia then acute issue brought to surface 04/05/2022: Doing well Improved status Pain controlled UTI treatment will be initiated 04/04/2022: No major issues Lethargy improved No pain reported 04/03/2022: No major issues reported Less confusion Memory is poor overall Pain controlled No BM yet so ordered supp and SSE 04/02/2022: Doing well No pain except hip Rested well last night Labs reviewed No other issues No BM yet so aggressive laxatives ordered Review of Systems General: Fatigue, Malaise Objective Exam Vital Signs Vital Signs Date Time Temp Pulse Resp B/P (MAP) Pulse Ox O2 Delivery O2 Flow Rate FiO2 04/09/22 18:49 96 Room Air 04/09/22 07:51 36.2 75 16 116/57 (76) 0.00 0.00 04/05/22 00:48 21 Capillary Refill : General Appearance: No Apparent Distress, WD/WN, Chronically ill HEENT: PERRL/EOMI, Normal ENT Inspection, Pharynx Normal Neck: Full Range of Motion, Normal Inspection, Non Tender, Supple, Carotid Bruit Respiratory: Chest Non Tender, Lungs Clear, Normal Breath Sounds, No Accessory Muscle Use, No Respiratory Distress Cardiovascular: Regular Rate, Rhythm, No Edema, No Gallop, No JVD, No Murmur, Normal Peripheral Pulses Gastrointestinal: Normal Bowel Sounds, No Organomegaly, No Pulsatile Mass, Non Tender, Soft Back: Normal Inspection, No CVA Tenderness, No Vertebral Tenderness Extremity: Normal Capillary Refill, Normal Inspection, Normal Range of Motion, Non Tender, No Calf Tenderness, No Pedal Edema Neurologic/Psychiatric: Alert, Oriented x3, Normal Mood/Affect, mold puller II-XII Norm as Tested, Abnormal Gait, Depressed Affect, Motor Weakness (right leg weakness) Skin: Normal Color, Warm/Dry Lymphatic: No Adenopathy Results/Procedures Lab Patient resulted labs reviewed. FIM Transfers Therapy Code Descriptions/Definitions Functional [place] Measure: 0=Not Assessed/NA 4=Minimal Assistance 1=Total Assistance 5=Supervision or Setup 2=Maximal Assistance 6=Modified [place] 3=Moderate Assistance 7=Complete IndependenceSCALE: Activities may be completed with or without assistive devices. 0-Jzppdovape-jarajdm completes the activity by him/herself with no assistance from a helper. 5-Set-up or Clean-up Assistance-helper sets up or cleans up; patient completes activity. [place] assists only prior to or following the activity. 4-Supervision or Touching Assistance-helper provides verbal cues and/or touching/steadying and/or contact guard assistance as patient completes activity. Assistance may be provided throughout the activity or intermittently. 3-Partial/Moderate Assistance-helper does LESS THAN HALF the effort. [place] lifts, holds or supports trunk or limbs, but provides less than half the effort. 2-Substantial/Maximal Assistance-helper does MORE THAN HALF the effort. [place] lifts or holds trunk or limbs and provides more than half the effort. 2-Ygffxcets-rovibn does ALL the effort. Patient does none of the effort to complete the activity. Or, the assistance of 2 or more helpers is required for the patient to complete the activity. If activity was not attempted, code reason: 7-Patient Refused. 9-Not Applicable-not attempted and the patient did not perform the activity before the current illness, exacerbation or injury. 10-Not Attempted due to Environmental Limitations-(lack of equipment, weather restraints, etc.). 88-Not Attempted due to Medical Conditions or Safety Concerns. Roll Left to Right (QC): 3 Sit to Lying (QC): 3 Sit to Stand (QC): 4 Chair/Kcg-um-Aisex Xfer(QC): 4 Car Transfer (QC): 2 Gait Training Does the Patient Walk?: Yes Distance: 50'x4 Walk 10 feet (QC): 4 Walk 50 ft with 2 Turns(QC): 4 Walk 150 ft (QC): 88 Walking 10ft/uneven surface-QC: 8 Gait Persons Needed: 1 Gait Assistive Device: FWW Wheelchair Training Does the Pt Use a Wheelchair?: Yes Distance: 150 feet Wheel 50 ft with 2 turns (QC): 3 Wheel 150 ft (QC): 3 Type of Wheelchair: Manual Stair Training #of Steps: 0 1 Step (curb) (QC): 9 4 Steps (QC): 9 12 Steps (QC): 9 Balance Picking up an Object (QC): 88 ADL-Treatment Eating (QC): 6 Oral Hygiene (QC): 4 Bathing Location: L Arm, R Arm, L Upper Leg, R Upper Leg, L Lower Leg (including foot), R Lower Leg (including foot), Chest, Abdomen, Perineal Area Shower/Bathe Self (QC): 4 Upper Body Dressing (QC): 5 Lower Body Dressing (QC): 3 On/Off Footwear (QC): 2 Toileting Hygiene (QC): 4 Toilet Transfer (QC): 3 Assessment/Plan Assessment and Plan Assess & Plan/Chief Complaint Assessment: Right hip fracture status post uncomplicated repair 03/30/22 Hypertension Advanced age Diabetes Postop acute blood loss anemia requiring 1 unit of blood on 04/01/22 Postop constipation Frail status Navarro cath replaced due to urinary retention now DC and voiding well on Urecholine Post op hallucinations Abnormal UA s/p Cipro until UCx revealed normal bridget Plan: ARU Pain control Monitor hgb DC Ffoley when able Aggressive PT OT 04/02/2022: Laxatives Monitor closely 04/03/2022: Laxatives and supp and SSE 04/04/2022: Voiding well Monitor constipation 04/05/2022: UTI treatment 04/06/2022: Ucx pending 04/07/2022: Supportive care DC antibiotics 04/08/2022: Monitor closely 04/09/2022: Restart Lovenox (1) Closed right hip fracture Status: Acute BARB LARSON DO Apr 09, 2022 06:30
[2022-04-09] MEDS: BETHANECHOL 25 MG (URECHOLINE) TAB PO SCH ×4 (06:45→20:37)
[2022-04-09 07:40] VITALS: BP 116/57
[2022-04-09 07:51] VITALS: BP 116/57
[2022-04-09] MEDS: TAMSULOSIN 0.4 MG (FLOMAX) CAP PO SCH ×2 (08:11→20:37)
[2022-04-09] MEDS: lisINopril 20 MG (PRINIVIL) TABLET PO SCH (08:11)
[2022-04-09] MEDS: ACETAMINOPHEN 325 MG TABLET PO PRN ×2 (08:12→20:38)
[2022-04-09] MEDS: DOCUSATE SODIUM 100 MG (COLACE) CAP PO SCH ×2 (08:13→20:45)
[2022-04-09] MEDS: SENNOSIDES 8.6 MG (SENOKOT) TAB PO SCH ×2 (08:13→20:45)
[2022-04-09] MEDS: polyethylene glycoL POWDER 17 GM (MIRALAX) PACK PO SCH ×2 (08:13→20:45)
--- NOTE | 2022-04-09 08:37 | Occupational Ther Daily Note ---
OT Current Status-Daily Note Subjective Pt alert, sitting in recliner. Pt agrees to therapy. Pt c/o pain from yesterday, but did not have pain this am. Pt asked if she was going to walk a lot today because she hurt a lot yesterday after therapies. CAMPOS encouraged pt to walk as much as she can, educating pt that she will be walking around her home when she discharges. Pt agrees, CAMPOS also let pt know that she can verbalize when she needs to sit down and let the therapists know. Mental Status/Objective Patient Orientation: Person, Confused, Place, Time, Situation ADL-Treatment Eating independent. Pt requests sponge bath. Pt ambulated to toilet with CGA for safety, cues for correct gait and FWW positioning. SBA for toileting. Pt sitting at sink to complete sponge bath, SBA only when standing to cleanse beryl area/buttocks. Independent with oral care sitting at sink. Pt takes increased time due to vision difficulties and anxiety over sequence in different environment from home. Set up for upper body dressing. Pt able to hike pants over hips by self (SBA), assist verbal and physical cues to thread over feet. Pt educated on AE for lower body dressing though seems to increase anxiety and confusion when using equipment to don/doff pants. Pt requires verbal cues to work through sequence when obstacles happen during threading feet into pant legs. Education on using sock aide to don socks, continued education needed due to pt's anxiety and visual difficulty. After session, pt sitting in recliner with call light/phone in reach. All needs met in room. Therapy Code Descriptions/Definitions Functional [place] Measure: 0=Not Assessed/NA 4=Minimal Assistance 1=Total Assistance 5=Supervision or Setup 2=Maximal Assistance 6=Modified [place] 3=Moderate Assistance 7=Complete IndependenceSCALE: Activities may be completed with or without assistive devices. 6-Nyvuxxfdpk-xpageaw completes the activity by him/herself with no assistance from a helper. 5-Set-up or Clean-up Assistance-helper sets up or cleans up; patient completes activity. [place] assists only prior to or following the activity. 4-Supervision or Touching Assistance-helper provides verbal cues and/or touching/steadying and/or contact guard assistance as patient completes activity. Assistance may be provided throughout the activity or intermittently. 3-Partial/Moderate Assistance-helper does LESS THAN HALF the effort. [place] lifts, holds or supports trunk or limbs, but provides less than half the effort. 2-Substantial/Maximal Assistance-helper does MORE THAN HALF the effort. [place] lifts or holds trunk or limbs and provides more than half the effort. 9-Tbyonpoko-xqwvec does ALL the effort. Patient does none of the effort to complete the activity. Or, the assistance of 2 or more helpers is required for the patient to complete the activity. If activity was not attempted, code reason: 7-Patient Refused. 9-Not Applicable-not attempted and the patient did not perform the activity before the current illness, exacerbation or injury. 10-Not Attempted due to Environmental Limitations-(lack of equipment, weather restraints, etc.). 88-Not Attempted due to Medical Conditions or Safety Concerns. Eating (QC): 6 Oral Hygiene (QC): 6 Upper Body Dressing (QC): 5 Lower Body Dressing (QC): 2 On/Off Footwear: 2 Toileting Hygiene (QC): 4 Toilet Transfer (QC): 4 OT Short Term Goals Short Term Goals Eatin Oral hygiene: 4 Toileting hygiene: 4 Shower/bathe self: 4 Upper body dressin Lower body dressin Putting on/taking off footwear: 5 OT Woven Paper Hat Mender Goals Woven Paper Hat Mender Goals Eating (QC): 6 Oral Hygiene (QC): 6 Toileting Hygiene (QC): 6 Shower/Bathe Self (QC): 6 Upper Body Dressing (QC): 6 Lower Body Dressing (QC): 6 On/Off Footwear (QC): 6 1=Demonstrate adherence to instructed precautions during ADL tasks. 2=Patient will verbalize/demonstrate understanding of assistive devic es/modifications for ADL. 3=Patient will improve strength/tolerance for activity to enable patient to perform ADL's. OT Education/Plan Problem List/Assessment Assessment: Decreased Activ Tolerance, Impaired Cognition, Impaired Self-Care Skills, Visual-Perceptual Deficit Discharge Recommendations Plan/Recommendations: Continue POC Treatment Plan/Plan of Care Patient would benefit from OT for education, treatment and training to promote independence in ADL's, mobility, safety and/or upper extremity function for ADL's. Plan of Care: ADL Retraining, Functional Mobility, Group Exercise/Act as Ind, Orthotic Fitting/Training, UE Funct Exercise/Act Treatment Duration: Apr 13, 2022 Frequency: 5 times per week Estimated Hrs Per Day: 1.5 hours per day Agreement: Yes Rehab Potential: Good Time Start Time: 07:15 Stop Time: 08:45 DATE: Apr 09, 2022 Total Time Billed (hr/min): 90 Billed Treatment Time 1 visit-ADL 6 (90 min) TOMEKA ENGLISH Apr 09, 2022 08:37
[2022-04-09] MEDS: ENOXAPARIN 40 MG/0.4 ML (LOVENOX) SYR SC SCH (09:56)
[2022-04-09] MEDS: IRON SUCROSE 200 MG/10 ML (VENOFER) VIAL IV SCH (09:59)
--- NOTE | 2022-04-09 10:02 | Physical Therapy Daily Note ---
PT Daily Note-Current Subjective Pt sitting in recliner upon arrival. Pt agrees to PT. Pt reports feeling a little sore overnight and today. Pain Numeric Pain Scale: 5-Moderate Pain Location: Right Location Body Site: Hip Pain Description: Ache Section J - Health Conditions 1. Rarely or not at all 2. Occasionally 3. Frequently 4. Almost constantly 8. Unable to answer Pain Effect on Sleep: 1 Pain Interference with Therapy: 2 Pain Interference w/Day-to-Day: 2 Mental Status Patient Orientation: Person, Place, Situation Transfers SCALE: Activities may be completed with or without assistive devices. 9-Zaavjfzblc-vplkyvs completes the activity by him/herself with no assistance from a helper. 5-Set-up or Clean-up Assistance-helper sets up or cleans up; patient completes activity. [place] assists only prior to or following the activity. 4-Supervision or Touching Assistance-helper provides verbal cues and/or touching/steadying and/or contact guard assistance as patient completes activity. Assistance may be provided throughout the activity or intermittently. 3-Partial/Moderate Assistance-helper does LESS THAN HALF the effort. [place] lifts, holds or supports trunk or limbs, but provides less than half the effort. 2-Substantial/Maximal Assistance-helper does MORE THAN HALF the effort. [place] lifts or holds trunk or limbs and provides more than half the effort. 8-Nxkxoubem-zdjdus does ALL the effort. Patient does none of the effort to complete the activity. Or, the assistance of 2 or more helpers is required for the patient to complete the activity. If activity was not attempted, code reason: 7-Patient Refused. 9-Not Applicable-not attempted and the patient did not perform the activity before the current illness, exacerbation or injury. 10-Not Attempted due to Environmental Limitations-(lack of equipment, weather restraints, etc.). 88-Not Attempted due to Medical Conditions or Safety Concerns. Sit to Stand (QC): 5 Toilet Transfer (QC): 5 Weight Bearing Right Lower Extremity: Right Weight Bearing/Tolerated Left Lower Extremity: Left Full Weight Bearing Gait Training Does the Patient Walk?: Yes Distance: 80', 40' x2 Walk 10 feet (QC): 4 Walk 50 ft with 2 Turns(QC): 4 Gait Persons Needed: 1 Gait Assistive Device: FWW Wheelchair Training Does the Pt Use a Wheelchair?: Yes Type of Wheelchair: Manual Exercises Seated Therapy Exercises: Ankle pumps, Long arc quads, Hip flexion, Glut set Seated Reps: 15 Treatments TF to standing and amb. in hallway taking RB a few times as needed for fatigue & pain. Pt completes Seated EX before wheeling back to room. Pt uses BR then returns to recliner to rest. All needs met, call light in hand. Assessment Current Status: Good Progress Pt is amb. farther before needing to rest, reporting less pain & less quickly as well as walking w/quicker maverick. 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 PT Detention Goals Time Frame: May 04, 2022 Roll Left & Right (QC): 5 Sit to Lying (QC): 5 Lying-Sitting on Side/Bed(QC): 5 Sit to Stand (QC): 5 Chair/Icc-iu-Pkyfi Xfer(QC): 5 Toilet Transfer (QC): 5 Car Transfer (QC): 5 Does the Patient Walk: Yes Walk 10 feet (QC): 4 Walk 50ft with 2 Turns (QC): 4 Walk 150 ft (QC): 4 Walking 10ft on Uneven Surface: 4 1 Step (curb) (QC): 3 4 Steps (QC): 9 12 Steps (QC): 9 Picking up an Object (QC): 4 Does the Pt use WC or Scooter?: Yes Wheel 50 feet with 2 turns (QC: 6 Type: Manual Wheel 150 feet: 6 Type: Manual PT Plan Problem List Problem List: Activity Tolerance, Gait Treatment/Plan Treatment Plan: Continue Plan of Care Treatment Plan: Bed Mobility, Education, Functional Activity Norah, Functional Strength, Group Therapy, Gait, Safety, Therapeutic Exercise, Transfers Treatment Duration: May 07, 2022 Frequency: At least 5 of 7 days/Wk (IRF) Estimated Hrs Per Day: 1.5 hours per day Patient and/or Family Agrees t: Yes Safety Risks/Education Patient Education: Gait Training Teaching Recipient: Patient Teaching Methods: Discussion Response to Teaching: Verbalize Understanding Time Time In: 900 Time Out: 1000 DATE: Apr 09, 2022 Total Billed Treatment Time: 60 Total Billed Treatment 1, GT x2 (30m), FA (15m) & WCH (15m) SWATI [employer]ER Apr 09, 2022 10:02
--- NOTE | 2022-04-09 13:31 | Physical Therapy Daily Note ---
PT Daily Note-Current Subjective Pt sitting in recliner upon arrival. Pt agrees to PT. Pt asks to lay down at end of tx. Pain Numeric Pain Scale: 5-Moderate Pain Location: Right Location Body Site: Hip Pain Description: Ache Section J - Health Conditions 1. Rarely or not at all 2. Occasionally 3. Frequently 4. Almost constantly 8. Unable to answer Pain Effect on Sleep: 1 Pain Interference with Therapy: 2 Pain Interference w/Day-to-Day: 2 Mental Status Patient Orientation: Person, Place, Situation Transfers SCALE: Activities may be completed with or without assistive devices. 6-Qpmijmlyih-hpyaxuu completes the activity by him/herself with no assistance from a helper. 5-Set-up or Clean-up Assistance-helper sets up or cleans up; patient completes activity. [place] assists only prior to or following the activity. 4-Supervision or Touching Assistance-helper provides verbal cues and/or touching/steadying and/or contact guard assistance as patient completes activity. Assistance may be provided throughout the activity or intermittently. 3-Partial/Moderate Assistance-helper does LESS THAN HALF the effort. [place] lifts, holds or supports trunk or limbs, but provides less than half the effort. 2-Substantial/Maximal Assistance-helper does MORE THAN HALF the effort. [place] lifts or holds trunk or limbs and provides more than half the effort. 3-Vmmtougze-zzhvfa does ALL the effort. Patient does none of the effort to complete the activity. Or, the assistance of 2 or more helpers is required for the patient to complete the activity. If activity was not attempted, code reason: 7-Patient Refused. 9-Not Applicable-not attempted and the patient did not perform the activity before the current illness, exacerbation or injury. 10-Not Attempted due to Environmental Limitations-(lack of equipment, weather restraints, etc.). 88-Not Attempted due to Medical Conditions or Safety Concerns. Sit to Lying (QC): 4 Sit to Stand (QC): 4 Weight Bearing Right Lower Extremity: Right Weight Bearing/Tolerated Left Lower Extremity: Left Full Weight Bearing Exercises Supine Ex: Ankle pumps, Quad Set, Glut sets, Heel Slides, Straight leg raise, Hip abd/add Supine Reps: 15 Treatments TF to standing and TF to EOB then to Supine for EX then rest. All needs met, call light in hand. Assessment Current Status: Fair Progress Pt fatigued this afternoon. PT Short Term Goals Short Term Goals Time Frame: Apr 13, 2022 Roll Left & Right: 3 Sit to lyin Lying to sitting on side of be: 3 Sit to stand: 3 Chair/dpb-so-euctt transfer: 3 Toilet transfer: 3 Walk 10 feet: 3 PT Snf Goals Snf Goals PT Snf Goals Time Frame: May 04, 2022 Roll Left & Right (QC): 5 Sit to Lying (QC): 5 Lying-Sitting on Side/Bed(QC): 5 Sit to Stand (QC): 5 Chair/Dcp-yv-Tlisc Xfer(QC): 5 Toilet Transfer (QC): 5 Car Transfer (QC): 5 Does the Patient Walk: Yes Walk 10 feet (QC): 4 Walk 50ft with 2 Turns (QC): 4 Walk 150 ft (QC): 4 Walking 10ft on Uneven Surface: 4 1 Step (curb) (QC): 3 4 Steps (QC): 9 12 Steps (QC): 9 Picking up an Object (QC): 4 Does the Pt use WC or Scooter?: Yes Wheel 50 feet with 2 turns (QC: 6 Type: Manual Wheel 150 feet: 6 Type: Manual PT Plan Problem List Problem List: Activity Tolerance Treatment/Plan Treatment Plan: Continue Plan of Care Treatment Plan: Bed Mobility, Education, Functional Activity Norah, Functional Strength, Group Therapy, Gait, Safety, Therapeutic Exercise, Transfers Treatment Duration: May 07, 2022 Frequency: At least 5 of 7 days/Wk (IRF) Estimated Hrs Per Day: 1.5 hours per day Patient and/or Family Agrees t: Yes Time Time In: 1300 Time Out: 1330 DATE: Apr 09, 2022 Total Billed Treatment Time: 30 Total Billed Treatment 1, EX x2 (30m) SWATI [employer]ANT Apr 09, 2022 13:31
[2022-04-09 19:52] VITALS: BP 144/65
--- NOTE | 2022-04-10 04:58 | PM&R Progress Note ---
Subjective HPI/CC On Admission Date Seen by Provider: Apr 10, 2022 Time Seen by Provider: 08:30 04/04/2022: Doing well Lethargic from Ativan Pain controlled Voiding well now on Urecholine 04/03/2022: No major issues reported Less confusion Memory is poor overall Pain controlled No BM yet so ordered supp and SSE 04/02/2022: Doing well No pain except hip Rested well last night Labs reviewed No other issues No BM yet so aggressive laxatives ordered Subjective/Events-last exam 04/10/2022: Improved overall High risk for skilled Daughters will look after her af DC Pain controlled 04/09/2022: Doing well Pain improved No falls Working with PT 04/08/2022: Much improved status Moving around pretty well No pain reported when she is sitting 04/07/2022: Patient doing well improved lucidity Supportive care will continue Monitoring closely 04/06/2022: No major issues Confusion at night Likely baseline dementia then acute issue brought to surface 04/05/2022: Doing well Improved status Pain controlled UTI treatment will be initiated 04/04/2022: No major issues Lethargy improved No pain reported 04/03/2022: No major issues reported Less confusion Memory is poor overall Pain controlled No BM yet so ordered supp and SSE 04/02/2022: Doing well No pain except hip Rested well last night Labs reviewed No other issues No BM yet so aggressive laxatives ordered Review of Systems General: Fatigue, Malaise Musculoskeletal: leg pain Objective Exam Vital Signs Vital Signs Date Time Temp Pulse Resp B/P (MAP) Pulse Ox O2 Delivery O2 Flow Rate FiO2 04/10/22 20:55 Room Air 04/10/22 19:55 36.5 78 18 116/56 (76) 96 04/09/22 07:51 0.00 0.00 04/05/22 00:48 21 Capillary Refill : General Appearance: No Apparent Distress, WD/WN, Chronically ill HEENT: PERRL/EOMI, Normal ENT Inspection, Pharynx Normal Neck: Full Range of Motion, Normal Inspection, Non Tender, Supple, Carotid Bruit Respiratory: Chest Non Tender, Lungs Clear, Normal Breath Sounds, No Accessory Muscle Use, No Respiratory Distress Cardiovascular: Regular Rate, Rhythm, No Edema, No Gallop, No JVD, No Murmur, Normal Peripheral Pulses Gastrointestinal: Normal Bowel Sounds, No Organomegaly, No Pulsatile Mass, Non Tender, Soft Back: Normal Inspection, No CVA Tenderness, No Vertebral Tenderness Extremity: Normal Capillary Refill, Normal Inspection, Normal Range of Motion, Non Tender, No Calf Tenderness, No Pedal Edema Neurologic/Psychiatric: Alert, Oriented x3, Normal Mood/Affect, 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 FIM Transfers Therapy Code Descriptions/Definitions Functional [place] Measure: 0=Not Assessed/NA 4=Minimal Assistance 1=Total Assistance 5=Supervision or Setup 2=Maximal Assistance 6=Modified [place] 3=Moderate Assistance 7=Complete IndependenceSCALE: Activities may be completed with or without assistive devices. 6-Hzaniipcsl-pjgmorh completes the activity by him/herself with no assistance f rom a helper. 5-Set-up or Clean-up Assistance-helper sets up or cleans up; patient completes activity. [place] assists only prior to or following the activity. 4-Supervision or Touching Assistance-helper provides verbal cues and/or touching/steadying and/or contact guard assistance as patient completes activity. Assistance may be provided throughout the activity or intermittently. 3-Partial/Moderate Assistance-helper does LESS THAN HALF the effort. [place] lifts, holds or supports trunk or limbs, but provides less than half the effort. 2-Substantial/Maximal Assistance-helper does MORE THAN HALF the effort. [place] lifts or holds trunk or limbs and provides more than half the effort. 5-Lyxcpwhlu-rhnogr does ALL the effort. Patient does none of the effort to complete the activity. Or, the assistance of 2 or more helpers is required for the patient to complete the activity. If activity was not attempted, code reason: 7-Patient Refused. 9-Not Applicable-not attempted and the patient did not perform the activity before the current illness, exacerbation or injury. 10-Not Attempted due to Environmental Limitations-(lack of equipment, weather restraints, etc.). 88-Not Attempted due to Medical Conditions or Safety Concerns. Roll Left to Right (QC): 3 Sit to Lying (QC): 4 Sit to Stand (QC): 4 Chair/Azz-am-Vhfiw Xfer(QC): 4 Car Transfer (QC): 2 Gait Training Does the Patient Walk?: Yes Distance: 80', 40' x2 Walk 10 feet (QC): 4 Walk 50 ft with 2 Turns(QC): 4 Walk 150 ft (QC): 88 Walking 10ft/uneven surface-QC: 8 Gait Persons Needed: 1 Gait Assistive Device: FWW Wheelchair Training Does the Pt Use a Wheelchair?: Yes Distance: 150 feet Wheel 50 ft with 2 turns (QC): 3 Wheel 150 ft (QC): 3 Type of Wheelchair: Manual Stair Training #of Steps: 0 1 Step (curb) (QC): 9 4 Steps (QC): 9 12 Steps (QC): 9 Balance Picking up an Object (QC): 88 ADL-Treatment Eating (QC): 6 Oral Hygiene (QC): 6 Bathing Location: L Arm, R Arm, L Upper Leg, R Upper Leg, L Lower Leg (including foot), R Lower Leg (including foot), Chest, Abdomen, Perineal Area Shower/Bathe Self (QC): 4 Upper Body Dressing (QC): 5 Lower Body Dressing (QC): 2 On/Off Footwear (QC): 2 Toileting Hygiene (QC): 4 Toilet Transfer (QC): 4 Assessment/Plan Assessment and Plan Assess & Plan/Chief Complaint Assessment: Right hip fracture status post uncomplicated repair 03/30/22 Hypertension Advanced age Diabetes Postop acute blood loss anemia requiring 1 unit of blood on 04/01/22 Postop constipation Frail status Navarro cath replaced due to urinary retention now DC and voiding well on Urecholine Post op hallucinations Abnormal UA s/p Cipro until UCx revealed normal bridget Plan: ARU Pain control Monitor hgb DC Ffoley when able Aggressive PT OT 04/02/2022: Laxatives Monitor closely 04/03/2022: Laxatives and supp and SSE 04/04/2022: Voiding well Monitor constipation 04/05/2022: UTI treatment 04/06/2022: Ucx pending 04/07/2022: Supportive care DC antibiotics 04/08/2022: Monitor closely 04/09/2022: Restart Lovenox 04/10/2022: Monitoring closely (1) Closed right hip fracture Status: Acute BARB LARSON DO Apr 10, 2022 04:58
[2022-04-10] MEDS: inSUlin ASPART (NovoLOG) 1 UNIT/0.01 ML (CHARGE PER UNIT) SC SCH ×4 (06:21→20:39)
[2022-04-10] MEDS: BETHANECHOL 25 MG (URECHOLINE) TAB PO SCH ×4 (06:21→20:39)
[2022-04-10 07:40] VITALS: BP 147/53
[2022-04-10] MEDS: TAMSULOSIN 0.4 MG (FLOMAX) CAP PO SCH ×2 (07:51→20:39)
[2022-04-10] MEDS: polyethylene glycoL POWDER 17 GM (MIRALAX) PACK PO SCH ×2 (07:51→21:19)
[2022-04-10] MEDS: DOCUSATE SODIUM 100 MG (COLACE) CAP PO SCH ×2 (07:51→20:39)
[2022-04-10] MEDS: lisINopril 20 MG (PRINIVIL) TABLET PO SCH (07:51)
[2022-04-10] MEDS: SENNOSIDES 8.6 MG (SENOKOT) TAB PO SCH ×2 (07:51→21:19)
[2022-04-10] MEDS: ACETAMINOPHEN 325 MG TABLET PO PRN ×2 (07:52→20:40)
[2022-04-10] MEDS: ENOXAPARIN 40 MG/0.4 ML (LOVENOX) SYR SC SCH (07:52)
--- NOTE | 2022-04-10 08:55 | Occupational Ther Daily Note ---
OT Current Status-Daily Note Subjective Pt alert, sitting on EOB. Pt agrees to therapy. Pt c/o pain 5/10, nrsg brought meds. Mental Status/Objective Patient Orientation: Person, Place, Time, Situation Attachments: IV ADL-Treatment Pt agrees to shower. Independent with eating. CGA to ambulate using FWW. SBA for transfers with minimal verbal cues for guidance due to vision. Pt completes shower using shower bench, grabbars and hand held shower with only SBA in standing to cleanse buttocks and beryl area. Set up for upper body dressing. Min A to thread R toe into pants then completes rest by self. Mod A for footwear. Supervision for oral care when standing at sink, independent when sitting. After session, pt sitting in recliner with call light/phone in reach. All needs met in room. Therapy Code Descriptions/Definitions Functional [place] Measure: 0=Not Assessed/NA 4=Minimal Assistance 1=Total Assistance 5=Supervision or Setup 2=Maximal Assistance 6=Modified [place] 3=Moderate Assistance 7=Complete IndependenceSCALE: Activities may be completed with or without assistive devices. 9-Zurcyyzdro-fpuskjv completes the activity by him/herself with no assistance from a helper. 5-Set-up or Clean-up Assistance-helper sets up or cleans up; patient completes activity. [place] assists only prior to or following the activity. 4-Supervision or Touching Assistance-helper provides verbal cues and/or touching/steadying and/or contact guard assistance as patient completes activity. Assistance may be provided throughout the activity or intermittently. 3-Partial/Moderate Assistance-helper does LESS THAN HALF the effort. [place] lifts, holds or supports trunk or limbs, but provides less than half the effort. 2-Substantial/Maximal Assistance-helper does MORE THAN HALF the effort. [place] lifts or holds trunk or limbs and provides more than half the effort. 9-Cvqyjvoda-xebjrv does ALL the effort. Patient does none of the effort to complete the activity. Or, the assistance of 2 or more helpers is required for the patient to complete the activity. If activity was not attempted, code reason: 7-Patient Refused. 9-Not Applicable-not attempted and the patient did not perform the activity before the current illness, exacerbation or injury. 10-Not Attempted due to Environmental Limitations-(lack of equipment, weather restraints, etc.). 88-Not Attempted due to Medical Conditions or Safety Concerns. Eating (QC): 6 Oral Hygiene (QC): 4 Shower/Bathe Self (QC): 4 Upper Body Dressing (QC): 5 Lower Body Dressing (QC): 3 On/Off Footwear: 3 Toileting Hygiene (QC): 4 (SBA for safety) Toilet Transfer (QC): 4 OT Short Term Goals Short Term Goals Eatin Oral hygiene: 4 Toileting hygiene: 4 Shower/bathe self: 4 Upper body dressin Lower body dressin Putting on/taking off footwear: 5 OT Dermatology Teacher Goals Assisted Goals Eating (QC): 6 Oral Hygiene (QC): 6 Toileting Hygiene (QC): 6 Shower/Bathe Self (QC): 6 Upper Body Dressing (QC): 6 Lower Body Dressing (QC): 6 On/Off Footwear (QC): 6 1=Demonstrate adherence to instructed precautions during ADL tasks. 2=Patient will verbalize/demonstrate understanding of assistive devices/modifications for ADL. 3=Patient will improve strength/tolerance for activity to enable patient to perform ADL's. OT Education/Plan Problem List/Assessment Assessment: Decreased Activ Tolerance, Impaired Cognition, Impaired Self-Care Skills Discharge Recommendations Plan/Recommendations: Continue POC Treatment Plan/Plan of Care Patient would benefit from OT for education, treatment and training to promote independence in ADL's, mobility, safety and/or upper extremity function for ADL's. Plan of Care: ADL Retraining, Functional Mobility, Group Exercise/Act as Ind, Orthotic Fitting/Training, UE Funct Exercise/Act Treatment Duration: Apr 13, 2022 Frequency: 5 times per week Estimated Hrs Per Day: 1.5 hours per day Agreement: Yes Rehab Potential: Good Time Start Time: 07:15 Stop Time: 08:45 DATE: Apr 10, 2022 Total Time Billed (hr/min): 90 Billed Treatment Time 1 visit-ADL 6 (90 min) TOMEKA ENGLISH Apr 10, 2022 08:55
--- NOTE | 2022-04-10 09:23 | Occupational Ther Daily Note ---
OT Current Status-Daily Note ADL-Treatment Therapy Code Descriptions/Definitions Functional [place] Measure: 0=Not Assessed/NA 4=Minimal Assistance 1=Total Assistance 5=Supervision or Setup 2=Maximal Assistance 6=Modified [place] 3=Moderate Assistance 7=Complete IndependenceSCALE: Activities may be completed with or without assistive devices. 7-Laeyai[place]q-jojebuj completes the activity by him/herself with no assistance from a helper. 5-Set-up or Clean-up Assistance-helper sets up or cleans up; patient completes activity. [place] assists only prior to or following the activity. 4-Supervision or Touching Assistance-helper provides verbal cues and/or touching/steadying and/or contact guard assistance as patient completes activity. Assistance may be provided throughout the activity or intermittently. 3-Partial/Moderate Assistance-helper does LESS THAN HALF the effort. [place] lifts, holds or supports trunk or limbs, but provides less than half the effort. 2-Substantial/Maximal Assistance-helper does MORE THAN HALF the effort. [place] lifts or holds trunk or limbs and provides more than half the effort. 3-Kwyziieop-hhpejx does ALL the effort. Patient does none of the effort to complete the activity. Or, the assistance of 2 or more helpers is required for the patient to complete the activity. If activity was not attempted, code reason: 7-Patient Refused. 9-Not Applicable-not attempted and the patient did not perform the activity before the current illness, exacerbation or injury. 10-Not Attempted due to Environmental Limitations-(lack of equipment, weather restraints, etc.). 88-Not Attempted due to Medical Conditions or Safety Concerns. OT Short Term Goals Short Term Goals Eatin Oral hygiene: 4 Toileting hygiene: 4 Shower/bathe self: 4 Upper body dressin Lower body dressin Putting on/taking off footwear: 5 OT Skilled Nursing Goals Skilled Nursing Goals Eating (QC): 6 Oral Hygiene (QC): 6 Toileting Hygiene (QC): 6 Shower/Bathe Self (QC): 6 Upper Body Dressing (QC): 6 Lower Body Dressing (QC): 6 On/Off Footwear (QC): 6 1=Demonstrate adherence to instructed precautions during ADL tasks. 2=Patient will verbalize/demonstrate understanding of assistive toni tobi/modifications for ADL. 3=Patient will improve strength/tolerance for activity to enable patient to perform ADL's. OT Education/Plan Treatment Plan/Plan of Care Patient would benefit from OT for education, treatment and training to promote independence in ADL's, mobility, safety and/or upper extremity function for ADL's. Plan of Care: ADL Retraining, Functional Mobility, Group Exercise/Act as Ind, Orthotic Fitting/Training, UE Funct Exercise/Act Treatment Duration: Apr 13, 2022 Frequency: 5 times per week Estimated Hrs Per Day: 1.5 hours per day Agreement: Yes Rehab Potential: TOMEKA Dela Cruz Apr 10, 2022 09:23
--- NOTE | 2022-04-10 09:56 | Physical Therapy Daily Note ---
PT Daily Note-Current Subjective Pt up in recliner, agrees to Rx. Pt. rates pain before Rx at 2/10 in right hip and at 7/10 after Rx. Pt. had requested and was given pain meds pre Rx. Pt. also c/o fatigue with Rx. Pain Numeric Pain Scale: 7 Location: Right Location Body Site: Hip Pain Description: Ache Section J - Health Conditions 1. Rarely or not at all 2. Occasionally 3. Frequently 4. Almost constantly 8. Unable to answer Pain Effect on Sleep: 1 Pain Interference with Therapy: 4 Pain Interference w/Day-to-Day: 2 Mental Status Patient Orientation: Normal For Age Transfers SCALE: Activities may be completed with or without assistive devices. 5-Kazzzjfjlw-vggeypg completes the activity by him/herself with no assistance from a helper. 5-Set-up or Clean-up Assistance-helper sets up or cleans up; patient completes activity. [place] assists only prior to or following the activity. 4-Supervision or Touching Assistance-helper provides verbal cues and/or touching/steadying and/or contact guard assistance as patient completes activity. Assistance may be provided throughout the activity or intermittently. 3-Partial/Moderate Assistance-helper does LESS THAN HALF the effort. [place] lifts, holds or supports trunk or limbs, but provides less than half the effort. 2-Substantial/Maximal Assistance-helper does MORE THAN HALF the effort. [place] lifts or holds trunk or limbs and provides more than half the effort. 1-Rbpdfzlno-woetol does ALL the effort. Patient does none of the effort to complete the activity. Or, the assistance of 2 or more helpers is required for the patient to complete the activity. If activity was not attempted, code reason: 7-Patient Refused. 9-Not Applicable-not attempted and the patient did not perform the activity before the current illness, exacerbation or injury. 10-Not Attempted due to Environmental Limitations-(lack of equipment, weather restraints, etc.). 88-Not Attempted due to Medical Conditions or Safety Concerns. Roll Left & Right (QC): 4 Sit to Lying (QC): 4 Lying to Sitting/Side of Bed(Q: 4 Sit to Stand (QC): 4 Chair/Xlv-ft-[place] Xfer(QC): 4 Toilet Transfer (QC): 4 secondary to low vision pt. requires min to CGA and guidance for TRFs as well as min for support in out bed. Weight Bearing Right Lower Extremity: Right Weight Bearing/Tolerated Left Lower Extremity: Left Full Weight Bearing Gait Training Does the Patient Walk?: Yes Walk 10 feet (QC): 4 Walk 50 ft with 2 Turns(QC): 4 Gait Persons Needed: 1 Gait Assistive Device: FWW step to gait, antalgic, laborious, needs direction as to guide for destination. heavy wt bearing on FWW Exercises Supine Ex: Ankle pumps, Quad Set, Glut sets, Heel Slides (asstd), Short Arc Quads, Scooting, Straight leg raise (asstd), Hip abd/add (asstd) Supine Reps: 15 Seated Therapy Exercises: Ankle pumps, Sit to stand, Long arc quads Seated Reps: 15 NuStep Minutes: 10 NuStep Workload: 1 Treatments TRFs, gait, ex with asst right LE, Assessment Current Status: Good Progress gives full effort, pain with activity, fatigues with Rx but tolerated with short rest breaks PT Short Term Goals Short Term Goals Time Frame: Apr 13, 2022 Roll Left & Right: 3 Sit to lyin Lying to sitting on side of be: 3 Sit to stand: 3 Chair/sij-on-ltuwe transfer: 3 Toilet transfer: 3 Walk 10 feet: 3 PT Performance Analyst Goals Nursing Home Goals PT Nursing Home Goals Time Frame: May 04, 2022 Roll Left & Right (QC): 5 Sit to Lying (QC): 5 Lying-Sitting on Side/Bed(QC): 5 Sit to Stand (QC): 5 Chair/Nxp-th-Mznur Xfer(QC): 5 Toilet Transfer (QC): 5 Car Transfer (QC): 5 Does the Patient Walk: Yes Walk 10 feet (QC): 4 Walk 50ft with 2 Turns (QC): 4 Walk 150 ft (QC): 4 Walking 10ft on Uneven Surface: 4 1 Step (curb) (QC): 3 4 Steps (QC): 9 12 Steps (QC): 9 Picking up an Object (QC): 4 Does the Pt use WC or Scooter?: Yes Wheel 50 feet with 2 turns (QC: 6 Type: Manual Wheel 150 feet: 6 Type: Manual PT Plan Treatment/Plan Treatment Plan: Continue Plan of Care Treatment Plan: Bed Mobility, Education, Functional Activity Norah, Functional Strength, Group Therapy, Gait, Safety, Therapeutic Exercise, Transfers Treatment Duration: May 07, 2022 Frequency: At least 5 of 7 days/Wk (IRF) Estimated Hrs Per Day: 1.5 hours per day Patient and/or Family Agrees t: Yes Safety Risks/Education Patient Education: Gait Training, Transfer Techniques, Correct Positioning, Disease Process, Safety Issues Teaching Recipient: Patient Teaching Methods: Demonstration, Discussion Response to Teaching: Verbalize Understanding, Return Demonstration, Reinforcement Needed Time Time In: 900 Time Out: 1000 DATE: Apr 10, 2022 Total Billed Treatment Time: 60 Total Billed Treatment 1,EX30m,FA15m,GT15m THAI TREJO SUPERVISOR [employer]ADING Apr 10, 2022 09:56
--- NOTE | 2022-04-10 11:29 | Physical Therapy Daily Note ---
PT Daily Note-Current Subjective Pt. up in recliner, agrees to Rx . c/o pain in r hip at 6/10 during gait and after. Improves with rest per pt. Pain Numeric Pain Scale: 6 Location: Right Location Body Site: Hip Pain Description: Ache Section J - Health Conditions 1. Rarely or not at all 2. Occasionally 3. Frequently 4. Almost constantly 8. Unable to answer Pain Effect on Sleep: 1 Pain Interference with Therapy: 4 Pain Interference w/Day-to-Day: 2 Mental Status Patient Orientation: Normal For Age Transfers SCALE: Activities may be completed with or without assistive devices. 9-Vrbdsokipj-xabgkae completes the activity by him/herself with no assistance from a helper. 5-Set-up or Clean-up Assistance-helper sets up or cleans up; patient completes activity. [place] assists only prior to or following the activity. 4-Supervision or Touching Assistance-helper provides verbal cues and/or touching/steadying and/or contact guard assistance as patient completes activity. Assistance may be provided throughout the activity or intermittently. 3-Partial/Moderate Assistance-helper does LESS THAN HALF the effort. [place] lifts, holds or supports trunk or limbs, but provides less than half the effort. 2-Substantial/Maximal Assistance-helper does MORE THAN HALF the effort. [place] lifts or holds trunk or limbs and provides more than half the effort. 6-Diktmfvki-mjeeft does ALL the effort. Patient does none of the effort to complete the activity. Or, the assistance of 2 or more helpers is required for the patient to complete the activity. If activity was not attempted, code reason: 7-Patient Refused. 9-Not Applicable-not attempted and the patient did not perform the activity before the current illness, exacerbation or injury. 10-Not Attempted due to Environmental Limitations-(lack of equipment, weather restraints, etc.). 88-Not Attempted due to Medical Conditions or Safety Concerns. Sit to Stand (QC): 6 Toilet Transfer (QC): 6 Weight Bearing Right Lower Extremity: Right Weight Bearing/Tolerated Left Lower Extremity: Left Full Weight Bearing Gait Training Does the Patient Walk?: Yes Walk 50 ft with 2 Turns(QC): 4 Gait Persons Needed: 1 Gait Assistive Device: FWW very antalgic, step to gait pattern, encouraged this Rx to equalize steps but this caused more discomfort and was abandoned for now. heavy wt bearing on FWW, pt encouraged to have family bring supportive shoes as this may help decrease the pain in hip with gait Exercises Seated Therapy Exercises: Ankle pumps, Sit to stand, Long arc quads Seated Reps: 12 Treatments sit to stands, safe chair approach instructions, gait 100ft x 4, seated LE ex, toileting Assessment Current Status: Good Progress pain limits gait dist PT Short Term Goals Short Term Goals Time Frame: Apr 13, 2022 Roll Left & Right: 3 Sit to lyin Lying to sitting on side of be: 3 Sit to stand: 3 Chair/qak-oz-dyxul transfer: 3 Toilet transfer: 3 Walk 10 feet: 3 PT Balancer Scale Goals Balancer Scale Goals PT [facility]dc Goals Time Frame: May 04, 2022 Roll Left & Right (QC): 5 Sit to Lying (QC): 5 Lying-Sitting on Side/Bed(QC): 5 Sit to Stand (QC): 5 Chair/Jcs-kl-Sssqq Xfer(QC): 5 Toilet Transfer (QC): 5 Car Transfer (QC): 5 Does the Patient Walk: Yes Walk 10 feet (QC): 4 Walk 50ft with 2 Turns (QC): 4 Walk 150 ft (QC): 4 Walking 10ft on Uneven Surface: 4 1 Step (curb) (QC): 3 4 Steps (QC): 9 12 Steps (QC): 9 Picking up an Object (QC): 4 Does the Pt use WC or Scooter?: Yes Wheel 50 feet with 2 turns (QC: 6 Type: Manual Wheel 150 feet: 6 Type: Manual PT Plan Treatment/Plan Treatment Plan: Continue Plan of Care Treatment Plan: Bed Mobility, Education, Functional Activity Norah, Functional Strength, Group Therapy, Gait, Safety, Therapeutic Exercise, Transfers Treatment Duration: May 07, 2022 Frequency: At least 5 of 7 days/Wk (IRF) Estimated Hrs Per Day: 1.5 hours per day Patient and/or Family Agrees t: Yes Safety Risks/Education Patient Education: Gait Training, Transfer Techniques, Correct Positioning, Safety Issues Teaching Recipient: Patient Teaching Methods: Demonstration, Discussion Response to Teaching: Verbalize Understanding, Return Demonstration, Reinforcement Needed Time Time In: 1100 Time Out: 1130 DATE: Apr 10, 2022 Total Billed Treatment Time: 30 Total Billed Treatment 1,GT20m,EX10m THAI TREJO JOURNEYMAN PATTERNMAKER Apr 10, 2022 11:29
[2022-04-10 11:55] VITALS: BP 138/63
[2022-04-10 19:55] VITALS: BP 116/56
[2022-04-11] MEDS: ACETAMINOPHEN 325 MG TABLET PO PRN ×4 (05:03→21:35)
[2022-04-11] MEDS: inSUlin ASPART (NovoLOG) 1 UNIT/0.01 ML (CHARGE PER UNIT) SC SCH ×4 (06:13→21:35)
[2022-04-11] MEDS: BETHANECHOL 25 MG (URECHOLINE) TAB PO SCH ×4 (06:22→21:35)
[2022-04-11 07:08] VITALS: BP 126/61
[2022-04-11] MEDS: lisINopril 20 MG (PRINIVIL) TABLET PO SCH (07:47)
[2022-04-11] MEDS: ENOXAPARIN 40 MG/0.4 ML (LOVENOX) SYR SC SCH (07:47)
[2022-04-11] MEDS: TAMSULOSIN 0.4 MG (FLOMAX) CAP PO SCH ×2 (07:47→21:34)
[2022-04-11] MEDS: SENNOSIDES 8.6 MG (SENOKOT) TAB PO SCH ×2 (07:52→21:38)
[2022-04-11] MEDS: polyethylene glycoL POWDER 17 GM (MIRALAX) PACK PO SCH ×2 (07:52→21:39)
[2022-04-11] MEDS: IRON SUCROSE 200 MG/10 ML (VENOFER) VIAL IV SCH (08:35)
[2022-04-11] MEDS: DOCUSATE SODIUM 100 MG (COLACE) CAP PO SCH ×2 (08:35→21:34)
--- NOTE | 2022-04-11 08:47 | Occupational Ther Daily Note ---
OT Current Status-Daily Note Subjective Pt alert, sitting EOB. Pt c/o R hip pain with sitting EOB. Moved pt to room chair with handles and reported to nrsg pt would like pain meds. Pt agrees to therapy Mental Status/Objective Patient Orientation: Person, Place, Time, Situation Attachments: IV ADL-Treatment Pt declines shower, but requests sponge bath. Independent with eating sitting in room chair. Pt ambulated using FWW to toilet with SBA. Supervision for toilet transfer and toileting. Sitting at sink pt completed upper/lower body bathing by self then SBA for safety in standing at pt cleansed buttocks/beryl area. After clothes gathered for pt, pt able to don/doff upper body clothing by self and thread lower body clothing over feet by self then SBA in standing while pt hikes pants over hips by self. Pt education on using sock aide to don socks requiring only verbal cues for correct technique. Modifications for pt's shoes to allow pt to slip on shoes instead of tying. Assist to don R shoe, pt able to don L shoe. Independently doffs shoes. Min A for EOB to supine. After therapy, pt lying in bed with call light/phone in reach. All needs met in room. Therapy Code Descriptions/Definitions Functional Lewis Measure: 0=Not Assessed/NA 4=Minimal Assistance 1=Total Assistance 5=Supervision or Setup 2=Maximal Assistance 6=Modified Lewis 3=Moderate Assistance 7=Complete IndependenceSCALE: Activities may be completed with or without assistive devices. 5-Dlkssdgrmq-wdnhfqr completes the activity by him/herself with no assistance from a helper. 5-Set-up or Clean-up Assistance-helper sets up or cleans up; patient completes activity. [place] assists only prior to or following the activity. 4-Supervision or Touching Assistance-helper provides verbal cues and/or touching/steadying and/or contact guard assistance as patient completes activity. Assistance may be provided throughout the activity or intermittently. 3-Partial/Moderate Assistance-helper does LESS THAN HALF the effort. [place] lifts, holds or supports trunk or limbs, but provides less than half the effort. 2-Substantial/Maximal Assistance-helper does MORE THAN HALF the effort. [place] lifts or holds trunk or limbs and provides more than half the effort. 6-Kunfexsma-rrnnyi does ALL the effort. Patient does none of the effort to com plete the activity. Or, the assistance of 2 or more helpers is required for the patient to complete the activity. If activity was not attempted, code reason: 7-Patient Refused. 9-Not Applicable-not attempted and the patient did not perform the activity before the current illness, exacerbation or injury. 10-Not Attempted due to Environmental Limitations-(lack of equipment, weather restraints, etc.). 88-Not Attempted due to Medical Conditions or Safety Concerns. Eating (QC): 6 Oral Hygiene (QC): 6 (In sitting) Upper Body Dressing (QC): 5 Lower Body Dressing (QC): 4 On/Off Footwear: 3 Toileting Hygiene (QC): 4 Toilet Transfer (QC): 4 OT Short Term Goals Short Term Goals Eatin Oral hygiene: 4 Toileting hygiene: 4 Shower/bathe self: 4 Upper body dressin Lower body dressin Putting on/taking off footwear: 5 OT Analytical Consultant Goals [facility] Goals Eating (QC): 6 Oral Hygiene (QC): 6 Toileting Hygiene (QC): 6 Shower/Bathe Self (QC): 6 Upper Body Dressing (QC): 6 Lower Body Dressing (QC): 6 On/Off Footwear (QC): 6 1=Demonstrate adherence to instructed precautions during ADL tasks. 2=Patient will verbalize/demonstrate understanding of assistive devices/modifications for ADL. 3=Patient will improve strength/tolerance for activity to enable patient to perform ADL's. OT Education/Plan Problem List/Assessment Assessment: Decreased Activ Tolerance, Impaired Cognition, Impaired Self-Care Skills Discharge Recommendations Plan/Recommendations: Continue POC Treatment Plan/Plan of Care Patient would benefit from OT for education, treatment and training to promote independence in ADL's, mobility, safety and/or upper extremity function for ADL's. Plan of Care: ADL Retraining, Functional Mobility, Group Exercise/Act as Ind, Orthotic Fitting/Training, UE Funct Exercise/Act Treatment Duration: Apr 13, 2022 Frequency: 5 times per week Estimated Hrs Per Day: 1.5 hours per day Agreement: Yes Rehab Potential: Good Time Start Time: 07:15 Stop Time: 08:45 DATE: Apr 11, 2022 Total Time Billed (hr/min): 90 Billed Treatment Time 1 visit-ADL 6 (90 min) TOMEKA ENGLISH Apr 11, 2022 08:47
--- NOTE | 2022-04-11 09:55 | Physical Therapy Daily Note ---
PT Daily Note-Current Subjective "This is quite the place isnt it" Pt. states she feels she is getting stronger daily. Pt c/o pain in right hip at 8/10 after rx and states it improves with rest. Pt. states she doesnt have steps at home , has zero entry Pain Numeric Pain Scale: 8 Location: Right Location Body Site: Hip Pain Description: Pressure Section J - Health Conditions 1. Rarely or not at all 2. Occasionally 3. Frequently 4. Almost constantly 8. Unable to answer Pain Effect on Sleep: 2 Pain Interference with Therapy: 4 Pain Interference w/Day-to-Day: 2 Mental Status Patient Orientation: Normal For Age Transfers SCALE: Activities may be completed with or without assistive devices. 2-Lhnxgzrhkd-fzttkkg completes the activity by him/herself with no assistance from a helper. 5-Set-up or Clean-up Assistance-helper sets up or cleans up; patient completes activity. [place] assists only prior to or following the activity. 4-Supervision or Touching Assistance-helper provides verbal cues and/or touching/steadying and/or contact guard assistance as patient completes activity. Assistance may be provided throughout the activity or intermittently. 3-Partial/Moderate Assistance-helper does LESS THAN HALF the effort. [place] l ifts, holds or supports trunk or limbs, but provides less than half the effort. 2-Substantial/Maximal Assistance-helper does MORE THAN HALF the effort. [place] lifts or holds trunk or limbs and provides more than half the effort. 1-Wvsgfrcqr-zcpwxg does ALL the effort. Patient does none of the effort to complete the activity. Or, the assistance of 2 or more helpers is required for t he patient to complete the activity. If activity was not attempted, code reason: 7-Patient Refused. 9-Not Applicable-not attempted and the patient did not perform the activity before the current illness, exacerbation or injury. 10-Not Attempted due to Environmental Limitations-(lack of equipment, weather restraints, etc.). 88-Not Attempted due to Medical Conditions or Safety Concerns. Roll Left & Right (QC): 6 Sit to Lying (QC): 4 Lying to Sitting/Side of Bed(Q: 4 Sit to Stand (QC): 6 Chair/Fqx-al-Cqxod Xfer(QC): 4 pt. needed chair approach instruction this date as she tended to nearly abandon walker before reaching the chair without having her LEs against the chair etc. with repeated practice and education pt. was handling this safer by end of Rx. in out bed still requires CGA to min asst RLE 50% of time Weight Bearing Right Lower Extremity: Right Weight Bearing/Tolerated Left Lower Extremity: Left Full Weight Bearing Gait Training Does the Patient Walk?: Yes Walk 10 feet (QC): 4 Walk 50 ft with 2 Turns(QC): 4 Gait Persons Needed: 1 Gait Assistive Device: FWW continues with antalgic gait with heavy wt bearing on FWW and fatigues with c/o pain, pt. ambulated 80 ftx2, 60 ftx2, 50 ft x1 FWW CGA with instruction to attempt to equalize step length, supine position at 0degreews was used to attempt gentle anterior hip stretch to help with gait pattern Stair Training Stair Training: Handrails/: uses walker #of Steps: 1 Stairs: Pattern: Step to one step up with FWW min asst and instruction Exercises Supine Ex: Ankle pumps, Quad Set, Rolling, Glut sets, Heel Slides, Short Arc Quads, Scooting, Straight leg raise, Hip abd/add Supine Reps: 12 (x2) Seated Therapy Exercises: Ankle pumps, Sit to stand, Long arc quads Seated Reps: 15 Treatments TRFs, gait, toileting, steps Assessment Current Status: Good Progress PT Short Term Goals Short Term Goals Time Frame: Apr 13, 2022 Roll Left & Right: 3 Sit to lyin Lying to sitting on side of be: 3 Sit to stand: 3 Chair/vur-dz-bulms transfer: 3 Toilet transfer: 3 Walk 10 feet: 3 PT [facility] Goals [facility] Goals PT Cardiopulmonary Technician And Eeg Tech Goals Time Frame: May 04, 2022 Roll Left & Right (QC): 5 Sit to Lying (QC): 5 Lying-Sitting on Side/Bed(QC): 5 Sit to Stand (QC): 5 Chair/Wxz-wu-Qqtbn Xfer(QC): 5 Toilet Transfer (QC): 5 Car Transfer (QC): 5 Does the Patient Walk: Yes Walk 10 feet (QC): 4 Walk 50ft with 2 Turns (QC): 4 Walk 150 ft (QC): 4 Walking 10ft on Uneven Surface: 4 1 Step (curb) (QC): 3 4 Steps (QC): 9 12 Steps (QC): 9 Picking up an Object (QC): 4 Does the Pt use WC or Scooter?: Yes Wheel 50 feet with 2 turns (QC: 6 Type: Manual Wheel 150 feet: 6 Type: Manual PT Plan Treatment/Plan Treatment Plan: Continue Plan of Care Treatment Plan: Bed Mobility, Education, Functional Activity Norah, Functional Strength, Group Therapy, Gait, Safety, Therapeutic Exercise, Transfers Treatment Duration: May 07, 2022 Frequency: At least 5 of 7 days/Wk (IRF) Estimated Hrs Per Day: 1.5 hours per day Patient and/or Family Agrees t: Yes Safety Risks/Education Patient Education: Gait Training, Transfer Techniques, Steps, Reviewed Precautions, Correct Positioning, Disease Process, Safety Issues Teaching Recipient: Patient Teaching Methods: Demonstration, Discussion Response to Teaching: Verbalize Understanding, Return Demonstration, Reinforcement Needed Time Time In: 900 Time Out: 1000 DATE: Apr 11, 2022 Total Billed Treatment Time: 60 Total Billed Treatment 1,GT20m,FA25m,EX15m THAI TREJO PASTEURIZER Apr 11, 2022 09:55
--- NOTE | 2022-04-11 12:07 | PM&R Progress Note ---
Subjective HPI/CC On Admission Date Seen by Provider: Apr 11, 2022 Time Seen by Provider: 11:45 04/04/2022: Doing well Lethargic from Ativan Pain controlled Voiding well now on Urecholine 04/03/2022: No major issues reported Less confusion Memory is poor overall Pain controlled No BM yet so ordered supp and SSE 04/02/2022: Doing well No pain except hip Rested well last night Labs reviewed No other issues No BM yet so aggressive laxatives ordered Subjective/Events-last exam 04/11/2022: Improved overall No pain reported as long as not moving leg Cognition improved 04/10/2022: Improved overall High risk for skilled Daughters will look after her af DC Pain controlled 04/09/2022: Doing well Pain improved No falls Working with PT 04/08/2022: Much improved status Moving around pretty well No pain reported when she is sitting 04/07/2022: Patient doing well improved lucidity Supportive care will continue Monitoring closely 04/06/2022: No major issues Confusion at night Likely baseline dementia then acute issue brought to surface 04/05/2022: Doing well Improved status Pain controlled UTI treatment will be initiated 04/04/2022: No major issues Lethargy improved No pain reported 04/03/2022: No major issues reported Less confusion Memory is poor overall Pain controlled No BM yet so ordered supp and SSE 04/02/2022: Doing well No pain except hip Rested well last night Labs reviewed No other issues No BM yet so aggressive laxatives ordered Review of Systems General: Fatigue, Malaise Objective Exam Vital Signs Vital Signs Date Time Temp Pulse Resp B/P (MAP) Pulse Ox O2 Delivery O2 Flow Rate FiO2 04/11/22 20:55 Room Air 04/11/22 20:35 36.7 68 16 139/67 (91) 93 04/09/22 07:51 0.00 0.00 Capillary Refill : General Appearance: No Apparent Distress, WD/WN, Chronically ill HEENT: PERRL/EOMI, Normal ENT Inspection, Pharynx Normal Neck: Full Range of Motion, Normal Inspection, Non Tender, Supple, Carotid Bruit Respiratory: Chest Non Tender, Lungs Clear, Normal Breath Sounds, No Accessory Muscle Use, No Respiratory Distress Cardiovascular: Regular Rate, Rhythm, No Edema, No Gallop, No JVD, No Murmur, Normal Peripheral Pulses Gastrointestinal: Normal Bowel Sounds, No Organomegaly, No Pulsatile Mass, Non Tender, Soft Back: Normal Inspection, No CVA Tenderness, No Vertebral Tenderness Extremity: Normal Capillary Refill, Normal Inspection, Normal Range of Motion, Non Tender, No Calf Tenderness, No Pedal Edema Neurologic/Psychiatric: Alert, Oriented x3, Normal Mood/Affect, photography coordinator II-XII Norm as Tested, Abnormal Gait, Depressed Affect, Motor Weakness (right leg weakness) Skin: Normal Color, Warm/Dry Lymphatic: No Adenopathy Results/Procedures Lab Patient resulted labs reviewed. FIM Transfers Therapy Code Descriptions/Definitions Functional [place] Measure: 0=Not Assessed/NA 4=Minimal Assistance 1=Total Assistance 5=Supervision or Setup 2=Maximal Assistance 6=Modified [place] 3=Moderate Assistance 7=Complete IndependenceSCALE: Activities may be completed with or without assistive devices. 4-Ijskmiyqkr-cmsospt completes the activity by him/herself with no assistance from a helper. 5-Set-up or Clean-up Assistance-helper sets up or cleans up; patient completes activity. [place] assists only prior to or following the activity. 4-Supervision or Touching Assistance-helper provides verbal cues and/or to uching/steadying and/or contact guard assistance as patient completes activity. Assistance may be provided throughout the activity or intermittently. 3-Partial/Moderate Assistance-helper does LESS THAN HALF the effort. [place] lifts, holds or supports trunk or limbs, but provides less than half the effort. 2-Substantial/Maximal Assistance-helper does MORE THAN HALF the effort. [place] lifts or holds trunk or limbs and provides more than half the effort. 4-Fycyekxic-sgmegm does ALL the effort. Patient does none of the effort to complete the activity. Or, the assistance of 2 or more helpers is required for the patient to complete the activity. If activity was not attempted, code reason: 7-Patient Refused. 9-Not Applicable-not attempted and the patient did not perform the activity before the current illness, exacerbation or injury. 10-Not Attempted due to Environmental Limitations-(lack of equipment, weather restraints, etc.). 88-Not Attempted due to Medical Conditions or Safety Concerns. Roll Left to Right (QC): 6 Sit to Lying (QC): 4 Sit to Stand (QC): 6 Chair/Giu-ni-Aygsx Xfer(QC): 4 Car Transfer (QC): 2 Gait Training Does the Patient Walk?: Yes Distance: 80', 40' x2 Walk 10 feet (QC): 4 Walk 50 ft with 2 Turns(QC): 4 Walk 150 ft (QC): 88 Walking 10ft/uneven surface-QC: 8 Gait Persons Needed: 1 Gait Assistive Device: FWW Wheelchair Training Does the Pt Use a Wheelchair?: Yes Distance: 150 feet Wheel 50 ft with 2 turns (QC): 3 Wheel 150 ft (QC): 3 Type of Wheelchair: Manual Stair Training Stair Training: Handrails/: uses walker #of Steps: 1 1 Step (curb) (QC): 9 4 Steps (QC): 9 12 Steps (QC): 9 Stairs: Pattern: Step to Balance Picking up an Object (QC): 88 ADL-Treatment Eating (QC): 6 Oral Hygiene (QC): 6 (In sitting) Bathing Location: L Arm, R Arm, L Upper Leg, R Upper Leg, L Lower Leg (including foot), R Lower Leg (including foot), Chest, Abdomen, Perineal Area Shower/Bathe Self (QC): 6 Upper Body Dressing (QC): 5 Lower Body Dressing (QC): 4 On/Off Footwear (QC): 3 Toileting Hygiene (QC): 4 Toilet Transfer (QC): 4 Assessment/Plan Assessment and Plan Assess & Plan/Chief Complaint Assessment: Right hip fracture status post uncomplicated repair 03/30/22 Hypertension Advanced age Diabetes Postop acute blood loss anemia requiring 1 unit of blood on 04/01/22 Postop constipation Frail status Navarro cath replaced due to urinary retention now DC and voiding well on Urecholine Post op hallucinations Abnormal UA s/p Cipro until UCx revealed normal bridget Plan: ARU Pain control Monitor hgb DC Ffoley when able Aggressive PT OT 04/02/2022: Laxatives Monitor closely 04/03/2022: Laxatives and supp and SSE 04/04/2022: Voiding well Monitor constipation 04/05/2022: UTI treatment 04/06/2022: Ucx pending 04/07/2022: Supportive care DC antibiotics 04/08/2022: Monitor closely 04/09/2022: Restart Lovenox 04/10/2022: Monitoring closely 04/11/2022: Improved (1) Closed right hip fracture Status: Acute BARB LARSON DO Apr 11, 2022 12:07
--- NOTE | 2022-04-11 12:54 | Physical Therapy Daily Note ---
PT Daily Note-Current Subjective Pt. sitting EOB upon arrival, has grimace on face. Ate lunch sitting EOB and now has pain in R hip at 6/10 and requests pain meds, nursing responded with pain meds. Pt. agrees to gait and car TRF then asks to lay down to rest Pain Numeric Pain Scale: 6 Location: Right Location Body Site: Hip Pain Description: Ache Section J - Health Conditions 1. Rarely or not at all 2. Occasionally 3. Frequently 4. Almost constantly 8. Unable to answer Pain Effect on Sleep: 2 Pain Interference with Therapy: 4 Pain Interference w/Day-to-Day: 2 Mental Status Patient Orientation: Person, Time, Situation, Normal For Age Transfers SCALE: Activities may be completed with or without assistive devices. 9-Nicqaykwrn-ynuszqn completes the activity by him/herself with no assistance from a helper. 5-Set-up or Clean-up Assistance-helper sets up or cleans up; patient completes activity. [place] assists only prior to or following the activity. 4-Supervision or Touching Assistance-helper provides verbal cues and/or touching/steadying and/or contact guard assistance as patient completes activity. Assistance may be provided throughout the activity or intermittently. 3-Partial/Moderate Assistance-helper does LESS THAN HALF the effort. [place] lifts, holds or supports trunk or limbs, but provides less than half the effort. 2-Substantial/Maximal Assistance-helper does MORE THAN HALF the effort. [place] lifts or holds trunk or limbs and provides more than half the effort. 6-Bhrvupqgd-gtihed does ALL the effort. Patient does none of the effort to complete the activity. Or, the assistance of 2 or more helpers is required for the patient to complete the activity. If activity was not attempted, code reason: 7-Patient Refused. 9-Not Applicable-not attempted and the patient did not perform the activity before the current illness, exacerbation or injury. 10-Not Attempted due to Environmental Limitations-(lack of equipment, weather restraints, etc.). 88-Not Attempted due to Medical Conditions or Safety Concerns. Sit to Lying (QC): 4 Sit to Stand (QC): 6 Chair/Zgj-pt-Egqeh Xfer(QC): 4 Car Transfer (QC): 4 Weight Bearing Right Lower Extremity: Right Weight Bearing/Tolerated Left Lower Extremity: Left Full Weight Bearing Gait Training Does the Patient Walk?: Yes Gait Assistive Device: FWW 80 ft x 2 FWW with pain c/o and request to rest, no LOB , antalgic gait conts Exercises Supine Ex: Ankle pumps, Heel Slides, Hip abd/add Supine Reps: 10 Treatments TRFs, gait, therex Assessment Current Status: Good Progress pain limits participation , pt. also fatigued PT Short Term Goals Short Term Goals Time Frame: Apr 13, 2022 Roll Left & Right: 3 Sit to lyin Lying to sitting on side of be: 3 Sit to stand: 3 Chair/iyr-fs-lacra transfer: 3 Toilet transfer: 3 Walk 10 feet: 3 PT Digital Printer Goals Digital Printer Goals PT [facility] Goals Time Frame: May 04, 2022 Roll Left & Right (QC): 5 Sit to Lying (QC): 5 Lying-Sitting on Side/Bed(QC): 5 Sit to Stand (QC): 5 Chair/Zha-uj-Uvzvv Xfer(QC): 5 Toilet Transfer (QC): 5 Car Transfer (QC): 5 Does the Patient Walk: Yes Walk 10 feet (QC): 4 Walk 50ft with 2 Turns (QC): 4 Walk 150 ft (QC): 4 Walking 10ft on Uneven Surface: 4 1 Step (curb) (QC): 3 4 Steps (QC): 9 12 Steps (QC): 9 Picking up an Object (QC): 4 Does the Pt use WC or Scooter?: Yes Wheel 50 feet with 2 turns (QC: 6 Type: Manual Wheel 150 feet: 6 Type: Manual PT Plan Treatment/Plan Treatment Plan: Continue Plan of Care Treatment Plan: Bed Mobility, Education, Functional Activity Norah, Functional Strength, Group Therapy, Gait, Safety, Therapeutic Exercise, Transfers Treatment Duration: May 07, 2022 Frequency: At least 5 of 7 days/Wk (IRF) Estimated Hrs Per Day: 1.5 hours per day Patient and/or Family Agrees t: Yes Safety Risks/Education Patient Education: Gait Training, Transfer Techniques, Correct Positioning, Disease Process, Safety Issues Teaching Recipient: Patient Teaching Methods: Demonstration, Discussion Response to Teaching: Verbalize Understanding, Return Demonstration, Reinforcement Needed Time Time In: 1230 Time Out: 1300 DATE: Apr 11, 2022 Total Billed Treatment Time: 30 Total Billed Treatment 1,FA17, GT13 THAI TREJO STUDENT SUPPORT SERVICES DIRECTOR Apr 11, 2022 12:54
[2022-04-11 20:35] VITALS: BP 139/67
[2022-04-12] MEDS: inSUlin ASPART (NovoLOG) 1 UNIT/0.01 ML (CHARGE PER UNIT) SC SCH ×4 (06:13→20:36)
--- NOTE | 2022-04-12 06:22 | PM&R Progress Note ---
Subjective HPI/CC On Admission Date Seen by Provider: Apr 12, 2022 Time Seen by Provider: 12:30 04/04/2022: Doing well Lethargic from Ativan Pain controlled Voiding well now on Urecholine 04/03/2022: No major issues reported Less confusion Memory is poor overall Pain controlled No BM yet so ordered supp and SSE 04/02/2022: Doing well No pain except hip Rested well last night Labs reviewed No other issues No BM yet so aggressive laxatives ordered Subjective/Events-last exam 04/12/2022: No major issues Improved every day Pain controlled 04/11/2022: Improved overall No pain reported as long as not moving leg Cognition improved 04/10/2022: Improved overall High risk for skilled Daughters will look after her af DC Pain controlled 04/09/2022: Doing well Pain improved No falls Working with PT 04/08/2022: Much improved status Moving around pretty well No pain reported when she is sitting 04/07/2022: Patient doing well improved lucidity Supportive care will continue Monitoring closely 04/06/2022: No major issues Confusion at night Likely baseline dementia then acute issue brought to surface 04/05/2022: Doing well Improved status Pain controlled UTI treatment will be initiated 04/04/2022: No major issues Lethargy improved No pain reported 04/03/2022: No major issues reported Less confusion Memory is poor overall Pain controlled No BM yet so ordered supp and SSE 04/02/2022: Doing well No pain except hip Rested well last night Labs reviewed No other issues No BM yet so aggressive laxatives ordered Review of Systems General: Fatigue, Malaise Objective Exam Vital Signs Vital Signs Date Time Temp Pulse Resp B/P (MAP) Pulse Ox O2 Delivery O2 Flow Rate FiO2 04/12/22 08:30 Room Air 04/12/22 07:27 36.6 79 16 142/64 (90) 94 04/09/22 07:51 0.00 0.00 Capillary Refill : General Appearance: No Apparent Distress, WD/WN, Chronically ill HEENT: PERRL/EOMI, Normal ENT Inspection, Pharynx Normal Neck: Full Range of Motion, Normal Inspection, Non Tender, Supple, Carotid Bruit Respiratory: Chest Non Tender, Lungs Clear, Normal Breath Sounds, No Accessory Muscle Use, No Respiratory Distress Cardiovascular: Regular Rate, Rhythm, No Edema, No Gallop, No JVD, No Murmur, Normal Peripheral Pulses Gastrointestinal: Normal Bowel Sounds, No Organomegaly, No Pulsatile Mass, Non Tender, Soft Back: Normal Inspection, No CVA Tenderness, No Vertebral Tenderness Extremity: Normal Capillary Refill, Normal Inspection, Normal Range of Motion, Non Tender, No Calf Tenderness, No Pedal Edema Neurologic/Psychiatric: Alert, Oriented x3, Normal Mood/Affect, conservation biology professor II-XII Norm as Tested, Abnormal Gait, Depressed Affect, Motor Weakness (right leg weakness) Skin: Normal Color, Warm/Dry Lymphatic: No Adenopathy Results/Procedures Lab Patient resulted labs reviewed. FIM Transfers Therapy Code Descriptions/Definitions Functional [place] Measure: 0=Not Assessed/NA 4=Minimal Assistance 1=Total Assistance 5=Supervision or Setup 2=Maximal Assistance 6=Modified [place] 3=Moderate Assistance 7=Complete IndependenceSCALE: Activities may be completed with or without assistive devices. 4-Dcxveqsfkn-wtpgonk completes the activity by him/herself with no assistance from a helper. 5-Set-up or Clean-up Assistance-helper sets up or cleans up; patient completes activity. [place] assists only prior to or following the activity. 4-Supervision or Touching Assistance-helper provides verbal cues and/or touching/steadying and/or contact guard assistance as patient completes activity. Assistance may be provided throughout the activity or intermittently. 3-Partial/Moderate Assistance-helper does LESS THAN HALF the effort. [place] lifts, holds or supports trunk or limbs, but provides less than half the effort. 2-Substantial/Maximal Assistance-helper does MORE THAN HALF the effort. [place] lifts or holds trunk or limbs and provides more than half the effort. 3-Smbqkhbtt-nxpjdp does ALL the effort. Patient does none of the effort to complete the activity. Or, the assistance of 2 or more helpers is required for the patient to complete the activity. If activity was not attempted, code reason: 7-Patient Refused. 9-Not Applicable-not attempted and the patient did not perform the activity before the current illness, exacerbation or injury. 10-Not Attempted due to Environmental Limitations-(lack of equipment, weather restraints, etc.). 88-Not Attempted due to Medical Conditions or Safety Concerns. Roll Left to Right (QC): 6 Sit to Lying (QC): 4 Sit to Stand (QC): 6 Chair/Hzt-ix-Bmgmr Xfer(QC): 4 Car Transfer (QC): 4 Gait Training Does the Patient Walk?: Yes Distance: 80', 40' x2 Walk 10 feet (QC): 4 Walk 50 ft with 2 Turns(QC): 4 Walk 150 ft (QC): 88 Walking 10ft/uneven surface-QC: 8 Gait Persons Needed: 1 Gait Assistive Device: FWW Wheelchair Training Does the Pt Use a Wheelchair?: Yes Distance: 150 feet Wheel 50 ft with 2 turns (QC): 3 Wheel 150 ft (QC): 3 Type of Wheelchair: Manual Stair Training Stair Training: Handrails/: uses walker #of Steps: 1 1 Step (curb) (QC): 9 4 Steps (QC): 9 12 Steps (QC): 9 Stairs: Pattern: Step to Balance Picking up an Object (QC): 88 ADL-Treatment Eating (QC): 6 Oral Hygiene (QC): 6 (In sitting) Bathing Location: L Arm, R Arm, L Upper Leg, R Upper Leg, L Lower Leg (including foot), R Lower Leg (including foot), Chest, Abdomen, Perineal Area Shower/Bathe Self (QC): 6 Upper Body Dressing (QC): 5 Lower Body Dressing (QC): 4 On/Off Footwear (QC): 3 Toileting Hygiene (QC): 4 Toilet Transfer (QC): 4 Assessment/Plan Assessment and Plan Assess & Plan/Chief Complaint Assessment: Right hip fracture status post uncomplicated repair 03/30/22 Hypertension Advanced age Diabetes Postop acute blood loss anemia requiring 1 unit of blood on 04/01/22 Postop constipation Frail status Navarro cath replaced due to urinary retention now DC and voiding well on Ur echoline Post op hallucinations Abnormal UA s/p Cipro until UCx revealed normal bridget Plan: ARU Pain control Monitor hgb DC Ffoley when able Aggressive PT OT 04/02/2022: Laxatives Monitor closely 04/03/2022: Laxatives and supp and SSE 04/04/2022: Voiding well Monitor constipation 04/05/2022: UTI treatment 04/06/2022: Ucx pending 04/07/2022: Supportive care DC antibiotics 04/08/2022: Monitor closely 04/09/2022: Restart Lovenox 04/10/2022: Monitoring closely 04/11/2022: Improved 04/12/2022: Monitoring closely (1) Closed right hip fracture Status: Acute BARB LARSON DO Apr 12, 2022 06:22
[2022-04-12] MEDS: BETHANECHOL 25 MG (URECHOLINE) TAB PO SCH ×4 (06:32→20:36)
[2022-04-12 07:27] VITALS: BP 142/64
--- NOTE | 2022-04-12 07:33 | Occupational Ther Daily Note ---
OT Current Status-Daily Note Subjective Pt alert, sitting in room chair. Pt grimacing in pain, unable to rate pain, [place] discussed with pt how to rate pain, 5/10. Nrsg brought pain meds. Mental Status/Objective Patient Orientation: Person, Confused (situational), Place, Time, Situation ADL-Treatment Pt appears more anxious today during session, asking what is next and if she should. Pt is also having more difficulty with problem solving when an obstacle occurs, ie unable to problem solve turning bra around to hook in front when unable to hook in back, needing step by step or hand over hand to bring sock aide from under leg to lap. When asked about situational potentially dangerous events in home, pt unable to retrieve information for safety in grease fire or clogged toilet unless given 3 choices. Pt agrees to shower. SBA for shower due to pt asking if it is okay to wash hair then standing in shower to cleanse buttocks/beryl area then rinse body. After set up, pt able to don/doff shirt by self. Pt able to thread feet into lower body clothing and stand with FWW to hike pants over hips by self after set up. Standing at sink, pt completed oral care with SBA due to fatigue and pt stating that B LE's where shaky. Verbal/physical cues to don socks with sock aide, doffs by self. Positioning for both shoes and assist with R shoe then pt donned L shoe by self. After session, pt sitting in room chair with call light/phone in reach. Safety measures in place. All needs met. Therapy Code Descriptions/Definitions Functional [place] Measure: 0=Not Assessed/NA 4=Minimal Assistance 1=Total Assistance 5=Supervision or Setup 2=Maximal Assistance 6=Modified [place] 3=Moderate Assistance 7=Complete IndependenceSCALE: Activities may be completed with or without assistive devices. 9-Zoqhwxaawn-haxagmm completes the activity by him/herself with no assistance from a helper. 5-Set-up or Clean-up Assistance-helper sets up or cleans up; patient completes activity. [place] assists only prior to or following the activity. 4-Supervision or Touching Assistance-helper provides verbal cues and/or touching/steadying and/or contact guard assistance as patient completes activity. Assistance may be provided throughout the activity or intermittently. 3-Partial/Moderate Assistance-helper does LESS THAN HALF the effort. [place] lifts, holds or supports trunk or limbs, but provides less than half the effort. 2-Substantial/Maximal Assistance-helper does MORE THAN HALF the effort. [place] lifts or holds trunk or limbs and provides more than half the effort. 9-Dtewwfqqf-wndwti does ALL the effort. Patient does none of the effort to complete the activity. Or, the assistance of 2 or more helpers is required for the patient to complete the activity. If activity was not attempted, code reason: 7-Patient Refused. 9-Not Applicable-not attempted and the patient did not perform the activity before the current illness, exacerbation or injury. 10-Not Attempted due to Environmental Limitations-(lack of equipment, weather restraints, etc.). 88-Not Attempted due to Medical Conditions or Safety Concerns. Eating (QC): 6 Oral Hygiene (QC): 4 Shower/Bathe Self (QC): 4 Upper Body Dressing (QC): 5 Lower Body Dressing (QC): 5 On/Off Footwear: 3 (mod A) Toileting Hygiene (QC): 6 Toilet Transfer (QC): 6 OT Short Term Goals Short Term Goals Eatin Oral hygiene: 4 Toileting hygiene: 4 Shower/bathe self: 4 Upper body dressin Lower body dressin Putting on/taking off footwear: 5 OT Long-Term Goals Mixer Operator Vacuum Pan Salt Goals Eating (QC): 6 Oral Hygiene (QC): 6 Toileting Hygiene (QC): 6 Shower/Bathe Self (QC): 6 Upper Body Dressing (QC): 6 Lower Body Dressing (QC): 6 On/Off Footwear (QC): 6 1=Demonstrate adherence to instructed precautions during ADL tasks. 2=Patient will verbalize/demonstrate understanding of assistive devices/modifications for ADL. 3=Patient will improve strength/tolerance for activity to enable patient to perform ADL's. OT Education/Plan Problem List/Assessment Assessment: Decreased Activ Tolerance, Impaired Cognition, Impaired Self-Care Skills Discharge Recommendations Plan/Recommendations: Continue POC Treatment Plan/Plan of Care Patient would benefit from OT for education, treatment and training to promote independence in ADL's, mobility, safety and/or upper extremity function for ADL's. Plan of Care: ADL Retraining, Functional Mobility, Group Exercise/Act as Ind, Orthotic Fitting/Training, UE Funct Exercise/Act Treatment Duration: Apr 13, 2022 Frequency: 5 times per week Estimated Hrs Per Day: 1.5 hours per day Agreement: Yes Rehab Potential: Good Time Start Time: 07:15 Stop Time: 08:45 DATE: Apr 12, 2022 Total Time Billed (hr/min): 90 Billed Treatment Time 1 visit-ADL 6 (90 min) TOMEKA ENGLISH Apr 12, 2022 07:33
[2022-04-12] MEDS: SENNOSIDES 8.6 MG (SENOKOT) TAB PO SCH ×2 (07:59→20:29)
[2022-04-12] MEDS: DOCUSATE SODIUM 100 MG (COLACE) CAP PO SCH ×2 (07:59→20:29)
[2022-04-12] MEDS: lisINopril 20 MG (PRINIVIL) TABLET PO SCH (08:00)
[2022-04-12] MEDS: ENOXAPARIN 40 MG/0.4 ML (LOVENOX) SYR SC SCH (08:00)
[2022-04-12] MEDS: TAMSULOSIN 0.4 MG (FLOMAX) CAP PO SCH ×2 (08:00→20:36)
[2022-04-12] MEDS: ACETAMINOPHEN 325 MG TABLET PO PRN ×3 (08:01→20:35)
[2022-04-12] MEDS: polyethylene glycoL POWDER 17 GM (MIRALAX) PACK PO SCH ×2 (09:10→20:29)
--- NOTE | 2022-04-12 09:52 | Physical Therapy Daily Note ---
PT Daily Note-Current Subjective Pt. agrees to Rx, states pain in her right hip is at 6/10 while walking but improves to 2/10 at rest after Rx. Pain Numeric Pain Scale: 6 Location: Right Location Body Site: Hip Pain Description: Ache Section J - Health Conditions 1. Rarely or not at all 2. Occasionally 3. Frequently 4. Almost constantly 8. Unable to answer Pain Effect on Sleep: 2 Pain Interference with Therapy: 4 Pain Interference w/Day-to-Day: 2 Mental Status Patient Orientation: Normal For Age Transfers SCALE: Activities may be completed with or without assistive devices. 8-Xghzqiftyt-fiuqwnh completes the activity by him/herself with no assistance from a helper. 5-Set-up or Clean-up Assistance-helper sets up or cleans up; patient completes activity. [place] assists only prior to or following the activity. 4-Supervision or Touching Assistance-helper provides verbal cues and/or touching/steadying and/or contact guard assistance as patient completes activity. Assistance may be provided throughout the activity or intermittently. 3-Partial/Moderate Assistance-helper does LESS THAN HALF the effort. [place] lifts, holds or supports trunk or limbs, but provides less than half the effort. 2-Substantial/Maximal Assistance-helper does MORE THAN HALF the effort. [place] lifts or holds trunk or limbs and provides more than half the effort. 3-Ezcosrdcg-mqqehm does ALL the effort. Patient does none of the effort to complete the activity. Or, the assistance of 2 or more helpers is required for the patient to complete the activity. If activity was not attempted, code reason: 7-Patient Refused. 9-Not Applicable-not attempted and the patient did not perform the activity before the current illness, exacerbation or injury. 10-Not Attempted due to Environmental Limitations-(lack of equipment, weather restraints, etc.). 88-Not Attempted due to Medical Conditions or Safety Concerns. Roll Left & Right (QC): 6 Sit to Lying (QC): 4 Lying to Sitting/Side of Bed(Q: 6 Sit to Stand (QC): 6 Chair/Ney-cp-Lyrnb Xfer(QC): 4 contd instrction required for safe chair approaches and sits as well as assist into bed RLE. Weight Bearing Right Lower Extremity: Right Weight Bearing/Tolerated Left Lower Extremity: Left Full Weight Bearing Gait Training Does the Patient Walk?: Yes Walk 10 feet (QC): 4 Walk 50 ft with 2 Turns(QC): 4 Gait Persons Needed: 1 Gait Assistive Device: FWW still antalgic, unequal step length, heavy wt bearing on FWW , requests rest break at approx 90 ft secondary to pain Exercises Supine Ex: Ankle pumps, Quad Set, Rolling, Glut sets, Heel Slides, Short Arc Quads, Straight leg raise (asst), Hip abd/add (asst) Supine Reps: 15 Seated Therapy Exercises: Ankle pumps, Sit to stand, Long arc quads, Hip abd/add Seated Reps: 15 NuStep Minutes: 10 NuStep Workload: 1 Treatments TRFs, safety, gait, therex Assessment Current Status: Good Progress pain and fatigue limit tolerance and requires rest PT Short Term Goals Short Term Goals Time Frame: Apr 13, 2022 Roll Left & Right: 3 Sit to lyin Lying to sitting on side of be: 3 Sit to stand: 3 Chair/ulz-bl-eceae transfer: 3 Toilet transfer: 3 Walk 10 feet: 3 PT Spaghetti Press Helper Goals Spaghetti Press Helper Goals PT Jail Goals Time Frame: May 04, 2022 Roll Left & Right (QC): 5 Sit to Lying (QC): 5 Lying-Sitting on Side/Bed(QC): 5 Sit to Stand (QC): 5 Chair/Ojc-yu-Ejprq Xfer(QC): 5 Toilet Transfer (QC): 5 Car Transfer (QC): 5 Does the Patient Walk: Yes Walk 10 feet (QC): 4 Walk 50ft with 2 Turns (QC): 4 Walk 150 ft (QC): 4 Walking 10ft on Uneven Surface: 4 1 Step (curb) (QC): 3 4 Steps (QC): 9 12 Steps (QC): 9 Picking up an Object (QC): 4 Does the Pt use WC or Scooter?: Yes Wheel 50 feet with 2 turns (QC: 6 Type: Manual Wheel 150 feet: 6 Type: Manual PT Plan Treatment/Plan Treatment Plan: Continue Plan of Care Treatment Plan: Bed Mobility, Education, Functional Activity Norah, Functional Strength, Group Therapy, Gait, Safety, Therapeutic Exercise, Transfers Treatment Duration: May 07, 2022 Frequency: At least 5 of 7 days/Wk (IRF) Estimated Hrs Per Day: 1.5 hours per day Patient and/or Family Agrees t: Yes Safety Risks/Education Patient Education: Gait Training, Transfer Techniques, Correct Positioning, Disease Process, Safety Issues Teaching Recipient: Patient Teaching Methods: Demonstration, Discussion Response to Teaching: Verbalize Understanding, Return Demonstration, Reinforcement Needed Time Time In: 900 Time Out: 1000 DATE: Apr 12, 2022 Total Billed Treatment Time: 60 Total Billed Treatment 1,GT26,FA16,EX18 THAI TREJO CHAIR UPHOLSTERER Apr 12, 2022 09:52
--- NOTE | 2022-04-12 12:56 | Physical Therapy Daily Note ---
PT Daily Note-Current Subjective Pt. agrees to Rx. Pt. admits she feels a little nervous about the steps but is willing to try. Pt shares that her limited vision is a bit part of her stair fear. Pt is happy to report that she has no pain this aftn Pain Location: No Pain Reported Section J - Health Conditions 1. Rarely or not at all 2. Occasionally 3. Frequently 4. Almost constantly 8. Unable to answer Pain Effect on Sleep: 2 Pain Interference with Therapy: 1 Pain Interference w/Day-to-Day: 1 Mental Status Patient Orientation: Normal For Age Transfers SCALE: Activities may be completed with or without assistive devices. 2-Qqgqnglcvi-gvorkgc completes the activity by him/herself with no assistance from a helper. 5-Set-up or Clean-up Assistance-helper sets up or cleans up; patient completes activity. [place] assists only prior to or following the activity. 4-Supervision or Touching Assistance-helper provides verbal cues and/or touching/steadying and/or contact guard assistance as patient completes activity. Assistance may be provided throughout the activity or intermittently. 3-Partial/Moderate Assistance-helper does LESS THAN HALF the effort. [place] lifts, holds or supports trunk or limbs, but provides less than half the effort. 2-Substantial/Maximal Assistance-helper does MORE THAN HALF the effort. [place] lifts or holds trunk or limbs and provides more than half the effort. 2-Zgguebswc-nmdiod does ALL the effort. Patient does none of the effort to complete the activity. Or, the assistance of 2 or more helpers is required for the patient to complete the activity. If activity was not attempted, code reason: 7-Patient Refused. 9-Not Applicable-not attempted and the patient did not perform the activity before the current illness, exacerbation or injury. 10-Not Attempted due to Environmental Limitations-(lack of equipment, weather restraints, etc.). 88-Not Attempted due to Medical Conditions or Safety Concerns. Roll Left & Right (QC): 6 Sit to Lying (QC): 6 Lying to Sitting/Side of Bed(Q: 6 Sit to Stand (QC): 6 Chair/Ica-ui-Yqirj Xfer(QC): 6 Weight Bearing Right Lower Extremity: Right Weight Bearing/Tolerated Left Lower Extremity: Left Full Weight Bearing Gait Training Does the Patient Walk?: Yes Walk 10 feet (QC): 4 Walk 50 ft with 2 Turns(QC): 4 Gait Persons Needed: 1 Gait Assistive Device: FWW continues antalgic , unequal step length and needs directed to goal /destination as she has low vision Stair Training Stair Training: Handrails/: 2 handrails #of Steps: 4 4 Steps (QC): 4 Stairs: Pattern: Step to guided and instructed for all as pt. cannot see edge of step and needs support and cuing for wt bearing and sequence Exercises Supine Ex: Ankle pumps, Quad Set, Glut sets, Heel Slides Supine Reps: 10 Treatments gait, ex, steps/stairs Assessment Current Status: Good Progress pt. feels victorious about 4 ascending 4 steps, progressing PT Short Term Goals Short Term Goals Time Frame: Apr 13, 2022 Roll Left & Right: 3 Sit to lyin Lying to sitting on side of be: 3 Sit to stand: 3 Chair/iot-vz-sazqf transfer: 3 Toilet transfer: 3 Walk 10 feet: 3 PT Long-Term Goals Mainframe Software Developer Goals PT Long-Term Goals Time Frame: May 04, 2022 Roll Left & Right (QC): 5 Sit to Lying (QC): 5 Lying-Sitting on Side/Bed(QC): 5 Sit to Stand (QC): 5 Chair/Uwj-tf-Pkgya Xfer(QC): 5 Toilet Transfer (QC): 5 Car Transfer (QC): 5 Does the Patient Walk: Yes Walk 10 feet (QC): 4 Walk 50ft with 2 Turns (QC): 4 Walk 150 ft (QC): 4 Walking 10ft on Uneven Surface: 4 1 Step (curb) (QC): 3 4 Steps (QC): 9 12 Steps (QC): 9 Picking up an Object (QC): 4 Does the Pt use WC or Scooter?: Yes Wheel 50 feet with 2 turns (QC: 6 Type: Manual Wheel 150 feet: 6 Type: Manual PT Plan Treatment/Plan Treatment Plan: Continue Plan of Care Treatment Plan: Bed Mobility, Education, Functional Activity Norah, Functional Strength, Group Therapy, Gait, Safety, Therapeutic Exercise, Transfers Treatment Duration: May 07, 2022 Frequency: At least 5 of 7 days/Wk (IRF) Estimated Hrs Per Day: 1.5 hours per day Patient and/or Family Agrees t: Yes Safety Risks/Education Patient Education: Gait Training, Transfer Techniques, Steps, Reviewed Precautions, Correct Positioning, Disease Process, Safety Issues Teaching Recipient: Patient Teaching Methods: Demonstration, Discussion Response to Teaching: Verbalize Understanding, Return Demonstration, Reinforcement Needed Time Time In: 1230 Time Out: 1300 DATE: Apr 12, 2022 Total Billed Treatment Time: 30 Total Billed Treatment 1,GT17m,FA13m THAI TREJO FIELD PARTY MANAGER Apr 12, 2022 12:56
[2022-04-12 20:00] VITALS: BP 124/58
[2022-04-13] MEDS: ACETAMINOPHEN 325 MG TABLET PO PRN ×2 (03:01→20:30)
[2022-04-13] MEDS: BETHANECHOL 25 MG (URECHOLINE) TAB PO SCH ×4 (06:14→20:30)
[2022-04-13] MEDS: inSUlin ASPART (NovoLOG) 1 UNIT/0.01 ML (CHARGE PER UNIT) SC SCH ×4 (06:19→20:37)
--- NOTE | 2022-04-13 06:40 | PM&R Progress Note ---
Subjective HPI/CC On Admission Date Seen by Provider: Apr 13, 2022 Time Seen by Provider: 12:00 04/04/2022: Doing well Lethargic from Ativan Pain controlled Voiding well now on Urecholine 04/03/2022: No major issues reported Less confusion Memory is poor overall Pain controlled No BM yet so ordered supp and SSE 04/02/2022: Doing well No pain except hip Rested well last night Labs reviewed No other issues No BM yet so aggressive laxatives ordered Subjective/Events-last exam 04/13/2022: Patient doing well No major concerns Poor memory recall 04/12/2022: No major issues Improved every day Pain controlled 04/11/2022: Improved overall No pain reported as long as not moving leg Cognition improved 04/10/2022: Improved overall High risk for skilled Daughters will look after her af DC Pain controlled 04/09/2022: Doing well Pain improved No falls Working with PT 04/08/2022: Much improved status Moving around pretty well No pain reported when she is sitting 04/07/2022: Patient doing well improved lucidity Supportive care will continue Monitoring closely 04/06/2022: No major issues Confusion at night Likely baseline dementia then acute issue brought to surface 04/05/2022: Doing well Improved status Pain controlled UTI treatment will be initiated 04/04/2022: No major issues Lethargy improved No pain reported 04/03/2022: No major issues reported Less confusion Memory is poor overall Pain controlled No BM yet so ordered supp and SSE 04/02/2022: Doing well No pain except hip Rested well last night Labs reviewed No other issues No BM yet so aggressive laxatives ordered Review of Systems General: Fatigue, Malaise Objective Exam Vital Signs Vital Signs Date Time Temp Pulse Resp B/P (MAP) Pulse Ox O2 Delivery O2 Flow Rate FiO2 04/13/22 09:00 98 Room Air 04/13/22 08:04 36.6 72 20 144/59 (87) 04/09/22 07:51 0.00 0.00 Capillary Refill : General Appearance: No Apparent Distress, WD/WN, Chronically ill HEENT: PERRL/EOMI, Normal ENT Inspection, Pharynx Normal Neck: Full Range of Motion, Normal Inspection, Non Tender, Supple, Carotid Bruit Respiratory: Chest Non Tender, Lungs Clear, Normal Breath Sounds, No Accessory Muscle Use, No Respiratory Distress Cardiovascular: Regular Rate, Rhythm, No Edema, No Gallop, No JVD, No Murmur, Normal Peripheral Pulses Gastrointestinal: Normal Bowel Sounds, No Organomegaly, No Pulsatile Mass, Non Tender, Soft Back: Normal Inspection, No CVA Tenderness, No Vertebral Tenderness Extremity: Normal Capillary Refill, Normal Inspection, Normal Range of Motion, Non Tender, No Calf Tenderness, No Pedal Edema Neurologic/Psychiatric: Alert, Oriented x3, Normal Mood/Affect, vice president medical affairs II-XII Norm as Tested, Abnormal Gait, Depressed Affect, Motor Weakness (right leg weakness) Skin: Normal Color, Warm/Dry Lymphatic: No Adenopathy Results/Procedures Lab Patient resulted labs reviewed. FIM Transfers Therapy Code Descriptions/Definitions Functional [place] Measure: 0=Not Assessed/NA 4=Minimal Assistance 1=Total Assistance 5=Supervision or Setup 2=Maximal Assistance 6=Modified [place] 3=Moderate Assistance 7=Complete IndependenceSCALE: Activities may be completed with or without assistive devices. 0-Gtcupjzzkz-qtqneym completes the activity by him/herself with no assistance from a helper. 5-Set-up or Clean-up Assistance-helper sets up or cleans up; patient completes activity. [place] assists only prior to or following the activity. 4-Supervision or Touching Assistance-helper provides verbal cues and/or touching/steadying and/or contact guard assistance as patient completes activity. Assistance may be provided throughout the activity or intermittently. 3-Partial/Moderate Assistance-helper does LESS THAN HALF the effort. [place] lifts, holds or supports trunk or limbs, but provides less than half the effort. 2-Substantial/Maximal Assistance-helper does MORE THAN HALF the effort. [place] lifts or holds trunk or limbs and provides more than half the effort. 2-Yighygpfv-zqouou does ALL the effort. Patient does none of the effort to complete the activity. Or, the assistance of 2 or more helpers is required for the patient to complete the activity. If activity was not attempted, code reason: 7-Patient Refused. 9-Not Applicable-not attempted and the patient did not perform the activity before the current illness, exacerbation or injury. 10-Not Attempted due to Environmental Limitations-(lack of equipment, weather restraints, etc.). 88-Not Attempted due to Medical Conditions or Safety Concerns. Roll Left to Right (QC): 6 Sit to Lying (QC): 6 Sit to Stand (QC): 6 Chair/Jtn-an-Sumzt Xfer(QC): 6 Car Transfer (QC): 4 Gait Training Does the Patient Walk?: Yes Distance: 80', 40' x2 Walk 10 feet (QC): 4 Walk 50 ft with 2 Turns(QC): 4 Walk 150 ft (QC): 88 Walking 10ft/uneven surface-QC: 8 Gait Persons Needed: 1 Gait Assistive Device: FWW Wheelchair Training Does the Pt Use a Wheelchair?: Yes Distance: 150 feet Wheel 50 ft with 2 turns (QC): 3 Wheel 150 ft (QC): 3 Type of Wheelchair: Manual Stair Training Stair Training: Handrails/: 2 handrails #of Steps: 4 1 Step (curb) (QC): 9 4 Steps (QC): 4 12 Steps (QC): 9 Stairs: Pattern: Step to Balance Picking up an Object (QC): 88 ADL-Treatment Eating (QC): 6 Oral Hygiene (QC): 4 Bathing Location: L Arm, R Arm, L Upper Leg, R Upper Leg, L Lower Leg (including foot), R Lower Leg (including foot), Chest, Abdomen, Perineal Area Shower/Bathe Self (QC): 4 Upper Body Dressing (QC): 5 Lower Body Dressing (QC): 5 On/Off Footwear (QC): 3 (mod A) Toileting Hygiene (QC): 6 Toilet Transfer (QC): 6 Assessment/Plan Assessment and Plan Assess & Plan/Chief Complaint Assessment: Right hip fracture status post uncomplicated repair 03/30/22 Hypertension Advanced age Diabetes Postop acute blood loss anemia requiring 1 unit of blood on 04/01/22 Postop constipation Frail status Navarro cath replaced due to urinary retention now DC and voiding well on Urecholine Post op hallucinations Abnormal UA s/p Cipro until UCx revealed normal bridget Plan: ARU Pain control Monitor hgb DC Ffoley when able Aggressive PT OT 04/02/2022: Laxatives Monitor closely 04/03/2022: Laxatives and supp and SSE 04/04/2022: Voiding well Monitor constipation 04/05/2022: UTI treatment 04/06/2022: Ucx pending 04/07/2022: Supportive care DC antibiotics 04/08/2022: Monitor closely 04/09/2022: Restart Lovenox 04/10/2022: Monitoring closely 04/11/2022: Improved 04/12/2022: Monitoring closely 04/13/2022: Supportive care (1) Closed right hip fracture Status: Acute BARB LARSON DO Apr 13, 2022 06:40
[2022-04-13 08:04] VITALS: BP 144/59
[2022-04-13] MEDS: ENOXAPARIN 40 MG/0.4 ML (LOVENOX) SYR SC SCH (08:56)
[2022-04-13] MEDS: SENNOSIDES 8.6 MG (SENOKOT) TAB PO SCH ×2 (08:56→20:38)
[2022-04-13] MEDS: lisINopril 20 MG (PRINIVIL) TABLET PO SCH (08:56)
[2022-04-13] MEDS: TAMSULOSIN 0.4 MG (FLOMAX) CAP PO SCH ×2 (08:56→20:30)
[2022-04-13] MEDS: polyethylene glycoL POWDER 17 GM (MIRALAX) PACK PO SCH ×2 (08:56→20:37)
[2022-04-13] MEDS: DOCUSATE SODIUM 100 MG (COLACE) CAP PO SCH ×2 (08:56→20:30)
--- NOTE | 2022-04-13 10:09 | Physical Therapy Daily Note ---
PT Daily Note-Current Subjective Agrees to Rx, Pain Location: No Pain Reported Section J - Health Conditions 1. Rarely or not at all 2. Occasionally 3. Frequently 4. Almost constantly 8. Unable to answer Pain Effect on Sleep: 2 Pain Interference with Therapy: 1 Pain Interference w/Day-to-Day: 1 Mental Status Patient Orientation: Normal For Age Transfers SCALE: Activities may be completed with or without assistive devices. 7-Fihvavjiqf-rmarwab completes the activity by him/herself with no assistance from a helper. 5-Set-up or Clean-up Assistance-helper sets up or cleans up; patient completes activity. [place] assists only prior to or following the activity. 4-Supervision or Touching Assistance-helper provides verbal cues and/or touching/steadying and/or contact guard assistance as patient completes activity. Assistance may be provided throughout the activity or intermittently. 3-Partial/Moderate Assistance-helper does LESS THAN HALF the effort. [place] lifts, holds or supports trunk or limbs, but provides less than half the effort. 2-Substantial/Maximal Assistance-helper does MORE THAN HALF the effort. [place] lifts or holds trunk or limbs and provides more than half the effort. 6-Pnyggjzba-fsgjfv does ALL the effort. Patient does none of the effort to complete the activity. Or, the assistance of 2 or more helpers is required for the patient to complete the activity. If activity was not attempted, code reason: 7-Patient Refused. 9-Not Applicable-not attempted and the patient did not perform the activity before the current illness, exacerbation or injury. 10-Not Attempted due to Environmental Limitations-(lack of equipment, weather restraints, etc.). 88-Not Attempted due to Medical Conditions or Safety Concerns. Sit to Stand (QC): 6 Weight Bearing Right Lower Extremity: Right Weight Bearing/Tolerated Left Lower Extremity: Left Full Weight Bearing Gait Training Gait Assistive Device: FWW gait 100ft x 3 FWW, no LOB, slow, antalgic Exercises Seated Therapy Exercises: Ankle pumps, Sit to stand, Long arc quads, Hip abd/add Seated Reps: 10 Assessment Current Status: Good Progress PT Short Term Goals Short Term Goals Time Frame: Apr 13, 2022 Roll Left & Right: 3 Sit to lyin Lying to sitting on side of be: 3 Sit to stand: 3 Chair/gvp-lu-jozrl transfer: 3 Toilet transfer: 3 Walk 10 feet: 3 PT Fpc Goals Fpc Goals PT Fpc Goals Time Frame: May 04, 2022 Roll Left & Right (QC): 5 Sit to Lying (QC): 5 Lying-Sitting on Side/Bed(QC): 5 Sit to Stand (QC): 5 Chair/Uwc-zz-Whjbh Xfer(QC): 5 Toilet Transfer (QC): 5 Car Transfer (QC): 5 Does the Patient Walk: Yes Walk 10 feet (QC): 4 Walk 50ft with 2 Turns (QC): 4 Walk 150 ft (QC): 4 Walking 10ft on Uneven Surface: 4 1 Step (curb) (QC): 3 4 Steps (QC): 9 12 Steps (QC): 9 Picking up an Object (QC): 4 Does the Pt use WC or Scooter?: Yes Wheel 50 feet with 2 turns (QC: 6 Type: Manual Wheel 150 feet: 6 Type: Manual PT Plan Treatment/Plan Treatment Plan: Continue Plan of Care Treatment Plan: Bed Mobility, Education, Functional Activity Norah, Functional Strength, Group Therapy, Gait, Safety, Therapeutic Exercise, Transfers Treatment Duration: May 07, 2022 Frequency: At least 5 of 7 days/Wk (IRF) Estimated Hrs Per Day: 1.5 hours per day Patient and/or Family Agrees t: Yes Safety Risks/Education Patient Education: Gait Training, Transfer Techniques Time Time In: 820 Time Out: 835 DATE: Apr 13, 2022 Total Billed Treatment Time: 15 Total Billed Treatment 1,GT15 THAI TREJO ROLL FORMING SUPERVISOR Apr 13, 2022 10:09
[2022-04-13 19:30] VITALS: BP 133/64
[2022-04-14] MEDS: ACETAMINOPHEN 325 MG TABLET PO PRN ×3 (04:15→20:47)
[2022-04-14] MEDS: inSUlin ASPART (NovoLOG) 1 UNIT/0.01 ML (CHARGE PER UNIT) SC SCH ×4 (06:44→20:48)
[2022-04-14] MEDS: BETHANECHOL 25 MG (URECHOLINE) TAB PO SCH ×4 (06:44→20:47)
[2022-04-14 07:30] VITALS: BP 122/62
--- NOTE | 2022-04-14 07:46 | PM&R Progress Note ---
Subjective HPI/CC On Admission Date Seen by Provider: Apr 14, 2022 Time Seen by Provider: 12:00 04/04/2022: Doing well Lethargic from Ativan Pain controlled Voiding well now on Urecholine 04/03/2022: No major issues reported Less confusion Memory is poor overall Pain controlled No BM yet so ordered supp and SSE 04/02/2022: Doing well No pain except hip Rested well last night Labs reviewed No other issues No BM yet so aggressive laxatives ordered Subjective/Events-last exam 04/14/2022: Patient doing well Pain is controlled Eating well Bowels are moving 04/13/2022: Patient doing well No major concerns Poor memory recall 04/12/2022: No major issues Improved every day Pain controlled 04/11/2022: Improved overall No pain reported as long as not moving leg Cognition improved 04/10/2022: Improved overall High risk for skilled Daughters will look after her af DC Pain controlled 04/09/2022: Doing well Pain improved No falls Working with PT 04/08/2022: Much improved status Moving around pretty well No pain reported when she is sitting 04/07/2022: Patient doing well improved lucidity Supportive care will continue Monitoring closely 04/06/2022: No major issues Confusion at night Likely baseline dementia then acute issue brought to surface 04/05/2022: Doing well Improved status Pain controlled UTI treatment will be initiated 04/04/2022: No major issues Lethargy improved No pain reported 04/03/2022: No major issues reported Less confusion Memory is poor overall Pain controlled No BM yet so ordered supp and SSE 04/02/2022: Doing well No pain except hip Rested well last night Labs reviewed No other issues No BM yet so aggressive laxatives ordered Review of Systems General: Fatigue, Malaise Objective Exam Vital Signs Vital Signs Date Time Temp Pulse Resp B/P (MAP) Pulse Ox O2 Delivery O2 Flow Rate FiO2 04/14/22 08:24 98 Room Air 04/14/22 07:30 36.5 76 20 122/62 (82) 04/09/22 07:51 0.00 0.00 Capillary Refill : General Appearance: No Apparent Distress, WD/WN, Chronically ill HEENT: PERRL/EOMI, Normal ENT Inspection, Pharynx Normal Neck: Full Range of Motion, Normal Inspection, Non Tender, Supple, Carotid Bruit Respiratory: Chest Non Tender, Lungs Clear, Normal Breath Sounds, No Accessory Muscle Use, No Respiratory Distress Cardiovascular: Regular Rate, Rhythm, No Edema, No Gallop, No JVD, No Murmur, Normal Peripheral Pulses Gastrointestinal: Normal Bowel Sounds, No Organomegaly, No Pulsatile Mass, Non Tender, Soft Back: Normal Inspection, No CVA Tenderness, No Vertebral Tenderness Extremity: Normal Capillary Refill, Normal Inspection, Normal Range of Motion, Non Tender, No Calf Tenderness, No Pedal Edema Neurologic/Psychiatric: Alert, Oriented x3, Normal Mood/Affect, scrub woman II-XII Norm as Tested, Abnormal Gait, Depressed Affect, Motor Weakness (right leg weakness) Skin: Normal Color, Warm/Dry Lymphatic: No Adenopathy Results/Procedures Lab Patient resulted labs reviewed. FIM Transfers Therapy Code Descriptions/Definitions Functional [place] Measure: 0=Not Assessed/NA 4=Minimal Assistance 1=Total Assistance 5=Supervision or Setup 2=Maximal Assistance 6=Modified [place] 3=Moderate Assistance 7=Complete IndependenceSCALE: Activities may be completed with or without assistive devices. 5-Uvdrgoggsk-swtdzhn completes the activity by him/herself with no assistance from a helper. 5-Set-up or Clean-up Assistance-helper sets up or cleans up; patient completes activity. [place] assists only prior to or following the activity. 4-Supervision or Touching Assistance-helper provides verbal cues and/or touching/steadying and/or contact guard assistance as patient completes activity. Assistance may be provided throughout the activity or intermittently. 3-Partial/Moderate Assistance-helper does LESS THAN HALF the effort. [place] lifts, holds or supports trunk or limbs, but provides less than half the effort. 2-Substantial/Maximal Assistance-helper does MORE THAN HALF the effort. [place] lifts or holds trunk or limbs and provides more than half the effort. 7-Iezffdmox-huuphx does ALL the effort. Patient does none of the effort to complete the activity. Or, the assistance of 2 or more helpers is required for the patient to complete the activity. If activity was not attempted, code reason: 7-Patient Refused. 9-Not Applicable-not attempted and the patient did not perform the activity before the current illness, exacerbation or injury. 10-Not Attempted due to Environmental Limitations-(lack of equipment, weather restraints, etc.). 88-Not Attempted due to Medical Conditions or Safety Concerns. Roll Left to Right (QC): 6 Sit to Lying (QC): 6 Sit to Stand (QC): 6 Chair/Rrm-vg-Vwhwg Xfer(QC): 6 Car Transfer (QC): 4 Gait Training Does the Patient Walk?: Yes Distance: 80', 40' x2 Walk 10 feet (QC): 4 Walk 50 ft with 2 Turns(QC): 4 Walk 150 ft (QC): 88 Walking 10ft/uneven surface-QC: 8 Gait Persons Needed: 1 Gait Assistive Device: FWW Wheelchair Training Does the Pt Use a Wheelchair?: Yes Distance: 150 feet Wheel 50 ft with 2 turns (QC): 3 Wheel 150 ft (QC): 3 Type of Wheelchair: Manual Stair Training Stair Training: Handrails/: 2 handrails #of Steps: 4 1 Step (curb) (QC): 9 4 Steps (QC): 4 12 Steps (QC): 9 Stairs: Pattern: Step to Balance Picking up an Object (QC): 88 ADL-Treatment Eating (QC): 6 Oral Hygiene (QC): 4 Bathing Location: L Arm, R Arm, L Upper Leg, R Upper Leg, L Lower Leg (including foot), R Lower Leg (including foot), Chest, Abdomen, Perineal Area Shower/Bathe Self (QC): 4 Upper Body Dressing (QC): 5 Lower Body Dressing (QC): 5 On/Off Footwear (QC): 3 (mod A) Toileting Hygiene (QC): 6 Toilet Transfer (QC): 6 Assessment/Plan Assessment and Plan Assess & Plan/Chief Complaint Assessment: Right hip fracture status post uncomplicated repair 03/30/22 Hypertension Advanced age Diabetes Postop acute blood loss anemia requiring 1 unit of blood on 04/01/22 Postop constipation Frail status Navarro cath replaced due to urinary retention now DC and voiding well on Urecholine Post op hallucinations Abnormal UA s/p Cipro until UCx revealed normal bridget Plan: ARU Pain control Monitor hgb DC Ffoley when able Aggressive PT OT 04/02/2022: Laxatives Monitor closely 04/03/2022: Laxatives and supp and SSE 04/04/2022: Voiding well Monitor constipation 04/05/2022: UTI treatment 04/06/2022: Ucx pending 04/07/2022: Supportive care DC antibiotics 04/08/2022: Monitor closely 04/09/2022: Restart Lovenox 04/10/2022: Monitoring closely 04/11/2022: Improved 04/12/2022: Monitoring closely 04/13/2022: Supportive care 04/14/2022: Supportive care (1) Closed right hip fracture Status: Acute BARB LARSON DO Apr 14, 2022 07:46
[2022-04-14] MEDS: polyethylene glycoL POWDER 17 GM (MIRALAX) PACK PO SCH ×2 (08:38→20:48)
[2022-04-14] MEDS: lisINopril 20 MG (PRINIVIL) TABLET PO SCH (08:41)
[2022-04-14] MEDS: SENNOSIDES 8.6 MG (SENOKOT) TAB PO SCH ×2 (08:41→20:47)
[2022-04-14] MEDS: ENOXAPARIN 40 MG/0.4 ML (LOVENOX) SYR SC SCH (08:41)
[2022-04-14] MEDS: TAMSULOSIN 0.4 MG (FLOMAX) CAP PO SCH ×2 (08:41→20:47)
[2022-04-14] MEDS: DOCUSATE SODIUM 100 MG (COLACE) CAP PO SCH ×2 (08:41→20:47)
[2022-04-14 19:53] VITALS: BP 118/58
[2022-04-15] MEDS: ACETAMINOPHEN 325 MG TABLET PO PRN ×3 (03:27→13:14)
--- NOTE | 2022-04-15 05:17 | PM&R Progress Note ---
Subjective HPI/CC On Admission Date Seen by Provider: Apr 15, 2022 Time Seen by Provider: 08:30 04/04/2022: Doing well Lethargic from Ativan Pain controlled Voiding well now on Urecholine 04/03/2022: No major issues reported Less confusion Memory is poor overall Pain controlled No BM yet so ordered supp and SSE 04/02/2022: Doing well No pain except hip Rested well last night Labs reviewed No other issues No BM yet so aggressive laxatives ordered Subjective/Events-last exam 04/15/2022: Improved status Ready for DC tomorrow No falls Pain controlled 04/14/2022: Patient doing well Pain is controlled Eating well Bowels are moving 04/13/2022: Patient doing well No major concerns Poor memory recall 04/12/2022: No major issues Improved every day Pain controlled 04/11/2022: Improved overall No pain reported as long as not moving leg Cognition improved 04/10/2022: Improved overall High risk for skilled Daughters will look after her af DC Pain controlled 04/09/2022: Doing well Pain improved No falls Working with PT 04/08/2022: Much improved status Moving around pretty well No pain reported when she is sitting 04/07/2022: Patient doing well improved lucidity Supportive care will continue Monitoring closely 04/06/2022: No major issues Confusion at night Likely baseline dementia then acute issue brought to surface 04/05/2022: Doing well Improved status Pain controlled UTI treatment will be initiated 04/04/2022: No major issues Lethargy improved No pain reported 04/03/2022: No major issues reported Less confusion Memory is poor overall Pain controlled No BM yet so ordered supp and SSE 04/02/2022: Doing well No pain except hip Rested well last night Labs reviewed No other issues No BM yet so aggressive laxatives ordered Review of Systems General: Fatigue, Malaise Objective Exam Vital Signs Vital Signs Date Time Temp Pulse Resp B/P (MAP) Pulse Ox O2 Delivery O2 Flow Rate FiO2 04/15/22 21:00 98 Room Air 04/15/22 20:37 36.8 72 16 136/62 (86) Capillary Refill : General Appearance: No Apparent Distress, WD/WN, Chronically ill HEENT: PERRL/EOMI, Normal ENT Inspection, Pharynx Normal Neck: Full Range of Motion, Normal Inspection, Non Tender, Supple, Carotid Bruit Respiratory: Chest Non Tender, Lungs Clear, Normal Breath Sounds, No Accessory Muscle Use, No Respiratory Distress Cardiovascular: Regular Rate, Rhythm, No Edema, No Gallop, No JVD, No Murmur, Normal Peripheral Pulses Gastrointestinal: Normal Bowel Sounds, No Organomegaly, No Pulsatile Mass, Non Tender, Soft Back: Normal Inspection, No CVA Tenderness, No Vertebral Tenderness Extremity: Normal Capillary Refill, Normal Inspection, Normal Range of Motion, Non Tender, No Calf Tenderness, No Pedal Edema Neurologic/Psychiatric: Alert, Oriented x3, Normal Mood/Affect, float nurse II-XII Norm as Tested, Abnormal Gait, Depressed Affect, Motor Weakness (right leg weakness) Skin: Normal Color, Warm/Dry Lymphatic: No Adenopathy Results/Procedures Lab Laboratory Tests 04/15/22 05:10 Patient resulted labs reviewed. FIM Transfers Therapy Code Descriptions/Definitions Functional [place] Measure: 0=Not Assessed/NA 4=Minimal Assistance 1=Total Assistance 5=Supervision or Setup 2=Maximal Assistance 6=Modified [place] 3=Moderate Assistance 7=Complete IndependenceSCALE: Activities may be completed with or without assistive devices. 2-Hphhjibszt-pzjvsua completes the activity by him/herself with no assistance from a helper. 5-Set-up or Clean-up Assistance-helper sets up or cleans up; patient completes activity. [place] assists only prior to or following the activity. 4-Supervision or Touching Assistance-helper provides verbal cues and/or touching/steadying and/or contact guard assistance as patient completes activity. Assistance may be provided throughout the activity or intermittently. 3-Partial/Moderate Assistance-helper does LESS THAN HALF the effort. [place] lifts, holds or supports trunk or limbs, but provides less than half the effort. 2-Substantial/Maximal Assistance-helper does MORE THAN HALF the effort. [place] lifts or holds trunk or limbs and provides more than half the effort. 1-Mrjvzofmt-vevzjl does ALL the effort. Patient does none of the effort to complete the activity. Or, the assistance of 2 or more helpers is required for the patient to complete the activity. If activity was not attempted, code reason: 7-Patient Refused. 9-Not Applicable-not attempted and the patient did not perform the activity before the current illness, exacerbation or injury. 10-Not Attempted due to Environmental Limitations-(lack of equipment, weather restraints, etc.). 88-Not Attempted due to Medical Conditions or Safety Concerns. Roll Left to Right (QC): 6 Sit to Lying (QC): 6 Sit to Stand (QC): 6 Chair/Mym-ud-Zspvl Xfer(QC): 6 Car Transfer (QC): 4 Gait Training Does the Patient Walk?: Yes Distance: 80', 40' x2 Walk 10 feet (QC): 4 Walk 50 ft with 2 Turns(QC): 4 Walk 150 ft (QC): 88 Walking 10ft/uneven surface-QC: 8 Gait Persons Needed: 1 Gait Assistive Device: FWW Wheelchair Training Does the Pt Use a Wheelchair?: Yes Distance: 150 feet Wheel 50 ft with 2 turns (QC): 3 Wheel 150 ft (QC): 3 Type of Wheelchair: Manual Stair Training Stair Training: Handrails/: 2 handrails #of Steps: 4 1 Step (curb) (QC): 9 4 Steps (QC): 4 12 Steps (QC): 9 Stairs: Pattern: Step to Balance Picking up an Object (QC): 88 ADL-Treatment Eating (QC): 6 Oral Hygiene (QC): 4 Bathing Location: L Arm, R Arm, L Upper Leg, R Upper Leg, L Lower Leg (including foot), R Lower Leg (including foot), Chest, Abdomen, Perineal Area Shower/Bathe Self (QC): 4 Upper Body Dressing (QC): 5 Lower Body Dressing (QC): 5 On/Off Footwear (QC): 3 (mod A) Toileting Hygiene (QC): 6 Toilet Transfer (QC): 6 Assessment/Plan Assessment and Plan Assess & Plan/Chief Complaint Assessment: Right hip fracture status post uncomplicated repair 03/30/22 Hypertension Advanced age Diabetes Postop acute blood loss anemia requiring 1 unit of blood on 04/01/22 Postop constipation Frail status Navarro cath replaced due to urinary retention now DC and voiding well on Urecholine Post op hallucinations Abnormal UA s/p Cipro until UCx revealed normal bridget Plan: ARU Pain control Monitor hgb DC Ffoley when able Aggressive PT OT 04/02/2022: Laxatives Monitor closely 04/03/2022: Laxatives and supp and SSE 04/04/2022: Voiding well Monitor constipation 04/05/2022: UTI treatment 04/06/2022: Ucx pending 04/07/2022: Supportive care DC antibiotics 04/08/2022: Monitor closely 04/09/2022: Restart Lovenox 04/10/2022: Monitoring closely 04/11/2022: Improved 04/12/2022: Monitoring closely 04/13/2022: Supportive care 04/14/2022: Supportive care 04/15/2022: DC home tomorrow (1) Closed right hip fracture Status: Acute BARB LARSON DO Apr 15, 2022 05:17
[2022-04-15 05:29] LABS: BASOPHILS % (AUTO) 0 % (0-10); EOSINOPHILS # (AUTO) 0.2 10^3/uL (0.0-0.3); EOSINOPHILS % (AUTO) 2 % (0-10); HEMATOCRIT 30 % (35-52); HEMOGLOBIN 9.4 g/dL (11.5-16.0); LYMPHOCYTES # (AUTO) 2.4 10^3/uL (1.0-4.0); LYMPHOCYTES % (AUTO) 33 % (12-44); MEAN CORPUSCULAR HEMOGLOBIN 30 pg (25-34); MEAN CORPUSCULAR HGB CONC 32 g/dL (32-36); MEAN CORPUSCULAR VOLUME 96 fL (80-99); MEAN PLATELET VOLUME 10.1 fL (9.0-12.2); MONOCYTES # (AUTO) 0.7 10^3/uL (0.0-1.0); MONOCYTES % (AUTO) 10 % (0-12); NEUTROPHILS # (AUTO) 3.9 10^3/uL (1.8-7.8); NEUTROPHILS % (AUTO) 54 % (42-75); PLATELET COUNT 192 10^3/uL (130-400); WHITE BLOOD COUNT 7.2 10^3/uL (4.3-11.0)
[2022-04-15 05:55] LABS: ALBUMIN 2.6 GM/DL (3.2-4.5); BILIRUBIN,TOTAL 0.6 MG/DL (0.1-1.0); CALCIUM 8.5 MG/DL (8.5-10.1); POTASSIUM 4.6 MMOL/L (3.6-5.0); TOTAL PROTEIN 5.6 GM/DL (6.4-8.2)
[2022-04-15] MEDS: inSUlin ASPART (NovoLOG) 1 UNIT/0.01 ML (CHARGE PER UNIT) SC SCH ×4 (06:07→20:43)
[2022-04-15] MEDS: BETHANECHOL 25 MG (URECHOLINE) TAB PO SCH ×4 (06:36→20:55)
[2022-04-15 07:20] VITALS: BP 125/58
--- NOTE | 2022-04-15 08:16 | Occupational Ther Daily Note ---
OT Current Status-Daily Note Subjective Pt alert, sitting in recliner. Pt agrees to therapy. Pt does not c/o pain but when asked she stated it was a 4/10, report to nrsg. Mental Status/Objective Patient Orientation: Person, Place, Time, Situation ADL-Treatment Pt agrees to shower. Independent with eating. Safety concerns for pt when in different environment or something is different during task (ie-pants, obstacle (toe gets caught in pants, shoe doesn't fit the first time)), pt is unable to problem solve when these difficulty arises. Set up for showering, safety concerns. Pt does demonstrate good FWW safety and no LOB when retrieving items from different levels though due to visual difficulty, pt requires verbal cues to find items. Set up for upper body, lower body and footwear dressing. S tanding at sink, completes oral care independently. Independent with toileting and toilet transfer. After therapy, pt sitting in recliner with call light/phone in reach. All needs met in room. Therapy Code Descriptions/Definitions Functional [place] Measure: 0=Not Assessed/NA 4=Minimal Assistance 1=Total Assistance 5=Supervision or Setup 2=Maximal Assistance 6=Modified [place] 3=Moderate Assistance 7=Complete IndependenceSCALE: Activities may be completed with or without assistive devices. 3-Cnqfckqvld-hobgmhc completes the activity by him/herself with no assistance from a helper. 5-Set-up or Clean-up Assistance-helper sets up or cleans up; patient completes activity. [place] assists only prior to or following the activity. 4-Supervision or Touching Assistance-helper provides verbal cues and/or touching/steadying and/or contact guard assistance as patient completes activity. Assistance may be provided throughout the activity or intermittently. 3-Partial/Moderate Assistance-helper does LESS THAN HALF the effort. [place] lifts, holds or supports trunk or limbs, but provides less than half the effort. 2-Substantial/Maximal Assistance-helper does MORE THAN HALF the effort. [place] lifts or holds trunk or limbs and provides more than half the effort. 6-Rmvhwrnmn-artamu does ALL the effort. Patient does none of the effort to complete the activity. Or, the assistance of 2 or more helpers is required for the patient to complete the activity. If activity was not attempted, code reason: 7-Patient Refused. 9-Not Applicable-not attempted and the patient did not perform the activity before the current illness, exacerbation or injury. 10-Not Attempted due to Environmental Limitations-(lack of equipment, weather restraints, etc.). 88-Not Attempted due to Medical Conditions or Safety Concerns. Eating (QC): 6 Oral Hygiene (QC): 6 Shower/Bathe Self (QC): 5 Upper Body Dressing (QC): 5 Lower Body Dressing (QC): 5 On/Off Footwear: 5 Toileting Hygiene (QC): 6 Toilet Transfer (QC): 6 No AE needed for dressing. Other Treatment Pt completed 3 B UE exercises 2 sets 15 reps using theraband to increase strength for daily functional activity. Skilled instruction required for correct technique and modifications when needed. BIMS CAM BIMS Expression of Ideas and Wants: Without Difficulty Understanding Verbal Content: Understands Brief Interview/Mental Status: Yes IRF ANTHONY BIMS: IRF ANTHONY BIMS Response (Comments) Value Repitition of Three Words Three 3 Recalls Socks Yes, No Cue Required 2 Recalls Blue Yes, No Cue Required 2 Recalls Bed Yes, No Cue Required 2 Year Correct 3 Month Accurate Within 5 Days 2 Day Correct 1 Total 15 Patient Normally Able to Recal: Current Session, Staff Names and faces, That he/she in a hsp Should Staff Asses. Mental St.: No CAM Mental Status Change/Baseline: 0 Inattention: 0 Disorganized thinkin Altered level of consciousness: 0 OT Short Term Goals Short Term Goals Time Frame: Apr 15, 2022 Eatin Oral hygiene: 4 Toileting hygiene: 4 Shower/bathe self: 4 Upper body dressin Lower body dressin Putting on/taking off footwear: 5 OT Metal Cut Off Saw Operator Goals Residential Goals Eating (QC): 6 (met) Oral Hygiene (QC): 6 (mt) Toileting Hygiene (QC): 6 (met) Shower/Bathe Self (QC): 6 (not met) Upper Body Dressing (QC): 6 (not met) Lower Body Dressing (QC): 6 (not met) On/Off Footwear (QC): 6 (not met) 1=Demonstrate adherence to instructed precautions during ADL tasks. 2=Patient will verbalize/demonstrate understanding of assistive devices/modifications for ADL. 3=Patient will improve strength/tolerance for activity to enable patient to perform ADL's. OT Education/Plan Problem List/Assessment Assessment: Decreased Activ Tolerance, Decreased Safety Aware, Impaired Self- Care Skills Discharge Recommendations Plan/Recommendations: Continue POC Treatment Plan/Plan of Care Patient would benefit from OT for education, treatment and training to promote independence in ADL's, mobility, safety and/or upper extremity function for ADL's. Plan of Care: ADL Retraining, Functional Mobility, Group Exercise/Act as Ind, Orthotic Fitting/Training, UE Funct Exercise/Act Treatment Duration: Apr 13, 2022 Frequency: 5 times per week Estimated Hrs Per Day: 1.5 hours per day Agreement: Yes Rehab Potential: Good Time Start Time: 07:00 Stop Time: 08:30 DATE: Apr 15, 2022 Total Time Billed (hr/min): 90 Billed Treatment Time 1 visit-ADL 5 (70 min) EX 1 (20 min) TOMEKA ENGLISH Apr 15, 2022 08:16
[2022-04-15] MEDS: TAMSULOSIN 0.4 MG (FLOMAX) CAP PO SCH ×2 (08:29→20:55)
[2022-04-15] MEDS: lisINopril 20 MG (PRINIVIL) TABLET PO SCH (08:30)
[2022-04-15] MEDS: ENOXAPARIN 40 MG/0.4 ML (LOVENOX) SYR SC SCH (08:30)
[2022-04-15] MEDS: polyethylene glycoL POWDER 17 GM (MIRALAX) PACK PO SCH ×2 (08:31→20:55)
[2022-04-15] MEDS: DOCUSATE SODIUM 100 MG (COLACE) CAP PO SCH ×2 (08:31→20:55)
[2022-04-15] MEDS: SENNOSIDES 8.6 MG (SENOKOT) TAB PO SCH ×2 (08:31→20:55)
--- NOTE | 2022-04-15 10:52 | Physical Therapy Daily Note ---
PT Daily Note-Current Subjective Patient in bedside chair pre tx, agrees to PT, has 6/10 pain in right leg, nurse notified Pain Section J - Health Conditions 1. Rarely or not at all 2. Occasionally 3. Frequently 4. Almost constantly 8. Unable to answer Pain Effect on Sleep: 2 Pain Interference with Therapy: 1 Pain Interference w/Day-to-Day: 1 Appearance Patient in bed post tx with nurse call, phone, tray, all needs met. Mental Status Patient Orientation: Person, Place, Situation Transfers SCALE: Activities may be completed with or without assistive devices. 6-Bzzbsonech-xrovpvm completes the activity by him/herself with no assistance from a helper. 5-Set-up or Clean-up Assistance-helper sets up or cleans up; patient completes activity. [place] assists only prior to or following the activity. 4-Supervision or Touching Assistance-helper provides verbal cues and/or touching/steadying and/or contact guard assistance as patient completes activity. Assistance may be provided throughout the activity or intermittently. 3-Partial/Moderate Assistance-helper does LESS THAN HALF the effort. [place] lifts, holds or supports trunk or limbs, but provides less than half the effort. 2-Substantial/Maximal Assistance-helper does MORE THAN HALF the effort. [place] lifts or holds trunk or limbs and provides more than half the effort. 6-Rhnhbixjf-oyzsve does ALL the effort. Patient does none of the effort to complete the activity. Or, the assistance of 2 or more helpers is required for the patient to complete the activity. If activity was not attempted, code reason: 7-Patient Refused. 9-Not Applicable-not attempted and the patient did not perform the activity before the current illness, exacerbation or injury. 10-Not Attempted due to Environmental Limitations-(lack of equipment, weather restraints, etc.). 88-Not Attempted due to Medical Conditions or Safety Concerns. Roll Left & Right (QC): 6 Sit to Lying (QC): 4 Lying to Sitting/Side of Bed(Q: 4 Sit to Stand (QC): 4 Chair/Szb-sg-Cdpkk Xfer(QC): 4 Toilet Transfer (QC): 4 Car Transfer (QC): 4 Patient performs rolling with independence, supine <-> sit with SBA, sit <-> stand and transfers SBA, car transfers SBA. Patient needs occasional cues for positioning and safety. Weight Bearing Right Lower Extremity: Right Weight Bearing/Tolerated Left Lower Extremity: Left Full Weight Bearing Gait Training Distance: 150'x2 Walk 10 feet (QC): 4 Walk 50 ft with 2 Turns(QC): 4 Walk 150 ft (QC): 4 Gait Persons Needed: 1 Gait Assistive Device: FWW Patient can ambulate 150' with a rolling walker with SBA (including 50' with at least 2 turns of 90 degrees and 10' over an uneven surface), gait is slow and antalgic, has a significant limp, decreased weight bearing on right leg. Wheelchair Training Wheel 50 ft with 2 turns (QC): 9 Wheel 150 ft (QC): 9 Stair Training Stair Training: Handrails/: 2 handrails #of Steps: 4 1 Step (curb) (QC): 4 4 Steps (QC): 4 12 Steps (QC): 88 Stairs: Pattern: Step to Patient can go up and down 4 steps using 2 handrails with CGA, cues for foot placement, has a lot of pain. Balance Picking up an Object (QC): 4 (SBA using a cheese sprayer) Exercises Standing: Hip Abduction, Heel/toe raises, Marching, Mini squats Standing Reps: 15 NuStep Minutes: 15 NuStep Workload: 4 Treatments bed mobility and transfers, ambulation, stair training, gait training, strengthening Assessment Current Status: Fair Progress needs frequent rest breaks due to fatigue and right hip pain. PT Short Term Goals Short Term Goals Time Frame: Apr 13, 2022 Roll Left & Right: 3 Sit to lyin Lying to sitting on side of be: 3 Sit to stand: 3 Chair/qkm-ti-qfnvu transfer: 3 Toilet transfer: 3 Walk 10 feet: 3 PT Correction Goals Vice President Investor Relations Goals PT Correction Goals Time Frame: May 04, 2022 Roll Left & Right (QC): 5 Sit to Lying (QC): 5 Lying-Sitting on Side/Bed(QC): 5 Sit to Stand (QC): 5 Chair/Bve-ax-Ewbic Xfer(QC): 5 Toilet Transfer (QC): 5 Car Transfer (QC): 5 Does the Patient Walk: Yes Walk 10 feet (QC): 4 Walk 50ft with 2 Turns (QC): 4 Walk 150 ft (QC): 4 Walking 10ft on Uneven Surface: 4 1 Step (curb) (QC): 3 4 Steps (QC): 9 12 Steps (QC): 9 Picking up an Object (QC): 4 Does the Pt use WC or Scooter?: Yes Wheel 50 feet with 2 turns (QC: 6 Type: Manual Wheel 150 feet: 6 Type: Manual PT Plan Problem List Problem List: Activity Tolerance, Functional Strength, Safety, Balance, Gait, Transfer, Bed Mobility, ROM Treatment/Plan Treatment Plan: Continue Plan of Care Treatment Plan: Bed Mobility, Education, Functional Activity [place], Functional Strength, Group Therapy, Gait, Safety, Therapeutic Exercise, Transfers Treatment Duration: May 07, 2022 Frequency: At least 5 of 7 days/Wk (IRF) Estimated Hrs Per Day: 1.5 hours per day Patient and/or Family Agrees t: Yes Safety Risks/Education Patient Education: Gait Training, Transfer Techniques, Steps, Correct Positioning, Safety Issues Teaching Recipient: Patient Teaching Methods: Demonstration, Discussion Response to Teaching: Reinforcement Needed Time Time In: 1000 Time Out: 1100 DATE: Apr 15, 2022 Total Billed Treatment Time: 60 Total Billed Treatment 1 visit EX 30' FA 30' TINO STAUFFER PT Apr 15, 2022 10:52
--- NOTE | 2022-04-15 13:57 | Physical Therapy Daily Note ---
PT Daily Note-Current Subjective Patient in bedside chair pre tx, agrees to PT, has unrated right hip pain. Pain Section J - Health Conditions 1. Rarely or not at all 2. Occasionally 3. Frequently 4. Almost constantly 8. Unable to answer Pain Effect on Sleep: 2 Pain Interference with Therapy: 1 Pain Interference w/Day-to-Day: 1 Appearance Patient in bed post tx with nurse call, phone, tray, all needs met. Mental Status Patient Orientation: Person, Place, Situation Transfers SCALE: Activities may be completed with or without assistive devices. 8-Qbqbvojkfu-bbgxiee completes the activity by him/herself with no assistance from a helper. 5-Set-up or Clean-up Assistance-helper sets up or cleans up; patient completes activity. Nathalie assists only prior to or following the activity. 4-Supervision or Touching Assistance-helper provides verbal cues and/or touching/steadying and/or contact guard assistance as patient completes acti vity. Assistance may be provided throughout the activity or intermittently. 3-Partial/Moderate Assistance-helper does LESS THAN HALF the effort. Nathalie lifts, holds or supports trunk or limbs, but provides less than half the effort. 2-Substantial/Maximal Assistance-helper does MORE THAN HALF the effort. Nathalie lifts or holds trunk or limbs and provides more than half the effort. 6-Fcikvguiu-udrrak does ALL the effort. Patient does none of the effort to complete the activity. Or, the assistance of 2 or more helpers is required for the patient to complete the activity. If activity was not attempted, code reason: 7-Patient Refused. 9-Not Applicable-not attempted and the patient did not perform the activity before the current illness, exacerbation or injury. 10-Not Attempted due to Environmental Limitations-(lack of equipment, weather restraints, etc.). 88-Not Attempted due to Medical Conditions or Safety Concerns. Roll Left & Right (QC): 6 Sit to Lying (QC): 6 Sit to Stand (QC): 6 Chair/Ueo-iy-Zlpni Xfer(QC): 6 Weight Bearing Right Lower Extremity: Right Weight Bearing/Tolerated Left Lower Extremity: Left Full Weight Bearing Gait Training Distance: 200', 120' Walk 10 feet (QC): 4 Walk 50 ft with 2 Turns(QC): 4 Walk 150 ft (QC): 4 Gait Persons Needed: 1 Gait Assistive Device: FWW SBA, has a significant limp, decreased weight bearing on right leg, good step through, very slow ambulation Exercises LAQ alternating for 5 min with 2# ankle weight on right leg Treatments bed mobility and transfers, ambulation, strengthening Assessment Current Status: Fair Progress improving general mobility PT Short Term Goals Short Term Goals Time Frame: Apr 13, 2022 Roll Left & Right: 3 Sit to lyin Lying to sitting on side of be: 3 Sit to stand: 3 Chair/bog-cq-exnzi transfer: 3 Toilet transfer: 3 Walk 10 feet: 3 PT Junior Project Coordinator Goals Junior Project Coordinator Goals PT Half-Way Goals Time Frame: May 04, 2022 Roll Left & Right (QC): 5 Sit to Lying (QC): 5 Lying-Sitting on Side/Bed(QC): 5 Sit to Stand (QC): 5 Chair/Iko-uz-Klrzy Xfer(QC): 5 Toilet Transfer (QC): 5 Car Transfer (QC): 5 Does the Patient Walk: Yes Walk 10 feet (QC): 4 Walk 50ft with 2 Turns (QC): 4 Walk 150 ft (QC): 4 Walking 10ft on Uneven Surface: 4 1 Step (curb) (QC): 3 4 Steps (QC): 9 12 Steps (QC): 9 Picking up an Object (QC): 4 Does the Pt use WC or Scooter?: Yes Wheel 50 feet with 2 turns (QC: 6 Type: Manual Wheel 150 feet: 6 Type: Manual PT Plan Problem List Problem List: Activity Tolerance, Functional Strength, Safety, Balance, Gait, Transfer, Bed Mobility, ROM Treatment/Plan Treatment Plan: Continue Plan of Care Treatment Plan: Bed Mobility, Education, Functional Activity Norah, Functional Strength, Group Therapy, Gait, Safety, Therapeutic Exercise, Transfers Treatment Duration: May 07, 2022 Frequency: At least 5 of 7 days/Wk (IRF) Estimated Hrs Per Day: 1.5 hours per day Patient and/or Family Agrees t: Yes Safety Risks/Education Patient Education: Gait Training, Transfer Techniques, Correct Positioning, Safety Issues Teaching Recipient: Patient Teaching Methods: Demonstration, Discussion Response to Teaching: Reinforcement Needed Time Time In: 1330 Time Out: 1400 DATE: Apr 15, 2022 Total Billed Treatment Time: 30 Total Billed Treatment 1 visit FA 30' TINO STAUFFER PT Apr 15, 2022 13:57
[2022-04-15 20:37] VITALS: BP 136/62
[2022-04-16] MEDS ORDERED: TRAM50TA3 PO (05:14)
--- NOTE | 2022-04-16 05:15 | D/C HH Face to Face Order ---
D/C HH Face to Face Orders Reconcile Patient Problems Problems Reviewed?: Yes Instructions for Patient HH Patient Instructions/FollowUp: pcp 1 week Physician to follow Patient: pcp Discharge Diet for Home: No Restrictions Patient Problems: hip fx Patient Data-Allergies,Ht & Wt Patient Allergies: Coded Allergies: No Known Drug Allergies (Unverified , 05/07/18) Height (Feet): 5 Height (Inches): 2.00 Weight (Pounds): 140 Home Health Need/Face to Face Date of Face to Face: Apr 16, 2022 Clinical Findings: Muscle weakness, Pain with ambulation I have seen Pt lqdo-jy-dvhu: Yes Discharged To: Home Diagnosis/Conditions: hip fx Patient is Homebound due to: Pain w/ambulation Homebound Status Due to the above stated illness, injury or surgical procedure (medical condition or diagnosis) and associated clinical findings, the patient is homebound because of his/her inability to leave home except with aid of a supportive device and/or person AND leaving the home requires a considerable and taxing effort or is medically contraindicated. Pt req the following assistanc: Walker Home Health Nursing Orders Home Health Services Order: Nursing Services, Manager Billing-Evaluate & Treat, Physical Therapy-Evaluate & Treat Certify Stmt I certify that this patient is under my care and that I, a nurse practitioner or a physician; a secretary administrative assistant working with me, had a face to face encounter that - meets the physician face to face encounter requirements with this patient as dated. BARB LARSON DO Apr 16, 2022 05:15
--- NOTE | 2022-04-16 05:16 | Discharge Summary ---
Diagnosis/Chief Complaint Date of Admission Apr 01, 2022 at 13:10 Date of Discharge Discharge Date: Apr 16, 2022 Discharge Diagnosis Assessment: Right hip fracture status post uncomplicated repair 03/30/22 Hypertension Advanced age Diabetes Postop acute blood loss anemia requiring 1 unit of blood on 04/01/22 Postop constipation Frail status Navarro cath replaced due to urinary retention now DC and voiding well on Ur echoline Post op hallucinations Abnormal UA s/p Cipro until UCx revealed normal bridget Plan: ARU Pain control Monitor hgb DC Ffoley when able Aggressive PT OT 04/02/2022: Laxatives Monitor closely 04/03/2022: Laxatives and supp and SSE 04/04/2022: Voiding well Monitor constipation 04/05/2022: UTI treatment 04/06/2022: Ucx pending 04/07/2022: Supportive care DC antibiotics 04/08/2022: Monitor closely 04/09/2022: Restart Lovenox 04/10/2022: Monitoring closely 04/11/2022: Improved 04/12/2022: Monitoring closely 04/13/2022: Supportive care 04/14/2022: Supportive care 04/15/2022: DC home tomorrow (1) Closed right hip fracture Status: Acute Discharge Summary Discharge Physical Examination Allergies: Coded Allergies: No Known Drug Allergies (Unverified , 05/07/18) Vitals & I&Os Vital Signs Date Time Temp Pulse Resp B/P (MAP) Pulse Ox O2 Delivery O2 Flow Rate FiO2 04/16/22 08:30 96 Room Air 04/16/22 07:45 36.7 75 18 115/70 (85) General Appearance: Alert, Oriented X3, Cooperative Respiratory: Clear to Auscultation Cardiovascular: Regular Rate, Normal S1, Normal S2 Psych/Mental Status: Mental Status NL Hospital Course Was the Problem List Reviewed?: Yes Uneventful course after she was moved from 4th floor to ARU following a fall and subsequent hip fracture. Overall she had a lengthy but uneventful course with slow recovery. Pain was controlled with minimal pain meds. Confusion was noted but it improved every day while in ARU. UA was checked and found to be abnl but final UCx revealed normal bridget so abx were stopped after empiric coverage. Overall she improved and was ready for DC with HH and help from her daughters and will have close f/u with PCP. Labs (last 24 hrs) Laboratory Tests 04/01/22 13:10: Lab Scanned Report Referred Lab Report 04/01/22 16:00: Glucometer 184H 04/01/22 20:09: Glucometer 247H 04/02/22 05:05: White Blood Count 9.1, Red Blood Count 3.21L, Hemoglobin 9.7#L, Hematocrit 29L, Mean Corpuscular Volume 89, Mean Corpuscular Hemoglobin 30, Mean Corpuscular Hemoglobin Concent 34, Red Cell Distribution Width 14.7H, Platelet Count 124L, Mean Platelet Volume 10.7, Immature Granulocyte % (Auto) 0, Neutrophils (%) (Au to) 59, Lymphocytes (%) (Auto) 25, Monocytes (%) (Auto) 13H, Eosinophils (%) (Auto) 2, Basophils (%) (Auto) 0, Neutrophils # (Auto) 5.3, Lymphocytes # (Auto) 2.3, Monocytes # (Auto) 1.2H, Eosinophils # (Auto) 0.2, Basophils # (Auto) 0.0, Immature Granulocyte # (Auto) 0.0, Percent Immature Platelet Fraction 4.9, Sodium Level 136, Potassium Level 4.0, Chloride Level 104, Carbon Dioxide Level 24, Anion Gap 8, Blood Urea Nitrogen 23H, Creatinine 0.81, Estimat Glomerular Filtration Rate 72, BUN/Creatinine Ratio 28, Glucose Level 140H, Calcium Level 8.5, Corrected Calcium 9.9, Total Bilirubin 1.6H, Aspartate Amino Transf (AST/SGOT) 22, Alanine Aminotransferase (ALT/SGPT) 20, Alkaline Phosphatase 71, Total Protein 5.2L, Albumin 2.3L 04/02/22 10:55: Glucometer 174H 04/02/22 15:55: Glucometer 149H 04/02/22 20:15: Glucometer 227H 04/03/22 06:17: Glucometer 137H 04/03/22 11:25: Glucometer 180H 04/03/22 16:13: Glucometer 214H 04/03/22 21:08: Glucometer 135H 04/04/22 05:50: Glucometer 107 04/04/22 10:45: Glucometer 120H 04/04/22 16:01: Glucometer 123H 04/04/22 20:08: Glucometer 136H 04/05/22 05:55: Glucometer 136H 04/05/22 07:00: Urine Color REDH, Urine Clarity CLOUDY, Urine pH 6.0, Urine Specific Batson >=1.030, Urine Protein 3+H, Urine Glucose (UA) NEGATIVE, Urine Ketones 1+H, Urine Nitrite POSITIVEH, Urine Bilirubin 2+H, Urine Urobilinogen 1.0, Urine Leukocyte Esterase 2+H, Urine RBC (Auto) 3+H, Urine RBC TNTCH, Urine WBC 50-100H , Urine Squamous Epithelial Cells 5-10, Urine Crystals NONE, Urine Bacteria FEWH , Urine Casts NONE, Urine Mucus NEGATIVE, Urine Culture Indicated YES 04/05/22 10:48: Glucometer 229H 04/05/22 15:11: Glucometer 125H 04/05/22 20:39: Glucometer 282H 04/06/22 06:32: Glucometer 151H 04/06/22 10:56: Glucometer 238H 04/06/22 15:17: Glucometer 241H 04/06/22 19:56: Glucometer 192H 04/07/22 05:36: Glucometer 177H 04/07/22 11:02: Glucometer 219H 04/07/22 15:11: Glucometer 227H 04/07/22 20:06: Glucometer 134H 04/08/22 05:15: White Blood Count 9.2, Red Blood Count 3.00L, Hemoglobin 8.8L, Hematocrit 28L, Mean Corpuscular Volume 93, Mean Corpuscular Hemoglobin 29, Mean Corpuscular Hemoglobin Concent 32, Red Cell Distribution Width 15.3H, Platelet Count 199, Mean Platelet Volume 10.2, Immature Granulocyte % (Auto) 1, Neutrophils (%) (Auto) 61, Lymphocytes (%) (Auto) 27, Monocytes (%) (Auto) 8, Eosinophils (%) (Auto) 3, Basophils (%) (Auto) 0, Neutrophils # (Auto) 5.6, Lymphocytes # (Auto) 2.5, Monocytes # (Auto) 0.7, Eosinophils # (Auto) 0.3, Basophils # (Auto) 0.0, Immature Granulocyte # (Auto) 0.1, Sodium Level 138, Potassium Level 4.1, Chloride Level 107, Carbon Dioxide Level 24, Anion Gap 7, Blood Urea Nitrogen 17, Creatinine 0.86, Estimat Glomerular Filtration Rate 67, BUN/Creatinine Ratio 20, Glucose Level 160H, Calcium Level 8.2L, Corrected Calcium 9.5, Total Bilirubin 0.7, Aspartate Amino Transf (AST/SGOT) 31, Alanine Aminotransferase (ALT/SGPT) 32, Alkaline Phosphatase 78, Total Protein 5.3L, Albumin 2.4L 04/08/22 11:39: Glucometer 282H 04/08/22 15:20: Glucometer 202H 04/08/22 20:47: Glucometer 260H 04/09/22 06:07: Glucometer 141H 04/09/22 10:48: Glucometer 191H 04/09/22 15:57: Glucometer 230H 04/09/22 20:23: Glucometer 172H 04/10/22 06:04: Glucometer 118H 04/10/22 10:48: Glucometer 189H 04/10/22 15:19: Glucometer 133H 04/10/22 20:19: Glucometer 285H 04/11/22 06:03: Glucometer 130H 04/11/22 10:48: Glucometer 159H 04/11/22 15:12: Glucometer 137H 04/11/22 20:50: Glucometer 241H 04/12/22 05:48: Glucometer 110 04/12/22 10:59: Glucometer 217H 04/12/22 15:44: Glucometer 142H 04/12/22 20:15: Glucometer 258H 04/13/22 06:17: Glucometer 110 04/13/22 10:46: Glucometer 135H 04/13/22 16:40: Glucometer 186H 04/13/22 20:02: Glucometer 170H 04/14/22 06:43: Glucometer 113H 04/14/22 11:13: Glucometer 174H 04/14/22 15:20: Glucometer 231H 04/14/22 20:17: Glucometer 183H 04/15/22 05:10: White Blood Count 7.2, Red Blood Count 3.09L, Hemoglobin 9.4L, Hematocrit 30L, Mean Corpuscular Volume 96, Mean Corpuscular Hemoglobin 30, Mean Corpuscular Hemoglobin Concent 32, Red Cell Distribution Width 17.1H, Platelet Count 192, Mean Platelet Volume 10.1, Immature Granulocyte % (Auto) 1, Neutrophils (%) (Auto) 54, Lymphocytes (%) (Auto) 33, Monocytes (%) (Auto) 10, Eosinophils (%) (Auto) 2, Basophils (%) (Auto) 0, Neutrophils # (Auto) 3.9, Lymphocytes # (Auto) 2.4, Monocytes # (Auto) 0.7, Eosinophils # (Auto) 0.2, Basophils # (Auto) 0.0, Immature Granulocyte # (Auto) 0.0, Sodium Level 139, Potassium Level 4.6, Chloride Level 107, Carbon Dioxide Level 24, Anion Gap 8, Blood Urea Nitrogen 25H, Creatinine 1.00, Estimat Glomerular Filtration Rate 56, BUN/Creatinine Rati o 25, Glucose Level 127H, Calcium Level 8.5, Corrected Calcium 9.6, Total Bilirubin 0.6, Aspartate Amino Transf (AST/SGOT) 26, Alanine Aminotransferase (ALT/SGPT) 27, Alkaline Phosphatase 112, Total Protein 5.6L, Albumin 2.6L 04/15/22 10:50: Glucometer 272H 04/15/22 15:11: Glucometer 187H 04/15/22 20:36: Glucometer 132H 04/16/22 05:52: Glucometer 129H Microbiology 04/05/22 Urine Culture - Final, Complete Gram Pos Mixed Bacterial Bridget See Comments Pending Labs Microbiology Date/Time Source Procedure Growth Status 04/05/22 07:00 Urine U Cath,Nos Urine Culture - Final Gram Pos Mixed Bacterial Bridget See Comments Complete Laboratory Tests 04/01/22 13:10: Lab Scanned Report Referred Lab Report 04/01/22 16:00: Glucometer 184 04/01/22 20:09: Glucometer 247 04/02/22 05:05: White Blood Count 9.1, Red Blood Count 3.21, Hemoglobin 9.7, Hematocrit 29, Mean Corpuscular Volume 89, Mean Corpuscular Hemoglobin 30, Mean Corpuscular Hemoglobin Concent 34, Red Cell Distribution Width 14.7, Platelet Count 124, Mean Platelet Volume 10.7, Immature Granulocyte % (Auto) 0, Neutrophils (%) (Auto) 59, Lymphocytes (%) (Auto) 25, Monocytes (%) (Auto) 13, Eosinophils (%) (Auto) 2, Basophils (%) (Auto) 0, Neutrophils # (Auto) 5.3, Lymphocytes # (Auto) 2.3, Monocytes # (Auto) 1.2, Eosinophils # (Auto) 0.2, Basophils # (Auto) 0.0, Immature Granulocyte # (Auto) 0.0, Percent Immature Platelet Fraction 4.9, Sodium Level 136, Potassium Level 4.0, Chloride Level 104, Carbon Dioxide Level 24, Anion Gap 8, Blood Urea Nitrogen 23, Creatinine 0.81, Estimat Glomerular Filtration Rate 72, BUN/Creatinine Ratio 28, Glucose Level 140, Calcium Level 8.5, Corrected Calcium 9.9, Total Bilirubin 1.6, Aspartate Amino Transf (AST/SGOT) 22, Alanine Aminotransferase (ALT/SGPT) 20, Alkaline Phosphatase 71, Total Protein 5.2, Albumin 2.3 04/02/22 10:55: Glucometer 174 04/02/22 15:55: Glucometer 149 04/02/22 20:15: Glucometer 227 04/03/22 06:17: Glucometer 137 04/03/22 11:25: Glucometer 180 04/03/22 16:13: Glucometer 214 04/03/22 21:08: Glucometer 135 04/04/22 05:50: Glucometer 107 04/04/22 10:45: Glucometer 120 04/04/22 16:01: Glucometer 123 04/04/22 20:08: Glucometer 136 04/05/22 05:55: Glucometer 136 04/05/22 07:00: Urine Color RED, Urine Clarity CLOUDY, Urine pH 6.0, Urine Specific Batson >=1.030, Urine Protein 3+, Urine Glucose (UA) NEGATIVE, Urine Ketones 1+, Urine Nitrite POSITIVE, Urine Bilirubin 2+, Urine Urobilinogen 1.0, Urine Leukocyte Esterase 2+, Urine RBC (Auto) 3+, Urine RBC TNTC, Urine WBC 50-100, Urine Squamous Epithelial Cells 5-10, Urine Crystals NONE, Urine Bacteria FEW, Urine Casts NONE, Urine Mucus NEGATIVE, Urine Culture Indicated YES 04/05/22 10:48: Glucometer 229 04/05/22 15:11: Glucometer 125 04/05/22 20:39: Glucometer 282 04/06/22 06:32: Glucometer 151 04/06/22 10:56: Glucometer 238 04/06/22 15:17: Glucometer 241 04/06/22 19:56: Glucometer 192 04/07/22 05:36: Glucometer 177 04/07/22 11:02: Glucometer 219 04/07/22 15:11: Glucometer 227 04/07/22 20:06: Glucometer 134 04/08/22 05:15: White Blood Count 9.2, Red Blood Count 3.00, Hemoglobin 8.8, Hematocrit 28, Mean Corpuscular Volume 93, Mean Corpuscular Hemoglobin 29, Mean Corpuscular Hemoglobin Concent 32, Red Cell Distribution Width 15.3, Platelet Count 199, Mean Platelet Volume 10.2, Immature Granulocyte % (Auto) 1, Neutrophils (%) (Auto) 61, Lymphocytes (%) (Auto) 27, Monocytes (%) (Auto) 8, Eosinophils (%) (Auto) 3, Basophils (%) (Auto) 0, Neutrophils # (Auto) 5.6, Lymphocytes # (Auto) 2.5, Monocytes # (Auto) 0.7, Eosinophils # (Auto) 0.3, Basophils # (Auto) 0.0, Immature Granulocyte # (Auto) 0.1, Sodium Level 138, Potassium Level 4.1, Chloride Level 107, Carbon Dioxide Level 24, Anion Gap 7, Blood Urea Nitrogen 17, Creatinine 0.86, Estimat Glomerular Filtration Rate 67, BUN/Creatinine Ratio 20, Glucose Level 160, Calcium Level 8.2, Corrected Calcium 9.5, Total Bilirubin 0.7, Aspartate Amino Transf (AST/SGOT) 31, Alanine Aminotransferase (ALT/SGPT) 32, Alkaline Phosphatase 78, Total Protein 5.3, Albumin 2.4 04/08/22 11:39: Glucometer 282 04/08/22 15:20: Glucometer 202 04/08/22 20:47: Glucometer 260 04/09/22 06:07: Glucometer 141 04/09/22 10:48: Glucometer 191 04/09/22 15:57: Glucometer 230 04/09/22 20:23: Glucometer 172 04/10/22 06:04: Glucometer 118 04/10/22 10:48: Glucometer 189 04/10/22 15:19: Glucometer 133 04/10/22 20:19: Glucometer 285 04/11/22 06:03: Glucometer 130 04/11/22 10:48: Glucometer 159 04/11/22 15:12: Glucometer 137 04/11/22 20:50: Glucometer 241 04/12/22 05:48: Glucometer 110 04/12/22 10:59: Glucometer 217 04/12/22 15:44: Glucometer 142 04/12/22 20:15: Glucometer 258 04/13/22 06:17: Glucometer 110 04/13/22 10:46: Glucometer 135 04/13/22 16:40: Glucometer 186 04/13/22 20:02: Glucometer 170 04/14/22 06:43: Glucometer 113 04/14/22 11:13: Glucometer 174 04/14/22 15:20: Glucometer 231 04/14/22 20:17: Glucometer 183 04/15/22 05:10: White Blood Count 7.2, Red Blood Count 3.09, Hemoglobin 9.4, Hematocrit 30, Mean Corpuscular Volume 96, Mean Corpuscular Hemoglobin 30, Mean Corpuscular Hemoglobin Concent 32, Red Cell Distribution Width 17.1, Platelet Count 192, Mean Platelet Volume 10.1, Immature Granulocyte % (Auto) 1, Neutrophils (%) (Auto) 54, Lymphocytes (%) (Auto) 33, Monocytes (%) (Auto) 10, Eosinophils (%) (Auto) 2, Basophils (%) (Auto) 0, Neutrophils # (Auto) 3.9, Lymphocytes # (Auto) 2.4, Monocytes # (Auto) 0.7, Eosinophils # (Auto) 0.2, Basophils # (Auto) 0.0, Immature Granulocyte # (Auto) 0.0, Sodium Level 139, Potassium Level 4.6, Chloride Level 107, Carbon Dioxide Level 24, Anion Gap 8, Blood Urea Nitrogen 25, Creatinine 1.00, Estimat Glomerular Filtration Rate 56, BUN/Creatinine Ratio 25, Glucose Level 127, Calcium Level 8.5, Corrected Calcium 9.6, Total Bilirubin 0.6, Aspartate Amino Transf (AST/SGOT) 26, Alanine Aminotransferase (ALT/SGPT) 27, Alkaline Phosphatase 112, Total Protein 5.6, Albumin 2.6 04/15/22 10:50: Glucometer 272 04/15/22 15:11: Glucometer 187 04/15/22 20:36: Glucometer 132 04/16/22 05:52: Glucometer 129 Discharge Home Medications: Active Scripts Active Tramadol HCl 50 Mg Tablet 50 Mg PO BID PRN Reported Lisinopril 20 Mg Tablet 20 Mg PO DAILY Atorvastatin Calcium 80 Mg Tablet 80 Mg PO HS Gabapentin 100 Mg Capsule 100 Mg PO BID PRN Aspirin EC (Aspirin) 81 Mg Tablet.dr 81 Mg PO DAILY Instructions to patient/family Please see electronic discharge instructions given to patient. Diagnosis/Problems Diagnosis/Problems (1) Closed right hip fracture Status: Acute Clinical Quality Measures DVT/VTE Risk/Contraindication: Contraindications-Pharm: Other *list below* Other: surgery BARB LARSON DO Apr 16, 2022 05:16
[2022-04-16] MEDS: inSUlin ASPART (NovoLOG) 1 UNIT/0.01 ML (CHARGE PER UNIT) SC SCH (05:59)
[2022-04-16] MEDS: BETHANECHOL 25 MG (URECHOLINE) TAB PO SCH ×2 (06:15→10:15)
[2022-04-16 07:45] VITALS: BP 115/70
[2022-04-16] MEDS: ENOXAPARIN 40 MG/0.4 ML (LOVENOX) SYR SC SCH (07:46)
[2022-04-16] MEDS: lisINopril 20 MG (PRINIVIL) TABLET PO SCH (07:47)
[2022-04-16] MEDS: SENNOSIDES 8.6 MG (SENOKOT) TAB PO SCH (07:47)
[2022-04-16] MEDS: TAMSULOSIN 0.4 MG (FLOMAX) CAP PO SCH (07:47)
[2022-04-16] MEDS: DOCUSATE SODIUM 100 MG (COLACE) CAP PO SCH (07:47)
[2022-04-16] MEDS: polyethylene glycoL POWDER 17 GM (MIRALAX) PACK PO SCH (08:14)
[2022-04-16] MEDS: ACETAMINOPHEN 325 MG TABLET PO PRN (10:16)
--- NOTE | 2022-04-16 11:17 | Therapy Team Discharge Summary ---
Therapy Discharge Summary Discharge Recommendations Date of Discharge Physical Therapy Patient came to rehab post right femur fx repair. Upon evaluation patient performed rolling and supine <-> sit with max assist, sit <-> stand and transfers max assist, car transfer max assist, ambulated 5' with a rolling walker, and propelled a manual WC 150' with min assist. Patient has been performing bed mobility and transfer training, balance and endurance training, functional strengthening, stair training, gait training, and education. 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 Now, patient performs rolling with independence, supine <-> sit with SBA, sit <-> stand and transfers SBA, car transfers SBA, ambulate 150' with a rolling walker with SBA (including 50' with at least 2 turns of 90 degrees and 10' over an uneven surface), can go up and down 4 steps using 2 handrails with CGA, and can citrus picker an object from the floor using a beauty sales advisor with CGA. Patient is being discharged from this facility today and will be discharged from PT at this time. Roll Left to Right (QC): 6 Sit to Lying (QC): 6 Lying to Sitting/Side of Bed(Q: 4 Sit to Stand (QC): 6 Chair/Krn-hu-Pgylg Xfer(QC): 6 Toilet Transfer (QC): 5 Car Transfer (QC): 4 Does the Patient Walk: Yes Mode of Locomotion: Both Anticipated Mode of Locomotion: Both Walk 10 feet (QC): 4 Walk 50 ft with 2 Turns(QC): 4 Walk 150 ft (QC): 4 Walking 10ft on uneven surface: 8 Distance: 5 feet Gait Assistive Device: FWW Does the Pt Use a Wheelchair: Yes Wheelchair Distance: 150 feet Wheel 50 ft with 2 turns (QC): 9 Wheel 150 ft (QC): 9 Type of Wheelchair: Manual #of Steps: 4 1 Step (curb) (QC): 4 4 Steps (QC): 4 12 Steps (QC): 88 Balance Sitting Static: Fair Balance Sitting Dynamic: Poor Balance-Standing Static: Poor Picking up an Object (QC): 4 (SBA using a beauty sales advisor) Occupational Therapy Decreased Activ Tolerance, Decreased Safety Aware, Impaired Self-Care Skills Eating (QC): 6 Oral Hygiene (QC): 6 Shower/Bathe Self (QC): 5 Upper Body Dressing (QC): 5 Lower Body Dressing (QC): 5 On/Off Footwear (QC): 5 Toileting Hygiene (QC): 6 PT Retirement Goals Retirement Goals PT Retirement Goals Time Frame: May 04, 2022 Roll Left to Right (QC): 5 Sit to Lying (QC): 5 Lying-Sitting on Side/Bed(QC): 5 Sit to Stand (QC): 5 Chair/Sjs-qm-Frogw Xfer(QC): 5 Toilet/Commode Transfer (QC): 5 Car Transfer (QC): 5 Does the Patient Walk: Yes Walk 10 feet (QC): 4 Walk 10ft-Uneven Surface(QC): 4 Walk 50ft with 2 Turns (QC): 4 Walk 150 ft (QC): 4 Does the Pt use WC or Scooter?: Yes Wheel 50 feet with 2 turns (QC: 6 Type: Manual Wheel 150 feet: 6 Type: Manual 1 Step (curb) (QC): 3 4 Steps (QC): 9 12 Steps (QC): 9 Picking up an Object (QC): 4 OT Retirement Goals Retirement Goals Acute change in mental status: 0 Inattention: 0 Disorganized thinkin Altered level of consciousness: 0 Eating (QC): 6 (met) Oral Hygiene (QC): 6 (mt) Toileting Hygiene (QC): 6 (met) Shower/Bathe Self (QC): 6 (not met) Upper Body Dressing (QC): 6 (not met) Lower Body Dressing (QC): 6 (not met) On/Off Footwear (QC): 6 (not met) 1=Demonstrate adherence to instructed precautions during ADL tasks. 2=Patient will verbalize/demonstrate understanding of assistive devices/modifications for ADL. 3=Patient will improve strength/tolerance for activity to enable patient to perform ADL's. TINO STAUFFER PT Apr 16, 2022 11:17
--- NOTE | 2022-04-16 13:34 | Therapy Team Discharge Summary ---
Therapy Discharge Summary Discharge Recommendations Date of Discharge Apr 16, 2022 at 10:30 Physical Therapy Roll Left to Right (QC): 6 Sit to Lying (QC): 6 Lying to Sitting/Side of Bed(Q: 4 Sit to Stand (QC): 6 Chair/Huz-yy-Goika Xfer(QC): 6 Toilet Transfer (QC): 5 Car Transfer (QC): 4 Does the Patient Walk: Yes Mode of Locomotion: Both Anticipated Mode of Locomotion: Both Walk 10 feet (QC): 4 Walk 50 ft with 2 Turns(QC): 4 Walk 150 ft (QC): 4 Walking 10ft on uneven surface: 8 Distance: 5 feet Gait Assistive Device: FWW Does the Pt Use a Wheelchair: Yes Wheelchair Distance: 150 feet Wheel 50 ft with 2 turns (QC): 9 Wheel 150 ft (QC): 9 Type of Wheelchair: Manual #of Steps: 4 1 Step (curb) (QC): 4 4 Steps (QC): 4 12 Steps (QC): 88 Balance Sitting Static: Fair Balance Sitting Dynamic: Poor Balance-Standing Static: Poor Picking up an Object (QC): 4 (SBA using a [employer]) Occupational Therapy Pt admitted to [facility] s/p R hip fx. At OF, pt was independent with ADLs with family checking in throughout the day. Upon initial evaluation, pt required set up with eating and oral care, total assist footwear, min A UE dressing, and max A showering, LE dressing and toileting. OT tx focused on increasing BUE strength and activity tolerance, and increasing safety and independence with ADLS and functional mobility. Pt made good progress towards goals, attaining set up to IND level with all ADLs, although some safety concerns are noted especially in new situations. Pt attained LTGs for eating, oral care and toileting. Pt discharged from facility, d/c from OT. Decreased Activ Tolerance, Decreased Safety Aware, Impaired Self-Care Skills Eating (QC): 6 Oral Hygiene (QC): 6 Shower/Bathe Self (QC): 5 Upper Body Dressing (QC): 5 Lower Body Dressing (QC): 5 On/Off Footwear (QC): 5 Toileting Hygiene (QC): 6 PT Mcc Goals Rail Loader Goals PT Mcc Goals Time Frame: May 04, 2022 Roll Left to Right (QC): 5 Sit to Lying (QC): 5 Lying-Sitting on Side/Bed(QC): 5 Sit to Stand (QC): 5 Chair/Ioz-zp-Vcqef Xfer(QC): 5 Toilet/Commode Transfer (QC): 5 Car Transfer (QC): 5 Does the Patient Walk: Yes Walk 10 feet (QC): 4 Walk 10ft-Uneven Surface(QC): 4 Walk 50ft with 2 Turns (QC): 4 Walk 150 ft (QC): 4 Does the Pt use WC or Scooter?: Yes Wheel 50 feet with 2 turns (QC: 6 Type: Manual Wheel 150 feet: 6 Type: Manual 1 Step (curb) (QC): 3 4 Steps (QC): 9 12 Steps (QC): 9 Picking up an Object (QC): 4 OT Rail Loader Goals Rail Loader Goals Acute change in mental status: 0 Inattention: 0 Disorganized thinkin Altered level of consciousness: 0 Eating (QC): 6 (met) Oral Hygiene (QC): 6 (mt) Toileting Hygiene (QC): 6 (met) Shower/Bathe Self (QC): 6 (not met) Upper Body Dressing (QC): 6 (not met) Lower Body Dressing (QC): 6 (not met) On/Off Footwear (QC): 6 (not met) 1=Demonstrate adherence to instructed precautions during ADL tasks. 2=Patient will verbalize/demonstrate understanding of assistive devices/modifications for ADL. 3=Patient will improve strength/tolerance for activity to enable patient to perform ADL's. MERLE FRIED OT Apr 16, 2022 13:34
== END 2022-04-16 10:30 | disposition home health service (06) | DRG 560 ==
PROVIDERS: ADMIT Internal Medicine; ATTEND Internal Medicine
DX: S72.141D Displaced intertrochanteric fracture of right femur, subsequent encounter for closed fracture with routine healing (principal); D62 Acute posthemorrhagic anemia; R44.2 Other hallucinations; R33.9 Retention of urine, unspecified; K59.09 Other constipation; R26.9 Unspecified abnormalities of gait and mobility; R53.81 Other malaise; R53.1 Weakness; R41.0 Disorientation, unspecified; F41.9 Anxiety disorder, unspecified; F32.A Depression, unspecified; E11.40 Type 2 diabetes mellitus with diabetic neuropathy, unspecified; I10 Essential (primary) hypertension; Z87.891 Personal history of nicotine dependence
CPT/HCPCS: 36415; 80053; 81000; 82947; 85025; 87088; 94760

== ENCOUNTER → 2022-05-14 | Outpatient (CLI) | payer MEDICARE, MEDICAID ==
--- NOTE | 2022-05-14 18:07 | Diagnostic Imaging Report ---
INDICATION: Right hip pain AP and oblique views of the right hip are obtained. Comparison is made to 03/29/2022. Compared to the prior study, there has been ORIF of intertrochanteric fracture right proximal femur, with hardware in place in the femoral neck and proximal shaft. There are signs of ongoing healing of the fracture fragments with anatomic alignment. Avulsion of the lesser trochanter noted. IMPRESSION: Well-aligned intertrochanteric fracture of right proximal femur, status post ORIF. Dictated by: Dictated on workstation # [id number]
== END ==
LOC: ORTHO 08:42
PROVIDERS: ATTEND Orthopaedic Surgery
DX: Z09 Encounter for follow-up examination after completed treatment for conditions other than malignant neoplasm (principal); S72.91XA Unspecified fracture of right femur, initial encounter for closed fracture; X58.XXXA Exposure to other specified factors, initial encounter
CPT/HCPCS: 73502

== ENCOUNTER → 2022-06-25 | Outpatient (CLI) | payer MEDICARE, MEDICAID ==
--- NOTE | 2022-06-25 16:38 | Diagnostic Imaging Report ---
INDICATION: Right hip pain. TIME OF EXAM: 2:49 PM. FINDINGS: Two views of the right hip demonstrate an intramedullary larisa and compression screw transfixing the right hip. The femoroacetabular alignment is normal. Hardware is intact. Overall appearance is similar to the examination from 05/14/2022. No new abnormality is identified. IMPRESSION: Satisfactory postop right hip. No acute feature is detected. Dictated by: Dictated on workstation # [id number]
== END ==
LOC: RAD FS 14:31
PROVIDERS: ATTEND Orthopaedic Surgery
DX: M25.551 Pain in right hip (principal); Z98.890 Other specified postprocedural states
CPT/HCPCS: 73502